=== PATIENT | male | born 1960 | race Caucasian/White ===

== ENCOUNTER 2022-09-01 16:28 | Outpatient (REF) | payer OTHER, SELFPAY ==
--- NOTE | ~2022-09-01 | XR_ITS ---
EXAMINATION: XR FOOT, RIGHT CLINICAL INFORMATION: Right-sided foot pain. COMPARISON: None TECHNIQUE: 3 views of the right foot. FINDINGS: No fracture. No dislocation. No focal bone lesion or abnormal periosteal reaction. Mild degenerative joint narrowing DIP joints of the toes. There is also joint narrowing of the first metatarsal phalangeal joint with small marginal bone spur. Joint narrowing between navicular and cuneiforms with joint narrowing and marginal bone spurs. Moderate-sized plantar calcaneal spur. No soft tissue abnormality. XR/XR foot RT min 3V IMPRESSION: 1. No acute abnormality. 2. Degenerative change of the foot. 3. Plantar calcaneal spur.
--- NOTE | ~2022-09-01 | XR_ITS ---
EXAMINATION: XR FOOT, LEFT CLINICAL INFORMATION: Left foot pain. COMPARISON: None TECHNIQUE: 3 views of the left foot. FINDINGS: No fracture. No dislocation. No focal bone lesion or abnormal periosteal reaction. Mild joint narrowing of the IP joint of the toes. There are no focal bone lesions or bone erosions. Small plantar calcaneal spur. No soft tissue abnormality. XR/XR foot LT min 3V IMPRESSION: 1. No acute abnormality. 2. Mild degenerative change of the IP joint of the toes. 3. Small plantar calcaneal spur
== END 2022-09-01 16:29 | disposition home or self-care (01) ==
LOC: HO.HMGCX 16:28
PROVIDERS: PCP Family Medicine; Visit Provider Physician Assistant Surgical
DX: M79.671 Pain in right foot (principal); M79.672 Pain in left foot
CPT/HCPCS: 73630

== ENCOUNTER 2022-10-28 14:42 | Outpatient (REF) | payer OTHER, SELFPAY ==
[2022-10-28 16:26] LABS: MANUAL DIFF FLAG NO
[2022-10-28 16:28] LABS: Basophils Absolute Auto 0.1 X10*3/uL (0.0-0.2); Basophils Percent Auto 0.9 % (0-2); Eosinophils Absolute Auto 0.2 X10*3/uL (0.0-0.4); Eosinophils Percent Auto 2.2 % (0-4); Hematocrit 40.7 % (42.0-52.0); Hemoglobin 13.4 g/dl (14.0-18.0); Imm Gran Abs Auto 0.03 X10*3/uL (0.00-0.03); Imm Gran Pct Auto 0.4 % (0.0-0.4); Lymphocytes Percent Auto 24.5 % (20-40); Mean Corpuscular HGB Conc 32.9 g/dl (31.0-36.0); Mean Corpuscular Hemoglobin 30.1 pg (27.0-33.0); Mean Corpuscular Volume 91.5 fL (80.0-98.0); Mean Platelet Volume 10.7 fL (9.4-12.4); Monocytes Absolute Auto 0.7 X10*3/uL (0.1-1.2); Monocytes Percent Auto 8.9 % (2-11); Neutrophils Absolute Auto 5.1 x10*3/uL (2.0-8.3); Neutrophils Percent Auto 63.1 % (45-73); Platelet Count 246 X10*3/uL (160-400); Red Blood Count 4.45 X10*6/uL (4.60-5.80); Red Cell Distribution Width 14.3 % (11.0-16.0); White Blood Count 8.1 X10*3/uL (4.8-10.8)
[2022-10-28 17:14] LABS: Alanine Aminotransferase 39 U/L (0-40); Albumin Level 4.1 g/dL (3.5-5.0); Alkaline Phosphatase 88 U/L (39-117); Anion Gap 12 (12-20); Aspartate Amino Transferase 32 U/L (5-37); Blood Urea Nitrogen 11 mg/dL (9-16); Calcium 8.9 mg/dL (8.4-10.2); Carbon Dioxide 27 mmol/L (22-29); Chloride 103 mmol/L (96-108); Cholesterol 209 mg/dL; Estimated Glomerular Filt Rate > 60; Glucose Random 90 mg/dL (60-115); HDL Cholesterol 62 mg/dL; LDL Cholesterol Calculated 139 mg/dl; Potassium 4.1 mmol/L (3.3-5.1); Sodium 138 mmol/L (135-145); Total Protein 6.6 g/dL (6.5-8.0); Triglycerides 42 mg/dL
[2022-10-28 17:28] LABS: Prostate Specific Antigen Scr 0.87 ng/mL (<0.05-4.0)
== END 2022-10-28 14:43 | disposition home or self-care (01) ==
LOC: HO.HMGCLDS 14:42
PROVIDERS: PCP Family Medicine; Visit Provider Family Medicine
DX: Z12.5 Encounter for screening for malignant neoplasm of prostate (principal); I26.99 Other pulmonary embolism without acute cor pulmonale; R35.0 Frequency of micturition; B35.1 Tinea unguium
CPT/HCPCS: 36415; 80053; 80061; 84153; 85025

== ENCOUNTER → 2022-12-22 13:47 | Outpatient (BNVA) | payer OTHER, SELFPAY | PROVIDERS: PCP Family Medicine; Visit Provider Urology | DX: R35.0 Frequency of micturition (principal); R35.1 Nocturia | CPT/HCPCS: 51798 ==

== ENCOUNTER 2023-01-31 13:53 | Outpatient (REF) | payer OTHER, SELFPAY ==
--- NOTE | ~2023-01-31 | US_ITS ---
EXAMINATION: US RETROPERITONEAL LIMITED (RENAL ONLY) CLINICAL INFORMATION: Frequency of micturition. COMPARISON: None available. TECHNIQUE: Routine grayscale imaging of kidneys performed. FINDINGS: RIGHT KIDNEY: 14.2 x 4.0 x 6.3 cm cm (SAG x AP x TRV). The kidney is normal in size, contour, and echogenicity. Renal cortical thickness is normal. No calculi or focal parenchymal lesions. No hydronephrosis. There is an extrarenal kidney pelvis. LEFT KIDNEY: 13.4 x 5.5 x 5.6 cm (SAG x AP x TRV). The kidney is normal in size, contour, and echogenicity. Renal cortical thickness is normal. There several echogenic stones seen. A lower pole echogenic stones measure 1.5 x 0.3 x 0.6 and 0.2 x 0.2 x 0.3 cm. Midpole stone measures 0.4 x 0.3 x 0.3). No caliectasis or hydronephrosis seen. US/US renal BI IMPRESSION: Multiple echogenic stones left kidney with mild hydronephrosis. Unremarkable right kidney except extrarenal pelvis. .
== END 2023-01-31 13:54 | disposition home or self-care (01) ==
LOC: HO.HMGCX 13:53
PROVIDERS: PCP Family Medicine; Visit Provider Urology
DX: R35.0 Frequency of micturition (principal)
CPT/HCPCS: 76775

== ENCOUNTER → 2023-02-01 14:24 | Outpatient (BNVA) | payer OTHER, SELFPAY | PROVIDERS: PCP Family Medicine; Visit Provider Urology | DX: N40.1 Benign prostatic hyperplasia with lower urinary tract symptoms (principal); R35.0 Frequency of micturition; R39.15 Urgency of urination; R35.1 Nocturia; N20.0 Calculus of kidney; N39.8 Other specified disorders of urinary system; Z79.899 Other long term (current) drug therapy | CPT/HCPCS: 51798; 52000 ==

== ENCOUNTER 2023-03-22 07:40 | Outpatient (REF) | payer OTHER, SELFPAY ==
--- NOTE | ~2023-03-22 | XR_ITS ---
EXAMINATION: XR KNEE, RIGHT CLINICAL INFORMATION: Pain in right knee COMPARISON: None available. TECHNIQUE: AP bilateral standing view of the knees was obtained. Lateral sunrise views of the right knee were also obtained. FINDINGS: No fracture or joint effusion. Alignment is anatomic. Mild narrowing of the right patellofemoral joint compartment. No abnormal soft tissue calcification. XR/XR knee RT 2V IMPRESSION: Mild narrowing of the right patellofemoral joint compartment.
--- NOTE | ~2023-03-22 | XR_ITS ---
EXAMINATION: XR KNEE AP STANDING CLINICAL INFORMATION: Pain in right knee COMPARISON: None available. TECHNIQUE: AP bilateral standing view of the knees was obtained. Lateral sunrise views of the right knee were also obtained. FINDINGS: No fracture or joint effusion. Alignment is anatomic. Mild narrowing of the right patellofemoral joint compartment. No abnormal soft tissue calcification. XR/XR knee standing BI IMPRESSION: Mild narrowing of the right patellofemoral joint compartment.
== END 2023-03-22 07:41 | disposition home or self-care (01) ==
LOC: HO.HOSX 07:40
PROVIDERS: Visit Provider Physician Assistant
DX: M17.11 Unilateral primary osteoarthritis, right knee (principal); M25.562 Pain in left knee; Z79.899 Other long term (current) drug therapy; Z91.81 History of falling
CPT/HCPCS: 20610; 73560; 73565; J1040

== ENCOUNTER 2023-03-22 12:27 | Outpatient (AMB) | payer OTHER, SELFPAY ==
--- NOTE | 2023-03-22 12:41 | MHC.OFFVIS ---
Intake Vital Signs 03/22/23 12:42 Height 6 ft Weight 245 lb BMI 33.2 Intake Visit Reasons: New Pt -Right Knee Pain Intake Note: Venancio a 62 year old male who presents today as a new patient with complaints of right knee pain. Patient reports pain presented he fell on his knees while going down his basement stairs, as well as 3 weeks ago he fell in his driveway landing on his knees and last week fell carrying a cooler. Currently walking he feels clicking/grinding. His pain is located at the lateral and anterior aspect of knee. He has pain with prolong sitting such as driving. Denies numbness or tingling. No previous tx. Finds some relief Iburpofen. He states 15 years ago he fell and cracked his kneecap. Allergies No Known Allergies Allergy (Verified 03/22/23 12:43) Medication List - Last Reconciled 03/22/23 by Reed Barnes PA-C brinzolamide-brimonidine 1-0.2 % (Simbrinza) drps ophthalmic (eye) celecoxib (Celebrex) 200 mg PO BID 30 days celecoxib (Celebrex) 200 mg PO BID 30 days latanoprostene bunod 0.024% (Vyzulta) 1 drp ophthalmic (eye) BEDTIME lisinopril 20 mg PO DAILY mirabegron ER (Myrbetriq) 25 mg PO BEDTIME multivitamin 1 tab PO DAILY omeprazole 40 mg PO DAILY pravastatin 40 mg PO DAILY tamsulosin 0.4 mg PO BID 90 days zolpidem 10 mg PO BEDTIME PRN HPI New Pt -Right Knee Pain HPI Details 62-year-old male who presents to the office today for evaluation of right knee pain s/p fall on his knee while going down the basement stairs, sustaining another fall in the driveway 3 weeks ago and another fall while carrying a cooler, about a week ago. He states he has pain in the lateral and anterior aspect of his knee which is aggravated with prolonged sitting such as driving. He also c/o clicking and grinding if his knee and experiences occasional knee giving out. He denies any numbness or tingling and has not had any treatment in the past. He finds mild relief with ibuprofen. He does not have a history of diabetes. [facility] Medical History Abnormal liver enzymes Alaniz esophagus Detached retina Eczema GERD (gastroesophageal reflux disease) Hematuria Hyperlipidemia Insomnia Mild intermittent asthma Numbness and tingling in both hands Surgical History History of detached retina repair History of wisdom tooth extraction Hx of tonsillectomy Review of Systems Const All systems reviewed & are unremarkable except as noted in HPI and below Physical Exam Vital Signs: BMI result Body Mass Index 33.2 Const General: cooperative, healthy appearing, comfortable, no acute distress, well developed and alert Orientation/consciousness: patient oriented x3 HEENT Head: Yes normal to inspection, Yes normocephalic and Yes atraumatic Eyes General: appearance normal, both eyes and all related structures Resp Effort & Inspection: normal respiratory effort and able to speak in complete sentences Cardio Rate: regular rate Peripheral pulses: Peripheral pulses 2+ throughout GI Palpation (GI): Soft to palpation Skin Lesions: no lesions Rashes: no rashes Neuro General: patient oriented x3 Extrem Other: Right knee: Skin intact, no erythema or joint effusion. Lateral retropatellar tenderness present. Full ROM with crepitus. Negative Chastity?s. No ligamentous laxity. NVI. Office Procedures Joint Injection/Drain Joint Injection/Drain Primary Site: right knee Prep: site was prepped using aseptic technique, ethochloride spray was applied and injection warnings given Injected: 80 mg of, DepoMedrol, with 8 mL of, 1% plain lidocaine and in the joint Approach Used: anterolateral Procedure: The patient tolerated the procedure well and there was some relief with the local anesthesia Coding 64144 - Glenohumeral/Tronchanteric Bursa/Intraarticular Procedure code (CPT) selection complete Results Reviewed Results Reviewed: 03/22/23 12:59 Lidocaine HCl 2 % MPF [Xylocaine 2 % MPF] 5 ml .ROUTE .STK-MED ONE methylPREDNISolone acetate [DEPO-MedroL] 80 mg .ROUTE .STK-MED ONE Xrays were obtained in the office today and personally reviewed by me show mild tricompartmental oa Assessment & Plan Assessment & Plan (1) Osteoarthritis of right knee: Code(s): M17.11 - Unilateral primary osteoarthritis, right knee Plan We discussed options today which include steroid injection. They did consent to move forward with the right knee injection, which was tolerated well. I recommended rest, ice and elevation and OTC anti-inflammatories PRN for discomfort. I also give him a prescription for Celebrex and a handout of home exercises was printed in the office today. If symptoms persist or worsens over the next 6-8 weeks, patient will contact the office, otherwise follow-up as needed. Orders: Orders XR knee RT 2V Today M25.569 - Pain in unspecified knee XR knee standing BI Today M25.561 - Pain in right knee, M25.562 - Pain in left knee Medications: New celecoxib (Celebrex) 200 mg PO BID 30 days 60 caps 3RF celecoxib (Celebrex) 200 mg PO BID 30 days 60 caps 3RF Patient Instructions: Scribed for Reed Barnes PA-C, by Jersey Jackman nuclear medicine medical director, on 03/22/2023 at 12:30 PM EST. IReed PA-C, have personally reviewed and agree with the information entered by the scribe. Coding Level of Care Code Est Pt Level 3 (46818) Diagnoses Osteoarthritis of right knee M17.11 CPT Codes Coding - Joint 7: 59885 - Glenohumeral/Tronchanteric Bursa/Intraarticular ([id number])
[2023-03-22 12:42] VITALS: BMI 33.2
== END 2023-03-22 13:23 | disposition home or self-care (01) ==
PROVIDERS: PCP Family Medicine; Visit Provider Physician Assistant
DX: M17.11 Unilateral primary osteoarthritis, right knee (principal)
CPT/HCPCS: 20610; 99204

== ENCOUNTER 2023-08-07 14:40 | Outpatient (AMB) | payer OTHER, SELFPAY ==
--- NOTE | 2023-08-07 14:47 | A.OFFVIS_ITS ---
Intake Vital Signs 08/07/23 14:50 Height 6 ft Weight 245 lb BMI 33.2 BP 123/67 Blood Pressure Location Lt brachial Position Sitting Pulse 82 Intake Visit Reasons: Colonoscopy Screening Intake Note: Patient 3rd pre colonoscopy screening. Patient cc: acid reflex on and off, denies any other GI issues. [employer] Professor Required: No Accompanied by: Self / Same As Patient Allergies No Known Allergies Allergy (Verified 08/07/23 14:46) Medication List - Last Reconciled 08/07/23 by Edwina Da Silva PA-C brinzolamide-brimonidine 1-0.2 % (Simbrinza) drps ophthalmic (eye) celecoxib (Celebrex) 200 mg PO BID 30 days celecoxib 200 mg PO BID 30 days latanoprostene bunod 0.024% (Vyzulta) 1 drp ophthalmic (eye) BEDTIME lisinopril 20 mg PO DAILY mirabegron ER (Myrbetriq) 25 mg PO BEDTIME multivitamin 1 tab PO DAILY omeprazole 40 mg PO DAILY pravastatin 40 mg PO DAILY tamsulosin 0.4 mg PO BID 90 days zolpidem 10 mg PO BEDTIME PRN HPI HPI Comments History of Present Illness Details A 63 y/o male with Alaniz's esophagus referred for screening colonoscopy- he has a history of colon polyps about 6 years ago adenoma facility. He has acid reflux fairly well controlled, he says that he has gained some weight however has been managing well He typically has a normal bowel pattern He has no respiratory or cardiac issues Had no nausea, vomiting, hematemesis, hematochezia fever or chills He works full-time [facility] Medical History Abnormal liver enzymes Alaniz esophagus Detached retina Eczema GERD (gastroesophageal reflux disease) Hematuria Hyperlipidemia Insomnia Mild intermittent asthma Numbness and tingling in both hands Surgical History History of wisdom tooth extraction Hx of tonsillectomy History of detached retina repair Social History (Updated 08/07/23 @ 15:05 by Edwina Da Silva PA-C) Household Members: Family Household Members Other:: Alcohol intake: former Patient Tobacco Use Status: Never used Tobacco Review of Systems Const All systems reviewed & are unremarkable except as noted in HPI and below Denies chills and Denies fever(s) Card Denies chest pain GI Denies abdominal pain, Denies hematochezia, Denies change in bowel habits, Denies heartburn, Denies nausea and Denies vomiting Physical Exam Vital Signs: Last Vital Signs Pulse 82 08/07/23 14:50 BP 123/67 08/07/23 14:50 BMI result Body Mass Index 33.2 Const General: cooperative, healthy appearing, comfortable, no acute distress and well developed Orientation/consciousness: patient oriented x3 Limitations: no limitations Resp Effort & Inspection: normal respiratory effort and able to speak in complete sentences Auscultation: clear to auscultation bilaterally, no rales and no rhonchi Cardio Rate: regular rate Rhythm: regular rhythm Heart sounds: S1 normal heart sound present and S2 normal heart sound present GI Palpation (GI): Soft to palpation and nontender Auscultation: normal bowel sounds Skin General skin exam: no rashes or lesions noted Neuro General: patient oriented x3 Extrem General: Yes full ROM Psych Appearance: grossly normal and well kempt Speech and movement: Normal speech and movement present Affect: normal affect Attitude: cooperative Thought process: Normal thought process present Thought content: Normal thought content present Insight: Good insight present (Psych) Judgement: Good judgement present (Psych) Results Reviewed Results Reviewed: Review labs from 10/2022 mild anemia Assessment & Plan Assessment & Plan (1) Colon polyps: Comment: Very pleasant Gent Previous colonoscopy another facility Discussed procedure, rare risk need for escorted due to anesthesia Code(s): K63.5 - Polyp of colon Plan: Due for polyp surveillance (2) History of Alaniz's esophagus: Comment: Last EGD 6 years ago-needs updated eval Well-controlled acid reflux PPI daily Code(s): Z87.19 - Personal history of other diseases of the digestive system Plan: EGD Alaniz's surveillance Plan EGD and colonoscopy MiraLax Gatorade prep Orders: Orders EGD/Chesaning Combo - GI Use Only Today K63.5 - Polyp of colon, Z87.19 - Personal history of other diseases of the digestive system Medications: New bisacodyl (Dulcolax (bisacodyl)) Day before procedure, prep day Take 4 tablets by mouth upon awakening followed by large glass of water 20 mg (4 x 5 mg) PO ONCE 1 day 4 tabs 0RF colonoscopy prep Z12.11 - Encounter for screening for malignant neoplasm of colon polyethylene glycol 3350 (Miralax) Take as directed by mouth the day before your procedure. 238 grams PO ONCE 1 day PRN 238 grams 0RF laxative effect Patient Instructions: EGD and colonoscopy MiraLax Gatorade prep, reviewed literature given Scheduled with Dr. Quinonez Encouraged to call with questions or concerns Appreciate the opportunity assist in the care pleasant Gent Coding Level of Care Code New Pt Level 3 (45907) Diagnoses Colon polyps K63.5 History of Alaniz's esophagus Z87.19 Time Spent (min) 25
[2023-08-07 14:50] VITALS: BP 123/67; PULSE 82; BMI 33.2
== END 2023-08-07 16:23 | disposition home or self-care (01) ==
PROVIDERS: PCP Family Medicine; Visit Provider Physician Assistant
DX: K63.5 Polyp of colon (principal); Z87.19 Personal history of other diseases of the digestive system
CPT/HCPCS: 99203

== ENCOUNTER → 2023-08-07 14:40 | Outpatient (BNVA) | payer OTHER, SELFPAY | PROVIDERS: PCP Family Medicine; Visit Provider Physician Assistant ==

== ENCOUNTER 2023-08-09 09:23 | Day surgery (SDC) | payer OTHER, SELFPAY ==
--- NOTE | 2023-08-08 12:24 | P.CONAN_ITS ---
Documented by User: Nuzhat Aldana NP 08/08/23 12:24 HPI - Anesthesia Eval Consult details Narrative: 63yo M for Upper Endoscopy and Colonoscopy [facility] Active Problems Active Problems: All Active Problems (Updated 08/07/23 @ 15:20 by Edwina Da Silva PA-C) Colon polyps (Acute) History of Alaniz's esophagus (Acute) Osteoarthritis of right knee (Acute) Kidney stones (Acute) Screening PSA (prostate specific antigen) (Acute) BPH (benign prostatic hyperplasia) (Acute) Nocturia (Acute) Urinary urgency (Acute) Urinary frequency (Acute) Past Medical History Medical History Numbness and tingling in both hands Detached retina Eczema GERD (gastroesophageal reflux disease) Hyperlipidemia Abnormal liver enzymes Hematuria Insomnia Mild intermittent asthma Alaniz esophagus Surgical History Surgical History Hx of bilateral cataract extraction History of esophagogastroduodenoscopy (EGD) H/O colonoscopy History of wisdom tooth extraction Hx of tonsillectomy History of detached retina repair Social History Social History Household Members: Family Household Members Other:: Alcohol intake: former Patient Tobacco Use Status: Never used Tobacco Advance Directives: No Advance Directives Information Provided: Yes Meds Allergies Allergy/AdvReac Type Severity Reaction Status Date / Time No Known Allergies Allergy Verified 08/09/23 09:40 Home Medications Medication Instructions Recorded Confirmed Last Taken Type lisinopril 20 mg tablet 20 mg PO DAILY 12/20/22 08/07/23 Unknown History multivitamin 1 tab PO DAILY 12/20/22 08/07/23 Unknown History omeprazole 40 mg capsule,delayed 40 mg PO DAILY 12/20/22 08/07/23 Unknown History release pravastatin 40 mg tablet 40 mg PO DAILY 12/20/22 08/07/23 Unknown History zolpidem 10 mg tablet 10 mg PO BEDTIME PRN 12/20/22 08/07/23 Unknown History brinzolamide 1 %-brimonidine 0.2 % drp ophthalmic (eye) 03/22/23 08/07/23 Unknown History eye drops,suspension (Simbrinza) latanoprostene bunod 0.024 % eye 1 drp ophthalmic (eye) BEDTIME 03/22/23 08/07/23 Unknown History drops (Vyzulta) Assessment and Plan Assessment Anesthesia Assessment: Chart Reviewed Documented by User: Melva Aranda MD 08/09/23 09:42 HPI - Anesthesia Eval Consult details Narrative: 63yo M for Upper Endoscopy and Colonoscopy , daily marihuama smoker . [facility] Past Medical History Medical History Numbness and tingling in both hands Detached retina Eczema GERD (gastroesophageal reflux disease) Hyperlipidemia Abnormal liver enzymes Hematuria Insomnia Mild intermittent asthma Alaniz esophagus Family History Family history of problems with anesthesia: No Surgical History Surgical History Hx of bilateral cataract extraction History of esophagogastroduodenoscopy (EGD) H/O colonoscopy History of wisdom tooth extraction Hx of tonsillectomy History of detached retina repair History of Problems with Anesthesia: No Social History Social History Household Members: Family Household Members Other:: Alcohol intake: former Patient Tobacco Use Status: Never used Tobacco Advance Directives: No Advance Directives Information Provided: Yes Meds Allergies Allergy/AdvReac Type Severity Reaction Status Date / Time No Known Allergies Allergy Verified 08/09/23 09:40 Home Medications Medication Instructions Recorded Confirmed Last Taken Type lisinopril 20 mg tablet 20 mg PO DAILY 12/20/22 08/07/23 Unknown History multivitamin 1 tab PO DAILY 12/20/22 08/07/23 Unknown History omeprazole 40 mg capsule,delayed 40 mg PO DAILY 12/20/22 08/07/23 Unknown History release pravastatin 40 mg tablet 40 mg PO DAILY 12/20/22 08/07/23 Unknown History zolpidem 10 mg tablet 10 mg PO BEDTIME PRN 12/20/22 08/07/23 Unknown History brinzolamide 1 %-brimonidine 0.2 % drp ophthalmic (eye) 03/22/23 08/07/23 Unknown History eye drops,suspension (Simbrinza) latanoprostene bunod 0.024 % eye 1 drp ophthalmic (eye) BEDTIME 03/22/23 08/07/23 Unknown History drops (Vyzulta) Exam Airway Mallampati Class: III TM Dist: <=3cm Neck ROM: Full Heart: rrr Lungs: cta Assessment and Plan Assessment Anesthesia Assessment: Anesthesia Plan Discussed and Smoking Cess. Discussed Final Anesthetic Review Family History of Problems with Anesthesia: No History of Problems with Anesthesia: No NPO: Yes ASA Class: III (morbid obesity ) Final Preanesthetic Review: No Changes in Pt Med Stat, Meds/Allgs Chart Reviewed, Consent Obtained/Reviewed and Anes Risks/Benef Reviewed Patient Risk: Intermediate Procedure Risk: Low Anesthetic Plan Anesthetic Plan: MAC: Disposition: Standard PACU
[2023-08-09 09:43] VITALS: BP 130/70; PULSE 86; RESP 15; TEMP 36.8; O2SAT 95; BMI 35.4
--- NOTE | 2023-08-09 10:01 | HO.ANESPROP2 ---
[facility] Active Problems Active Problems: All Active Problems (Updated 08/07/23 @ 15:20 by Edwina Da Silva PA-C) Colon polyps (Acute) History of Alaniz's esophagus (Acute) Osteoarthritis of right knee (Acute) Kidney stones (Acute) Screening PSA (prostate specific antigen) (Acute) BPH (benign prostatic hyperplasia) (Acute) Nocturia (Acute) Urinary urgency (Acute) Urinary frequency (Acute) Past Medical History Medical History Numbness and tingling in both hands Detached retina Eczema GERD (gastroesophageal reflux disease) Hyperlipidemia Abnormal liver enzymes Hematuria Insomnia Mild intermittent asthma Alaniz esophagus Family History Family history of problems with anesthesia: No Surgical History Surgical History Hx of bilateral cataract extraction History of esophagogastroduodenoscopy (EGD) H/O colonoscopy History of wisdom tooth extraction Hx of tonsillectomy History of detached retina repair History of Problems with Anesthesia: No Social History Social History Household Members: Family Household Members Other:: Alcohol intake: former Patient Tobacco Use Status: Never used Tobacco Use of substances other than those prescribed or required for medical reasons: No Are you DNR?: No Advance Directives: No Advance Directives Information Provided: Yes Meds Allergies Allergy/AdvReac Type Severity Reaction Status Date / Time No Known Allergies Allergy Verified 08/09/23 09:40 Active Medications: Current Medications Albuterol Sulfate (Albuterol Sulfate (0.083%) 2.5 Mg/3 Ml Vial.Neb) 2.5 mg INHALE ONCE PRN PRN Reason: Shortness of Breath/Wheezing Lactated Ringer's (Lr) 1,000 mls @ 100 mls/hr IVCONT .Q10H [facility] Home Medications Medication Instructions Recorded Confirmed Last Taken Type lisinopril 20 mg tablet (Zestril) 20 mg PO DAILY 12/20/22 08/09/23 Unknown History multivitamin (Multiple Vitamins 1 tab PO DAILY 12/20/22 08/09/23 Unknown History tablet) omeprazole 40 mg capsule,delayed 40 mg PO DAILY 12/20/22 08/09/23 08/09/23 05:00 History release pravastatin 40 mg tablet 40 mg PO DAILY 12/20/22 08/09/23 Unknown History zolpidem 10 mg tablet (Ambien) 10 mg PO BEDTIME PRN Insomnia 12/20/22 08/09/23 Unknown History brinzolamide 1 %-brimonidine 0.2 % 1 drp ophthalmic (eye) DAILY 03/22/23 08/09/23 Unknown History eye drops,suspension (Simbrinza) latanoprostene bunod 0.024 % eye 1 drp ophthalmic (eye) BEDTIME 03/22/23 08/09/23 Unknown History drops (Vyzulta) tamsulosin 0.4 mg capsule (Flomax) 0.4 mg PO BID 08/09/23 08/09/23 08/09/23 05:00 History Exam Height,Weight and Vital Signs: Height 6 ft Weight 118.388 kg Last Vital Signs Temp 98.2 F 08/09/23 09:43 Pulse 86 08/09/23 09:43 Resp 15 08/09/23 09:43 BP 130/70 08/09/23 09:43 Pulse Ox 95 08/09/23 09:43 O2 Del Method Room Air 08/09/23 09:43 Airway Mallampati Class: II TM Dist: >3cm Neck ROM: Full Heart: rrr Lungs: cta Assessment and Plan Assessment Anesthesia Assessment: Anesthesia Plan Discussed and Chart Reviewed Final Anesthetic Review Family History of Problems with Anesthesia: No History of Problems with Anesthesia: No NPO: Yes ASA Class: III Final Preanesthetic Review: No Changes in Pt Med Stat, Meds/Allgs Chart Reviewed and Consent Obtained/Reviewed Patient Risk: Intermediate Procedure Risk: Low Anesthetic Plan Anesthetic Plan: MAC: Disposition: Standard PACU
[2023-08-09] MEDS: Lactated Ringers 1,000 ML 100 ML IVCONT (10:05)
--- NOTE | 2023-08-09 10:29 | MHC.SHP ---
Pre-Procedural Eval Section A Date of Service: 08/09/23 Section B Chief Complaint: Personal history of other diseases of the digestiv Relevant Family History (Specify if Yes): No Relevant Social History: None Present Medications: see Short Stay Collaborative assessment Medical History: Significant History ( Abnormal liver enzymes Alaniz esophagus Detached retina Eczema GERD (gastroesophageal reflux disease) Hematuria Hyperlipidemia Insomnia Mild intermittent asthma Numbness and tingling in both hands) History of Previous Operations: Relevant previous surgery/procedure and date(s) (History of wisdom tooth extraction Hx of tonsillectomy History of detached retina repair) Allergies: Allergies Allergy/AdvReac Type Severity Reaction Status Date / Time No Known Allergies Allergy Verified 08/09/23 09:40 Review of Systems Sugical H&P ROS: Negative: Constitution, Cardiovascular, Respiratory, Neurological, Psychiatric, Hem-Onc, Allergic/Immunologic, Gastrointestinal, Genitourinary, Musculoskeletal, Integumentary, Endocrine and Eyes/Ears/Nose/Throat Exam Surgical H&P Exam: Normal: HEENT, Normal: Heart, Normal: Lungs, Normal: Extremities, Normal: Abdomen, Normal: Skin and Normal: Neurological Plan Diagnosis/Plan: Unchanged I have reviewed the history and physical and performed a pertinent physical examination on my patient. No changes have occurred unless specified. Time Spent With Patient Time: Total time managing care of this patient today ____ minutes.
--- NOTE | 2023-08-09 10:32 | W.PM.OPN ---
Operative Note Operative Note Date of Service: 08/09/23 Narrative: Operative Information Procedure Description: EGD, Colonoscopy Indication: barretts and screening, hx of colon polyps Anesthesia: MAC FLEXIBLE TRANSORAL UPPER GASTROINTESTINAL ENDOSCOPY AND COLONOSCOPY PROCEDURE NOTE UPPER ENDOSCOPY Consent: Indications for the procedure and potential complications of bleeding, perforation, reaction to medications and missed diagnosis were discussed with the patient and informed consent was obtained. Instrument: Olympus GIF H 190 J mid size upper endoscope Monitoring: Vital signs and clinical assessment, continuous EKG monitoring, Pulse oximetry, Carbon Dioxide monitoring and blood pressure monitoring were done throughout the procedure. Procedure: The patient was placed in the left lateral decubitis position and pre-procedure medications were administered and a bite block was placed. The endoscope was inserted into the mouth and advanced under direct vision to the third part of duodenum. A careful inspection was made as the upper endoscope was withdrawn including a retroflexed examination of the proximal stomach; Findings and interventions are described below. Findings: Larynx:normal Esophagus: GE junction at 36 cm, diaphragm hiatus at 40 cm, consistent with 4 cm fixed hiatal hernia, suspected short segment barretts mucosa tongues noted, brushings and bx taken Stomach: Normal mucosa. Grade 2 flap valve on retroflexed examination of the cardia. hiatal hernia noted Duodenum: Normal bulb and descending duodenum, Intervention: Biopsies as noted above, brushings COLONOSCOPY Instrument: Olympus variable stiffness pediatric scope 190L Colonoscopy Monitoring: Vital signs and clinical assessment, continuous EKG monitoring, Pulse oximetry, Carbon Dioxide monitoring and blood pressure monitoring were done throughout the procedure. Colon withdrawal time was 8 minutes. Procedure: The patient was placed in the left lateral decubitis position and pre-procedure medications were administered. After a digital rectal examination of the ano-rectum, the video colonoscope was inserted into the rectum and advanced through the colon to the cecum/TI. The colonoscope was slowly withdrawn in a retrograde panoramic fashion and the colon mucosa was carefully examined including a retroflexed view of the rectum. Findings and interventions are described below. Procedure Difficulty:moderate Findings: Terminal Ileum-normal Cecum:normal Ascending Colon: normal Transverse Colon -normal Descending Colon:normal Sigmoid Colon: moderate diverticulosis Rectum: Retroflexion with small internal hemorrhoids, grade I Anorectum - normal Colon preparation: Williamson Bowel Preparation Scale Right colon; 2 Transverse colon: 2 Left colon; 2 (0 = Unprepared colon segment with mucosa not seen due to solid stool that cannot be cleared. 1 = Portion of mucosa of the colon segment seen, but other areas of the colon segment not well seen due to staining, residual stool and/or opaque liquid. 2 = Minor amount of residual staining, small fragments of stool and/or opaque liquid, but mucosa of colon segment seen well. 3 = Entire mucosa of colon segment seen well with no residual staining, small fragments of stool or opaque liquid) Impression and Post Procedure Diagnosis: Endoscopy Findings: hiatal hernia barretts Colonoscopy Findings: internal hemorrhoids diverticular disease Plan: Await Pathology results Repeat Colonoscopy in 5-7 years due to prior hx of unknown polyps or earlier if clinically indicated High fiber diet leaflet avoid straining at stool, epsom salts and sitz bath, anusol supps or cream repeat EGD in 3-5 yrs, cont with PPI, if worsening reflux sx refer for surg eval of hiatal hernia Above findings were reviewed with the patient and relevant handouts were provided if indicated.
[2023-08-09 12:00] VITALS: BP 90/40; PULSE 89; RESP 18; TEMP 37.4; O2SAT 94
[2023-08-09 12:19] VITALS: BP 118/77; PULSE 72; RESP 72; TEMP 36.1; O2SAT 97
== END 2023-08-09 12:45 | disposition home or self-care (01) ==
PROVIDERS: PCP Family Medicine; Visit Provider Internal Medicine Gastroenterology
PROC: (CPT 45378; principal; 2023-08-09 11:50)
DX: Z12.11 Encounter for screening for malignant neoplasm of colon (principal); Z86.010 Personal history of colon polyps; K57.30 Diverticulosis of large intestine without perforation or abscess without bleeding; K64.0 First degree hemorrhoids; K22.70 Barrett's esophagus without dysplasia; K20.80 Other esophagitis without bleeding; K44.9 Diaphragmatic hernia without obstruction or gangrene; K21.9 Gastro-esophageal reflux disease without esophagitis; E78.5 Hyperlipidemia, unspecified; J45.20 Mild intermittent asthma, uncomplicated; R94.5 Abnormal results of liver function studies; R20.0 Anesthesia of skin; R20.2 Paresthesia of skin; Z79.899 Other long term (current) drug therapy
CPT/HCPCS: 45378; 43239; 88305; J2704

== ENCOUNTER → 2023-08-09 09:23 | Outpatient (BNV) | payer OTHER, SELFPAY | PROVIDERS: PCP Family Medicine; Visit Provider Internal Medicine Gastroenterology | DX: Z12.11 Encounter for screening for malignant neoplasm of colon (principal); Z86.010 Personal history of colon polyps; K64.0 First degree hemorrhoids; K57.30 Diverticulosis of large intestine without perforation or abscess without bleeding; K22.70 Barrett's esophagus without dysplasia | CPT/HCPCS: 43239; 45378 ==

== ENCOUNTER 2023-10-19 12:23 | Outpatient (REF) | payer OTHER, SELFPAY ==
[2023-10-19 16:59] LABS: PSA,Total (Free>4and<10) 0.94 ng/mL (0.00-4.00)
== END 2023-10-19 12:24 | disposition home or self-care (01) ==
LOC: HO.HMGCLDS 12:23
PROVIDERS: PCP Family Medicine; Visit Provider Urology
DX: Z12.5 Encounter for screening for malignant neoplasm of prostate (principal)
CPT/HCPCS: 36415; 84153

== ENCOUNTER 2023-10-30 14:04 | Outpatient (AMB) | payer OTHER, SELFPAY ==
--- NOTE | 2023-10-30 14:10 | A.OFFVIS_ITS ---
Intake Intake Visit Reasons: 9m/PSA Intake Note: Patient is present for a 9 months follow-up/PSA results: 0.94 ng/mL, 10/19/2023 Urology Med: Tamsulosin 0.4 mg Antibiotic Allergy: None Blood Thinner: None PVR: 18 ml Photolith Operator Required: No Accompanied by: Self / Same As Patient Allergies No Known Allergies Allergy (Verified 10/30/23 14:11) Medication List - Last Reconciled 10/30/23 by Saba Salgado MD brinzolamide-brimonidine 1-0.2 % (Simbrinza) 1 drp ophthalmic (eye) DAILY celecoxib (Celebrex) 200 mg PO BID 30 days latanoprostene bunod 0.024% (Vyzulta) 1 drp ophthalmic (eye) BEDTIME lisinopril (Zestril) 20 mg PO DAILY multivitamin (Multiple Vitamins tablet) 1 tab PO DAILY omeprazole 40 mg PO DAILY pravastatin 40 mg PO DAILY tamsulosin (Flomax) 0.4 mg PO BID zolpidem (Ambien) 10 mg PO BEDTIME PRN HPI HPI Comments History of Present Illness Details 10/30/2023--Johann is a 63 year old male w ho has complaints of urinary frequency and urgency during the day and night. He states that he is up 6-8 times at nighttime. He states he cut back on coffee intake from 24-16 oz. He does not feel that made a difference. He has a history of kidney stones. He was last seen 02/01/2023 I prescribed Myrbetriq 25 mg, he states he took the medication for about a week but did not feel it helped he felt it made him go more often at nighttime. He states that he has used Ambien to help him sleep and when he takes Ambien he gets up about 2 times at night however he does not want to have to take Ambien all the time. He states that he drinks a good amount of water during the day but does not think that he is drinking is excessively. Review of chart: 02/01/2023-- Venancio is a 62-year-old male w ho presents to the office for urinary symptoms of frequency and urgency follow-up. The patient is taking Flomax 0.4 mg BID with some benefits during the day but now states he is up some nights up to 10 times. and 4-5 episodes on other nights. The patient has cut back on coffee intake ---consumes 16 ounces of coffee in the morning and does not consume coffee after 6 PM. States consuming 64 ounces of water. Evaluation today-- Blood: negative, leukocytes: negative. Bladder scan PVR: 11 mL. US retroperitoneal results reviewed--01/31/23--Several echogenic stones seen in the left kidney. On exam-- prostate is smooth, no suspicious nodules palpated. Cystoscopy findings-- no suspicious bladder lesion visualized. Mild bladder wall thickening Plan: Will follow Kidney stones CAT scan in 9 months Discussed to cut down daily coffee consumption by 10 ounces. Nocturia. Urinary Frequency. Myrbetriq 25 mg QD was ordered. PSA screening. Follow-up after 9 months. 12/22/22--Venancio is a 62-year-old male pat ient who presents to the office as a new patient evaluation for urinary frequency. The patient states worsening of his urinary symptoms 6 weeks ago. He reports nocturia episodes 3-4 times at night and occasionally after half to one hour at night. Reports voiding 20 times in the day. The patient is taking tamsulosin 0.4 mg QD and lisinopril 20 mg. patient states consuming 24 ounces of caffiene in a day. It was discussed that with age the prostate gets larger, it can affect the flow of the urine and over time the bladder muscle may apply more pressure to start the urine stream and in doing so the bladder muscle can start to thicken and change which can cause bladder spasm with symptoms of urgency and frequency. Evaluation today: Blood: negative, leukocytes: negative. Bladder scan PVR: 17 mL. PSA results reviewed--10/28/22-- 0.87. AUA symptom score: 21. Plan:Renal/bladder US was ordered. Tamsulosin 0.4 mg BID was ordered. Discussed to limit down on water consumption after 6 pm. Discussed to cut down to 12 ounces of coffee in a day. Cystoscopy discussed to be scheduled pending US results. Follow-up after 6 weeks 10/30/2023--PLAN: 24 hour urine collection Telehealth follow-up to discuss [facility] Medical History HTN (hypertension) Numbness and tingling in both hands Detached retina Eczema GERD (gastroesophageal reflux disease) Hyperlipidemia Abnormal liver enzymes Hematuria Insomnia Mild intermittent asthma Alaniz esophagus Surgical History Hx of bilateral cataract extraction History of esophagogastroduodenoscopy (EGD) H/O colonoscopy History of wisdom tooth extraction Hx of tonsillectomy History of detached retina repair Social History Household Members: Family Household Members Other:: Alcohol intake: former Patient Tobacco Use Status: Never used Tobacco Review of Systems Const All systems reviewed & are unremarkable except as noted in HPI and below Reports no additional complaints Eyes Reports no additional complaints ENT Reports no additional complaints Card Denies dyspnea Resp Denies cough and Denies dyspnea GI Reports no additional complaints Musc Reports no additional complaints Skin/Breast Denies rash and Denies unusual bruising Neuro Reports no additional complaints Psych Reports no additional complaints Endo Reports no additional complaints Ivan/Lymph Reports no additional complaints Aller/Immun Reports no additional complaints Office Procedures Post Void Residual Post Residual Void Post Void Residual (PVR): 18 [id number] Void Residual by ultrasound Results AMB Urinalysis, Automated UA Leukoctes 0 Gabriela/uL Last Edit by DAVID Mattson on 10/30/23 14:55 UA Nitrite Negative Last Edit by DAVID Mattson on 10/30/23 14:55 UA Urobilinogen 0.2 mg/dL Last Edit by DAVID Mattson on 10/30/23 14:5 5 UA Protein 0 mg/dL Last Edit by DAVID Mattson on 10/30/23 14:55 UA pH 6.5 Last Edit by DAVID Mattson on 10/30/23 14:55 UA Blood 0 Taurus/uL Last Edit by DAVID Mattson on 10/30/23 14:55 UA Specific [place] 1.015 Last Edit by DAVID Mattson on 10/30/23 14: 55 UA Ketone Negative Last Edit by DAVID Mattson on 10/30/23 14:55 UA Bilirubin 0 mg/dL Last Edit by DAVID Mattson on 10/30/23 14:55 UA Glucose 0 mg/dL Last Edit by DAVID Mattson on 10/30/23 14:55 Results Reviewed Results Reviewed: Laboratory Last Values Urine pH (Auto) 6.5 10/30/23 14:52 Specific [place] (Auto) 1.015 10/30/23 14:52 Urine Protein (Auto) 0 mg/dL 10/30/23 14:52 Glucose (UA)(Auto) 0 mg/dL 10/30/23 14:52 Urine Ketones (Auto) Negative 10/30/23 14:52 Urine Blood (Auto) 0 Taurus/uL 10/30/23 14:52 Urine Nitrite (Auto) Negative 10/30/23 14:52 Urine Bilirubin (Auto) 0 mg/dL 10/30/23 14:52 Urine Urobilinogen (Auto) 0.2 mg/dL 10/30/23 14:52 Leukocyte Esterase (Auto) 0 Gabriela/uL 10/30/23 14:52 Assessment & Plan Assessment & Plan (1) Urinary frequency: Code(s): R35.0 - Frequency of micturition (2) Urinary urgency: Code(s): R39.15 - Urgency of urination (3) Nocturia: Code(s): R35.1 - Nocturia (4) BPH (benign prostatic hyperplasia): Code(s): N40.0 - Benign prostatic hyperplasia without lower urinary tract symptoms (5) Screening PSA (prostate specific antigen): Code(s): Z12.5 - Encounter for screening for malignant neoplasm of prostate (6) Kidney stones: Code(s): N20.0 - Calculus of kidney Plan 24 hour urine collection Continue tamsulosin 0.4 mg b.i.d. Orders: Orders AMB Urinalysis Automated Today Z13.9 - Encounter for screening, unspecified AMB Post Void Residual by ultrasound Today N39.8 - Other specified disorders of urinary system Medications: New tamsulosin (Flomax) 0.4 mg PO BID 60 caps 4RF Patient Instructions: The patient had an opportunity to ask questions regarding treatment plan. All questions were answered. Imaging, Laboratory studies and physical exam results were discussed and reviewed in detail. No major barriers to understanding were identified. The patient expressed understanding and agreement with the above treatment plan. The patient is aware they should contact our office by phone for worsening of their current condition or the appearance of new symptoms. Compliance is encouraged with any medications and followup testing that is ordered. It is a privilege to be allowed the opportunity to participate in the urologic care of your patient. If you have any questions or concerns regarding treatment for the above conditions please do not hesitate to contact me. The office telephone contact is [phone]. This note is constructed in part using voice recognition software. While every effort has been made to ensure accuracy banking paralegal errors may have been included. Yours sincerely, Saba Salgado MD Coding Level of Care Code Est Pt Level 4 (85476) Diagnoses Urinary frequency R35.0 Urinary urgency R39.15 Nocturia R35.1 BPH (benign prostatic hyperplasia) N40.0 Screening PSA (prostate specific antigen) Z12.5 Kidney stones N20.0 CPT Codes Post Residual Void - PVR CPT Code: 56072-[id number] Void Residual by ultrasound ([id number])
== END 2023-10-30 15:32 | disposition home or self-care (01) ==
PROVIDERS: PCP Family Medicine; Visit Provider Urology
DX: R35.0 Frequency of micturition (principal); R39.15 Urgency of urination; R35.1 Nocturia; N40.0 Benign prostatic hyperplasia without lower urinary tract symptoms; Z12.5 Encounter for screening for malignant neoplasm of prostate; N20.0 Calculus of kidney; Z13.9 Encounter for screening, unspecified
CPT/HCPCS: 99214

== ENCOUNTER → 2023-10-30 14:04 | Outpatient (BNVA) | payer OTHER, SELFPAY | PROVIDERS: PCP Family Medicine; Visit Provider Urology | DX: N40.1 Benign prostatic hyperplasia with lower urinary tract symptoms (principal); R35.0 Frequency of micturition; R39.15 Urgency of urination; R35.1 Nocturia; N20.0 Calculus of kidney; Z79.899 Other long term (current) drug therapy | CPT/HCPCS: 51798; 81003 ==

== ENCOUNTER 2023-12-01 06:37 | Outpatient (REF) | payer OTHER, SELFPAY ==
[2023-12-01 10:38] LABS: MANUAL DIFF FLAG NO
[2023-12-01 10:51] LABS: Basophils Absolute Auto 0.1 X10*3/uL (0.0-0.2); Basophils Percent Auto 0.8 % (0-2); Eosinophils Absolute Auto 0.2 X10*3/uL (0.0-0.4); Eosinophils Percent Auto 2.4 % (0-4); Hematocrit 41.3 % (42.0-52.0); Hemoglobin 13.7 g/dl (14.0-18.0); Imm Gran Abs Auto 0.01 X10*3/uL (0.00-0.03); Imm Gran Pct Auto 0.2 % (0.0-0.4); Lymphocytes Absolute Auto 1.7 X10*3/uL (1.2-4.9); Lymphocytes Percent Auto 26.3 % (20-40); Mean Corpuscular HGB Conc 33.2 g/dl (31.0-36.0); Mean Corpuscular Hemoglobin 30.6 pg (27.0-33.0); Mean Corpuscular Volume 92.2 fL (80.0-98.0); Mean Platelet Volume 10.8 fL (9.4-12.4); Monocytes Absolute Auto 0.6 X10*3/uL (0.1-1.2); Monocytes Percent Auto 9.9 % (2-11); Neutrophils Absolute Auto 3.9 x10*3/uL (2.0-8.3); Neutrophils Percent Auto 60.4 % (45-73); Platelet Count 249 X10*3/uL (160-400); Red Blood Count 4.48 X10*6/uL (4.60-5.80); Red Cell Distribution Width 13.5 % (11.0-16.0); White Blood Count 6.4 X10*3/uL (4.8-10.8)
[2023-12-01 11:15] LABS: Prostate Specific Antigen 0.83 ng/mL (<0.05-4.0)
[2023-12-01 11:40] LABS: Alanine Aminotransferase 17 U/L (0-40); Alkaline Phosphatase 66 U/L (39-117); Anion Gap 10 (12-20); Aspartate Amino Transferase 17 U/L (5-37); Bilirubin Total 0.5 mg/dL (0.0-1.0); Blood Urea Nitrogen 27 mg/dL (9-16); Calcium 9.4 mg/dL (8.4-10.2); Carbon Dioxide 25 mmol/L (22-29); Chloride 106 mmol/L (96-108); Cholesterol 203 mg/dL (<200); Estimated Glomerular Filt Rate > 60; Glucose Random 103 mg/dL (60-115); HDL Cholesterol 52 mg/dL (>40); LDL Cholesterol Calculated 143 mg/dL (<100); Potassium 4.7 mmol/L (3.3-5.1); Sodium 136 mmol/L (135-145); Thyroid Stimulating Hormone 0.98 uIU/mL (0.32-4.0); Total Protein 6.9 g/dL (6.5-8.0); Triglycerides 44 mg/dL (<150)
[2023-12-01 12:00] LABS: Alanine Aminotransferase 15 U/L (0-40); Alkaline Phosphatase 68 U/L (39-117); Aspartate Amino Transferase 19 U/L (5-37); Bilirubin Direct 0.2 mg/dL (0.0-0.5); Bilirubin Total 0.5 mg/dL (0.0-1.0); Total Protein 6.9 g/dL (6.5-8.0)
== END 2023-12-01 06:38 | disposition home or self-care (01) ==
LOC: HO.HMGCLDS 06:37
PROVIDERS: PCP Family Medicine; Referring Provider Podiatrist; Visit Provider Family Medicine
DX: Z00.00 Encounter for general adult medical examination without abnormal findings (principal); Z13.6 Encounter for screening for cardiovascular disorders; Z12.5 Encounter for screening for malignant neoplasm of prostate; B35.1 Tinea unguium
CPT/HCPCS: 36415; 80053; 80061; 80076; 82248; 84153; 84443; 85025

== ENCOUNTER 2024-02-15 10:18 | Outpatient (AMB) | payer OTHER, SELFPAY ==
--- NOTE | 2024-02-15 10:18 | A.OFFVIS_ITS ---
Intake Visit Reasons: Frequent urination Intake Note: Venancio is a 63 year old male who is a telehealth visit for frequent urination. Patient had a urine test done a few months and would like to know the results. Allergies No Known Allergies Allergy (Verified 02/15/24 10:21) Medication List - Last Reconciled 02/15/24 by Saba Salgado MD brinzolamide-brimonidine 1-0.2 % (Simbrinza) 1 drp ophthalmic (eye) DAILY celecoxib (Celebrex) 200 mg PO BID 30 days latanoprostene bunod 0.024% (Vyzulta) 1 drp ophthalmic (eye) BEDTIME lisinopril (Zestril) 20 mg PO DAILY multivitamin (Multiple Vitamins tablet) 1 tab PO DAILY omeprazole 40 mg PO DAILY pravastatin 40 mg PO DAILY tamsulosin (Flomax) 0.4 mg PO BID zolpidem (Ambien) 10 mg PO BEDTIME PRN HPI Comments Details: 02/15/24--telehealth follow-up. Lower urinary tract symptoms frequency, nocturia, left nephrolithiasis. Discussed 24 hour urine results: Total volume 2.99 L, Calcium 295 mg; Oxalate 27 mg, Sodium 208, Citrate 877 mg. Instructed on importance of fluid intake, Low oxalate diet, low sodium diet. The patient stated that he was taking Tums due to gastric reflux at the time of the urine collection. He has now stopped taking the Tums. He is still pitting up frequently at night we discussed cutting back on some fluids down to about 2.5 L and cutting back on coffee volume (currently 24 oz), will trial another anticholinergic oxybutynin 10 mg in the evening continue tamsulosin b.i.d. the patient is instructed to call the nurse line for any issues related to the new medication or other questions. Follow-up in 1 year renal ultrasound at that time. Review of chart: 10/30/2023--Johann is a 63 year old male who has complaints of urinary frequency and urgency during the day and night. He states that he is up 6-8 times at nighttime. He states he cut back on coffee intake from 24-16 oz. He does not feel that made a difference. He has a history of kidney stones. He was last seen 02/01/2023 I prescribed Myrbetriq 25 mg, he states he took the medication for about a week but did not feel it helped he felt it made him go more often at nighttime. He states that he has used Ambien to help him sleep and when he takes Ambien he gets up about 2 times at night however he does not want to have to take Ambien all the time. He states that he drinks a good amount of water during the day but does not think that he is drinking is excessively. 02/01/2023-- Venancio is a 62-year-old male who presents to the office for urinary symptoms of frequency and urgency follow-up. The patient is taking Flomax 0.4 mg BID with some benefits during the day but now states he is up some nights up to 10 times. and 4-5 episodes on other nights. The patient has cut back on coffee intake ---consumes 16 ounces of coffee in the morning and does not consume coffee after 6 PM. States consuming 64 ounces of water. UA-- Blood: negative, leukocytes: negative. Bladder scan PVR: 11 mL. US retroperitoneal results reviewed--01/31/23--Several echogenic stones seen in the left kidney. On exam-- prostate is smooth, no suspicious nodules palpated. Cystoscopy findings-- no suspicious bladder lesion visualized. Mild bladder wall thickening Plan: Will follow Kidney stones CAT scan in 9 months Discussed to cut down daily coffee consumption by 10 ounces. Nocturia. Urinary Frequency. Myrbetriq 25 mg QD was ordered. PSA screening. Follow-up after 9 months. 12/22/22--Venancio is a 62-year-old male patient who presents to the office as a new patient evaluation for urinary frequency. The patient states worsening of his urinary symptoms 6 weeks ago. He reports nocturia episodes 3-4 times at night and occasionally after half to one hour at night. Reports voiding 20 times in the day. The patient is taking tamsulosin 0.4 mg QD and lisinopril 20 mg. patient states consuming 24 ounces of caffiene in a day. It was discussed that with age the prostate gets larger, it can affect the flow of the urine and over time the bladder muscle may apply more pressure to start the urine stream and in doing so the bladder muscle can start to thicken and change which can cause bladder spasm with symptoms of urgency and frequency. Evaluation today: Blood: negative, leukocytes: negative. Bladder scan PVR: 17 mL. PSA results reviewed--10/28/22-- 0.87. AUA symptom score: 21. Plan:Renal/bladder US was ordered. Tamsulosin 0.4 mg BID was ordered. Discussed to limit down on water consumption after 6 pm. Discussed to cut down to 12 ounces of coffee in a day. Cystoscopy discussed to be scheduled pending US results. Follow-up after 6 weeks [facility] Medical History HTN (hypertension) Numbness and tingling in both hands Detached retina Eczema GERD (gastroesophageal reflux disease) Hyperlipidemia Abnormal liver enzymes Hematuria Insomnia Mild intermittent asthma Alaniz esophagus Surgical History Hx of bilateral cataract extraction History of esophagogastroduodenoscopy (EGD) H/O colonoscopy History of wisdom tooth extraction Hx of tonsillectomy History of detached retina repair Social History Household Members: Family Household Members Other:: Alcohol intake: former Patient Tobacco Use Status: Never used Tobacco Review of Systems Const All systems reviewed & are unremarkable except as noted in HPI and below Reports no additional complaints Eyes Reports no additional complaints ENT Reports no additional complaints Card Reports no additional complaints Resp Reports no additional complaints GI Reports no additional complaints Reports as per HPI Musc Reports no additional complaints Skin/Breast Reports system reviewed and no additional complaints, except as documented Neuro Reports no additional complaints Psych Reports no additional complaints Endo Reports no additional complaints Ivan/Lymph Reports no additional complaints Aller/Immun Reports no additional complaints Telehealth Telehealth Telehealth Platform: [facility] Location of provider rendering services: practice address Location of patient: address on file Patient Identification confirmed using: Name, : Yes Telehealth method: video Patient verbally consented to treatment: Yes Patient verbally consented to billing insurance company: Yes Results Reviewed Results Reviewed: Date of Service: 01/31/23 EXAMINATION: US RETROPERITONEAL LIMITED (RENAL ONLY) CLINICAL INFORMATION: Frequency of micturition. COMPARISON: None available. TECHNIQUE: Routine grayscale imaging of kidneys performed. FINDINGS: RIGHT KIDNEY: 14.2 x 4.0 x 6.3 cm cm (SAG x AP x TRV). The kidney is normal in size, contour, and echogenicity. Renal cortical thickness is normal. No calculi or focal parenchymal lesions. No hydronephrosis. There is an extrarenal kidney pelvis. LEFT KIDNEY: 13.4 x 5.5 x 5.6 cm (SAG x AP x TRV). The kidney is normal in size, contour, and echogenicity. Renal cortical thickness is normal. There several echogenic stones seen. A lower pole echogenic stones measure 1.5 x 0.3 x 0.6 and 0.2 x 0.2 x 0.3 cm. Midpole stone measures 0.4 x 0.3 x 0.3). No caliectasis or hydronephrosis seen. IMPRESSION: Multiple echogenic stones left kidney with mild hydronephrosis. Unremarkable right kidney except extrarenal pelvis. Assessment & Plan Assessment & Plan (1) Urinary frequency: Code(s): R35.0 - Frequency of micturition Category: Medical (2) Urinary urgency: Code(s): R39.15 - Urgency of urination Category: Medical (3) Nocturia: Code(s): R35.1 - Nocturia Category: Medical (4) BPH (benign prostatic hyperplasia): Code(s): N40.0 - Benign prostatic hyperplasia without lower urinary tract symptoms Category: Medical (5) Screening PSA (prostate specific antigen): Code(s): Z12.5 - Encounter for screening for malignant neoplasm of prostate Category: Medical (6) Kidney stones: Code(s): N20.0 - Calculus of kidney Category: Medical Plan Oxybutynin 10 mg in the evening. Continue tamsulosin b.i.d.. Per HPI Diet modification discussed. PSA screening. Renal ultrasound in 1 year follow-up post. Orders: Orders PSA,Total (Free>4and<10) 11 Months Z12.5 - Encounter for screening for malignant neoplasm of prostate US renal BI 10 Months N20.0 - Calculus of kidney Medications: New oxybutynin chloride ER take one tab daily in the evening close to bedtime 10 mg PO DAILY 30 tabs 5RF Patient Instructions: The patient had an opportunity to ask questions regarding treatment plan. The patient expressed understanding and agreement with the above treatment plan. The patient is aware they should contact our office by phone for worsening of their current condition or the appearance of new symptoms. Compliance is encouraged with any medications and followup testing that is ordered. It is a privilege to be allowed the opportunity to participate in the urologic care of your patient. If you have any questions or concerns regarding treatment for the above conditions please do not hesitate to contact me. The office telephone contact is [phone]. This note is constructed in part using voice recognition software. While every effort has been made to ensure accuracy occupational safety and health manager errors may have been included. Yours sincerely, Saba Salgado MD Coding Level of Care Code Tele Est Pt Level 4 (65050) Diagnoses Urinary frequency R35.0 Urinary urgency R39.15 Nocturia R35.1 BPH (benign prostatic hyperplasia) N40.0 Screening PSA (prostate specific antigen) Z12.5 Kidney stones N20.0
== END 2024-02-15 11:04 | disposition home or self-care (01) ==
LOC: HO.HUSH 10:18
PROVIDERS: PCP Family Medicine; Visit Provider Urology
DX: R35.0 Frequency of micturition (principal); R39.15 Urgency of urination; R35.1 Nocturia; N40.0 Benign prostatic hyperplasia without lower urinary tract symptoms; Z12.5 Encounter for screening for malignant neoplasm of prostate; N20.0 Calculus of kidney
CPT/HCPCS: 99214

== ENCOUNTER → 2024-02-15 10:18 | Outpatient (BNVA) | payer OTHER, SELFPAY | PROVIDERS: PCP Family Medicine; Visit Provider Urology ==

== ENCOUNTER 2024-06-12 13:53 | Outpatient (REF) | payer OTHER, SELFPAY ==
--- NOTE | ~2024-06-12 | XR_ITS ---
EXAMINATION: XR FINGER, LEFT CLINICAL INFORMATION: Fall. Jammed finger a few weeks ago. Pain. COMPARISON: None available. TECHNIQUE: Three views of the left small finger. FINDINGS: Question tiny avulsion fracture fragment at the lateral aspect of the proximal endplate of the left fifth middle phalanx versus dystrophic calcification. Mild soft tissue swelling in this region. Recommend clinical correlation. No other fracture is suspected. No dislocation is appreciated. Joint spaces appear maintained. No lytic or sclerotic bony lesion appreciated. XR/XR finger LT min 2V IMPRESSION: Findings as above. Electronically signed by: Francis Ken MD 06/12/2024 04:56 PM EDT
== END 2024-06-12 13:54 | disposition home or self-care (01) ==
LOC: HO.XRAY 13:53
PROVIDERS: Visit Provider Family Medicine
DX: M79.642 Pain in left hand (principal)
CPT/HCPCS: 73140

== ENCOUNTER 2024-07-05 09:01 | Outpatient (REF) | payer OTHER, SELFPAY | END 2024-07-05 09:02 | disposition home or self-care (01) | LOC: HO.HOSX 09:01 | DX: M79.642 Pain in left hand (principal) | CPT/HCPCS: 73130 ==

== ENCOUNTER 2024-07-05 14:45 | Outpatient (AMB) | payer OTHER, SELFPAY ==
--- NOTE | 2024-07-05 14:57 | MHC.OFFVIS ---
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 Patient reports he tripped outside and jammed the left small finger into the ground. He says since then he has banged it up a few times. He expresses intermittent pain in just the left small finger. He states his ROM has been limited since. He wears a splint some hours of the day which helps strengthen out the mary finger however when he removes the splint it stays in a downward bent position. Denies numbness and tingling. He tried ibuprofen but it gave him no relief. He has some swelling of the 5th digit on the left hand. 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 Patient states that he tripped and fell and jammed his finger on the ground at that time, and has banged the finger on hard objects of the time since. The patient states that since that time, he has noticed he was not able to fully extend at the PIP joint of the left small finger, and is slightly hyperextend it at the DIP joint of the left small finger. Patient states that he does wear a brace during the day, which he does feel helps him to get to a normal position, but as soon as he removes the brace for any extended period of time he notices his old positioning returning. Denies any numbness or tingling in the left upper extremity. No other acute complaints or concerns at this time. [facility] Medical History HTN (hypertension) Numbness and tingling in both hands Detached retina Eczema GERD (gastroesophageal reflux disease) Hyperlipidemia Abnormal liver enzymes Hematuria Insomnia Mild intermittent asthma Alaniz esophagus Surgical History Hx of bilateral cataract extraction History of esophagogastroduodenoscopy (EGD) H/O colonoscopy History of wisdom tooth extraction Hx of tonsillectomy History of detached retina repair Social History Household Members: Family Household Members Other:: Alcohol intake: former Patient Tobacco Use Status: Never used Tobacco Review of Systems Const All systems reviewed & are unremarkable except as noted in HPI and below Physical Exam Vital Signs: BMI result Body Mass Index 33.9 Extrem Other: Patient is alert, oriented, and in no acute distress. Neuro: Normal sensation of the tips of all digits of the left hand at this time Vascular: Cap refill brisk Pain: Patient reports no tenderness to palpation about the left small finger or elsewhere left hand or wrist ROM: Patient is able to make a closed fist with the left hand, but is unable to extend all digits of the left hand fully, namely the PIP joint of the small finger, with an approximately 20-25 degree extensor lag. There is also noted to be slight hyperextension of the DIP joint of the left small finger Skin: No lacerations or abrasions. General: No ecchymosis, erythema, or evidence of infection. Positioning of the left small finger consistent with potential boutonniere deformity Psych: Appears grossly normal Affect normal Attitude cooperative Results Reviewed Results Reviewed: X-rays obtained in the office today and independently reviewed by me, Juan Miguel Rojo PA-C, demonstrate no fracture or acute bony abnormality of the left small finger. Assessment & Plan Assessment & Plan (1) Boutonniere deformity of left finger(s): Code(s): M20.022 - Boutonniere deformity of left finger(s) Category: Medical Plan 1. Potential boutonniere deformity of left small finger Ongoing for 3 months Patient is educated about this condition Patient is educated about the typical recovery course At this time, patient was referred to Dr. Carcamo for surgical consult for chronic boutonniere deformity of approximately 3 months of age for discussion of further treatment options In the meantime, patient was advised that he should be wearing the splint at all times except for bathing Patient was amenable to this plan Patient will follow-up for next available appointment with Dr. Carcamo, sooner with any acute concerns Orders: Orders XR hand LT min 3V 07/05/24 M79.642 - Pain in left hand Coding Level of Care Code New Pt Level 3 (45240) Diagnoses 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
[2024-07-05 14:58] VITALS: BMI 33.9
== END 2024-07-05 15:16 | disposition home or self-care (01) ==
DX: M20.022 Boutonniere deformity of left finger(s) (principal)
CPT/HCPCS: 99203

== ENCOUNTER 2024-07-24 14:59 | Outpatient (AMB) | payer OTHER, SELFPAY ==
--- NOTE | 2024-07-24 16:04 | MHC.OFFVIS ---
Vital Signs 07/24/24 16:12 Height 6 ft Weight 250 lb BMI 33.9 Intake Visit Reasons: OV: left Small finger pain- w/o x-ray Intake Note: Venancio 64 year old male who presents today for a follow up of his left small finger pain s/p fall causing him to jam his finger about 3-4 months. He was last seen with Kendall Rojo and was placed in a finger splint. He continues to wear finger splint most of the time. States his pain has subsided a couple of weeks ago. Denies numbness or tingling. Allergies No Known Allergies Allergy (Verified 07/24/24 16:22) HPI HPI OV: left Small finger pain- w/o x-ray: Details: Venancio is a 64 year old right hand dominant man who presents to discuss his left small finger deformity, S/P fall ~4 months ago. He fell and jammed his small fingertip into the ground. He reports having pain & a visible deformity of his finger since his injury, which was not improving with occasional splinting. He says he is doing better and he denies any small finger pain. He says he still does have the deformity and would like to discuss treatment options. He was seen by SULY Bullard on 07/05/24 and given a new finger splint, he says he has been wearing this most of the time . He denies any numbness or tingling [facility] Medical History HTN (hypertension) Numbness and tingling in both hands Detached retina Eczema GERD (gastroesophageal reflux disease) Hyperlipidemia Abnormal liver enzymes Hematuria Insomnia Mild intermittent asthma Alaniz esophagus Surgical History Hx of bilateral cataract extraction History of esophagogastroduodenoscopy (EGD) H/O colonoscopy History of wisdom tooth extraction Hx of tonsillectomy History of detached retina repair Social History (Reviewed 07/05/24 @ 15:01 by Mila Carranza [facility]) Household Members: Family Household Members Other:: Alcohol intake: former Patient Tobacco Use Status: Never used Tobacco Review of Systems Const All systems reviewed & are unremarkable except as noted in HPI and below Physical Exam Vital Signs: BMI result Body Mass Index 33.9 Const General: cooperative, healthy appearing and no acute distress Orientation/consciousness: patient oriented x3 HEENT Head: Yes normocephalic and Yes atraumatic Eyes EOM: EOMs intact bilaterally Resp Effort & Inspection: normal respiratory effort and able to speak in complete sentences Cardio Jugular venous distension: no JVD Skin General skin exam: turgor normal Rashes: no rashes Neuro General: patient oriented x3 Extrem Other: Evaluation of Left Upper Extremity: The patient is alert, oriented, and in no acute distress Neuro: Median, Ulnar, Radial nerves motor and sensory intact and sensation is normal to the tips of all digits Vascular: Cap refill brisk ROM: He can bring his thumb, index, middle, and ring fingers closed to a fist and back into extension He has a small finger closed traumatic Boutonniere deformity, with ~20 degree extensor lag at the PIP joint. This is an improvement from 1 month ago. No hyperextension today of the DIP joint, which is an improvement from 1 month ago. Skin: No lacerations or abrasions seen today General: No Ecchymosis. No Erythema or evidence of infection. Radiographs: 3 views of the left hand from 07/05/24 were reviewed by me today in clinic. They show no fractures or dislocations. His small finger was held with his PIP joint in ~30 degrees flexion, and DIP joint ~20 degrees extension Psych Appearance: grossly normal Affect: normal affect Attitude: cooperative Assessment & Plan Assessment & Plan (1) Boutonniere deformity of left finger(s): Comment: Code(s): M20.022 - Boutonniere deformity of left finger(s) Category: Medical Plan Assessment & Plan: 1. Left small finger Boutonniere deformity With an ~20 degree PIP joint extensor lag, and no hyperextension at the DIP No laceration From a fall ~04/04/24 I educated him about this condition I discussed operative and non-operative treatment options I recommend we manage this non-operatively, and he is in agreement He has been wearing a splint intermittently since his injury, but has not done any 24 hour splinting since his injury He was fitted for a custom finger splint today, which will hold the PIP in extension but allows for MCP & DIP motion He will wear this 13/03 for the next 4 weeks, including in the shower. He was given a second splint to alternate when one is dirty or wet. I demonstarted active DIP joint exercises that he will perform at home, while in his splint He expressed understanding He will follow up in 4 weeks for a ROM check & to see how he is doing. if he has been successful in his 13/03 splinting then he may continue this for another 1-2 weeks before transitioning to 4-6 weeks of 8 hours of splinting overnight. Scribed for Mounika Carcamo MD by Ru Leal, anesthesiology medical doctor, on 07/24/24 at 4:25 PM, EST. Coding Level of Care Code Est Pt Level 4 (82785) Diagnoses 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
[2024-07-24 16:12] VITALS: BMI 33.9
--- OUTSIDE RECORDS SUMMARY | 2024-07-30 20:56 | XMS_ITS ---
Author Organization [facility] Address [address] [place] [address] Care Team Providers Care Interior Design Principal Name Role Phone Miguel DAVID, Cheng Primary Care Provider Unavailab Ritesh Farr Unavailable [phone] Encounters Encounter Location Date Provider Diagnosis [facility] [address] [place] [address] 04/30/2024 Ritesh Fang Plan Of Treatment No Information Progress Notes * Venancio GONSALES NDOB:1960 (64 yo M)Acc No.[id number]:04/30/2024 Progress Note Patient:Venancio SALCEDO Provider:?Ritesh Fang DPM :1960???Age:64 Y???Sex:Male Gulshan e:04/30/2024 Address:[address] [place], [place] [id number] Pcp:Cheng Rivera MD Subjective: * Chief Complaints: * ??? * Medical History:? Objective: * Vitals:? Assessment: Plan: * Treatment: * Images: * The named appointment provid er may or may not be the originator of this progress note, and it is not deemed complete until electronically signed by the appointment provider. Sign off status: Pending * Provider:?Ritesh Fang DPM Date:?2023 Generated for Ne garnett/Christine/eTransmitting on:?07/30/2024 08:56 PM EST
--- OUTSIDE RECORDS SUMMARY | 2024-07-30 20:56 | XMS_ITS ---
Author Organization [facility] Address [address] [place] [address] Care Team Providers Care Diffuser Operator Name Role Phone Cheng Rivera MD Primary Care Provider Unavailab Ritesh Farr Unavailable [phone] REASON FOR VISIT Cancel Encounters Encounter Location Date Provider Diagnosis [facility] [address] [place] [address] 04/26/2024 Ritesh Fang Plan Of Treatment No Information Progress Notes * Venancio GONSALES NDOB:1960 (64 yo M)Acc No.[id number]:04/26/2024 Patient:?Natali Gonsalesnivia Castillo :1960???Age:64 Y???Sex:Male Address:[address] [facility] [place] [address] * true * Date:? Generated for Printi ng/Fadahliag/eTransmitting on:?07/30/2024 08:56 PM EST
--- OUTSIDE RECORDS SUMMARY | 2024-07-30 20:57 | XMS_ITS | Patient Health Record ---
Author Organization [facility] Address [address] [place] [address] Care Team Providers Care Helmet Hat Brim Cutter Name Role Phone Cheng Rivera MD Primary Care Provider Unavailab Ritesh Farr Unavailable [phone] Black, Shelli Unavailable [phone] PericaLeena Unavailable [phone] Allergies No Known Allergies Reason For Referral No Information Medications Medication SIG (Take, Route, Fr equency, Duration) Notes Start Date End Date Status Lisinopril 20 MG 1 tablet Orally Once a day Active Omeprazole 40 MG 1 capsule 30 minutes before morning meal Orally Once a day A ctive Flomax Active Pravastatin Sodium A ctive Terbinafine Active Ciclopirox 0.77 % 1 application Fourth Hand ally Twice a day for 365 days Active Social History Tobacco Use: Social History Observation Description Date Details (start date - stop date) Never Smoker NA - NA Tobacco Use/Smoking Question Answer Notes Are you a: nonsmoker Additional Findings: Tobacco Non-User Current no n-smoker Alcohol Screen Question Answer Notes Did you have a drink containing alcohol in the p ast year? No Points 0 Interpretation Negative Tobacco use other than smoking: Question Answer Notes Are you an other tobacco user? No Problems Problem Type SNOMED Code ICD Code Onset Dates Problem Status W/U Status Risk Notes Problem [id number] 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 confirmed Rx management (4) Vital Signs Blood pressure diastolic 80 mm Hg 02/06/2024 Height 6 ft 0 in in 02/06/2024 Blood pressure systolic 120 mm Hg 02/06/2024 Weight 250 lbs 02/06/2024 BMI 33.90 kg/m2 02/06/2024 Procedures Procedure Date Ordered Date Performed Result Body Sit e 50378-[id number] Plate 10/30/2023 N/A Encounters Encounter Location Date Provider Diagnosis [address] [address] 10/30/2023 Shelli Black Ingrown nail L60.[address] [address] 11/14/2023 Ritesh Fang Fungal infection of nail B35.1 ; Pain in right toe(s) M79.674 ; Pain in left toe(s) M79.675 ; Pain in right foot M79.671 ; Pain in right ankle and joints of right foot M25.571 ; Bursitis of intermetatarsal bursa of right foot M77.51 and Metatarsalgia, right foot M77.[address] [address] 02/06/2024 Ritesh Fang Fungal infection of nail B35.1 ; Pain in right toe(s) M79.674 ; Pain in left toe(s) M79.675 ; Pain in right foot M79.671 ; Pain in right ankle and joints of right foot M25.571 ; Bursitis of intermetatarsal bursa of right foot M77.51 and Metatarsalgia, right foot M77.[address] [address] 10/30/2023 Leena Romeo [address] [address] 11/14/2023 Ritesh Fang [address] [address] 04/26/2024 Ritesh Fang Assessments Encounter Date Diagnosis (ICD Code) Assessment Notes Treatment Notes Treatment Clinical Notes Section Notes 10/30/2023 Ingrown nail (ICD-10 - L60.0) 11/14/2023 Fungal infection of nail (ICD-10 - B35.1) Rx management (4) 02/06/2024 Fungal infection of nail (ICD-10 - B35.1) Rx management (4) 02/06/2024 Pain in right toe(s) (ICD-10 - M79.674) 11/14/2023 Pain in right toe(s) (ICD-10 - M79.674) 11/14/2023 Pain in left toe(s) (ICD-10 - M79.675) 02/06/2024 Pain in left toe(s) (ICD-10 - M79.675) 02/06/2024 Pain in right ankle and joints of right foot (ICD-10 - M25.571) 02/06/2024 Pain in right foot (ICD-10 - M79.671) 11/14/2023 Pain in right ankle and joints of right foot (ICD-10 - M25.571) 11/14/2023 Pain in right foot (ICD-10 - M79.671) 11/14/2023 Bursitis of intermetatarsal bursa of right foot (ICD-10 - M77.51) 02/06/2024 Bursitis of intermetatarsal bursa of right foot (ICD-10 - M77.51) 02/06/2024 Metatarsalgia, right foot (ICD-10 - M77.41) 11/14/2023 Metatarsalgia, right foot (ICD-10 - M77.41) Plan Of Treatment Pending Test Test Name Order Date *Liver Function Test (LFT) 11/14/2023 [id number] Plate 10/30/2023 Insurance Providers Payer Name Payer Address Payer Phone Subscriber Number Group Number Insured Name Patient Relationship to Insured Coverage Start Date Coverage End Date Blue Benefits [address] [address] [place] [address] [id number] Patricia Gonsales Spouse - patient is the spouse of the insured Medical (General) History Medical History History ICD Code Cataracts Glaucoma HTN CAD Surgical History Surgery Date(Month/Year) eye surgery colonoscopy 08/12 endoscopy 08/12
--- OUTSIDE RECORDS SUMMARY | 2024-07-30 20:57 | XMS_ITS ---
Author Organization [facility] Address [address] [place] [address] Care Team Providers Care Senior Software Systems Engineer Name Role Phone Cheng Rivera MD Primary Care Provider Unavailab Ritesh Farr Unavailable [phone] Allergies No Known Allergies REASON FOR VISIT Fungal Nails, Foot pain Medications Medication SIG (Take, Route, Fr equency, Duration) Notes Start Date End Date Status Lisinopril 20 MG 1 tablet Orally Once a day Active Omeprazole 40 MG 1 capsule 30 minutes before morning meal Orally Once a day A ctive Flomax Active Pravastatin Sodium A ctive Ciclopirox 0.77 % 1 application Manager Multicultural ally Twice a day for 365 days Active Terbinafine Active Social History Tobacco Use: Social History [...] Are you an other tobacco user? No Vital Signs Height 6 ft 0 in in 02/06/2024 Weight 250 lbs 02/06/2024 BMI 33.90 kg/m2 02/06/2024 Blood pressure systolic 120 mm Hg 02/06/20 24 Blood pressure diastolic 80 mm Hg 024 Encounters Encounter Location Date Provider Diagnosis [facility] [address] [place] [address] 02/06/2024 Ritesh Fang Fungal infection of nail B35.1 ; Pain in right toe(s) M79.674 ; Pain in left toe(s) M79.675 ; Pain in right foot M79.671 ; Pain in right ankle and joints of right foot M25.571 ; Bursitis of intermetatarsal bursa of right foot M77.51 and Metatarsalgia, right foot M77.41 Assessments Encounter Date Diagnosis (ICD Code) Assessment Notes Treatment Notes Treatment Clinical Notes Section Notes 02/06/2024 Fungal infection of nail (ICD-10 - B35.1) Rx management (4) 02/06/2024 Pain in right toe(s) (ICD-10 - M79.674) 02/06/2024 Pain in left toe(s) (ICD-10 - M79.675) 02/06/2024 Pain in right foot (ICD-10 - M79.671) 02/06/2024 Pain in right ankle and joints of right foot (ICD-10 - M25.571) 02/06/2024 Bursitis of intermetatarsal bursa of right foot (ICD-10 - M77.51) 02/06/2024 Metatarsalgia, right foot (ICD-10 - M77.41) Plan Of Treatment Medication Medication Name Sig Start Date Stop Date Notes Ciclopirox 0.77 % 1 application Manager Multicultural ally Twice a day for 365 days Next Appt Details Follow Up: 2-3 Months, Reaso n: Progress Notes * Venancio GONSALES NDOB:1960 (63 yo M)Acc No.[id number]:02/06/2024 Progress Note Patient:?Venancio Gonsales Anna Provider:?Ritesh Fang DPM :1960???Age:63 Y???Sex:Male Gulshan e:02/06/2024 Address:[address] [place], [place] [address] Pcp:Cheng Rivera MD Subjective: * Chief Complaints: * ???Fungal NailsFoot pain * HPI: ???Painful Nails:?Nature:?aching, tender, discolored, thick.?Location:?2nd toe , Both feet , Great toe , Right foot.?Duration:?1 year or more.?Course:?worse.?Aggrevated by:?shoegear causing difficulty standing/walking.?Treatments:?Surgical removal Right 2nd toenail , Topical Antifungal yrs ago , Most recently,?Ciclopirox topical gel , since , ,?relates adherence to recom tx , denies any adverse side effects to medication , (i.e. adjacent periungual skin irritation, inflammation, erosion), Pt states had baseline LFT for PO Lamisil, but we do not have the results. Pt is now reconsidering the oral treatment all together.?Foot Pain:?Location:?Bottom, Forefoot, RIGHT.?Duration:?several months.?Onset:?activity , standing , walking , at new?work/job.?Course:?worse.?Aggrevated:?any pressure , standing , walking , job/occupation.?Treatments:?rest/alter normal daily activity , change in shoes , innersoles , medication ( Tylenol) , innersoles.? * ROS:?General/Constitutional:?Nausea?denies.?Vomiting?denies.?Hunger Thirst?denies.?Loss appetite?denies.?Chills?denies.?Fatigue?denies.?Fever?denies.?Night Sweats?denies.?Unexplained weight loss?denies.?Unexplained weight gain?denies.?HEENTM:?Dentures?denies.?Dizziness?denies.?Glasses/contacts?admits.?Retinopathy?de nies.?Blurred/double vision?denies.?TMJ?denies.?Discharge/drainage?denies.?Implants?denies.?Sore throat?denies.?Dental implants?denies.?Hard of hearing ?denies.?Difficulty chewing/swallowing/speaking?denies.?Nose bleeds?denies.?Sore mouth?denies.?Respiratory:?On Oxygen?denies.?Pneumonia/pleurisy?denies.?Bronchitis?denies.?Emphysema?denies.?C oughing?denies.?Cough blood?denies.?Shortness of breath?denies.?Wheezing?denies.?Cardiovascular:?Pacemaker?denies.?MVP?denies.?WPW?denies.?CHF?denies.?Heart attack?denies.?Septal defect?denies.?Rapid beat?denies.?Chest pain ?denies.?Atrial Fib.?denies.?Murmur/Palpitations?denies.?Gastrointestinal:?Hemorrhoids?denies.?Stomach/Abdominal pain?denies.?Dark blood stool?denies.?Irritable bowel ?denies.?Constipation?denies.?Diarrhea?denies.?Hematology:?Swelling?denies.?Clots?denies.?Varicose Veins?denies.?Bruising?denies.?Bleeding problem?denies.?Genitourinary:?Blood urine?denies.?Frequent/Painfu/urination/bladder control?denies.?Kidney stones?denies.?Infection (UTI)?denies.?Nephropathy?denies.?sex trans dis (STD)?denies.?Prostate?denies.?Musculoskeletal:?Hammertoes?denies.?Bunions?denies.?Back Pain?denies.?Muscle Cramps/ Resting?denies.?Muscle cramps / walking?denies.?Generalized aches and pains?denies.?Weakness?denies.?Integ.:?Robert?denies.?Scars?denies.?Corns/calluses?denies.?Ingrown nails?denies.?Painful nails?admits.?Open Sores?denies.?Rashes?denies.?Neurologic:?Difficulty sleeping?denies.?Brain disorder?denies.?Numbness?denies.?Balance trouble?denies.?Confusion?denies.?Fainting/blackouts?denies.?Tingling?denies.?Tr emors?denies.? * Medical History:? * Surgical History:?eye surger y colonoscopy 08/12endoscopy 08/12 * Hospitalization/Major Diagno stic Procedure:?Denies Past Hospitalization * Family History:?Mother: unkn own.?Father: unknown.? Patient states family history is unknown. * Social History:?Tobacco Use:?Tobacco Use/Smoking?Are you a:?nonsmoker ?Additional Findings: Tobacco Non-User?Current non-smoker ?Tobacco use other than smoking?Are you an other tobacco user??No ???Drugs/Alcohol:?Drugs?Have you used drugs other than those for medical reasons in the past 12 months??No ?Alcohol Screen?Did you have a drink containing alcohol in the past year??No ?Points?0 ?Interpretation?Negative ???Miscellaneous:?Caffeine: yes, frequency: , 2-3 cups per day. ?Children: yes. ?no Exercise. ?Marital status: . 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 * Medications:?TakingTerbinafi ne Pravastatin Sodium Flomax Omeprazole 40 MG Capsule Delayed Release 1 capsule 30 minutes before morning meal Orally Once a dayLisinopril 20 MG Tablet 1 tablet Orally Once a dayCiclopirox 0.77 % Gel 1 application Externally Twice a dayTaking Terbinafine Taking Pravastatin Sodium Taking Flomax Taking Omeprazole 40 MG Capsule Delayed Release 1 capsule 30 minutes before morning meal Orally Once a dayTaking Lisinopril 20 MG Tablet 1 tablet Orally Once a dayTaking Ciclopirox 0.77 % Gel 1 application Externally Twice a day * Allergies:?N.K.D.A.yes[Esvin cedeno Verified] Objective: * Vitals:?Ht: 6 ft 0 in, Wt:25 0, BMI:33.90, Shoe size:12-13, BP:120/80 mm Hg. * Examination: ???Nails: ?NAILS are:?STILL, Elongated, overgrown, dystrophic, lytic, greater than 3mm thick, discolored and friable with crumbly malodorous subungual debris, with pain on palpation , T1 , T5, T6.?Orthopedic: ?MUSCLE STRENGTH:?5/5 all groups in a symmetrical fashion , B/L.?MPJ PATHOLOGY:?Approximately 80-90 percent LESS, Pain, swelling, and inflammation to plantar MPJ(s), 3rd, 4th, RIGHT.? 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 Plan: * Treatment: * Procedure Codes:? * Preventive Medicine:? ??Counseling:?Discussion:?-13: Office or other outpatient visit for the evaluation and management of an established patient, which required a medically appropriate history and/or examination and LOW level of DECISION MAKING for: 1 STABLE ACUTE UNCOMPLICATED PROBLEM, 2 OR MORE MINOR PROBLEMS, OR 1 STABLE CHRONIC PROBLEM, THAT POSE(S) A LOW RISK FOR MORBIDITY/MORTALITY. The visit on the day of the encounter encompassed interpreting the data and educating the patient as to the nature of their condition, treatment options available according to their individual PMH, meds, allergies, and overall health/living conditions, as well as any potential risks or complications that may occur from a failure to adhere to, and participate in, the recommended course of therapy. The discussion included a complete verbal, and/or written explanation of the examination results, any x-rays taken, the proposed diagnosis, and outline of the treatment plan. A schedule for future care needs was also explained. The patient verbalized an understanding of the instructions at this time and agreed to be an active participant in their treatment. If the patient should think of any questions or concerns after the visit, I have encouraged the patient to call the office.?Fungal Nail Counseling:?The Pt prefers to cont topical treatment, Ciclopirox 0.77 gel as Rxed. Apply as directed to nails twice daily, The Pt now defers PO treatment, Nail debridement performed extensively to reduce/remove overall nail length, girth, thickness, subungual debris, and necrotic tissue, by manual and electrical means through the use of a nail nipper and/or dremel, to more viable healthy nail plate or bed tissue. Silver nitrate used for any petechial bleeding as necessary.?Metatarsalgea:?Discussed other tx options for the patients condition, given recent successful results to treatment, the patient wishes to continue with the present plan for their condition.?Orthotics:?Pt is to cont Prefabricated orthothes ( Comfort Plus F ), that were dispensed.? * Follow Up:?2-3 Months * Images: * Sign off status: Completed true * Provider:?Ritesh Fang DPM Date:?2023 Generated for Ne garnett/Christine/Alen on:?07/30/2024 08:56 PM EST History and Physical Notes * HPI (History of Present Illness) Category Sub-Category Detail Notes Category Not es Painful Nails Aggravated by: shoegear causing difficulty standing/walking Course: worse Duration: 1 year or more Location: 2nd toe , Both feet , Great toe , Right foot Nature: aching, tender, disc olored, thick Treatments: Surgical removal Rig ht 2nd toenail , Topical Antifungal yrs ago , Most recently, Ciclopirox topical gel , since , , relates adherence to recom tx , denies any adverse side effects to medication , (i.e. adjacent periungual skin irritation, inflammation, erosion), Pt states had baseline LFT for PO Lamisil, but we do not have the results. Pt is now reconsidering the oral treatment all together Foot Pain Location: Bottom, Forefoot, RIGHT Duration: several months Onset: activity , standing , walking , at new work/job Course: worse Aggravated: any pressure , stand ing , walking , job/occupation Treatments: rest/alter normal da servando activity , change in shoes , innersoles , medication ( Tylenol) , innersoles Examination Category Sub-Category Detail Notes Category Not es Orthopedic MPJ PATHOLOGY: Approximately 80 -90 percent LESS, Pain, swelling, and inflammation to plantar MPJ(s), 3rd, 4th, RIGHT MUSCLE STRENGTH: 5/5 all groups in a symmetrical fashion , B/L Nails NAILS are: STILL, Elongated , overgrown, dystrophic, lytic, greater than 3mm thick, discolored and friable with crumbly malodorous subungual debris, with pain on palpation , T1 , T5, T6
== END 2024-07-24 16:46 | disposition home or self-care (01) ==
PROVIDERS: Visit Provider Orthopaedic Surgery
DX: M20.022 Boutonniere deformity of left finger(s) (principal)
CPT/HCPCS: 99214

== ENCOUNTER 2024-12-12 08:07 | Outpatient (REF) | payer OTHER, SELFPAY ==
[2024-12-12 09:51] LABS: MANUAL DIFF FLAG NO
[2024-12-12 10:42] LABS: Basophils Absolute Auto 0.1 X10*3/uL (0.0-0.2); Basophils Percent Auto 0.8 % (0-2); Eosinophils Absolute Auto 0.2 X10*3/uL (0.0-0.4); Hematocrit 41.2 % (42.0-52.0); Hemoglobin 13.6 g/dl (14.0-18.0); Imm Gran Abs Auto 0.02 X10*3/uL (0.00-0.03); Imm Gran Pct Auto 0.3 % (0.0-0.4); Lymphocytes Absolute Auto 1.8 X10*3/uL (1.2-4.9); Lymphocytes Percent Auto 25.6 % (20-40); Mean Corpuscular Hemoglobin 30.7 pg (27.0-33.0); Mean Platelet Volume 10.9 fL (9.4-12.4); Monocytes Absolute Auto 0.6 X10*3/uL (0.1-1.2); Monocytes Percent Auto 8.2 % (2-11); Neutrophils Absolute Auto 4.4 x10*3/uL (2.0-8.3); Neutrophils Percent Auto 62.1 % (45-73); Platelet Count 221 X10*3/uL (160-400); Red Blood Count 4.43 X10*6/uL (4.60-5.80); Red Cell Distribution Width 13.8 % (11.0-16.0); White Blood Count 7.1 X10*3/uL (4.8-10.8)
[2024-12-12 11:22] LABS: Iron 81 mcg/dL (45-160); Percent Iron Saturation 32 % (15-50); Total Iron Binding Capacity 254 mcg/dL (228-428); Unsaturated Iron Binding 173 ug/dL
[2024-12-12 11:46] LABS: Folate 8.6 ng/mL (> or = 4.0); Vitamin B12 463 pg/mL (200-900)
[2024-12-18 15:58] LABS: VITAMIN D (1,25 OH) D3 68 pg/mL; Vit D (1,25-Dihydroxy) Total 68 pg/mL (18-72); Vitamin D (1,25 OH) D2 <8 pg/mL
== END 2024-12-12 08:08 | disposition home or self-care (01) ==
LOC: HO.LAB 08:07
PROVIDERS: PCP Family Medicine; Visit Provider Nurse Practitioner Family
DX: K21.9 Gastro-esophageal reflux disease without esophagitis (principal)
CPT/HCPCS: 36415; 82607; 82652; 82746; 83540; 84443; 85025

== ENCOUNTER 2024-12-12 08:07 | Outpatient (AMB) | payer OTHER, SELFPAY ==
--- OUTSIDE RECORDS SUMMARY | 2024-12-12 08:18 | XMS_ITS ---
Author Organization [facility] Address [address] [place] [address] Care Team Providers Care Supervisor Electronics Testing Name Role Phone Miguel DAVID, Cheng Primary Care Provider Unavailab Ritesh Farr Unavailable [phone] Encounters Encounter Location Date Provider Diagnosis [facility] [address] [place] [address] 04/30/2024 Ritesh Fang Plan Of Treatment No Information Progress Notes * Venancio GONSALES NDOB:1960 (64 yo M)Acc No.[id number]:04/30/2024 Progress Note Patient:Venancio SALCEDO Provider:?Ritesh Fang DPM :1960???Age:64 Y???Sex:Male Gulshan e:04/30/2024 Address:[address] [place], [place] [id number] Pcp:Cheng Rivera MD Subjective: * Chief Complaints: [...] Fang DPM Date:?2023 Generated for Ne garnett/Christine/eTransmitting on:?12/12/2024 08:18 AM EDT
--- OUTSIDE RECORDS SUMMARY | 2024-12-12 08:19 | XMS_ITS | Clinical Summary ---
Author Organization [facility] Address [address] [place] [address] Care Team Providers Care Wharf Builder Name Role Phone Cheng Rivera III Primary Care Provider [phone] Allergies No known active allergies Medications * This document contains information received from the source organization and may not represent a complete record from that organization. No known medications Active Problems Problem Noted Date Diagnosed Date Finger numbness 06/12/2015 Asymmetrical sensorineural hearing loss 05/29/20 13 Earache In The Right Ear 04/15/2013 Tinnitus 04/15/2013 Family History Medical History Relation Name Comments Other Father Family history of No pertinent family history Other Mother Family history of Relation Name Status Comments Father Mother Social History Tobacco Use Types Packs/Day Years Used Date Smoking Tobacco: Never Comments:: Sex and Gender Information Value Date Recorded Sex Assigned at Male 08/12/2024 11:55 AM EST Legal Sex Male 12:10 AM EDT Gender Identity Male 08/31/2024 9:46 AM EST Sexual Orientation Straight 08/31/2024 9: 46 AM EST Last Filed Vital Signs Vital Sign Reading Time Taken Comments Blood Pressure 130/81 05/29/2015 11:30 AM EDT Pulse 71 05/29/2015 11:30 AM EDT Temperature - - Respiratory Rate - - Oxygen Saturation - - Inhaled Oxygen Concentration - - Weight 108.9 kg (240 lb) 05/29/2015 11:30 AM EDT Height 182.9 cm (6') 05/29/2015 11:30 AM EDT Body Mass Index 32.55 05/29/2015 11:30 AM EDT Plan of Treatment Health Maintenance Due Date Last Done Comments Phlilip 1960 Colon Cancer Screening 1960 Colonoscopy 1960 FOBT / Fit Test 1960 HIV Screening 1960 Hepatitis C Screening 1960 Sigmoidoscopy 1960 Alcohol/Substance Use Screening 08/21/2024 Depression Screening and Follow-Up 08/21/2024 Social Drivers of Health Annual Screening 08/21/2024 DTaP,Tdap,and Td Vaccines (4 - Td or Tdap) 08/22/2033 08/22/2023, 05/21/2013, 08/30/2008 RSV Vaccine (60+ years old and patients) (1 - 1-dose 75+ series) 2035 Zoster Vaccines Completed 06/22/2021, 04/14/2021 Pneumococcal Vaccine: 50+ Years Completed 07/19/2022 COVID-19 Vaccine Completed 06/10/2024, 09/2023, 07/19/2022, Additional history exists Influenza Vaccine Completed 06/10/2024, , 07/19/2022, Additional history exists Hepatitis B Vaccines Aged Out No long er eligible based on patient's age to complete this topic Insurance [employer] BCBS OUT OF STATE PPO Care Teams Wharf Builder Relationship Specialty Start Date End Date Cheng Rivera III [address] [facility] [address] [place] [address] PCP - General Family Medicine 08/12/24
--- OUTSIDE RECORDS SUMMARY | 2024-12-12 08:19 | XMS_ITS ---
Author Organization [facility] Address [address] [place] [address] Care Team Providers Care Medical Geneticist Name Role Phone Cheng Rivera MD Primary Care Provider Unavailab Ritesh Farr Unavailable [phone] REASON FOR VISIT Cancel Encounters Encounter Location Date Provider Diagnosis [facility] [address] [place] [address] 04/26/2024 Ritesh Fang Plan Of Treatment No Information Progress Notes * Venancio GONSALES NDOB:1960 (64 yo M)Acc No.[id number]:04/26/2024 Patient:?Natali Gonsalesnivia Castillo :1960???Age:64 Y???Sex:Male [address] [place] [address] * true * Date:? Generated for Printi ng/Fadahliag/eTransmitting on:?12/12/2024 08:19 AM EDT
--- OUTSIDE RECORDS SUMMARY | 2024-12-12 08:19 | XMS_ITS | Referral Summary ---
Author Organization [facility] Address [address] [place] [address] Care Team Providers Care Collator Operator Name Role Phone Cheng Rivera III Primary Care Provider [phone] Allergies No known active allergies Medications * This document contains information received from the source organization and may not represent a complete record from that organization. No known medications Active Problems Problem Noted Date Diagnosed Date Finger numbness 06/12/2015 Asymmetrical sensorineural hearing loss 05/29/20 13 Earache In The Right Ear 04/15/2013 Tinnitus 04/15/2013 Social History Tobacco Use Types Packs/Day Years [...] 05/29/2015 11:30 AM EDT Plan of Treatment Not on file Insurance [employer] BCBS OUT OF STATE PPO Care Teams Collator Operator Relationship Specialty Start Date End Date Cheng Rivera III [address] [place] [address] [address] [place], [place] [id number] PCP - General Family Medicine 08/12/24
--- OUTSIDE RECORDS SUMMARY | 2024-12-12 08:19 | XMS_ITS | Patient Health Record ---
[facility] Address [address] [place] [address] Care Team Providers Care Toter Name Role Phone Cheng Rivera MD Primary Care Provider Unavailab Ritesh Farr Unavailable [phone] Allergies No Known Allergies Reason For Referral No Information Medications Medication SIG (Take, Route, Fr equency, Duration) Notes Start Date End Date Status Omeprazole 40 MG 1 capsule 30 minutes before morning meal Orally Once a day A ctive Lisinopril 20 MG 1 tablet Orally Once a day Active Pravastatin Sodium A ctive Flomax Active Terbinafine Active Ciclopirox 0.77 % 1 application Cloth Bleaching Range Back Tender ally Twice a day for 365 days [...] Problem Status W/U Status Risk Notes Problem [id number] 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 confirmed Rx management (4) Vital Signs Blood pressure diastolic 80 mm Hg 02/06/2024 Height 6 ft 0 in in 02/06/2024 Blood pressure systolic 120 mm Hg 02/06/2024 Weight 250 lbs 02/06/2024 BMI 33.90 kg/m2 02/06/2024 Encounters Encounter [facility] Date [facility] [address] 02/06/2024 Ritesh Fang Fungal infection of nail B35.1 ; Pain in right toe(s) M79.674 ; Pain in left toe(s) M79.675 ; Pain in right foot M79.671 ; Pain in right ankle and joints of right foot M25.571 ; Bursitis of intermetatarsal bursa of right foot M77.51 and Metatarsalgia, right foot M77.[address] [facility] [address] 04/26/2024 Ritesh Fang Assessments Encounter Date Diagnosis [...] in right foot (ICD-10 - M79.671) 02/06/2024 Bursitis of intermetatarsal bursa of right foot (ICD-10 - M77.51) 02/06/2024 Metatarsalgia, right foot (ICD-10 - M77.41) Plan Of Treatment Pending Test Test Name Order Date *Liver Function Test (LFT) 11/14/2023 [id number] Plate 10/30/2023 Insurance Providers Payer Name Payer Address Payer Phone Subscriber Number Group Number Insured Name Patient Relationship to Insured Coverage Start Date Coverage End Date Blue Benefits [address] [address] [place] [address] [id number] Patricia Gonsales Spouse - patient is the spouse of the insured Medical (General) History Medical History History ICD Code Cataracts Glaucoma HTN CAD Surgical History Surgery Date(Month/Year) eye surgery colonoscopy 08/12 endoscopy 08/12
--- OUTSIDE RECORDS SUMMARY | 2024-12-12 08:19 | XMS_ITS | Data Portability ---
Author Organization [facility] Address [address] [place] [address] Care Team Providers Care Cost Reduction Engineer Name Role Phone MARKY JARQUIN Referring Provider Unavailable Assessment Encounter Date Assessment Date Assessment LastModified by Organization Details LastModified Time 02/15/2017 02/15/2017 He has had recen t symptoms of dyspnea on exertion and mild orthostasis. He has been trying to stay well-hydrated and he thinks he may be slightly better after hydration. He is concerned about some dyspnea on exertion and decreased exercise tolerance. He has continued to maintain a good weight after a tremendous weight loss. His examination shows no cardiac findings. His EKG shows a mild sinus bradycardia. I suspect that his orthostasis may be related to volume contraction and his efforts at dieting and salt restriction. He is slightly better lately. I did not demonstrate any orthostatic change in his exam today. I suggest to do a stress test to screen for early CAD in view of his dyspnea on exertion. A rheumatologic opinion might be helpful in regards to sorting out causes of Raynaud's syndrome. Recommendations Exercise tolerance test Work to maintain good hydration and exercise habits Okay to start light exercise Return as needed david Not available 02/15/2017 15:17:37 11/12/2018 11/12/2018 He had a recent cluster palpitations that may be associated with high caffeine intake. Since cutting back on his caffeine intake, he has done much better and has had rare palpitations. Generally feels well. He has had no other cardiac complaints. His exam today shows good blood pressure and no abnormalities on his heart exam. His EKG is normal and similar to the one from your office. I reviewed labs that were done for his screening analysis at his employment. His cholesterol LDL mildly elevated but his HDL is good. His calculated cardiovascular risk for 10 years is low at 6.2% therefore he can continue with nonpharmacologic means of minimizing his cardiac risk. I agree with how he is cutting back on his caffeine intake as this may be the cause was palpitations. I do not think there will be a significant yield by going further with monitoring such as a Holter monitor at this time. Recommendations Continue plans to stay minimally caffeinated Okay to exercise May work on lipid management nonpharmacologically with lifestyle adjustments. Return as needed david Not available 11/12/2018 17:12:16 Plan of Treatment Reminders Order Date Submit Date Provider Last Modified By Organization Details Last Modified Time Details Appointments None recorded. Lab None recorded. Referral None recorded. Procedures None recorded. Surgeries None recorded. Imaging electrocard iogram 2018 019 [email or web address] Kristopher Luciano MD, [address], [address], [address], 9 16:17:59 electrocard iogram 2016 017 [email or web address] Luciano MD, [address], [address], [address], 7 15:18:40 exercise stress test 2016 017 [facility] (Radiology), [address] [place], [address], 7 13:40:45 Medication Orders None recorded. Patient TargetsNo targets recorded. Patient Instructions Encounter Date Encounter Id Patient Instructions Last Modified By Organization Details Last Modified Time 02/15/2017 [id number] orthostatic hypotension: care instructions lakia Not available 02/15/2017 15:13:31 11/12/2018 [id number] palpitations: care instructions david Not available 11/12/2018 16:13:17 Reason for Referral None Reported. Results Created Date Observation Date Name Description Value Unit Range Abnormal Flag Note LastModifiedBy Organization Detail LastModifiedTime 02/29/20 17 02/27/2017 exerc ise stres s test No observ ation record ed. [facility] [address], [place], [address], 02/28/2017 18:48:23 10/31/19 19 10/05/2018 elect adithya servin am No observ ation record ed. kash Not Available 2018 14:13:42 Result Notes None recorded. Problems Name Problem SNOMED Code Status Onset Date Resolution Date Notes Provider Name and Address Organization Details Recorded Time Orthostatic hypotension 36662421 Active 2016 YENY Donald MD 7 14:26:40 Dyspnea 393431212 Active 2016 YENY Donald MD 7 14:27:14 Hyperlipidemia 36948186 Active 2016 YENY Donald MD 7 14:27:21 Gastroesophage al reflux disease 958837103 Active 2016 YENY Donald MD 7 14:27:31 Raynaud's disease 911400522 Active 2016 YENY Donald MD 7 14:29:09 Palpitations 44596234 Active 2018 YENY Donald MD 9 08:19:01 Alaniz's esophagus 860377019 Active 2018 YENY Donald MD 9 08:19:36 Problem Notes None recorded. Procedures Surgical History Date Name Laterality Status Provider Name and Address Organization Details Recorded Time 06/21/20 16 Ophthalmologic Surgery completed Symone Luciano MD 11/12/2018 15:36:04 08/21/19 15 Gastrointestinal Surgery completed Symone Luciano MD 11/07/2018 08:20:30 02/26/20 14 Ophthalmologic Surgery completed Symone Luciano MD 01/12/2017 14:48:53 Ophthalmologic Surgery completed Symone Luciano MD 01/12/2017 14:49:24 HEENT Surgery completed Symone Luciano MD 01/12/2017 14:49:44 Removal of tonsils completed Symone Luciano MD 01/12/2017 15:06:00 Imaging Results Imaging Date Name Status LastModified by Organization Details LastModified Time 02/27/2017 exercise stress test completed [facility] [address], [place], [address], 02/28/2017 18:48:23 10/05/2018 electrocardiogram completed alanaxander Informa tion not available 10/30/2018 14:13:42 Procedure Notes None recorded. Medical Equipment None Reported. Allergies No known drug allergies Medications Name Sig Start Date Stop Date Status Note LastModified by Organization Details LastModified Time ofloxacin 0.3 % eye drops INSTILL 1 DROP TO THE RIGHT EYE QID FOR 3 DAYS PRIOR TO SURGERY - TO BE CONTINUED AFTER SURGERY 02/15 completed Not Available Not Available Not Available omeprazole 40 mg capsule,del ayed release Take 1 capsule every day by oral route. active Not Available Not Available No t Available triamcinolo ne acetonide 0.1 % topical cream APPLY A THIN LAYER EXTERNALL Y TO FACE TWICE DAILY FOR 14 DAYS NEEDED active Not Available Not Available No t Available prednisolon e acetate 1 % eye drops,suspe nsion INSTILL 1 DROP QID IN THE OD AFTER SURGERY 02/15 completed Not Available Not Available Not Available DOK 100 mg capsule TK ONE C PO BID 11/12 completed Not Available Not Available Not Available zaleplon 10 mg capsule TK 1 C PO HS PRN 11/12 completed Not Available Not Available Not Available zolpidem 10 mg tablet TK 1 T PO QHS PRN 11/12 completed Not Available Not Available Not Available atropine 1 % eye drops INSTILL 1 DROP BID IN THE OD AFTER SURGERY 02/15 completed Not Available Not Available Not Available Daily Multi-Vitam in tablet Take 1 capsule every day by oral route. active Not Available Not Available No t Available dutasteride 0.5 mg capsule TK 1 C PO QD MUST FOLLOW UP WITH OUR OFFICE BEFORE ANY OTHER REFILLS active Not Available Not Available No t Available Vitamin D3 25 mcg (1,000 unit) capsule Take 1 capsule every day by oral route. 02/15 completed Not Available Not Available Not Available chlorhexidi ne gluconate 0.12 % mouthwash SWISH AND SPIT 15 ML PO BID FOR 14 DAYS 11/12 completed Not Available Not Available Not Available Fish Oil 1 CAP EVERY DAY active Not Available Not Available No t Available Vitals Date Recorded Body height Body mass index (BMI) Body weight Oxygen saturation Oxygen saturation in Arterial blood by Pulse oximetry Heart rate Provider Name and Address Organization Details Last Updated DateTime 7 182.88 cm 25.9 kg/m2 89477.1 4 g 99 % 99 % 63 /min Symone Luciano MD 7 14:28:49 Date Recorded Respiratory rate Systolic blood pressure Diastolic blood pressure Systolic blood pressure Diastolic blood pressure Systolic blood pressure Diastolic blood pressure Provider Name and Address Organization Details Last Updated DateTime 7 12 /min 120 mm[Hg] 70 mm[Hg] 120 mm[Hg] 70 mm[Hg] 115 mm[Hg] 70 mm[Hg] Kristopher Luciano MD [address] [place] [address] [address], [place], [address], [facility]EN[facility] Luciano MD 7 15:00:40 Date Recorded Body height Body mass index (BMI) Body weight Oxygen saturation Oxygen saturation in Arterial blood by Pulse oximetry Heart rate Provider Name and Address Organization Details Last Updated DateTime 9 182.88 cm 28.8 kg/m2 66465.5 8 g 98 % 98 % 65 /min Symone Luciano MD 9 15:33:40 Social History Question Answer Notes LastModified by Organizat ion Details LastModified Time Tobacco Smoking Status Never Smoker Symone contreras, [facility] Luciano MD 02/15/2017 14:33:17 Do You Have An Advance Directive? Yes Information not available 11/12/2018 What Is Your Level Of Alcohol Consumption? None Information not available 02/15/2017 What Is Your Level Of Caffeine Consumption? Moderate 3 CUPS OF COFFEE PER DAY Information not available 01/12/2017 What Type Of Diet Are You Following? REGULAR VERY HEALTHY DIET Information not available 02/15/2017 Which Illicit Or Recreational Drugs Have You Used? None Information not available 02/15/2017 What Is Your Occupation? [employer] [place] [employer] Information not available 02/15/2017 Family History Of Heart Disease? No Information not available 02/15/2017 How Many Days In The Past Year Have You Had A Heavy Drinking Consumption (4+ Female, 5+ Male)? 0 Information not available 11/12/2018 Marital Status Informatio n not available 01/12/2017 What Was The Date Of Your Most Recent Tobacco Screening? 11/12/2018 Information not available 03/14/2019 How Much Tobacco Do You Smoke? No Information not available 02/15/2017 General Stress Level Low Information not available 02/15/2017 Sex: Unknown Functional Status Question Answer Note LastModified by Organizat ion Details LastModified Time What is your exercise level? Moderate YARDWORK, VERY ACTIVE Information not available 02/15/2017 Mental Status None recorded. Family History Relationship Description Onset Age of this Age Resolved Age Notes LastModified by Organization Details LastModified Time Maternal Grandfather Cerebrovascu lar accident [email or web address] Not available 14:31:11 Mother Car crash 32 [email or web address] Not availabl e 02/15/2017 14:31:56 Notes:FAMILY HISTORY UNKNOWN Medical History Condition Response Gastrointestinal Disease Y Eye Problems Y Neurologic Disorder Y Hyperlipidemia Y Asthma Y Sleep Disorder Y Past Encounters Encounter ID Performer Location Encounter Start Date Encounter Closed Date Diagnosis/Indication Diagnosis SNOMED-CT Code Diagnosis ICD10 Code Diagnosis Note [id number] Kristopher Luciano MD - [address] [place] [address] [address] [place] [id number] 02/15/2017 14:04:48 02/15/2017 15:18:40 Dyspnea 752996149 R06.09 Orthostati c hypotension 45017413 I95.1 [id number] Kristopher Luciano MD - [address] [place] [address] [employer], [place] [address] [place] [id number] 11/12/2018 15:26:57 11/12/2018 16:17:59 Palpitations 60219873 R00.2 Alaniz's esophagus 3029 18709 K22.70 Gastroesop hageal reflux disease 514093580 K21.9 Health Concerns Section Related Observation LastModified by Organization Detai ls LastModified Time None Recorded Concern Status LastModified by Organization Details LastModified Time None Recorded Advance Directives Directive Y: Payers Encounter Date Sequence Insurance Name Policy Number Policy Camara Covered Member ID Camara Member ID Guarantor Name 02/15/2017 1 [facility] [id number] Venancio N Martensdale [id number] Venancio N [place] 11/12/2018 1 [facility] [id number] Venancio Anna [place] [id number] [place] Anna [place] Notes Date Note Type Note Provider Name and Address Organization Details Recorded Time 02/15/2017 text/html He has a history of recent dyspnea on exertion and comes in for evaluation. He is gone through. Time where he has lost considerable weight from a high of about 300 down to 180 pounds. He lost weight over about 6 months to one year time frame. He was doing very well with his fitness up until June of last year when he had retinal detachments. He had to stop exercising and has not been back to a fitness plan since. Lately he has noticed some dizzy spells when standing he had one bad spell while standing at a meeting at work he felt like he might pass out tunnel vision. This resolved upon resting he felt well. He hasbeen out of breath walking up stairs and walking up his driveway. Denies any chest pain or pressure. There is been no prior history of coronary vascular disease. He has had recent Raynaud's type symptoms affecting his hands has been bothering him at work in the air-conditioned environment. He has no new medications. He has been a lifelong nonsmoker. Laboratory tests were recently doneIn May 2016 and this showed a BUN of 28 and creatinine 0.9. His CBC was normal. Lipids were in good range. Kristopher Luciano MD [address],[employer] [address], [place], [address], [facility] - Kristopher Luciano MD 02/15/2017 15:18:43 11/12/2018 text/html He returns for follow-up in regards to palpitations that he has noticed. He had brought this to your attention and he had some concerns. He has since decaffeinated nearly completely cutting back from 5 cups of coffee a day to one that is diluted. He has been feeling much better and will really feel a palpitation. He has had no chest pain or syncope. He has continued be careful with his diet and is now signed exercising feeling well. He was interested in following up for further discussion. He has lost considerable weight in the past from 300 pounds down to his current weight. He has not lost weight over the past 2 years. He has no prior coronary history. A stress test was done in 2017 and was normal. He has no history of hypertension. He has Raynaud's disease that is perplexing. He thinks he may have received a consultation for this problem in the past but does not think there is any associated abnormality or disease. He has minimally elevated cholesterol and LDL cholesterol but has a low potential risks for CAD. He is a lifelong nonsmoker. Kristopher Luciano MD [address] [place], [place] [address] [address], [place], [address], [facility] - Kristopher Luciano MD 11/12/2018 19:16:33
--- OUTSIDE RECORDS SUMMARY | 2024-12-12 08:19 | XMS_ITS | Encounter Summary ---
Author Organization [facility] Address [address] [place] [address] Care Team Providers Care Governor Assembler Name Role Phone Cheng Rivera III Primary Care Provider [phone] Encounter Details Date Type Department Care Team (Late st Contact Info) Description 05/16/2016 Ophthalmology Data Conversion [facility] Historical Conversion Department [address] [place], [place] [id number] [place] [address] Social History Tobacco Use Types Packs/Day Years Used Date Smoking Tobacco: Never Assessed Sex and Gender Information Value Date Recorded Sex Assigned at Male 08/12/2024 11:55 AM EST Legal Sex Male 12:10 AM EDT Gender Identity Male 08/31/2024 9:46 AM EST Sexual Orientation Straight 08/31/2024 9: 46 AM EST documented as of this encounter Plan of Treatment Not on file documented as of this encounter Visit Diagnoses Not on filedocumented in this encounter Care Teams Governor Assembler Relationship Specialty Start Date End Date Cheng Rivera III [address] [facility] [address] [place] [address] PCP - General Family Medicine 08/12/24 documented as of this encounter
--- OUTSIDE RECORDS SUMMARY | 2024-12-12 08:19 | XMS_ITS ---
Author Organization [facility] Address [address] [place] [address] Care Team Providers Care Multimedia Instructional Designer Name Role Phone Cheng Rivera MD Primary Care Provider Unavailab Ritesh Farr Unavailable [phone] Allergies No Known Allergies REASON FOR VISIT Fungal Nails, Foot pain Medications Medication SIG (Take, Route, Fr equency, Duration) Notes Start Date End Date Status Omeprazole 40 MG 1 capsule 30 minutes before morning meal Orally Once a day A ctive Lisinopril 20 MG 1 tablet Orally Once a day Active Pravastatin Sodium A ctive Flomax Active Ciclopirox 0.77 % 1 application Gender Studies Professor ally Twice a day for 365 days [...] 024 Encounters Encounter Location Date Provider Diagnosis [facility] [address] [place] [address] 02/06/2024 Ritesh Fang Fungal infection of nail [...] Date Notes Ciclopirox 0.77 % 1 application Gender Studies Professor ally Twice a day for 365 days Next Appt Details Follow Up: 2-3 Months, Reaso n: Progress Notes * Venancio GONSALES NDOB:1960 (64 yo M)Acc No.[id number]:02/06/2024 Progress Note Patient:?Venancio GONSALES Anna Provider:?Ritesh Fang DPM :1960???Age:63 Y???Sex:Male Gulshan e:02/06/2024 Address:[address] [place], [place] [id number] Pcp:Cheng Rivera MD Subjective: * Chief Complaints: * ???Fungal NailsFoot pain * HPI: ???Painful Nails:?Nature:?aching, tender, discolored, thick.?Location:?2nd toe , Both feet , Great toe , Right foot.?Duration:?1 year or more.?Course:?worse.?Aggravated by:?shoegear causing difficulty standing/walking.?Treatments:?Surgical removal Right 2nd [...] months.?Onset:?activity , standing , walking , at new?work/job.?Course:?worse.?Aggravated:?any pressure , standing , walking , job/occupation.?Treatments:?rest/alter [...] , 2-3 cups per day. ?Children: yes. ?Exercise: no. ?Marital status: . 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 * Medications:?TakingTerbinafi ne Pravastatin Sodium Flomax Omeprazole 40 MG Capsule Delayed Release 1 capsule 30 minutes before morning meal Orally Once a day Lisinopril 20 MG Tablet 1 tablet Orally Once a day Ciclopirox 0.77 % Gel 1 application Externally Twice a day Medication List reviewed and reconciled with the patientTaking Terbinafine Taking Pravastatin Sodium Taking Flomax Taking Omeprazole 40 MG Capsule Delayed Release 1 capsule 30 minutes before morning meal Orally Once a day Taking Lisinopril 20 MG Tablet 1 tablet Orally Once a day Taking Ciclopirox 0.77 % Gel 1 application Externally Twice a day Medication List reviewed and reconciled with the patient * Allergies:?N.K.D.A.yes[Aller gies Verified] Objective: * Vitals:?Ht: 6 ft 0 in, Wt:25 0, BMI:33.90, Shoe size:12-13, BP:120/80mm Hg. * Examination: ???Nails: ?NAILS are:?STILL, Elongated, overgrown, dystrophic, lytic, greater than 3mm thick, discolored and friable with crumbly malodorous subungual debris, with pain on palpation , T1 , T5, T6.?Orthopedic: ?MUSCLE STRENGTH:?5/5 all groups in a symmetrical fashion , B/L.?MPJ PATHOLOGY:?Approximately 80-90 percent LESS, Pain, swelling, and inflammation to plantar MPJ(s), 3rd, 4th, RIGHT.? Assessment: * Assessment: 1.?Fungal infection of nail - B35.1???Specify :Chronic problem, Stable (1=3,2=4),Response to treatment - Unresolved???Notes :Rx management (4)???2.?Pain in right toe(s) - M79.674???3.?Pain in left toe(s) - M79.675???4.?Pain in right foot - M79.671 (Primary)???5.?Pain in right ankle and joints of right foot - M25.571???6.?Bursitis of intermetatarsal bursa of right foot - M77.51???7.?Metatarsalgia, right foot - M77.41???Specify :Acute problem, Stable (1=3),Response to treatment - Improvement??? Plan: * Treatment: * Procedure Codes:? * [...] Fang DPM Date:?2023 Generated for Ne garnett/Christine/Alen on:?12/12/2024 08:19 AM EDT History and Physical Notes * HPI (History [...]
--- NOTE | 2024-12-12 08:24 | A.OFFVIS_ITS ---
Vital Signs 12/12/24 08:27 Height 6 ft Weight 251 lb BMI 34.0 BP 133/70 Blood Pressure Location Lt brachial Position Sitting Pulse 59 Pulse Oximetry (%) 97 Oxygen Delivery Method Room Air Intake Visit Reasons: GERD/Edwina piyush 2022 Intake Note: Patient complex follow up for GERD/Edwina pickett 08/07/2023 and 08/09/2023 EGD with 3 to 5 yrs recall and Colonoscopy 5 to 7 yrs recall. Patient cc: acid reflux with mild burning sensation. Denies any other GI issues for today visit. 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 Accompanied by: Self / Same As Patient Allergies No Known Allergies Allergy (Verified 12/12/24 08:20) Medication List - Last Reconciled 12/12/24 by Hanny Marquez CNP brimonidine-timolol 0.2-0.5 % drps ophthalmic (eye) celecoxib (Celebrex) 200 mg PO BID 30 days latanoprostene bunod 0.024% (Vyzulta) 1 drp ophthalmic (eye) BEDTIME lisinopril (Zestril) 20 mg PO DAILY oxybutynin chloride ER 10 mg PO DAILY rosuvastatin 20 mg PO BEDTIME tamsulosin (Flomax) 0.4 mg PO BID greqx-cwjugf-brnsho-bimato(PF) 0.5 %-0.15 %- 2 %-0.01 % drps ophthalmic (eye) zolpidem (Ambien) 10 mg PO BEDTIME PRN HPI HPI GERD/Edwina piyush 2022: Details: Patient is a 64-year-old male with PMH of hypertension, hyperlipidemia, eczema, mild intermittent asthma, insomnia and Barretts esophagus. Last visit with SULY Mcclain 08/07/2023 for colonoscopy pre screening. Pt is here today for follow on GERD. He reports taking omeprazole 20 mg in the morning before eating and the second dose either right before or after dinner. States he has been on this dose for approximately 20 years. Shares he has experienced pyrosis daily the last 4-6 weeks. He endores 50lb weight gain over the past five years. He report daily BMs, soft formed without the need to strain. Associated symptoms: rare intermittent regurgitation Aggravating factors:unable to identify Alleviating attempts: eating in the morning, Patient denies: fever/chills, n/v, appetite changes, unintentional wt loss, ab pain, dysphasia, or melena/hematochezia. common foods consume: 24 oz of coffee upon waking bake/grilled chicken, seafood minimal fruits, vegetables or legumes He expresses concerns for vitamin B12 deficiency. Reports he has been feeling tired and with lower extremity weakness. [facility] Medical History HTN (hypertension) Numbness and tingling in both hands Detached retina Eczema GERD (gastroesophageal reflux disease) Hyperlipidemia Abnormal liver enzymes Hematuria Insomnia Mild intermittent asthma Alaniz esophagus Surgical History Hx of bilateral cataract extraction History of esophagogastroduodenoscopy (EGD) H/O colonoscopy History of wisdom tooth extraction Hx of tonsillectomy History of detached retina repair Social History Household Members: Family Household Members Other:: Alcohol intake: former Patient Tobacco Use Status: Never used Tobacco Review of Systems Const Reports as per HPI ENT Reports as per HPI Card Reports as per HPI Resp Reports as per HPI GI Reports as per HPI Reports as per HPI Physical Exam Vital Signs: Last Vital Signs Pulse 59 12/12/24 08:27 BP 133/70 12/12/24 08:27 Pulse Ox 97 12/12/24 08:27 Oxygen Delivery Method Room Air 12/12/24 08:27 BMI result Body Mass Index 34.0 Const General: healthy appearing, no acute distress and well developed Nutritional Appearance: obese Orientation/consciousness: patient oriented x3 HEENT Head: Yes normal to inspection, Yes normocephalic and Yes atraumatic Face and sinus: Yes normal facial exam Eyes General: appearance normal, both eyes and all related structures Neck Neck: Yes normal visual inspection Resp Effort & Inspection: normal respiratory effort, able to speak in complete sentences, no tracheal deviation and symmetric chest movement Auscultation: clear to auscultation bilaterally Cardio Jugular venous distension: no JVD Rate: regular rate Rhythm: regular rhythm Heart sounds: S1 normal heart sound present, S2 normal heart sound present, no gallops and no murmurs GI Inspection: Yes normal to inspection, No distended and Yes obesity Palpation (GI): Soft to palpation, not firm, nontender and No hepatosplenomegaly present Auscultation: normal bowel sounds Neuro General: patient oriented x3 Gait exam (Neuro): Normal gait present Psych Appearance: grossly normal Mental Status: mental status grossly normal Speech and movement: Normal speech and movement present Affect: normal affect Attitude: cooperative Thought process: Normal thought process present Thought content: Normal thought content present Insight: Good insight present (Psych) Judgement: Good judgement present (Psych) Results Reviewed Results Reviewed: Operative Note Date of Service: 08/09/23 Procedure Description: EGD, Colonoscopy Indication: barretts and screening, hx of colon polyps FLEXIBLE TRANSORAL UPPER GASTROINTESTINAL ENDOSCOPY AND COLONOSCOPY PROCEDURE NOTE UPPER ENDOSCOPY Procedure: The patient was placed in the left lateral decubitis position and pre-procedure medications were administered and a bite block was placed. The endoscope was inserted into the mouth and advanced under direct vision to the third part of duodenum. A careful inspection was made as the upper endoscope was withdrawn including a retroflexed examination of the proximal stomach; Findings and interventions are described below. Findings: Larynx:normal Esophagus: GE junction at 36 cm, diaphragm hiatus at 40 cm, consistent with 4 cm fixed hiatal hernia, suspected short segment barretts mucosa tongues noted, brushings and bx taken Stomach: Normal mucosa. Grade 2 flap valve on retroflexed examination of the cardia. hiatal hernia noted Duodenum: Normal bulb and descending duodenum, Intervention: Biopsies as noted above, brushings COLONOSCOPY Procedure: The patient was placed in the left lateral decubitis position and pre-procedure medications were administered. After a digital rectal examination of the ano-rectum, the video colonoscope was inserted into the rectum and advanced through the colon to the cecum/TI. The colonoscope was slowly withdrawn in a retrograde panoramic fashion and the colon mucosa was carefully examined including a retroflexed view of the rectum. Findings and interventions are described below. Procedure Difficulty:moderate Findings: Terminal Ileum-normal Cecum:normal Ascending Colon: normal Transverse Colon -normal Descending Colon:normal Sigmoid Colon: moderate diverticulosis Rectum: Retroflexion with small internal hemorrhoids, grade I Anorectum - normal Colon preparation: Correll Bowel Preparation Scale Right colon; 2 Transverse colon: 2 Left colon; 2 Impression and Post Procedure Diagnosis: Endoscopy Findings: hiatal hernia barretts Colonoscopy Findings: internal hemorrhoids diverticular disease Plan: Await Pathology results Repeat Colonoscopy in 5-7 years due to prior hx of unknown polyps or earlier if clinically indicated High fiber diet leaflet avoid straining at stool, epsom salts and sitz bath, anusol supps or cream repeat EGD in 3-5 yrs, cont with PPI, if worsening reflux sx refer for surg eval of hiatal hernia Pathology Received: 08/09/23 Diagnosis GE junction, biopsy: - Alaniz esophagus with background moderate chronic, focally active, in flammation. - No dysplasia seen. - Squamous mucosa within normal limits. Clinical History Pre-Op Dx: Hx Alaniz's, colon cancer screening Post-Op Dx: Esophagitis, hiatal hernia, Alaniz's esophagus, diverticulosis, internal hemorrhoids Assessment & Plan Assessment & Plan (1) GERD (gastroesophageal reflux disease): Code(s): K21.9 - Gastro-esophageal reflux disease without esophagitis Category: Medical Qualifiers: Esophagitis presence: with esophagitis Esophagitis bleeding: without hemorrhage Qualified Code(s): K21.00 - Gastro-esophageal reflux disease with esophagitis, without bleeding Plan: He has been taking omeprazole for several years now. Shared decision-making to switch PPI from omeprazole to pantoprazole. Instructed to take pantoprazole 40 mg daily approximately 30-60 minutes before first meal of the day. We will add famotidine to take at bedtime. Barium swallow ordered to further evaluate extent of reflux. Encouraged lifestyle modifications to promote weight loss, examples provided. Education on GERD prevention-Advised against heavy meals. Encouraged small frequent meals VS large meals, remaining upright after meals x 2-3 hours, avoid late night eating/spicy foods/caffeine/alcohol/known triggers and tight fitting clothes (2) History of Alaniz's esophagus: Code(s): Z87.19 - Personal history of other diseases of the digestive system Category: Medical Plan: Last EGD 2022 with recommendations to repeat in 3-5 years. We will monitor closely for need for earlier repeat. Plan as above. Plan Agreeable to ordering vitamin B12 level. Also will obtain thyroid and basic labs given weight gain and long-term use of PPI. Encouraged to discuss generalized weakness symptoms during PCP visit this afternoon. Follow-up in 8 weeks or sooner as needed Time: I spent a total of 60 minutes on the date of encounter which includes: Preparing to see the patient (reviewed previous documentation, test results and medical history) Performing a medically appropriate exam and/or evaluation Ordering medications, tests, and procedures Documenting clinical information in the health record Orders: Orders TSH reflex Free T4 Today K21.9 - Gastro-esophageal reflux disease without esophagitis Vitamin B12 and Folate Today K21.9 - Gastro-esophageal reflux disease without esophagitis Complete Blood Count Auto Diff Today K21.9 - Gastro-esophageal reflux disease without esophagitis IRON PROFILE Today K21.9 - Gastro-esophageal reflux disease without esophagitis Vitamin D 1,25 dihydroxy Today K21.9 - Gastro-esophageal reflux disease without esophagitis Medications: New pantoprazole 40 mg PO DAILY 90 tabs 1RF famotidine Take one tablet at bedtime for acid reflux 20 mg PO DAILY 90 tabs 1RF GERD Coding Level of Care Code Established Pt Est Pt Level 4 (81584) Patient Type Established Diagnoses Gastroesophageal reflux disease with esophagitis without hemorrhage K21.00 Esophagitis presence: with esophagitis Esophagitis bleeding: without hemorrhage History of Alaniz's esophagus Z87.19
[2024-12-12 08:27] VITALS: BP 133/70; PULSE 59; O2SAT 97; BMI 34.0
== END 2024-12-12 09:19 | disposition home or self-care (01) ==
PROVIDERS: Visit Provider Nurse Practitioner Family
DX: K21.00 Gastro-esophageal reflux disease with esophagitis, without bleeding (principal); Z87.19 Personal history of other diseases of the digestive system
CPT/HCPCS: 99214

== ENCOUNTER 2025-01-27 09:06 | Outpatient (AMB) | payer OTHER, SELFPAY ==
--- NOTE | 2025-01-27 09:16 | MHC.OFFVIS ---
Vital Signs 01/27/25 09:18 Height 6 ft Weight 260 lb BMI 35.3 BP 122/74 Blood Pressure Location Rt brachial Position Sitting Intake Visit Reasons: ENP - Unstable Gait Intake Note: Patient [id number] for unsteady gait tripping falling and loosing balance. issues with stairs up and down. legs getting tired unable to lift leg at times. Allergies No Known Allergies Allergy (Verified 12/12/24 08:20) Medication List - Last Reconciled 01/27/25 by Luly Cook MD brimonidine-timolol 0.2-0.5 % drps ophthalmic (eye) celecoxib (Celebrex) 200 mg PO BID 30 days famotidine 20 mg PO DAILY latanoprostene bunod 0.024% (Vyzulta) 1 drp ophthalmic (eye) BEDTIME lisinopril (Zestril) 20 mg PO DAILY oxybutynin chloride ER 10 mg PO DAILY pantoprazole 40 mg PO DAILY rosuvastatin 20 mg PO BEDTIME tamsulosin (Flomax) 0.4 mg PO BID srcqz-qutvov-gdmerb-bimato(PF) 0.5 %-0.15 %- 2 %-0.01 % drps ophthalmic (eye) zolpidem (Ambien) 10 mg PO BEDTIME PRN HPI Comments Details: 64y/o Right handed male comes for evaluation of cognitive difficulties and leg weakness, gait issues. He noticed that while working in the yard his legs are weaker and fatigues easily . He feels his walking was slower and was not confident that he would be walking far. He also feels like his balance is off, he had near falls in his yard.He has had a few falls in the past year - 10. His last fall was last week when he got up to use the bathroom. He felt like his right knee gave out. He reports concussion 4 years ago when he fell off a ladder.He has trouble walking up and down the stairs. He has nocturia, urgency and he sees a urologist He has had some accidents. he takes zolpidem 5 mg qhs for sleep, has frequent arousals . He has daytime fatigue.He alos has leg twitches especially in his right leg with numbness , tingling at rest and night. No recent weight gain , No depression or anxiety. He denies nay neck pain or back pain. 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 He has trouble at home -with fixing things. [facility] Medical History HTN (hypertension) Numbness and tingling in both hands Detached retina Eczema GERD (gastroesophageal reflux disease) Hyperlipidemia Abnormal liver enzymes Hematuria Insomnia Mild intermittent asthma Alaniz esophagus Surgical History Hx of bilateral cataract extraction History of esophagogastroduodenoscopy (EGD) H/O colonoscopy History of wisdom tooth extraction Hx of tonsillectomy History of detached retina repair Social History Household Members: Family Household Members Other:: Alcohol intake: former Patient Tobacco Use Status: Never used Tobacco Physical Exam Vital Signs: Last Vital Signs BP 122/74 01/27/25 09:18 BMI result Body Mass Index 35.3 Const General: cooperative, comfortable and no acute distress Nutritional Appearance: obese Orientation/consciousness: patient oriented x3 Eyes Pupils: Equal, round and reactive pupils present Neuro Other: mild decreased facial expression and blink gait- slow, narrow based, normal stride and arm swings, difficulty with arm swings Mallampatti grade 4 General: patient oriented x3, tone normal, moves all extremities and no focal motor deficits Cranial nerves: Yes Equal, round and reactive pupils present, Yes Bilaterally intact EOM present, Yes Nystagmus not present, Yes Normal facial strength present, Yes Midline tongue present and Yes Ability to bilaterally elevate shoulders present Cognition (Neuro): normal cognition Gait exam (Neuro): Normal gait present Motor exam (neuro): 5/5 motor strength present throughout and Normal motor muscle tone present throughout Deep tendon reflexes (DTR's): Right triceps reflex intensity grade: 2+, Left triceps reflex intensity grade: 2+, Rt Biceps (C5, C6): 2+, Left biceps reflex intensity grade: 2+, Right brachioradialis reflex intensity grade: 2+, Left brachioradialis reflex intensity grade: 2+, Right patellar reflex intensity grade: 3+ and Left patellar reflex intensity grade: 3+ Coordination: dppusv-he-ptiv test normal Orientation What is the (year) (season) (date) (day) (month)?: year, season, date, day and month Where are we (state) (county) (town or city) (hospital) (floor)?: state, county, town or city, hospital/clinic and floor Registration Name of 3 unrelated objects clearly and slowly, then ask patient to repeat all 3 of them. (1st repeat determines score. Make sure they can repeat all three): object 1, object 2 and object 3 Attention & Calculation (CHOOSE ONE) Ask pt to begin with 100 & count backward by 7. Stop after 5 repeats. If pt cannot ask them to spell the word WORLD backward.: 93, 86, 79, 72 and 65 Recall Ask patient to repeat the 3 items from question #3.: object 1 and object 2 Language Show patient a wristwatch & ask what it is. Repeat for pencil.: watch and pencil Ask the patient to repeat the phrase 'No ifs, ands, or buts' after you.: correct Ask the patient to 'take a piece of paper with their right hand' 'fold paper in half' 'place paper on floor': take paper in right hand, fold paper in half and place paper on floor Print the sentence 'CLOSE YOUR EYES' on a piece. If patient actually closes eyes then score.: followed written direction Give patient a blank piece of paper & ask to write a sentence. Score if it contains a noun & verb.: sentence contains subject and verb Ask patient to copy figure of intersecting pentagons exactly. Score if all 10 angles & 2 intersects are included.: all 10 angles present & 2 are intersected Score Score: 29 Assessment & Plan Assessment & Plan (1) Cognitive impairment: Code(s): R41.89 - Other symptoms and signs involving cognitive functions and awareness Category: Medical (2) Gait disorder: Code(s): R26.9 - Unspecified abnormalities of gait and mobility Category: Medical (3) Falls frequently: Code(s): R29.6 - Repeated falls Category: Medical (4) Urinary incontinence: Code(s): R32 - Unspecified urinary incontinence Category: Medical Qualifiers: Urinary Incontinence type: other incontinence Qualified Code(s): N39.498 - Other specified urinary incontinence (5) Snoring: Code(s): R06.83 - Snoring Category: Medical (6) Hypersomnia: Code(s): G47.10 - Hypersomnia, unspecified Category: Medical Plan I will evaluate him with MRI brain - r/o NPH MRI C spine- for possible myelopathy cord compression check CBC cMP B12 TSH ESR Vit D levels Cognitive testing Home sleep test to ro/o sleep apnea. PT for gait and balance training. Orders: Orders RT home sleep study Today G47.10 - Hypersomnia, unspecified, R06.83 - Snoring Comprehensive Met. Panel Today R26.9 - Unspecified abnormalities of gait and mobility, R41.89 - Other symptoms and signs involving cognitive functions and awareness Complete Blood Count Auto Diff Today R26.9 - Unspecified abnormalities of gait and mobility, R41.89 - Other symptoms and signs involving cognitive functions and awareness MR head/brain wo con Today G91.2 - (Idiopathic) normal pressure hydrocephalus, G95.20 - Unspecified cord compression, R26.9 - Unspecified abnormalities of gait and mobility, R29.6 - Repeated falls, R32 - Unspecified urinary incontinence, R41.89 - Other symptoms and signs involving cognitive functions and awareness MR cervical spine wo con Today R26.9 - Unspecified abnormalities of gait and mobility, R29.6 - Repeated falls, R32 - Unspecified urinary incontinence, R41.89 - Other symptoms and signs involving cognitive functions and awareness TSH reflex Free T4 Today R26.9 - Unspecified abnormalities of gait and mobility, R41.89 - Other symptoms and signs involving cognitive functions and awareness Vitamin B12 and Folate Today R26.9 - Unspecified abnormalities of gait and mobility, R41.89 - Other symptoms and signs involving cognitive functions and awareness Erythrocyte Sedimentation Rate Today R26.9 - Unspecified abnormalities of gait and mobility, R41.89 - Other symptoms and signs involving cognitive functions and awareness Vitamin D 25-OH (D2 and D3) Today R26.9 - Unspecified abnormalities of gait and mobility, R41.89 - Other symptoms and signs involving cognitive functions and awareness PT Evaluation and Treatment Today R26.9 - Unspecified abnormalities of gait and mobility, R29.6 - Repeated falls Referrals Speech and Hearing Referral R41.89 - Other symptoms and signs involving cognitive functions and awareness Coding Level of Care Code New Pt Level 4 (77869) Complex EM visit Add On G2211 Diagnoses Cognitive impairment R41.89 Gait disorder R26.9 Falls frequently R29.6 Other urinary incontinence N39.498 Urinary Incontinence type: other incontinence Snoring R06.83 Hypersomnia G47.10
[2025-01-27 09:18] VITALS: BP 122/74; BMI 35.3
--- OUTSIDE RECORDS SUMMARY | 2025-01-27 09:30 | XMS_ITS ---
Author Organization [facility] Address [address] [place] [address] Care Team Providers Care Elevator Inspector Name Role Phone Miguel DAVID, Cheng Primary Care Provider Unavailab Ritesh Farr Unavailable [phone] Encounters Encounter Location Date Provider Diagnosis [facility] [address] [place] [address] 04/30/2024 Ritesh Fang Plan Of Treatment No Information Progress Notes * Venancio GONSALES NDOB:1960 (64 yo M)Acc No.[id number]:04/30/2024 Progress Note Patient:Venancio SALCEDO Provider:?Ritesh Fang DPM :1960???Age:64 Y???Sex:Male Gulshan e:04/30/2024 Address:[address] [place], [place] [id number] Pcp:Cheng Rivera MD Subjective: * Chief Complaints: [...] Fang DPM Date:?2023 Generated for Ne garnett/Christine/eTransmitting on:?01/27/2025 09:29 AM EDT
== END 2025-01-27 10:03 | disposition home or self-care (01) ==
LOC: HO.HSMS 09:07
PROVIDERS: PCP Family Medicine; Visit Provider Psychiatry & Neurology Neurology
DX: R41.89 Other symptoms and signs involving cognitive functions and awareness (principal); R26.9 Unspecified abnormalities of gait and mobility; R29.6 Repeated falls; N39.498 Other specified urinary incontinence; R06.83 Snoring; G47.10 Hypersomnia, unspecified
CPT/HCPCS: 99204

== ENCOUNTER 2025-01-27 10:09 | Outpatient (REF) | payer OTHER, SELFPAY ==
[2025-01-27 17:41] LABS: MANUAL DIFF FLAG NO
[2025-01-27 17:48] LABS: Basophils Absolute Auto 0.1 X10*3/uL (0.0-0.2); Basophils Percent Auto 0.6 % (0-2); Eosinophils Absolute Auto 0.3 X10*3/uL (0.0-0.4); Hematocrit 41.1 % (42.0-52.0); Hemoglobin 13.3 g/dl (14.0-18.0); Imm Gran Abs Auto 0.06 X10*3/uL (0.00-0.03); Imm Gran Pct Auto 0.7 % (0.0-0.4); Lymphocytes Absolute Auto 1.9 X10*3/uL (1.2-4.9); Lymphocytes Percent Auto 22.7 % (20-40); Mean Corpuscular HGB Conc 32.4 g/dl (31.0-36.0); Mean Corpuscular Hemoglobin 30.6 pg (27.0-33.0); Mean Corpuscular Volume 94.5 fL (80.0-98.0); Mean Platelet Volume 11.1 fL (9.4-12.4); Monocytes Absolute Auto 0.6 X10*3/uL (0.1-1.2); Monocytes Percent Auto 7.6 % (2-11); Neutrophils Absolute Auto 5.3 x10*3/uL (2.0-8.3); Neutrophils Percent Auto 64.4 % (45-73); Platelet Count 244 X10*3/uL (160-400); Red Blood Count 4.35 X10*6/uL (4.60-5.80); Red Cell Distribution Width 14.4 % (11.0-16.0); White Blood Count 8.2 X10*3/uL (4.8-10.8)
[2025-01-27 18:04] LABS: Alanine Aminotransferase 25 U/L (0-40); Albumin Level 4.2 g/dL (3.5-5.0); Alkaline Phosphatase 66 U/L (39-117); Anion Gap 14 (12-20); Aspartate Amino Transferase 32 U/L (5-37); Bilirubin Total 0.6 mg/dL (0.0-1.0); Blood Urea Nitrogen 25 mg/dL (9-16); Calcium 9.4 mg/dL (8.4-10.2); Carbon Dioxide 24 mmol/L (22-29); Chloride 106 mmol/L (96-108); Estimated Glomerular Filt Rate > 60; Glucose Random 93 mg/dL (60-115); Potassium 4.9 mmol/L (3.3-5.1); Sodium 139 mmol/L (135-145); Total Protein 6.9 g/dL (6.5-8.0)
[2025-01-27 18:17] LABS: PSA,Total (Free>4and<10) 0.97 ng/mL (0.00-4.00)
[2025-01-27 18:22] LABS: TSH reflex Free T4 0.81 uIU/mL (0.32-4.0)
[2025-01-27 18:32] LABS: Folate 5.9 ng/mL (> or = 4.0); Vitamin B12 598 pg/mL (200-900)
[2025-01-27 18:35] LABS: Erythrocyte Sedimentation Rate 8 MM/HR (0-15)
[2025-01-31 17:18] LABS: Vitamin D 25-OH, D2 <4 ng/mL; Vitamin D 25-OH, D3 30 ng/mL; Vitamin D 25-OH, Total 30 ng/mL (30-100)
== END 2025-01-27 10:10 | disposition home or self-care (01) ==
LOC: HO.HKASLDS 10:09
PROVIDERS: Urology; Visit Provider Psychiatry & Neurology Neurology
DX: Z12.5 Encounter for screening for malignant neoplasm of prostate (principal); R41.89 Other symptoms and signs involving cognitive functions and awareness; R26.9 Unspecified abnormalities of gait and mobility
CPT/HCPCS: 36415; 80053; 82306; 82607; 82746; 84153; 84443; 85025; 85652

== ENCOUNTER 2025-02-04 14:28 | Outpatient (AMB) | payer OTHER, SELFPAY ==
[2025-02-04 14:40] VITALS: BMI 33.9
--- NOTE | 2025-02-04 14:40 | MHC.OFFVIS ---
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 Pt states he was wearing light compression pants but did not seem to help. 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 He has noticed a decline in leg strength and endurance, exacerbated by walking on uneven surfaces and ascending inclines, particularly since spring. The symptoms include tiredness, heaviness, and occasional numbness while reclining, with potential concurrent balance issues assessed by neurology. He described a history of using compression leggings but found symptom relief only when discontinuing their use. Additionally, the patient noted bilateral leg swelling, possibly varicose veins, with symptoms more pronounced on flat ground but worsened on inclines. He highlighted significant changes in his activity levels from the previous fall, with symptomatic onset coinciding with weight gain. Despite attempts to manage these symptoms with compression leggings, the effectiveness was negligible, and noted improvement upon removal. A previous diagnosis of knee osteoarthritis also contributes to his symptomatology. No smoking or diabetes history was reported. Patient denies any history of DVT/ PE. Patient denies any history of phlebitis. Trial of compression includes - [id number] They now present for vascular evaluation regarding their varicose veins. [facility] Medical History Hypersomnia Snoring Falls frequently Urinary incontinence Cognitive impairment Gait disorder HTN (hypertension) Numbness and tingling in both hands Detached retina Eczema GERD (gastroesophageal reflux disease) Hyperlipidemia Abnormal liver enzymes Hematuria Insomnia Mild intermittent asthma Alaniz esophagus Surgical History Hx of bilateral cataract extraction History of esophagogastroduodenoscopy (EGD) H/O colonoscopy History of wisdom tooth extraction Hx of tonsillectomy History of detached retina repair Social History Household Members: Family Household Members Other:: Alcohol intake: former Patient Tobacco Use Status: Never used Tobacco Review of Systems Const Reports as per HPI ENT Reports no additional complaints Card Denies chest pain, Denies chest pain at rest and Denies chest pain with activity Resp Denies chest congestion and Denies cough GI Reports no additional complaints Musc Details: pain over varicosities, aching of lower extremities, swelling, cramping, heaviness and tiredness, itching Denies abnormal gait Skin/Breast Reports pruritus and Denies wounds Neuro Reports no additional complaints and Denies abnormal gait Psych Denies no additional complaints Physical Exam Vital Signs: BMI result Body Mass Index 33.9 Const General: cooperative, healthy appearing and comfortable Orientation/consciousness: oriented to person, oriented to place and oriented to time Neck Carotids: no bruits Chest Chest palpation & inspection: normal inspection of the chest and normal palpation of entire chest wall Resp Effort & Inspection: normal respiratory effort and able to speak in complete sentences Cardio Rate: regular rate Heart sounds: S1 normal heart sound present and S2 normal heart sound present Peripheral pulses: Peripheral pulses 2+ throughout GI Inspection: Yes normal to inspection Skin Other: +2 edema, left greater than right CEAP Classification C4 - skin color changes Ep - Etiology Primary As - superficial veins P - reflux General skin exam: dry skin Neuro General: oriented to person, oriented to place and oriented to time Extrem Right lower extremity: full ROM, normal capillary refill and edema Left lower extremity: full ROM, normal capillary refill and edema Psych Mental Status: mental status grossly normal Assessment & Plan Assessment & Plan (1) Varicose veins of left lower extremity with inflammation: Code(s): I83.12 - Varicose veins of left lower extremity with inflammation Category: Medical Plan: In short, the patient has evidence of venous insufficiency. He does not have evidence of arterial disease as he has palpable arterial pulses I have discussed the pathophysiology with the patient. In addition I have provided informational material regarding venous disease to the patient. We have discussed conservative measures including compression, elevation, and exercise. I have also provided a handout regarding appropriate use of compression stockings and where to purchase good compression stockings as well. I have taken the liberty of ordering venous insufficiency testing with the patient. They will follow up with me after testing. The patient had an opportunity to ask questions regarding the treatment plan. All questions were answered. Imaging studies, laboratory studies and physical exam results were discussed and reviewed in detail. No major barriers to understanding were identified. The patient expressed understanding and agreement with the above treatment plan. The patient is aware they should contact our office by phone for worsening of the current condition or the appearance of new symptoms. Thank you for allowing me to participate in the vascular care of this patient. If you have any questions or concerns regarding the treatment for the above condition please do not hesitate to contact me. The office telephone contact is [phone]. This note is constructed using voice recognition software. While every effort has been made to ensure accuracy, gas system operator errors may have been included. Thank you for allowing me to participate in the care of your patient. Yours sincerely, Tramaine Quiñonez MD, FACS, R.P.V.I. Orders: Orders US venous duplex LE LT 1 Week I83.12 - Varicose veins of left lower extremity with inflammation Coding Level of Care Code New Pt Level 4 (51098) Complex EM visit Add On G2211 Diagnoses Varicose veins of left lower extremity with inflammation I83.12
--- OUTSIDE RECORDS SUMMARY | 2025-02-04 16:47 | XMS_ITS ---
Author Organization [facility] Address [address] [place] [address] Care Team Providers Care Automatic Folder Seamer Name Role Phone Miguel DAVID, Cheng Primary Care Provider Unavailab Ritesh Farr Unavailable [phone] Encounters Encounter Location Date Provider Diagnosis [facility] [address] [place] [address] 04/30/2024 Ritesh Fang Plan Of Treatment No Information Progress Notes * Venancio GONSALES NDOB:1960 (64 yo M)Acc No.[id number]:04/30/2024 Progress Note Patient:Venancio SALCEDO Provider:?Ritesh Fang DPM :1960???Age:64 Y???Sex:Male Gulshan e:04/30/2024 Address:[address] [place], [place] [id number] Pcp:Cheng Rivera MD Subjective: * Chief Complaints: [...] Fang DPM Date:?2023 Generated for Ne garnett/Christine/eTransmitting on:?02/04/2025 04:47 PM EDT
== END 2025-02-04 15:19 | disposition home or self-care (01) ==
LOC: HO.HVS 14:29
PROVIDERS: PCP Family Medicine; Visit Provider Surgery Vascular Surgery
DX: I83.12 Varicose veins of left lower extremity with inflammation (principal)
CPT/HCPCS: 99204

== ENCOUNTER → 2025-02-04 18:08 | Outpatient (BNV) | payer OTHER, SELFPAY | PROVIDERS: PCP Family Medicine; Visit Provider Radiology Vascular & Interventional Radiology | DX: M50.30 Other cervical disc degeneration, unspecified cervical region (principal); R26.9 Unspecified abnormalities of gait and mobility | CPT/HCPCS: 70551; 72141 ==

== ENCOUNTER 2025-02-04 18:11 | Outpatient (REF) | payer OTHER, SELFPAY ==
--- NOTE | ~2025-02-04 | MR_ITS ---
CLINICAL HISTORY: R26.9 - Unspecified abnormalities of gait and mobility MR cervical spine without gadolinium Comparison: None provided Findings: There is straightening of the normal cervical lordosis. There is multilevel disc space narrowing and disc desiccation most pronounced at C5-C6. The spinal cord is normal in signal without evidence of atrophy. Visualized portion of the posterior fossa demonstrate mild volume loss. No fracture or suspicious marrow lesion. Paravertebral soft tissues are unremarkable. No prevertebral soft tissue edema. Individual levels: C2-C3: No central canal stenosis or neural foraminal narrowing. C3-C4: Small posterior disc protrusion with moderate left neural foraminal narrowing. No central canal stenosis. C4-C5: Mild left uncovertebral spurring. Gyzz-zu-ngrwmxek left neural foraminal narrowing. No central canal stenosis. C5-C6: Moderate left eccentric disc protrusion with mild central canal stenosis and moderate left neural foraminal narrowing. C6-C7: No central canal stenosis or neural foraminal narrowing. C7-T1: Small posterior disc protrusion. Mild left neural foraminal narrowing. Impression: Mild and moderate multilevel degenerative changes as detailed. This document has been electronically signed by: Juan José Ortiz MD on 02/06/2025 08:49:21
--- NOTE | ~2025-02-04 | MR_ITS ---
CLINICAL HISTORY: R26.9 - Unspecified abnormalities of gait and mobility MR Brain without gadolinium Comparison: None provided Findings: No restricted diffusion. No intra-axial mass or hemorrhage. No midline shift. No hydrocephalus. Vascular flow voids are intact. Scattered foci of T2 signal noted within the periventricular and juxtacortical white matter. Prominent perivascular/Virchow Vidal space on the left, axial T2 image 14. Orbital contents are unremarkable. The sinuses and mastoid air cells are clear. No focal bone lesion. IMPRESSION: No acute findings. Mild chronic nonspecific white matter disease. This document has been electronically signed by: Juan José Ortiz MD on 02/06/2025 08:55:30
== END 2025-02-04 18:12 | disposition home or self-care (01) ==
LOC: HO.MRI 18:11
PROVIDERS: PCP Family Medicine; Visit Provider Psychiatry & Neurology Neurology
DX: R26.9 Unspecified abnormalities of gait and mobility (principal); R41.89 Other symptoms and signs involving cognitive functions and awareness; R32 Unspecified urinary incontinence; R29.6 Repeated falls; G91.2 (Idiopathic) normal pressure hydrocephalus; G95.20 Unspecified cord compression
CPT/HCPCS: 70551; 72141

== ENCOUNTER 2025-02-06 07:54 | Outpatient (AMB) | payer OTHER, SELFPAY ==
--- OUTSIDE RECORDS SUMMARY | 2024-04-30 12:00 | XMS_ITS ---
Author Organization [facility] Address [address] [place] [address] Care Team Providers Care Thread Spooler Name Role Phone Miguel DAVID, Cheng Primary Care Provider Unavailab Ritesh Farr Unavailable [phone] Encounters Encounter Location Date Provider Diagnosis [facility] [address] [place] [address] 04/30/2024 Ritesh Fang Plan Of Treatment No Information Progress Notes * Venancio GONSALES NDOB:1960 (64 yo M)Acc No.[id number]:04/30/2024 Progress Note Patient: Venancio RALPH Provider: Evie Fang DPM :1960 A ge:64 Y S ex:Male Date:04/30/2024 Address:[address] [place] [address] [facility] Pcp:Cheng Rivera MD Subjective: * Chief Complaints: [...] 0 04/30/2024 Generated for Printi ng/Faxing/eTransmitting on: 02/06/2025 07:56 AM EDT
--- NOTE | 2025-02-06 07:58 | MHC.OFFVIS ---
Vital Signs 02/06/25 07:59 Height 6 ft Weight 250 lb BMI 33.9 BP 123/60 Blood Pressure Location Lt brachial Position Sitting Pulse 63 Pulse Oximetry (%) 96 Oxygen Delivery Method Room Air Intake Visit Reasons: 8 week GERD Intake Note: Patient 8 week follow up for GERD and lab results. Patient cc: GERD is better and denies any other GI issues for today visit. Estimator Printing Required: No Accompanied by: Self / Same As Patient Allergies No Known Allergies Allergy (Verified 02/06/25 07:59) Medication List - Last Reconciled 02/06/25 by Hanny Marquez CNP brimonidine-timolol 0.2-0.5 % drps ophthalmic (eye) celecoxib (Celebrex) 200 mg PO BID 30 days famotidine 20 mg PO DAILY latanoprostene bunod 0.024% (Vyzulta) 1 drp ophthalmic (eye) BEDTIME lisinopril (Zestril) 20 mg PO DAILY oxybutynin chloride ER 10 mg PO DAILY pantoprazole 40 mg PO DAILY rosuvastatin 20 mg PO BEDTIME tamsulosin (Flomax) 0.4 mg PO BID jiyzp-ovspzv-hhtuby-bimato(PF) 0.5 %-0.15 %- 2 %-0.01 % drps ophthalmic (eye) zolpidem (Ambien) 10 mg PO BEDTIME PRN HPI HPI 8 week GERD: Details: Patient is a 64-year-old male with PMH of hypertension, hyperlipidemia, eczema, mild intermittent asthma, insomnia and Barretts esophagus. Venancio presents for follow-up on his acid reflux. Previous treatment with omeprazole was changed to pantoprazole, which Venancio has been taking as directed. He reports improvement but still experiences mild heartburn, particularly at certain times of the day. Symptoms are aggravated by larger amounts of coffee consumption and alleviated by reducing coffee intake and taking medications. Venancio reports occasional regurgitation and no trouble swallowing. Previous endoscopy in July 2023 showed evidence of Alaniz's esophagus. Bowel habits are generally consistent, but he reports occasional large, hard stools with associated strong pain and transient breathlessness, occurring ~1-2x/month. He uses docusate sodium 100mg daily. He notes decreased fiber intake recently but maintains good hydration. Discussed mild anemia on recent labs, present since at least 10/2022. Remaining labs indicate normal vitamin levels and thyroid, but persistent mild anemia not related to iron deficiency. He reports ongoing weakness and fatigue, currently being evaluated by neurology and cardiovascular surgeon. Recent MRI of brain and spine performed; venous US pending. Weakness is localized to legs, not generalized. Patient denies: n/v, dysphasia, appetite changes, ab pain or melena/hematochezia. [facility] Medical History (Updated 02/06/25 @ 12:31 by Hanny Marquez CNP) Constipation Anemia Hypersomnia Snoring Falls frequently Urinary incontinence Cognitive impairment Gait disorder HTN (hypertension) Numbness and tingling in both hands Detached retina Eczema GERD (gastroesophageal reflux disease) Hyperlipidemia Abnormal liver enzymes Hematuria Insomnia Mild intermittent asthma Alaniz esophagus Surgical History Hx of bilateral cataract extraction History of esophagogastroduodenoscopy (EGD) H/O colonoscopy History of wisdom tooth extraction Hx of tonsillectomy History of detached retina repair Social History Household Members: Family Household Members Other:: Alcohol intake: former Patient Tobacco Use Status: Never used Tobacco Review of Systems Const Reports as per HPI ENT Reports as per HPI Card Reports as per HPI Resp Reports as per HPI GI Reports as per HPI Reports as per HPI Physical Exam Vital Signs: Last Vital Signs Pulse 63 02/06/25 07:59 BP 123/60 02/06/25 07:59 Pulse Ox 96 02/06/25 07:59 Oxygen Delivery Method Room Air 02/06/25 07:59 BMI result Body Mass Index 33.9 Const General: healthy appearing and no acute distress Nutritional Appearance: obese Orientation/consciousness: patient oriented x3 HEENT Head: Yes normal to inspection, Yes normocephalic and Yes atraumatic Face and sinus: Yes normal facial exam Eyes General: appearance normal, both eyes and all related structures Neck Neck: Yes normal visual inspection Resp Effort & Inspection: normal respiratory effort, able to speak in complete sentences, no tracheal deviation and symmetric chest movement Auscultation: clear to auscultation bilaterally Cardio Jugular venous distension: no JVD Rate: regular rate Rhythm: regular rhythm Heart sounds: S1 normal heart sound present, S2 normal heart sound present, no gallops and no murmurs GI Inspection: Yes normal to inspection, No distended and Yes obesity Palpation (GI): Soft to palpation, not firm, nontender and No hepatosplenomegaly present Auscultation: normal bowel sounds Neuro General: patient oriented x3 Gait exam (Neuro): Normal gait present Psych Appearance: grossly normal Mental Status: mental status grossly normal Speech and movement: Normal speech and movement present Affect: normal affect Attitude: cooperative Thought process: Normal thought process present Thought content: Normal thought content present Insight: Good insight present (Psych) Judgement: Good judgement present (Psych) Assessment & Plan Assessment & Plan (1) GERD (gastroesophageal reflux disease): Comment: 08/09/2023 EGD - Esophagitis, hiatal hernia, Alaniz's esophagus Code(s): K21.9 - Gastro-esophageal reflux disease without esophagitis Category: Medical Qualifiers: Esophagitis bleeding: without hemorrhage Esophagitis presence: with esophagitis Qualified Code(s): K21.00 - Gastro-esophageal reflux disease with esophagitis, without bleeding Plan: Persistent reflux symptoms despite PPI therapy and history of Alaniz?s esophagus warrant early repeat EGD to assess for progression, structural changes, or complications. Alaniz?s increases risk for dysplasia/adenocarcinoma, and ongoing symptoms may indicate inadequate acid suppression or evolving pathology. Additional Tests: Schedule EGD to assess for structural changes and progression of Alaniz?s. Medications: - Continue pantoprazole 40mg PO QAM. - Increase famotidine to 40mg PO QHS for additional acid suppression. Encouraged to take pantoprazole as prescribed, taken at least 30-60 minutes before a meal. Education on GERD prevention : -Advised against heavy meals; encouraged small, frequent meals instead of large ones. - Instructed to remain upright for 2?3 hours after eating. - Advised to avoid late-night meals, spicy foods, caffeine, alcohol, known dietary triggers, and tight-fitting clothing. -encouraged diet and lifestyle to promote weight loss - Emphasis placed on gradual implementation of lifestyle changes to improve adherence and symptom control. Spoke with the Venancio via phone following the visit to discuss proceeding with a barium swallow in addition to the upper endoscopy, to further evaluate for hiatal hernia or other structural abnormalities. The patient is agreeable to the plan and understands he will receive a call from radiology to schedule the study. (2) Anemia: Comment: colonoscopy, complete with adequate prep-diverticulosis, internal hemorrhoids. recommendations for repeat in 5-7 years (2027) due to prior hx of unknown polyps Code(s): D64.9 - Anemia, unspecified Category: Medical Qualifiers: Anemia type: unspecified type Qualified Code(s): D64.9 - Anemia, unspecified Plan: Anemia is non-FELICIANO, chronic, and not explained by GI blood loss (normal colonoscopy, no evidence of GI bleeding, normal vitamin/thyroid labs), also without symptoms suggestive of IBD. Weakness/fatigue and leg symptoms are being evaluated by neurology/vascular. Further GI workup not indicated at this time; recommend continued evaluation by PCP and specialists to rule out non-GI causes. Additional Tests: Continue workup with PCP, neurology, and vascular as planned. MRI of brain/spine completed; venous US pending. Follow-Up: Encourage ongoing evaluation with PCP/hematology as indicated. (3) Constipation: Code(s): K59.00 - Constipation, unspecified Category: Medical Qualifiers: Constipation type: unspecified constipation type Qualified Code(s): K59.00 - Constipation, unspecified Plan: Reports of large, hard stools with pain and transient breathlessness suggest functional constipation, likely related to decreased fiber intake. No red flag symptoms. Increasing stool softener and dietary fiber is appropriate; no further GI workup indicated unless symptoms worsen. Medications: Increase docusate sodium to 200-240mg PO nightly; script sent. Reinforced lifestyle modifications to promote regularity: -higher fiber diet, examples provided -adequate hydration with water -150 minutes of moderate intensity exercise per week Plan Follow up after endoscopy or sooner as needed Time: I spent a total of 30 minutes on the date of encounter which includes: Preparing to see the patient (reviewed previous documentation, test results and medical history) Performing a medically appropriate exam and/or evaluation Ordering medications, tests, and procedures Documenting clinical information in the health record Orders: Orders FL barium swallow Today K21.00 - Gastro-esophageal reflux disease with esophagitis, without bleeding, Z87.19 - Personal history of other diseases of the digestive system Medications: New docusate calcium Take one tablet at bedtime 240 mg PO BEDTIME 90 caps 3RF famotidine Take one tablet at bedtime 40 mg PO BEDTIME 90 tabs 0RF Discontinued famotidine Take one tablet at bedtime for acid reflux Discontinued Reason: No Longer Medically Relevant 20 mg PO DAILY 90 tabs 1RF GERD Coding Level of Care Code Established Pt Est Pt Level 4 (37624) Patient Type Established Diagnoses Gastroesophageal reflux disease with esophagitis without hemorrhage K21.00 Esophagitis bleeding: without hemorrhage Esophagitis presence: with esophagitis Anemia, unspecified type D64.9 Anemia type: unspecified type Constipation, unspecified constipation type K59.00 Constipation type: unspecified constipation type
[2025-02-06 07:59] VITALS: BP 123/60; PULSE 63; O2SAT 96; BMI 33.9
== END 2025-02-06 08:27 | disposition home or self-care (01) ==
LOC: HO.HGI 07:54
PROVIDERS: PCP Family Medicine; Visit Provider Nurse Practitioner Family
DX: K21.00 Gastro-esophageal reflux disease with esophagitis, without bleeding (principal); D64.9 Anemia, unspecified; K59.00 Constipation, unspecified
CPT/HCPCS: 99214

== ENCOUNTER → 2025-02-06 07:54 | Outpatient (BNVA) | payer OTHER, SELFPAY | PROVIDERS: PCP Family Medicine; Visit Provider Nurse Practitioner Family ==

== ENCOUNTER 2025-02-28 12:56 | Outpatient (REF) | payer OTHER, SELFPAY ==
--- OUTSIDE RECORDS SUMMARY | 2024-04-30 12:00 | XMS_ITS ---
Author Organization [facility] Address [address] [place] [address] Care Team Providers Care Fleecer Name Role Phone Miguel DAVID, Cheng Primary Care Provider Unavailab Ritesh Farr Unavailable [phone] Encounters Encounter Location Date Provider Diagnosis [facility] [address] [place] [address] 04/30/2024 Ritesh Fang Plan Of Treatment No Information Progress Notes * Venancio GONSALES NDOB:1960 (64 yo M)Acc No.[id number]:04/30/2024 Progress Note Patient: Venancio RALPH Provider: Evie Fang DPM :1960 A ge:64 Y S ex:Male Date:04/30/2024 Address:[address] [place] [address] [facility] Pcp:Cheng Rivera MD Subjective: * Chief Complaints: [...] 0 04/30/2024 Generated for Printi ng/Faxing/eTransmitting on: 0 02/28/2025 12:59 PM EDT
--- NOTE | ~2025-02-28 | US_ITS ---
EXAMINATION: US LOWER EXTREMITY VENOUS (REFLUX EXAM), BILATERAL CLINICAL INFORMATION: Varices. COMPARISON: None. TECHNIQUE: Color flow triplex imaging and compression Doppler was performed to evaluate both the deep and the superficial systems bilaterally. To evaluate the superficial system, the examination was performed in the upright position. Color-flow Doppler ultrasound and compression ultrasound were utilized. In addition, maneuvers were utilized to demonstrate reflux. FINDINGS: 1. DEEP VENOUS ULTRASOUND OF THE RIGHT LOWER EXTREMITY: Common Femoral Vein: Compressible, normal respiratory variation and augmented flow. Femoral Vein: Compressible, normal color flow and augmentation. Popliteal Vein: Compressible, normal augmentation. Deep Reflux: There is no evidence of reflux in the deep system in either the common femoral vein, superficial femoral or the popliteal vein. There is no evidence of a López's cyst. 2. SUPERFICIAL ULTRASOUND WITH DOPPLER OF RIGHT LOWER EXTREMITY: GREAT SAPHENOUS VEIN: Saphenofemoral Junction: 0.8 cm; Reflux: 0 ms Proximal Thigh: 0.6 cm; Reflux: 0 ms Mid Thigh: 0.6 cm; Reflux: 0 ms Distal Thigh: 0.5 cm; Reflux: 0 ms At Knee: 0.4 cm; Reflux: 0 ms Proximal Calf: 0.4 cm; Reflux: 0 ms Mid Calf: 0.4 cm; Reflux: 0 ms Distal Calf: 0.3 cm; Reflux: 0 ms DUPLICATED MEDIAL GREAT SAPHENOUS VEIN: Diameter: 0.5-0.6 cm. Reflux: NA DUPLICATED LATERAL GREAT SAPHENOUS VEIN: Diameter: None imaged Reflux: NA SMALL SAPHENOUS VEIN: Saphenopopliteal Junction: 0.3 cm; Reflux: 0 ms Proximal: 0.4 cm; Reflux: 0 ms Distal: 0.2 cm; Reflux: 0 ms VEIN OF GIACOMINI: Size: NA Reflux: NA PERFORATORS: Location: Small saphenous vein, proximal to mid segment. Size: 0.1-0.3 cm. Reflux: NA VARICOSITIES: Location: Small saphenous vein mid to distal segment and great saphenous vein proximal thigh and proximal calf. Size: 0.3-0.4 cm. Reflux: 2928 ms in the proximal calf. 3. DEEP VENOUS ULTRASOUND OF THE LEFT LOWER EXTREMITY: Common Femoral Vein: Compressible, normal respiratory variation and augmented flow. Femoral Vein: Compressible, normal color flow and augmentation. Popliteal Vein: Compressible, normal augmentation. Deep Reflux: There is no evidence of reflux in the deep system in either the common femoral vein, superficial femoral or the popliteal vein. There is no evidence of a López's cyst. 4. SUPERFICIAL ULTRASOUND WITH DOPPLER OF LEFT LOWER EXTREMITY: GREAT SAPHENOUS VEIN: Saphenofemoral Junction: 0.8 cm; Reflux: 0 ms Proximal Thigh: 0.7 cm; Reflux: 0 ms Mid Thigh: 0.3 cm; Reflux: 0 ms Distal Thigh: 0.2 cm; Reflux: 0 ms At Knee: 0.3 cm; Reflux: 0 ms Proximal Calf: 0.4 cm; Reflux: 0 ms Mid Calf: 0.2 cm; Reflux: 0 ms Distal Calf: 0.5 cm; Reflux: 0 ms DUPLICATED MEDIAL GREAT SAPHENOUS VEIN: Diameter: None imaged Reflux: NA DUPLICATED LATERAL GREAT SAPHENOUS VEIN: Diameter: 0.4-0.5 cm. Reflux: NA SMALL SAPHENOUS VEIN: Saphenopopliteal Junction: 0.7 cm; Reflux: 0 ms Proximal: 0.3 cm; Reflux: 0 ms Distal: 0.6 cm; Reflux: 0 ms VEIN OF GIACOMINI: Size: NA Reflux: NA PERFORATORS: Location: Mid and distal calf. Size: 0.3 cm. Reflux: NA VARICOSITIES: Location: Proximal to distal calf. Proximal thigh. Size: 0.3-0.4 cm. Reflux: NA US/US venous insuf bilat IMPRESSION: Right: [Varices with reflux in the proximal calf. Perforators without reflux. No venous insufficiency... Left: No venous insufficiency. Varices and perforators without reflux. Electronically signed by: Efren Salter MD 02/28/2025 02:14 PM EDT
--- OUTSIDE RECORDS SUMMARY | 2025-02-28 12:59 | XMS_ITS | Referral Summary ---
Author Organization [facility] Address [address] [place] [address] Care Team Providers Care Audio/Visual Manager Name Role Phone Waqar Carlos Primary Care Provider Encounters Date Type Department Care Team Description 12/23/2024 Transcribe Orders [facility] Physician Referral Services [address] [place] [address] Waqar Carlos Unstable gait (Primary Dx) from Last 3 Months Allergies No known active allergies Medications * [...] Not on file Insurance [employer] Care Teams Audio/Visual Manager Relationship Specialty Start Date End Date Waqar Carlos [address] [place] [id number] PCP - General Family Medicine 12/23/24
--- OUTSIDE RECORDS SUMMARY | 2025-02-28 12:59 | XMS_ITS | Data Portability ---
Author Organization [facility], [facility] Address [address] [place] [address] Care Team Providers Care Gripper Attacher Name Role Phone MARKY JARQUIN Referring Provider [...] [email or web address] Kristopher Luciano MD, [address], [address], [address], 9 16:17:59 electrocard iogram 2016 017 [email or web address] Luciano MD, [address], [address], [address], 7 15:18:40 exercise stress test 2016 017 [facility] (Radiology), [address] [place], [address], 7 13:40:45 Medication Orders None recorded. Patient TargetsNo targets recorded. Patient Instructions Encounter Date Encounter Id Patient Instructions Last Modified By Organization Details Last Modified Time 02/15/2017 [id number] orthostatic hypotension: care instructions lakia Not available 02/15/2017 15:13:31 11/12/2018 [id number] palpitations: care instructions david Not available 11/12/2018 16:13:17 Reason for Referral None Reported. Results Created Date Observation Date Name Description Value Unit Range Abnormal Flag Note LastModifiedBy Organization Detail LastModifiedTime 02/29/20 17 02/27/2017 exerc ise stres s test No observ ation record ed. burkejose [facility] [address], [place], [address], 02/28/2017 18:48:23 10/31/19 19 10/05/2018 elect adithya servin am No observ ation record ed. [email or web address] Not Available 2018 14:13:42 Result Notes None recorded. Problems Name Problem SNOMED Code Status Onset Date Resolution Date Notes Provider Name and Address Organization Details Recorded Time Orthostatic hypotension 46886849 Active 2016 YENY Donald MD 7 14:26:40 Dyspnea 025821211 Active 2016 YENY Donald MD 7 14:27:14 Hyperlipidemia 30036189 Active 2016 YENY Donald MD 7 14:27:21 Gastroesophage al reflux disease 373006486 Active 2016 YENY Donald MD 7 14:27:31 Raynaud's disease 157905181 Active 2016 YENY Donald MD 7 14:29:09 Palpitations 25326345 Active 2018 YENY Donald MD 9 08:19:01 Alaniz's esophagus 034231518 Active 2018 YENY Donald MD 9 08:19:36 Problem Notes None recorded. Procedures Surgical History Date Name Laterality Status Provider Name and Address Organization Details Recorded Time 06/21/20 16 Ophthalmologic Surgery completed Symone Luciano MD 11/12/2018 15:36:04 08/21/19 15 Gastrointestinal Surgery completed Symone Luciano MD 11/07/2018 08:20:30 02/26/20 14 Ophthalmologic Surgery completed Symone Luciano MD 01/12/2017 14:48:53 Ophthalmologic Surgery completed Symone uLciano MD 01/12/2017 14:49:24 HEENT Surgery completed Symone Luciano MD 01/12/2017 14:49:44 Removal of tonsils completed Symone Luciano MD 01/12/2017 15:06:00 Imaging Results None recorded. Procedure Notes None recorded. Medical Equipment None [...] Updated DateTime 9 182.88 cm 28.8 kg/m2 21950.5 8 g 98 % 98 % 65 /min Symone Luciano MD 9 15:33:40 Date Recorded Respiratory rate Systolic And Diastolic Systolic And Diastolic Systolic And Diastolic Provider Name and Address Organization Details Last Updated DateTime 02/15/2017 12 /min 120/70 mm[Hg] 120/70 mm[Hg] 115/70 mm[Hg] Kristopher Luciano MD [address] [place] [address] [employer] [address] [address], [place], [address], YENY Luciano MD 7 15:00:40 Date Recorded Body height Body mass index (BMI) Body weight Oxygen saturation Oxygen saturation in Arterial blood by Pulse oximetry Heart rate Provider Name and Address Organization Details Last Updated DateTime 7 182.88 cm 25.9 kg/m2 77307.1 4 g 99 % 99 % 63 /min Symone Luciano MD 7 14:28:49 Social History Question Answer Notes LastModified by Organizat ion Details LastModified Time Tobacco Smoking Status Never Smoker Symone Santiago nullYENY MD 02/15/2017 14:33:17 Do You Have An Advance Directive? Yes Information not available 11/12/2018 What Is Your Level Of Caffeine Consumption? Moderate 3 CUPS OF COFFEE PER DAY Information not available 01/12/2017 What Type Of Diet Are You Following? REGULAR VERY HEALTHY DIET Information not available 02/15/2017 Which Illicit Or Recreational Drugs Have You Used? None Information not available 02/15/2017 Family History Of [...] ion Details LastModified Time What is your level of alcohol consumption? None Information not available 02/15/2017 What is your occupation? [employer] Information not available 02/15/2017 What is your exercise level? Moderate YARDWORK, VERY ACTIVE Information not available 02/15/2017 Mental Status None recorded. Family History Relationship Description Onset Age of this Age Resolved Age Notes LastModified by Organization Details LastModified Time Maternal Grandfather Cerebrovascu lar accident [email or web address] Not available 14:31:11 Mother Car crash 32 [email or web address] Not availabl e 02/15/2017 14:31:56 Notes:FAMILY HISTORY UNKNOWN Medical History Condition Response Neurologic Disorder Y Gastrointestinal Disease Y Hyperlipidemia Y Eye Problems Y Asthma Y Sleep Disorder Y Past Encounters Encounter ID Performer Location Encounter Start Date Encounter Closed Date Diagnosis/Indication Diagnosis SNOMED-CT Code Diagnosis ICD10 Code Diagnosis Note [id number] Kristopher Luciano MD - [address] [place] [address] [facility] [address] [employer] [id number] 02/15/2017 14:04:48 02/15/2017 15:18:40 Dyspnea 135591471 R06.09 Orthostati c hypotension 28648236 I95.1 [id number] Kristopher Luciano MD - [address] [place] [address] [facility] [address] [employer] [id number] 11/12/2018 15:26:57 11/12/2018 16:17:59 Palpitations 60235255 R00.2 Alaniz's esophagus 3029 02936 K22.70 Gastroesop hageal reflux disease 221189939 K21.9 Health Concerns Section Related Observation LastModified by Organization Detai ls LastModified Time None Recorded Concern Status LastModified by Organization Details LastModified Time None Recorded Advance Directives Directive Y: Payers Insurance Date Sequence Insurance Name Policy Number Policy Camara Covered Member ID Camara Member ID Guarantor Name 11/12/2018 1 LAURA-YENY (PPO) [id number] Venancio Gonsales [id number] Venancio Gonsales Notes Date Note Type Note Provider Name [...] were in good range. Kristopher Luciano MD [address] [place] [address],[facility] [address], [place], [address], [facility] - Kristopher Luciano MD 02/15/2017 15:18:43 11/12/2018 [...] history. A stress test was done in 2016 and was normal. He has no history [...] is a lifelong nonsmoker. Kristopher Luciano MD [address] [place] [address],[facility] [address], [place], [address], [facility] - Kristopher Luciano MD 11/12/2018 19:16:33
== END 2025-02-28 12:57 | disposition home or self-care (01) ==
LOC: HO.US 12:56
PROVIDERS: PCP Family Medicine; Visit Provider Surgery Vascular Surgery
DX: I83.12 Varicose veins of left lower extremity with inflammation (principal)
CPT/HCPCS: 93970

== ENCOUNTER → 2025-02-28 12:58 | Outpatient (BNV) | payer OTHER, SELFPAY | PROVIDERS: PCP Family Medicine; Visit Provider Radiology Diagnostic Radiology | DX: I83.93 Asymptomatic varicose veins of bilateral lower extremities (principal) | CPT/HCPCS: 93970 ==

== ENCOUNTER 2025-03-20 14:53 | Outpatient (AMB) | payer OTHER, SELFPAY ==
--- NOTE | 2025-03-20 14:55 | MHC.OFFVIS ---
Intake Visit Reasons: follow up s/p US 02/28/25 Intake Note: Patient presents for follow up US performed on 02/28/25. Patient has noticed he has swollen toes on his right foot. Accompanied by: Self / Same As Patient Allergies No Known Allergies Allergy (Verified 03/20/25 14:57) HPI HPI follow up s/p US 02/28/25: Details: Very pleasant 64-year-old gentleman presents for follow-up regarding venous insufficiency. At the time of discussion with him he actually was concerned a little bit about the discoloration of his toes and fingers. It change with in addition he reports drinking only 1 cup of coffee 16 oz and then drinks water for the rest of the day. In general doing fairly well otherwise. He does report some improvement with compression stockings and in general doing fairly well. He now presents to us for routine follow-up with venous insufficiency testing. [facility] Medical History Constipation Anemia Hypersomnia Snoring Falls frequently Urinary incontinence Cognitive impairment Gait disorder HTN (hypertension) Numbness and tingling in both hands Detached retina Eczema GERD (gastroesophageal reflux disease) Hyperlipidemia Abnormal liver enzymes Hematuria Insomnia Mild intermittent asthma Alaniz esophagus Surgical History Hx of bilateral cataract extraction History of esophagogastroduodenoscopy (EGD) H/O colonoscopy History of wisdom tooth extraction Hx of tonsillectomy History of detached retina repair Social History Household Members: Family Household Members Other:: Alcohol intake: former Patient Tobacco Use Status: Never used Tobacco Review of Systems Const All systems reviewed & are unremarkable except as noted in HPI and below Reports no additional complaints ENT Reports Normal hearing present Card Denies chest pain, Denies chest pain at rest, Denies chest pain with activity and Denies pedal edema Resp Denies cough GI Denies abdominal pain Musc Denies abnormal gait, Denies muscle cramps and Denies radiating pain into limb Skin/Breast Denies skin ulcer and Denies wounds Neuro Reports Normal hearing present and Denies abnormal gait Psych Reports no additional complaints Physical Exam Const General: cooperative, healthy appearing and comfortable Orientation/consciousness: oriented to person, oriented to place and oriented to time HEENT Head: Yes normal to inspection Neck Neck: Yes normal visual inspection Carotids: no bruits Chest Chest palpation & inspection: normal inspection of the chest Resp Effort & Inspection: normal respiratory effort and able to speak in complete sentences Auscultation: clear to auscultation bilaterally, no crackles, no rales, no rhonchi and no wheezes Cardio Rate: regular rate Rhythm: regular rhythm Heart sounds: S1 normal heart sound present and S2 normal heart sound present Bruits: no carotid bruits Peripheral pulses: Peripheral pulses 2+ throughout GI Inspection: Yes normal to inspection Skin Wounds: no wounds Hair: normal Neuro General: oriented to person, oriented to place and oriented to time Cranial nerves: Yes CN's II-XII intact bilaterally and Yes Normal hearing present Cognition (Neuro): normal cognition Motor exam (neuro): 5/5 motor strength present throughout Extrem Other: venous exam: No significant superficial varicosities or spider telangiectasias, minimal edema General: No clubbing, No cyanosis and No edema Psych Appearance: grossly normal Mental Status: mental status grossly normal Speech and movement: Normal speech and movement present Results Reviewed Results Reviewed: Brief summary of venous insufficiency testing is as follows: right great saphenous vein: negative right small saphenous vein: negative right accessory vein: none present left great saphenous vein: negative left small saphenous vein: negative left accessory vein: none present Please note there is no evidence of any venous aneurysms or significant tortuosity Assessment & Plan Assessment & Plan (1) Varicose veins of right lower extremity with inflammation: Code(s): I83.11 - Varicose veins of right lower extremity with inflammation Category: Medical Plan: In short patient is negative for any significant venous insufficiency. At the current time would recommend only conservative measures including compression, elevation, exercise. Patient will follow up with us on an as-needed basis. (2) Raynauds disease: Code(s): I73.00 - Raynaud's syndrome without gangrene Category: Medical Qualifiers: Raynaud?s-associated gangrene presence: without gangrene Qualified Code(s): I73.00 - Raynaud's syndrome without gangrene Plan: In short the patient may have an element of Raynaud's syndrome. I have discussed the pathophysiology with the patient, inclusive of spasming of the vessels and change in color of digits from white, red, and blue. We have discussed prevention inclusive of protection hand and feet at all times, reduction of caffeine intake, and reduction of stressors. Also smoking cessation may help improve issues. At the current time the patient appears to be stable. Should this persist may need follow-up with Rheumatology and use a calcium channel ted. The patient will follow up with us on an as-needed basis. Coding Level of Care Code Est Pt Level 4 (77721) Diagnoses Varicose veins of right lower extremity with inflammation I83.11 Raynaud's disease without gangrene I73.00 Raynaud?s-associated gangrene presence: without gangrene
--- OUTSIDE RECORDS SUMMARY | 2025-03-20 14:57 | XMS_ITS | Referral Summary ---
Author Organization [facility] Address [address] [place] [address] Care Team Providers Care Audiovisual Librarian Name Role Phone Waqar Carlos Primary Care Provider [phone] Encounters Date Type Department Care Team Description 12/23/2024 Transcribe Orders [facility] Physician Referral Services [address] [place] [address] Waqar Carlos Unstable gait (Primary Dx) from [...] file Insurance [employer] Care Teams Audiovisual Librarian Relationship Specialty Start Date End Date Waqar Carlos [address] [place] [address] PCP - General Family Medicine 12/23/24
== END 2025-03-20 15:36 | disposition home or self-care (01) ==
LOC: HO.HVS 14:54
PROVIDERS: PCP Family Medicine; Visit Provider Surgery Vascular Surgery
DX: I83.11 Varicose veins of right lower extremity with inflammation (principal); I73.00 Raynaud's syndrome without gangrene
CPT/HCPCS: 99214

== ENCOUNTER 2025-04-01 13:51 | Outpatient (AMB) | payer OTHER, SELFPAY ==
--- OUTSIDE RECORDS SUMMARY | 2024-04-30 12:00 | XMS_ITS ---
Author Organization [facility] Address [address] [place] [address] Care Team Providers Care Coroner'S Juror Name Role Phone Miguel DAVID, Cheng Primary Care Provider Unavailab Ritesh Farr Unavailable [phone] Encounters Encounter Location Date Provider Diagnosis [facility] [address] [place] [address] 04/30/2024 Ritesh Fang Plan Of Treatment No Information Progress Notes * Venancio GONSALES NDOB:1960 (65 yo M)Acc No.[id number]:04/30/2024 Progress Note Patient: Venancio RALPH Provider: Evie Fang DPM :1960 A ge:64 Y S ex:Male Date:04/30/2024 Address:[address] [place] [address] [facility] Pcp:Cheng Rivera MD Subjective: * Chief Complaints: [...] 0 04/30/2024 Generated for Printi ng/Faxing/eTransmitting on: 04/01/2025 02:53 PM EDT
--- NOTE | 2025-04-01 13:52 | MHC.OFFVIS ---
Vital Signs 04/01/25 13:53 Height 6 ft Weight 259 lb BMI 35.1 BP 124/76 Blood Pressure Location Rt brachial Position Sitting Pulse 63 Pulse Source Pulse Oximeter Pulse Oximetry (%) 97 Oxygen Delivery Method Room Air Intake Visit Reasons: Follow up Intake Note: Follow up care Practice Director Required: No Accompanied by: Self / Same As Patient Allergies No Known Allergies Allergy (Verified 04/01/25 13:55) Medication List - Last Reconciled 04/01/25 by Luly Cook MD celecoxib (Celebrex) 200 mg PO BID 30 days docusate calcium 240 mg PO BEDTIME famotidine 40 mg PO BEDTIME lisinopril (Zestril) 20 mg PO DAILY oxybutynin chloride ER 10 mg PO DAILY pantoprazole 40 mg PO DAILY rosuvastatin 20 mg PO BEDTIME tamsulosin (Flomax) 0.4 mg PO BID tkbnl-jywhrc-llklay-bimato(PF) 0.5 %-0.15 %- 2 %-0.01 % drps ophthalmic (eye) zolpidem (Ambien) 10 mg PO BEDTIME PRN HPI Comments Details: 65y/o Right handed male comes for follow up. He still feels his balance is not right . he reports vertigo in the past that improved with vetsibular rehab . he denies vertigo now. MRI brain and c spine - mild spinal canal stenosis no cord compression, mild white matter changes,He had [address] [facility] elast visit He feels better since he increased his activity level. He did not start PT yet. he is waiting for Sleep test He was seen by vascular for leg swelling . he started wearing compression socks - he is not sure if it is helping.His memory is OK History form initial visit-evaluation of cognitive difficulties and leg weakness, gait issues. He noticed that while working in the yard his legs are weaker and fatigues easily . He feels his walking was slower and was not confident that he would be walking far. He also feels like his balance is off, he had near falls in his yard.He has had a few falls in the past year - 10. His last fall was last week when he got up to use the bathroom. He felt like his right knee gave out. He reports concussion 4 years ago when he fell off a ladder.He has trouble walking up and down the stairs. He has nocturia, urgency and he sees a urologist He has had some accidents. he takes zolpidem 5 mg qhs for sleep, has frequent arousals . He has daytime fatigue.He alos has leg twitches especially in his right leg with numbness , tingling at rest and night. No recent weight gain , No depression or anxiety. He denies nay neck pain or back pain. 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 He has trouble at home -with fixing things. [facility] Medical History Constipation Anemia Hypersomnia Snoring Falls frequently Urinary incontinence Cognitive impairment Gait disorder HTN (hypertension) Numbness and tingling in both hands Detached retina Eczema GERD (gastroesophageal reflux disease) Hyperlipidemia Abnormal liver enzymes Hematuria Insomnia Mild intermittent asthma Alaniz esophagus Surgical History Hx of bilateral cataract extraction History of esophagogastroduodenoscopy (EGD) H/O colonoscopy History of wisdom tooth extraction Hx of tonsillectomy History of detached retina repair Social History Household Members: Family Household Members Other:: Alcohol intake: former Patient Tobacco Use Status: Never used Tobacco Physical Exam Vital Signs: Last Vital Signs Pulse 63 04/01/25 13:53 BP 124/76 04/01/25 13:53 Pulse Ox 97 04/01/25 13:53 Oxygen Delivery Method Room Air 04/01/25 13:53 BMI result Body Mass Index 35.1 Const General: cooperative, comfortable and no acute distress Nutritional Appearance: obese Orientation/consciousness: patient oriented x3 Eyes Pupils: Equal, round and reactive pupils present Neuro Other: mild decreased facial expression and blink gait- slow, narrow based, normal stride and arm swings, difficulty with arm swings Mallampatti grade 4 General: patient oriented x3, tone normal, moves all extremities and no focal motor deficits Cranial nerves: Yes Equal, round and reactive pupils present, Yes Bilaterally intact EOM present, Yes Nystagmus not present, Yes Normal facial strength present, Yes Midline tongue present and Yes Ability to bilaterally elevate shoulders present Cognition (Neuro): normal cognition Motor exam (neuro): 5/5 motor strength present throughout and Normal motor muscle tone present throughout Coordination: ifkihf-gq-htrq test normal Results Reviewed Results Reviewed: January 2025 MRI C spine- C2-C3: No central canal stenosis or neural foraminal narrowing. C3-C4: Small posterior disc protrusion with moderate left neural foraminal narrowing. No central canal stenosis. C4-C5: Mild left uncovertebral spurring. Ahio-yc-nfaorcsc left neural foraminal narrowing. No central canal stenosis. C5-C6: Moderate left eccentric disc protrusion with mild central canal stenosis and moderate left neural foraminal narrowing. C6-C7: No central canal stenosis or neural foraminal narrowing. C7-T1: Small posterior disc protrusion. Mild left neural foraminal narrowing. Impression: Mild and moderate multilevel degenerative changes as detailed. MRI Brain - mild white matter changes ? Assessment & Plan Assessment & Plan (1) Cognitive impairment: Code(s): R41.89 - Other symptoms and signs involving cognitive functions and awareness Category: Medical (2) Gait disorder: Code(s): R26.9 - Unspecified abnormalities of gait and mobility Category: Medical (3) Falls frequently: Code(s): R29.6 - Repeated falls Category: Medical (4) Snoring: Code(s): R06.83 - Snoring Category: Medical (5) Hypersomnia: Code(s): G47.10 - Hypersomnia, unspecified Category: Medical Plan MRI brain - normal MRI C spine- reviewed Cognitive testing Home sleep test to ro/o sleep apnea. PT for gait and balance training- he did not start yet. suggested to increase activity Coding Level of Care Code Est Pt Level 4 (23450) Complex EM visit Add On G2211 Diagnoses Cognitive impairment R41.89 Gait disorder R26.9 Falls frequently R29.6 Snoring R06.83 Hypersomnia G47.10
[2025-04-01 13:53] VITALS: BP 124/76; PULSE 63; O2SAT 97; BMI 35.1
--- OUTSIDE RECORDS SUMMARY | 2025-04-01 14:54 | XMS_ITS | Referral Summary ---
Author Organization [facility] Address [address] [place] [address] Care Team Providers Care Plant Associate Name Role Phone Waqar Carlos Primary Care Provider [phone] Allergies No known active allergies Medications * [...] file Insurance [employer] Care Teams Plant Associate Relationship Specialty Start Date End Date Waqar Carlos [address] [place] [id number] PCP - General Family Medicine 12/23/24
== END 2025-04-01 14:26 | disposition home or self-care (01) ==
LOC: HO.HSMS 13:51
PROVIDERS: PCP Family Medicine; Visit Provider Psychiatry & Neurology Neurology
DX: R41.89 Other symptoms and signs involving cognitive functions and awareness (principal); R26.9 Unspecified abnormalities of gait and mobility; R29.6 Repeated falls; R06.83 Snoring; G47.10 Hypersomnia, unspecified
CPT/HCPCS: 99214

== ENCOUNTER 2025-05-06 07:10 | Day surgery (SDC) | payer OTHER, SELFPAY ==
--- OUTSIDE RECORDS SUMMARY | 2024-04-30 12:00 | XMS_ITS ---
Author Organization [facility] Address [address] [place] [address] Care Team Providers Care Grain And Yeast Plants Supervisor Name Role Phone Miguel DAVID, Cheng Primary Care Provider Unavailab Ritesh Farr Unavailable [phone] Encounters Encounter Location Date Provider Diagnosis [facility] [address] [place] [address] 04/30/2024 Rietsh Fang Plan Of Treatment No Information Progress Notes * Venancio GONSALES NDOB:1960 (65 yo M)Acc No.[id number]:04/30/2024 Progress Note Patient: Venancio RALPH Provider: Evie Fang DPM :1960 A ge:64 Y S ex:Male Date:04/30/2024 Address:[address] [place] [address] [facility] Pcp:Cheng Rivera MD Subjective: * Chief Complaints: [...] Date: 04/30/2024 Generated for Printi ng/Faxing/eTransmitting on: 04/30/2025 05:10 PM EDT
--- OUTSIDE RECORDS SUMMARY | 2025-04-30 17:10 | XMS_ITS | Encounter Summary ---
Author Organization [facility] Address [address] [place] [address] Care Team Providers Care Manager Route Name Role Phone Waqar Carlos Primary Care Provider Encounter Details Date Type Department Care Team (Late st Contact Info) Description 05/16/2016 Ophthalmology Data Conversion [facility] Historical Conversion Department [address] [address] Social History Tobacco Use Types Packs/Day Years [...] on filedocumented in this encounter Care Teams Manager Route Relationship Specialty Start Date End Date Waqar Carlos [address] [place] [address] PCP - General Family Medicine 12/23/24 documented as of this encounter
--- OUTSIDE RECORDS SUMMARY | 2025-04-30 17:10 | XMS_ITS | Clinical Summary ---
Author Organization [facility] Address [address] [place] [address] Care Team Providers Care Drapery Installer Name Role Phone Waqar Carlos Primary Care Provider [phone] Allergies No known active allergies Medications * [...] Health Maintenance Due Date Last Done Comments Phillip 1960 Colon Cancer Screening 1960 Colonoscopy 1960 FOBT / Fit Test 1960 HIV Screening 1960 Hepatitis C Screening 1960 Sigmoidoscopy 1960 Alcohol/Substance Use Screening 08/21/2024 Depression Screening and Follow-Up 08/21/2024 Health Care Proxy Review 08/21/2024 Social Drivers of Health Annual Screening 08/21/2024 COVID-19 Vaccine ( season) 2025 06/10/2024, 08/22/2023, 07/19/2022, Additional history exists Influenza Vaccine (#1) 2025 , 08/22/2023, 07/19/2022, Additional history exists DTaP,Tdap,and Td Vaccines (4 - Td or Tdap) 08/22/2033 08/22/2023, 05/21/2013, 08/30/2008 RSV Vaccine (60+ years old and patients) (1 - 1-dose 75+ series) 2035 Zoster Vaccines Completed 06/22/2021, 04/14/2021 Pneumococcal Vaccine: 50+ Years Completed 07/19/2022 Hepatitis B Vaccines Aged Out No long er eligible based on patient's age to complete this topic Insurance [employer] Care Teams Drapery Installer Relationship Specialty Start Date End Date Waqar Carlos [address] [place] [id number] PCP - General Family Medicine 12/23/24
--- OUTSIDE RECORDS SUMMARY | 2025-04-30 17:10 | XMS_ITS | Patient Health Record ---
Author Organization [facility] Address [address] [place] [address] Care Team Providers Care Traffic Coordinator Name Role Phone Cheng Rivera MD Primary Care Provider Unavailab Ritesh Farr Unavailable [phone] Allergies No Known Allergies Reason For Referral No Information Medications Medication SIG (Take, Route, Fr equency, Duration) Notes Start Date End Date Status Omeprazole 40 MG 1 capsule 30 minutes before morning meal Orally Once a day A ctive Lisinopril 20 MG 1 tablet Orally Once a day Active Pravastatin Sodium A ctive Flomax Active Terbinafine Active Ciclopirox 0.77 % 1 application Meat Blender ally Twice a day; Duration: 365 days Active Social History Tobacco Use: [...] Problem Status W/U Status Risk Notes Problem Fungal infection of nail (880376587) 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 confirmed Rx management (4) Plan Of Treatment Pending Test Test Name Order Date *Liver Function Test (LFT) 11/14/2023 [id number] Plate 10/30/2023 Insurance Providers Payer Name Payer Address Payer Phone Subscriber Number Group Number Insured Name Patient Relationship to Insured Coverage Start Date Coverage End Date Blue Benefits [address] [address] [place] [address] [id number] Patricia Gonsales Spouse - patient is the spouse of the insured Medical (General) History Medical History History ICD Code Cataracts Glaucoma HTN CAD Surgical History Surgery Date(Month/Year) eye surgery colonoscopy 08/12 endoscopy 08/12
--- NOTE | 2025-05-05 10:26 | HO.ANESPROP2 ---
Documented by User: Susi Worrell NP 05/05/25 10:27 HPI - Anesthesia Eval Consult details Narrative: 65 yr old male for upper endoscopy Pending home sleep test to ro/o sleep apnea. Difficulty with balance/gait: on 03/2025 neuro recommended PT for gait and balance training, increase activity PMF Active Problems Active Problems: All Active Problems (Updated 04/01/25 @ 14:14 by Luly Cook MD) Obesity (BMI 30-39.9) (Acute) Raynauds disease (Acute) Constipation (Acute) Anemia (Acute) Varicose veins of left lower extremity with inflammation (Acute) Varicose veins of right lower extremity with inflammation (Acute) Hypersomnia (Acute) Snoring (Acute) Falls frequently (Acute) Urinary incontinence (Acute) Cognitive impairment (Acute) Gait disorder (Acute) GERD (gastroesophageal reflux disease) (Acute) Boutonniere deformity of left finger(s) (Acute) Colon polyps (Acute) History of Alaniz's esophagus (Acute) Osteoarthritis of right knee (Acute) Kidney stones (Acute) Screening PSA (prostate specific antigen) (Acute) BPH (benign prostatic hyperplasia) (Acute) Nocturia (Acute) Urinary urgency (Acute) Urinary frequency (Acute) Past Medical History Medical History Obesity (BMI 30-39.9) Constipation Anemia Hypersomnia Snoring Falls frequently Urinary incontinence Cognitive impairment Gait disorder HTN (hypertension) Numbness and tingling in both hands Detached retina Eczema GERD (gastroesophageal reflux disease) Hyperlipidemia Abnormal liver enzymes Hematuria Insomnia Mild intermittent asthma Alaniz esophagus Family History Family history of problems with anesthesia: No Surgical History Surgical History History of surgery Hx of bilateral cataract extraction History of esophagogastroduodenoscopy (EGD) H/O colonoscopy History of wisdom tooth extraction Hx of tonsillectomy History of detached retina repair History of Problems with Anesthesia: No Social History Social History Household Members: Family Household Members Other:: Alcohol intake: former Patient Tobacco Use Status: Never used Tobacco Use of substances other than those prescribed or required for medical reasons: No Are you DNR?: No Advance Directives: No Advance Directives Information Provided: Yes Poor oral hygiene: No Meds Allergies Allergy/AdvReac Type Severity Reaction Status Date / Time No Known Allergies Allergy Verified 04/01/25 13:55 Home Medications ?Medication ?Instructions ?Recorded ?Confirmed ?Last Taken ?Type lisinopril 20 mg tablet (Zestril) 20 mg PO DAILY 12/20/22 04/01/25 Unknown History zolpidem 10 mg tablet (Ambien) 10 mg PO BEDTIME PRN Insomnia 12/20/22 04/01/25 Unknown History rosuvastatin 20 mg tablet 20 mg PO BEDTIME 07/05/24 04/01/25 Unknown History timolol 0.5 %-brimon 0.15 %-dorzol drp ophthalmic (eye) 12/12/24 04/01/25 05/06/25 History 2 %-bimatoprost 0.01%(PF) eye drops Assessment and Plan Final Anesthetic Review Family History of Problems with Anesthesia: No History of Problems with Anesthesia: No Documented by User: Calvin Denise MD 05/06/25 10:19 [facility] Past Medical History Medical History Obesity (BMI 30-39.9) Constipation Anemia Hypersomnia Snoring Falls frequently Urinary incontinence Cognitive impairment Gait disorder HTN (hypertension) Numbness and tingling in both hands Detached retina Eczema GERD (gastroesophageal reflux disease) Hyperlipidemia Abnormal liver enzymes Hematuria Insomnia Mild intermittent asthma Alaniz esophagus Functional capacity: independent ambulation Surgical History Surgical History History of surgery Hx of bilateral cataract extraction History of esophagogastroduodenoscopy (EGD) H/O colonoscopy History of wisdom tooth extraction Hx of tonsillectomy History of detached retina repair Social History Social History Household Members: Family Household Members Other:: Alcohol intake: former Patient Tobacco Use Status: Never used Tobacco Use of substances other than those prescribed or required for medical reasons: No Are you DNR?: No Advance Directives: No Advance Directives Information Provided: Yes Poor oral hygiene: No Meds Allergies Allergy/AdvReac Type Severity Reaction Status Date / Time No Known Allergies Allergy Verified 04/01/25 13:55 Home Medications ?Medication ?Instructions ?Recorded ?Confirmed ?Last Taken ?Type lisinopril 20 mg tablet (Zestril) 20 mg PO DAILY 12/20/22 04/01/25 Unknown History zolpidem 10 mg tablet (Ambien) 10 mg PO BEDTIME PRN Insomnia 12/20/22 04/01/25 Unknown History rosuvastatin 20 mg tablet 20 mg PO BEDTIME 07/05/24 04/01/25 Unknown History timolol 0.5 %-brimon 0.15 %-dorzol drp ophthalmic (eye) 12/12/24 04/01/25 05/06/25 History 2 %-bimatoprost 0.01%(PF) eye drops Exam Exam Date and Time: 05/06/25 Airway TM Dist: >3cm Loose/Missing/Broken Teeth: No Heart: normal Lungs: normal Other: normal Assessment and Plan Final Anesthetic Review NPO: Yes ASA Class: II Final Preanesthetic Review: No Changes in Pt Med Stat, Meds/Allgs Chart Reviewed, Consent Obtained/Reviewed and Anes Risks/Benef Reviewed Patient Risk: Low Procedure Risk: Low Anesthetic Plan Anesthetic Plan: MAC: Disposition: Standard PACU
[2025-05-06 08:58] VITALS: BMI 34.4
[2025-05-06 09:02] VITALS: BP 123/67; PULSE 72; RESP 16; TEMP 36.4; O2SAT 99
--- NOTE | 2025-05-06 09:08 | MHC.SHP ---
Pre-Procedural Eval Section A - 24 Hr Update-Section A only Date of Service: 05/06/25 Section B - Complete if H&P > 30 days Chief Complaint: gerd, BE Details of Present Illness: Constipation Anemia Hypersomnia Snoring Falls frequently Urinary incontinence Cognitive impairment Gait disorder HTN (hypertension) Numbness and tingling in both hands Detached retina Eczema GERD (gastroesophageal reflux disease) Hyperlipidemia Abnormal liver enzymes Hematuria Insomnia Mild intermittent asthma Alaniz esophagus Surgical History Hx of bilateral cataract extraction History of esophagogastroduodenoscopy (EGD) H/O colonoscopy History of wisdom tooth extraction Hx of tonsillectomy History of detached retina repair Present Medications: see Short Stay Collaborative assessment Allergies: Allergies Allergy/AdvReac Type Severity Reaction Status Date / Time No Known Allergies Allergy Verified 04/01/25 13:55 Review of Systems Review of Systems Comment: Ten point ROS negative Exam Exam Comment: Gen appear: No acute distress HEENT: no icterus Chest: No overt resp distress Abd: soft, nontender, nondistended Psych: Stable affect, answering questions appropriately Neuro: A/Ox3 noted to move all extremities spontaneously Ext: no peripheral edema Plan Diagnosis/Plan: Unchanged I have reviewed the history and physical and performed a pertinent physical examination on my patient. No changes have occurred unless specified. Time Spent With Patient Time: Total time managing care of this patient today ____ minutes.
[2025-05-06] MEDS: Lactated Ringers 1,000 ML 100 ML IVCONT (09:15)
[2025-05-06 10:43] VITALS: BP 76/43; PULSE 75; RESP 16; TEMP 36.6; O2SAT 95
[2025-05-06 10:45] VITALS: BP 83/47; PULSE 60; RESP 16; O2SAT 96
--- NOTE | 2025-05-06 10:45 | P.OP_ITS ---
Operative Note Operative Note Date of Service: 05/06/25 Narrative: Procedure: Esophagogastroduodenoscopy Endoscopist: Shefali Ronquillo MD Indication: Alaniz's esophagus Anesthesia Provider: Dr Denise Anesthesia Type: MAC ?? EGD Procedure:?? The procedure, indications, preparation and potential complications were reviewed with the patient, who indicated understanding and gave written informed consent to proceed. A physical exam was performed. The endoscope was introduced through the mouth, and advanced to the second part of duodenum. The mucosa was carefully examined on slow withdrawal of the endoscope. The patient tolerated the procedure well. There were no immediate complications.? ? EGD Findings:? * Esophagus:? Normal mucosa noted in the entire esophagus. The GE junction was at 37 cm with the SCM junction extending up to 35 cm and a tongue extending to 33 cm. [place] C2M4. Previously biopsy proven BE. Cold forceps biopsies were taken Q 1cm for histology and dysplasia assessment. A tissue cypher will also be sent. There was a hiatal hernia with the diaphragmatic pinch at 40 cm. * Stomach:? Normal mucosa was noted in the stomach. 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 * Duodenum:? Normal mucosa was noted in the whole of the examined duodenum. ? EGD Impressions:? * R/O Alaniz's esophagus (biopsy, tissue cypher) * Hiatal hernia * Normal stomach * Normal duodenum ?? Recommendations:?? * Follow biopsy results. Our office will call or send a letter with results within 7-10 days. * Continue PPI therapy. * Avoid NSAIDs. * Repeat EGD contingent on results of the histology and tissue cypher. Above has been reviewed with the patient.
[2025-05-06 11:00] VITALS: BP 98/72; PULSE 60; RESP 16; O2SAT 96
[2025-05-06 11:15] VITALS: BP 119/67; PULSE 59; RESP 18; TEMP 36.8; O2SAT 97
== END 2025-05-06 12:31 | disposition home or self-care (01) ==
PROVIDERS: PCP Family Medicine; Visit Provider Internal Medicine
PROC: 0DJ08ZZ Inspection of Upper Intestinal Tract, Via Natural or Artificial Opening Endoscopic (ICD-10-PCS; CPT 43235; principal; 2025-05-06 10:10)
DX: K21.9 Gastro-esophageal reflux disease without esophagitis (principal); K44.9 Diaphragmatic hernia without obstruction or gangrene; Z87.19 Personal history of other diseases of the digestive system; I10 Essential (primary) hypertension; E78.5 Hyperlipidemia, unspecified; J45.20 Mild intermittent asthma, uncomplicated; D64.9 Anemia, unspecified; Z79.899 Other long term (current) drug therapy
CPT/HCPCS: 43239; 88305; J2003; J2704; J3010

== ENCOUNTER → 2025-05-06 07:10 | Outpatient (BNV) | payer OTHER, SELFPAY | PROVIDERS: PCP Family Medicine; Visit Provider Internal Medicine | DX: K22.70 Barrett's esophagus without dysplasia (principal) | CPT/HCPCS: 43239 ==

== ENCOUNTER 2025-05-13 15:00 | Outpatient (AMB) | payer OTHER, SELFPAY ==
--- OUTSIDE RECORDS SUMMARY | 2024-04-30 12:00 | XMS_ITS ---
Author Organization [facility] Address [address] [place] [address] Care Team Providers Care Power House Control Room Operator Name Role Phone Miguel DAVID, Cheng Primary Care Provider Unavailab Ritesh Farr Unavailable [phone] Encounters Encounter Location Date Provider Diagnosis [facility] [address] [place] [address] 04/30/2024 Ritesh Fang Plan Of Treatment No Information Progress Notes * Venancio GONSALES NDOB:1960 (65 yo M)Acc No.[id number]:04/30/2024 Progress Note Patient: Venancio RALPH Provider: Evie Fang DPM :1960 A ge:64 Y S ex:Male Date:04/30/2024 Address:[address] [place] [address] [facility] Pcp:Cheng Rivera MD Subjective: * Chief Complaints: * * Medical History: Objective: * Vitals: Assessment: Plan: * Treatment: * Images: * The named appointment provid er may or may not be the originator of this progress note, and it is not deemed complete until electronically signed by the appointment provider. Sign off status: Pending * Provider: Evie Fang DPM Date: 04/30/2024 Generated for Printi ng/Faxing/eTransmitting on: 05/13/2025 06:03 PM EDT
[2025-05-13 15:12] VITALS: BMI 33.9
--- NOTE | 2025-05-13 15:12 | A.OFFVIS_ITS ---
Vital Signs 05/13/25 15:12 Height 6 ft Weight 250 lb BMI 33.9 Intake Visit Reasons: toe nail fungus Intake Note: Venancio is a 65 year old male who presents today as a new patient for an evaluation of his bilateral toe nail fungus. Pt mentions this has been going on for about 4 year. Patient reports he has tried topical treatment from previous pricing specialist and found no improvement in the past. Toenail fungus is located bilaterally on his 1st and 2nd toe and his right foot seems to be worse then the left. Patient states he has been attending physical therapy due to gait. Allergies No Known Allergies Allergy (Verified 05/13/25 15:12) Medication List - Last Reconciled 05/13/25 by Bhavik Garcia DPM acoltremon 0.003% (Tryptyr) 1 drp ophthalmic (eye) BID celecoxib (Celebrex) 200 mg PO BID 30 days docusate calcium 240 mg PO BEDTIME famotidine 80 mg (2 x 40 mg) PO BEDTIME 90 days lisinopril (Zestril) 20 mg PO DAILY pantoprazole 40 mg PO DAILY rosuvastatin 20 mg PO BEDTIME tamsulosin (Flomax) 0.4 mg PO BID qjipa-snwrjj-nmfyry-bimato(PF) 0.5 %-0.15 %- 2 %-0.01 % drps ophthalmic (eye) urea 20% 1 appl topical BID zolpidem (Ambien) 10 mg PO BEDTIME PRN HPI HPI toe nail fungus: Details: Venancio is a 65 year old male with past medical history of GERD, Right TKA, and gait disorder who presents today as a new patient for an evaluation of his bilateral toe nail fungus and unsteady gait. The nail issues have been ongoing for approximately five years, with the nails having a history of falling off and regrowing abnormally. Topical treatments were used for about three to six months without improvement, and oral terbinafine was prescribed but discontinued due to concerns about potential liver damage. The patient also reports balance issues that have worsened over the past year or two. He notes he has had several tests,including 'brain and spine evaluations' and vein ultrasounds, which he states have all returned normal. He was recommended to wear compression stockings for his lower extremities which he uses daily. He does not use a cane/aid for support. He has been attending physical therapy for gait training, notably working on strengthening his hip muscles. [facility] Medical History Obesity (BMI 30-39.9) Constipation Anemia Hypersomnia Snoring Falls frequently Urinary incontinence Cognitive impairment Gait disorder HTN (hypertension) Numbness and tingling in both hands Detached retina Eczema GERD (gastroesophageal reflux disease) Hyperlipidemia Abnormal liver enzymes Hematuria Insomnia Mild intermittent asthma Alaniz esophagus Surgical History History of surgery Hx of bilateral cataract extraction History of esophagogastroduodenoscopy (EGD) H/O colonoscopy History of wisdom tooth extraction Hx of tonsillectomy History of detached retina repair Social History Household Members: Family Household Members Other:: Alcohol intake: former Patient Tobacco Use Status: Never used Tobacco Review of Systems Const All systems reviewed & are unremarkable except as noted in HPI and below Physical Exam Vital Signs: BMI result Body Mass Index 33.9 Extrem Other: *Bilateral Lower Extremity Focused Foot Exam Vascular: DP/PT 2/4, CFT<3s to digits, TG warm to cool, no pedal edema, pedal hair present Derm: Skin: Hyperkeratotic lesions to the medial aspect of the hallux and distal aspect of the 2nd toe bilaterally. No underlying wounds or clinical signs of infection. Interdigital spaces: Clear, no maceration or fungal infection. Nails: Thickened elongated dystrophic toenails times 10 with warm formation to the 2nd toenail. Neuro: Protective sensation grossly intact to bilateral lower extremities. Msk: Deformities: Flexible hammertoe deformities 2 digits 2 through 5 bilaterally. Muscle strength: 5/5 in all muscle groups. Gait: Right shoulder drop, Trendelenburg gait. Bilateral ankle dorsiflexion appears limited during swing phase of gait. Footwear Assessment: Shoes inspected; appropriate fit, no excessive wear, or foreign objects noted. Office Procedures AMB Debridement/Avulsion Podia Details: Procedure: Nail debridement Location: Bilateral feet (10 toes) Anesthesia: N/A Description: The affected toenails were cleansed with an antiseptic solution. Using sterile nail nippers and a rotary romaine, dystrophic and mycotic nail material was carefully debrided and reduced in thickness. Care was taken to avoid trauma to the surrounding skin and nail bed. All debris was removed as tolerated. The area was inspected for signs of infection or ulceration. Patient tolerated the procedure well without complications. Tolerance: Patient tolerated procedure well, no immediate complications. Class A findings as per physical exam findings above. The patient has a diagnosis of unsteady gait. He presents with elongated, thickened toenails. The patient is at increased risk for complications such as ulceration, infection, and difficulty with self-care. Debridement of elongated toenails is medically necessary to prevent development of pressure-related lesions, reduce risk of secondary infection, and maintain foot health in his high-risk comorbidities. Procedure: Callus debridement Location: 2 Right foot + 2 left foot (4) Anesthesia: N/A Description: The affected area was cleansed with an antiseptic solution. Using a sterile #15 blade, the hyperkeratotic tissue was radially debrided from the foot. All callused tissue was removed down to normal skin without causing bleeding or discomfort. The area was inspected for underlying ulceration or infection. Patient tolerated the procedure well. No complications noted. Tolerance: Patient tolerated procedure well, no immediate complications. 57385-Ajbocdxcnqt of Nail 6+ 73753-Hnastmpayob of Callus (2-4) Procedure code (CPT) selection complete Assessment & Plan Assessment & Plan (1) Gait disorder: Code(s): R26.9 - Unspecified abnormalities of gait and mobility Category: Medical Plan: * Discussed possible etiology of his gait issues. The patient notes a history of a right shoulder injury in the past. However, other gait findings may be consistent with compensation versus functional limb length discrepancy, as he does not appear to have a structural limb length deformity observed at this visit.. * Rx bone length x-rays * Patient may be a candidate for AFO braces to aid in ankle dorsiflexion when ambulating. We will await for results of his bone length study. * Referred to physical therapy for lower extremity ankle dorsiflexion/strengthening. (2) Varicose veins of right lower extremity with inflammation: Code(s): I83.11 - Varicose veins of right lower extremity with inflammation Category: Medical Plan: * The patient is wearing compression stockings from his ankle to below the knee. Explained that this will worsened swelling to his feet. The patient states he will follow up with his PCP to discuss possibly discontinuing compression stockings as he does not find them beneficial. (3) Hammertoe, bilateral: Code(s): M20.41 - Other hammer toe(s) (acquired), right foot; M20.42 - Other hammer toe(s) (acquired), left foot Category: Medical Plan: * Discussed possible surgical correction of his toes if the deformities worsen over time and if he develops either wound/infection or has chronic pain. * Recommended hammertoe crest pad. (4) Callus: Code(s): L84 - Corns and callosities Category: Medical Plan: * Debrided calluses x4 using a # 15 Blade. * Rx urea cream 20% (5) Onychogryphosis: Code(s): L60.2 - Onychogryphosis Category: Medical Plan: * Debrided elongated nails times 10 using a sterile nail Nipper. * A nail clipping was sent for evaluation of fungal elements. A culture was sent to assess for fungal species. * Discussed treatment options including topical treatment versus oral antifungal medications. * Explained that oral antifungals may cause gastrointestinal upset, headache, rash, taste disturbances, and hepatotoxicity. Baseline and monthly liver fun ction monitoring is recommended during therapy. Patients should be advised to report symptoms such as jaundice, dark urine, or persistent nausea. * Patient was counseled on the importance of anti-fungal foot hygiene, including daily washing and thorough drying of feet, regular changing of socks, and use of breathable footwear. Recommended antifungal sprays shoes. Education provided on keeping toenails trimmed and clean to reduce risk of fungal infections. Preventive strategies discussed to minimize recurrence of fungal infections. * We will base recommendations for antifungal treatment based on culture results. * Follow up in 3 weeks. Orders: Orders Fungus Cult Hair/Skin/Nail Today B35.1 - Tinea unguium PT Evaluation and Treatment Today R26.9 - Unspecified abnormalities of gait and mobility XR bone length study Today M21.70 - Unequal limb length (acquired), unspecified site AMB Debridement/Avulsion Podiatry Today B35.1 - Tinea unguium Surgical Today B35.1 - Tinea unguium Medications: New urea 20% Apply to calluses twice a day. 1 appl topical BID 85 grams 3RF callus L84 - Corns and callosities Coding Level of Care Code New Pt Level 4 (36828) Diagnoses Gait disorder R26.9 Varicose veins of right lower extremity with inflammation I83.11 Hammertoe, bilateral M20.41; M20.42 Callus L84 Onychogryphosis L60.2 CPT Codes Skin Debridement - CPT: 24181-Utvqxgqjoix of Nail 6+ ([id number]) Skin Debridement - CPT: 09135-Lifjfrrummu of Callus (2-4) ([id number]) Time Spent (min) 60
--- OUTSIDE RECORDS SUMMARY | 2025-05-13 18:03 | XMS_ITS | Encounter Summary ---
Author Organization [facility] Address [address] [place] [address] Care Team Providers Care Element Winding Machine Tender Name Role Phone Waqar Carlos Primary Care Provider [phone] Encounter Details Date Type Department Care Team (Late st Contact Info) Description 05/16/2016 Ophthalmology Data Conversion [facility] Historical Conversion Department [address] [address] Social History Tobacco Use Types Packs/Day Years [...] on filedocumented in this encounter Care Teams Element Winding Machine Tender Relationship Specialty Start Date End Date Waqar Carlos [address] [place] [address] PCP - General Family Medicine 12/23/24 documented as of this encounter
--- OUTSIDE RECORDS SUMMARY | 2025-05-13 18:03 | XMS_ITS | Clinical Summary ---
Author Organization [facility] Address [address] [place] [address] Care Team Providers Care Substation Technician Name Role Phone Waqar Carlos Primary Care Provider [phone] Allergies No known active allergies Medications * [...] topic Insurance [employer] Care Teams Substation Technician Relationship Specialty Start Date End Date Waqar Carlos [address] [place] [id number] PCP - General Family Medicine 12/23/24
--- OUTSIDE RECORDS SUMMARY | 2025-05-13 18:03 | XMS_ITS | Patient Health Record ---
Author Organization [facility] Address [address] [place] [address] Care Team Providers Care Supervisor In Charge Name Role Phone Cheng Rivera MD Primary Care Provider Unavailab Ritesh Farr Unavailable [phone] Allergies No Known Allergies Reason For Referral No Information Medications Medication SIG (Take, Route, Fr equency, Duration) Notes Start Date End Date Status Omeprazole 40 MG 1 capsule 30 minutes before morning meal Orally Once a day A ctive Lisinopril 20 MG 1 tablet Orally Once a day Active Pravastatin Sodium A ctive Flomax Active Terbinafine Active Ciclopirox 0.77 % 1 application Public Relations Manager ally Twice a day; Duration: 365 days [...] Risk Notes Problem Fungal infection of nail ([id number]) 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 confirmed Rx management (4) Plan Of Treatment Pending Test Test Name Order Date *Liver Function Test (LFT) 11/14/2023 55018-Rxpafbcs Plate 10/30/2023 Insurance Providers Payer Name Payer Address Payer Phone Subscriber Number Group Number Insured Name Patient Relationship to Insured Coverage Start Date Coverage End Date [employer] Benefits [address] [address] [place] [address] [id number] Patricia Gonsales Spouse - patient is the spouse of the insured Medical (General) History Medical History History ICD Code Cataracts Glaucoma HTN CAD Surgical History Surgery Date(Month/Year) eye surgery colonoscopy 08/12 endoscopy 08/12
== END 2025-05-13 15:50 | disposition home or self-care (01) ==
LOC: HO.HPODS 15:01
PROVIDERS: PCP Family Medicine; Visit Provider Student in an Organized Health Care Education/Training Program
DX: R26.9 Unspecified abnormalities of gait and mobility (principal); I83.11 Varicose veins of right lower extremity with inflammation; M20.41 Other hammer toe(s) (acquired), right foot; M20.42 Other hammer toe(s) (acquired), left foot; L84 Corns and callosities; L60.2 Onychogryphosis
CPT/HCPCS: 11056; 11721; 99203

== ENCOUNTER 2025-05-13 15:09 | Outpatient (REF) | payer OTHER, SELFPAY | END 2025-05-13 15:10 | disposition home or self-care (01) | LOC: HO.LNP 15:09 | PROVIDERS: Visit Provider Student in an Organized Health Care Education/Training Program | DX: B35.1 Tinea unguium (principal); L84 Corns and callosities; I83.11 Varicose veins of right lower extremity with inflammation; R26.9 Unspecified abnormalities of gait and mobility; M20.41 Other hammer toe(s) (acquired), right foot; M20.42 Other hammer toe(s) (acquired), left foot | CPT/HCPCS: 11056; 88304 ==

== ENCOUNTER 2025-05-13 15:09 | Outpatient (REF) | payer OTHER, SELFPAY | END 2025-05-13 15:10 | disposition home or self-care (01) | LOC: HO.LAB 15:09 | PROVIDERS: Visit Provider Student in an Organized Health Care Education/Training Program | DX: B35.1 Tinea unguium (principal); R26.81 Unsteadiness on feet; L84 Corns and callosities; I83.11 Varicose veins of right lower extremity with inflammation; M20.41 Other hammer toe(s) (acquired), right foot; M20.42 Other hammer toe(s) (acquired), left foot; L60.2 Onychogryphosis; M21.70 Unequal limb length (acquired), unspecified site; Z96.651 Presence of right artificial knee joint | CPT/HCPCS: 11056; 11721; 87101; 87220 ==

== ENCOUNTER 2025-05-26 08:04 | Outpatient (REF) | payer OTHER, SELFPAY ==
--- NOTE | ~2025-05-26 | FL_ITS ---
EXAMINATION: XR FLUOROSCOPY BARIUM SWALLOW CLINICAL INFORMATION: GERD type symptoms, reflux. History of Alaniz's esophagus. Patient states symptoms getting better with treatment. Recent EGD. COMPARISON: None TECHNIQUE: Fluoroscopic air contrast barium swallow examination was performed utilizing standard techniques with thin and thick barium and effervescent granules. Numerous spot images were obtained. Several fluoroscopic image hold cine sequences were also obtained. FINDINGS: BARIUM SWALLOW: Lateral cine images of the oropharynx and hypopharynx demonstrate normal swallow mechanism with normal epiglottic inversion and soft palate elevation. No laryngeal penetration, glottic or subglottic aspiration identified. No nasopharyngeal reflux present. Hypopharyngeal structures appear normal without evidence of mass or diverticulum. There was no significant cricopharyngeal achalasia. Dual and single contrast images of the esophagus demonstrate normal caliber and contour. No evidence of stricture, mass, or gross ulcerations identified. Granular appearance of the esophageal mucosa suggesting esophagitis. Esophageal peristalsis was moderately disordered. Small to moderate-sized type I hiatus hernia present. Mild gastroesophageal reflux noted during the examination to the level of the aortic arch. Dual contrast and single contrast images of the stomach demonstrated normal contour and mucosal pattern without evidence of mass or gross ulceration. A few scattered small filling defects were present in the fundus suggestive of small hyperplastic polyps. Normal rugal fold pattern. Contrast freely passed into the gastric antrum and duodenal bulb without delay. Single and air-contrast images of the duodenal bulb demonstrate no abnormality. The duodenal sweep has a normal appearance, course, and mucosal fold appearance. FLUOROSCOPY TIME: 2 minutes, 17 seconds Number of Spot Images:9 Number of cines obtained: 7 DOSE AREA PRODUCT: 3219 uGy-m2 (microgray-meter squared) FL/FL barium swallow with air IMPRESSION: 1. Moderately disordered esophageal peristalsis. 2. Granular appearance of the esophageal mucosa suggesting esophagitis. 3. Small to moderate-sized type I hiatus hernia. 4. Mild gastroesophageal reflux identified to the level of the aortic arch. 5. A few scattered small filling defects in the fundus of the stomach are suggestive of hyperplastic polyps. Stomach otherwise normal. Electronically signed by: Brock Washington MD 05/26/2025 09:24 AM EDT
--- NOTE | ~2025-05-26 | XR_ITS ---
EXAMINATION: XR BONE LENGTH CLINICAL INFORMATION: M21.70 - Unequal limb length (acquired), unspecified site COMPARISON: None TECHNIQUE: AP standing leg length views of the lower extremities were obtained with a superimposed metric ruler. FINDINGS: As measured from the acetabular roofs to the tibial plafond articular surfaces, the leg lengths measure 95 cm on the right and 95 cm on the left. As measured from the acetabular roofs to the medial femoral condyle weightbearing surfaces, the femoral lengths measure 55.5 cm on the right and 55.5 cm on the left. As measured from the medial femoral condyle weightbearing surfaces to the tibial plafond articular surfaces, the tibial leg lengths measure 44.5 cm on the right and 44.8 cm on the left. At the right knee, there are 172.3 degrees of valgus angulation. At the left knee, there are 173.9 degrees of valgus angulation. XR/XR bone length study IMPRESSION: Leg length measurements as above. Fairly symmetrical measurements, as described above. Electronically signed by: Ze Saxena MD 05/26/2025 08:59 AM EDT
--- OUTSIDE RECORDS SUMMARY | 2025-05-26 08:09 | XMS_ITS | Clinical Summary ---
Author Organization [facility] Address [address] [place] [address] Care Team Providers Care Technology Coach Name Role Phone Waqar Carlos Primary Care Provider Allergies No known active allergies Medications * [...] topic Insurance [employer] Care Teams Technology Coach Relationship Specialty Start Date End Date Waqar Carlos [address] [place] [id number] PCP - General Family Medicine 12/23/24
--- OUTSIDE RECORDS SUMMARY | 2025-05-26 08:09 | XMS_ITS | Encounter Summary ---
Author Organization [facility] Address [address] [place] [address] Care Team Providers Care Flow Machine Operator Name Role Phone Waqar Cralos Primary Care Provider [phone] Encounter Details Date Type Department Care Team (Late st Contact Info) Description 05/16/2016 Ophthalmology Data Conversion [facility] Historical Conversion Department [address] [address] Social History Tobacco Use Types Packs/Day Years [...] on filedocumented in this encounter Care Teams Flow Machine Operator Relationship Specialty Start Date End Date Waqar Carlos [address] [place] [address] PCP - General Family Medicine 12/23/24 documented as of this encounter
== END 2025-05-26 08:05 | disposition home or self-care (01) ==
LOC: HO.XRAY 08:04
PROVIDERS: PCP Family Medicine; Visit Provider Nurse Practitioner Family
DX: M21.70 Unequal limb length (acquired), unspecified site (principal); K21.00 Gastro-esophageal reflux disease with esophagitis, without bleeding; Z87.19 Personal history of other diseases of the digestive system
CPT/HCPCS: 74221; 77073

== ENCOUNTER → 2025-05-26 08:06 | Outpatient (BNV) | payer OTHER, SELFPAY | PROVIDERS: PCP Family Medicine; Visit Provider Radiology Diagnostic Ultrasound | DX: K22.4 Dyskinesia of esophagus (principal); K22.89 Other specified disease of esophagus; K44.9 Diaphragmatic hernia without obstruction or gangrene; M21.761 Unequal limb length (acquired), right tibia | CPT/HCPCS: 74221; 77073 ==

== ENCOUNTER 2025-05-30 13:03 | Outpatient (AMB) | payer OTHER, SELFPAY ==
[2025-05-30 13:09] VITALS: BP 110/63; PULSE 73; BMI 34.0
--- NOTE | 2025-05-30 13:09 | A.OFFVIS_ITS ---
Vital Signs 05/30/25 13:09 Height 6 ft Weight 250 lb 14.177 oz BMI 34.0 BP 110/63 Blood Pressure Location Lt brachial Position Sitting Pulse 73 Intake Visit Reasons: s/p egd w Yg Intake Note: Venancio presents to in office follow up s/p EGD and barium swallow. CC: Patient reports that he coughs a lot and he doesn't know if this could acid reflux related. 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 Accompanied by: Self / Same As Patient Allergies No Known Allergies Allergy (Verified 05/30/25 13:15) Medication List - Last Reconciled 05/30/25 by Hanny Marquez CNP acoltremon 0.003% (Tryptyr) 1 drp ophthalmic (eye) BID celecoxib (Celebrex) 200 mg PO BID 30 days docusate calcium 240 mg PO BEDTIME famotidine 40 mg PO BEDTIME lisinopril (Zestril) 20 mg PO DAILY loratadine 10 mg PO DAILY pantoprazole 40 mg PO DAILY rosuvastatin 20 mg PO BEDTIME tamsulosin (Flomax) 0.4 mg PO BID abkhx-yrirlz-usigsd-bimato(PF) 0.5 %-0.15 %- 2 %-0.01 % drps ophthalmic (eye) urea 20% 1 appl topical BID zolpidem (Ambien) 10 mg PO BEDTIME PRN HPI HPI s/p egd w Yg: Details: Patient is a 64-year-old male with PMH of hypertension, hyperlipidemia, eczema, mild intermittent asthma, insomnia and Barretts esophagus. 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 Pt returns for f/u of esophageal symptoms. Reports improved reflux and heartburn since switch to pantoprazole (day) and famotidine (night) ~2-3 months ago. Rare breakthrough sx; even with missed doses, minimal rebound noted. No dysphagia, odynophagia, or SOB. New persistent, intermittent dry cough present for several months; not clearly triggered by environment, activities, or meals. No hx recent illness. Denies tobacco, minimal coffee intake. Bowel habits WNL, no new GI or constitutional complaints. Weight remains above prior goal but stable; actively working on diet and fiber intake. No interval hospitalizations or urgent care visits reported. [facility] Medical History (Updated 05/30/25 @ 13:44 by Hanny Marquez CNP) Cough Obesity (BMI 30-39.9) Constipation Anemia Hypersomnia Snoring Falls frequently Urinary incontinence Cognitive impairment Gait disorder HTN (hypertension) Numbness and tingling in both hands Detached retina Eczema GERD (gastroesophageal reflux disease) Hyperlipidemia Abnormal liver enzymes Hematuria Insomnia Mild intermittent asthma Alaniz esophagus Surgical History (Updated 05/29/25 @ 15:52 by Pattie Gomez) History of surgery Hx of bilateral cataract extraction History of esophagogastroduodenoscopy (EGD) H/O colonoscopy History of wisdom tooth extraction Hx of tonsillectomy History of detached retina repair Social History Household Members: Family Household Members Other:: Alcohol intake: former Patient Tobacco Use Status: Never used Tobacco Review of Systems Const Reports as per HPI ENT Reports as per HPI Card Reports as per HPI Resp Reports as per HPI GI Reports as per HPI Reports as per HPI Physical Exam Vital Signs: BMI result Body Mass Index 34.0 Const General: healthy appearing, no acute distress and well developed Nutritional Appearance: average body habitus Orientation/consciousness: patient oriented x3 HEENT Head: Yes normal to inspection, Yes normocephalic and Yes atraumatic Face and sinus: Yes normal facial exam Eyes General: appearance normal, both eyes and all related structures Neck Neck: Yes normal visual inspection Resp Effort & Inspection: normal respiratory effort, able to speak in complete sentences, no tracheal deviation and symmetric chest movement Auscultation: clear to auscultation bilaterally Cardio Jugular venous distension: no JVD Rate: regular rate Rhythm: regular rhythm Heart sounds: S1 normal heart sound present, S2 normal heart sound present, no gallops and no murmurs GI Inspection: Yes normal to inspection and No distended Palpation (GI): Soft to palpation, not firm, nontender and No hepatosplenomegaly present Auscultation: normal bowel sounds Neuro General: patient oriented x3 Gait exam (Neuro): Normal gait present Psych Appearance: grossly normal Mental Status: mental status grossly normal Speech and movement: Normal speech and movement present Affect: normal affect Attitude: cooperative Thought process: Normal thought process present Thought content: Normal thought content present Insight: Good insight present (Psych) Judgement: Good judgement present (Psych) Results Reviewed Results Reviewed: Date of Service: 05/26/25 Procedure(s): FL barium swallow with air Accession Number(s): [id number] cc: Hanny Marquez CNP; Cheng Rivera MD~ Reason for Exam: K21.00 - Gastro-esophageal reflux disease with esophagitis, without blee... EXAMINATION: XR FLUOROSCOPY BARIUM SWALLOW CLINICAL INFORMATION: GERD type symptoms, reflux. History of Alaniz's esophagus. Patient states symptoms getting better with treatment. Recent EGD. COMPARISON: None TECHNIQUE: Fluoroscopic air contrast barium swallow examination was performed utilizing standard techniques with thin and thick barium and effervescent granules. Numerous spot images were obtained. Several fluoroscopic image hold cine sequences were also obtained. FINDINGS: BARIUM SWALLOW: Lateral cine images of the oropharynx and hypopharynx demonstrate normal swallow mechanism with normal epiglottic inversion and soft palate elevation. No laryngeal penetration, glottic or subglottic aspiration identified. No nasopharyngeal reflux present. Hypopharyngeal structures appear normal without evidence of mass or diverticulum. There was no significant cricopharyngeal achalasia. Dual and single contrast images of the esophagus demonstrate normal caliber and contour. No evidence of stricture, mass, or gross ulcerations identified. Granular appearance of the esophageal mucosa suggesting esophagitis. Esophageal peristalsis was moderately disordered. Small to moderate-sized type I hiatus hernia present. Mild gastroesophageal reflux noted during the examination to the level of the aortic arch. Dual contrast and single contrast images of the stomach demonstrated normal contour and mucosal pattern without evidence of mass or gross ulceration. A few scattered small filling defects were present in the fundus suggestive of small hyperplastic polyps. Normal rugal fold pattern. Contrast freely passed into the gastric antrum and duodenal bulb without delay. Single and air-contrast images of the duodenal bulb demonstrate no abnormality. The duodenal sweep has a normal appearance, course, and mucosal fold appearance. FLUOROSCOPY TIME: 2 minutes, 17 seconds Number of Spot Images:9 Number of cines obtained: 7 DOSE AREA PRODUCT: 3219 uGy-m2 (microgray-meter squared) FL/FL barium swallow with air IMPRESSION: 1. Moderately disordered esophageal peristalsis. 2. Granular appearance of the esophageal mucosa suggesting esophagitis. 3. Small to moderate-sized type I hiatus hernia. 4. Mild gastroesophageal reflux identified to the level of the aortic arch. 5. A few scattered small filling defects in the fundus of the stomach are suggestive of hyperplastic polyps. Stomach otherwise normal. Operative Note Date of Service: 05/06/25 Narrative: Procedure: Esophagogastroduodenoscopy Endoscopist: Shefali Ronquillo MD Indication: Alaniz's esophagus Anesthesia Provider: Dr Denise Anesthesia Type: MAC EGD Procedure: The procedure, indications, preparation and potential complications were reviewed with the patient, who indicated understanding and gave written informed consent to proceed. A physical exam was performed. The endoscope was introduced through the mouth, and advanced to the second part of duodenum. The mucosa was carefully examined on slow withdrawal of the endoscope. The patient tolerated the procedure well. There were no immediate complications. EGD Findings: Esophagus: Normal mucosa noted in the entire esophagus. The GE junction was at 37 cm with the SCM junction extending up to 35 cm and a tongue extending to 33 cm. Hartman C2M4. Previously biopsy proven BE. Cold forceps biopsies were taken Q 1cm for histology and dysplasia assessment. A tissue cypher will also be sent. There was a hiatal hernia with the diaphragmatic pinch at 40 cm. Stomach: Normal mucosa was noted in the stomach. 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 Duodenum: Normal mucosa was noted in the whole of the examined duodenum. EGD Impressions: R/O Alaniz's esophagus (biopsy, tissue cypher) Hiatal hernia Normal stomach Normal duodenum Recommendations: Follow biopsy results. Our office will call or send a letter with results within 7-10 days. Continue PPI therapy. Avoid NSAIDs. Repeat EGD contingent on results of the histology and tissue cypher. Above has been reviewed with the patient. PATHOLOGY: ollected: 05/06/25 Location: [facility] Received: 05/06/25 Diagnosis A. Esophagus, at 37 cm, biopsy: Columnar mucosa with minimal chronic inflammation; negative for intestinal metaplasia and dysplasia; no squamous mucosa present. B. Esophagus, at 36 cm, biopsy: Columnar mucosa with minimal inflammation and intestinal metaplasia consistent with Alaniz's mucosa; negative for dysplasia; no squamous mucosa present. C. Esophagus, at 35 cm, biopsy: Columnar mucosa with minimal inflammation and focal intestinal metaplasia consistent with Alaniz's mucosa; negative for dysplasia; no squamous mucosa present. D. Esophagus, at 34 cm, biopsy: Squamocolumnar mucosa with minimal inflammation and intestinal metaplasia consistent with Alaniz's mucosa; negative for dysplasia. E. Esophagus, at 33 cm, biopsy: Squamocolumnar mucosa with minimal inflammation and focal intestinal metaplasia consistent with Alaniz's mucosa; negative for dysplasia. Comment: TissueCypher testing pending; addendum to follow. Clinical History Pre-Op Dx: GERD, BE Post-Op Dx: Hiatal hernia, Barretts Assessment & Plan Assessment & Plan (1) GERD (gastroesophageal reflux disease): Comment: 05/06/25 EGD -Hiatal hernia , Normal stomach and duodenum, esophagitis, Alnaiz's without dysphasia. AWAITING TISSUE CYHER 08/09/2023 EGD - Esophagitis, hiatal hernia, Alaniz's esophagus Code(s): K21.9 - Gastro-esophageal reflux disease without esophagitis Category: Medical Qualifiers: Esophagitis bleeding: without hemorrhage Esophagitis presence: with esophagitis Qualified Code(s): K21.00 - Gastro-esophageal reflux disease with esophagitis, without bleeding Plan: Sx improved. Sx control improved with pantoprazole and famotidine. Continue current suppressive regimen; avoid prolonged high-dose famotidine. No dysphagia/odynophagia. Barium swallow confirmed small-mod type 1 hiatal hernia, esophagitis, and decreased esophageal motility, supporting ongoing need for acid suppression and lifestyle mgmt. No evidence of significant anatomic obstruction or concerning gastric pathology (possible benign polyp on barium swallow not seen on EGD). Additional Testing: Await TissueCypher results?risk stratification for Alaniz's progression. Medications: Continue pantoprazole (day). Reduce famotidine to 40mg daily; avoid long-term high dose. Lifestyle: Reinforce ongoing high fiber, weight mgmt. Encouraged intermittent fasting and healthy eating strategies. Minimize caffeine, maintain adequate hydration. Referrals/Coordination: None required at this time. Follow-up: F/u in 6 mo (Nov), or sooner if sx worsen or new red flag sx. Review TissueCypher results when available. (2) Obesity (BMI 30-39.9): Code(s): E66.9 - Obesity, unspecified Category: Medical Plan: Weight above prior goal, stable; pt motivated for further reduction. Risk factor for GERD, Alaniz?s, and overall GI health. Additional Testing: None at this time. Medications: None specific for weight loss at present. Lifestyle Recommendations: Reinforce dietary modification, high fiber intake, and intermittent fasting (references provided). Encourage regular physical activity as tolerated. Discussed health benefits of weight reduction for GI and metabolic health. Referrals / Coordination of Care: None at this time. Follow-Up Plan: Monitor weight and progress at next f/u; reassess need for further intervention if weight remains above goal. (3) Constipation: Code(s): K59.00 - Constipation, unspecified Category: Medical Qualifiers: Constipation type: unspecified constipation type Qualified Code(s): K59.00 - Constipation, unspecified Plan: resolved. Continue increased fiber intake Additional Testing: Repeat colonoscopy in ~3 yrs (2027), per protocol. Medications: None specific, maintain stool regulation (fiber supplement or diet). Lifestyle Recommendations: Continue diet rich in fiber, maintain hydration, reinforce weight management for overall GI health. Referrals / Coordination of Care: None needed. Follow-Up Plan: Routine GI care and screening intervals. (4) Cough: Code(s): R05.9 - Cough, unspecified Category: Medical Qualifiers: Cough type: subacute Qualified Code(s): R05.2 - Subacute cough Plan: New issue; persists x several months; not clearly associated with environmental/seasonal or activity triggers. Probable GERD/Alaniz?s contribution; minimal postnasal drip on exam; no clinical allergy or infection. Additional Testing: None at this time. Medications: Trial loratadine 10mg qd x 2 wks (otc or rx)?monitor for cough improvement. If no benefit, discontinue. Lifestyle: Emphasize hydration (already good). Consider lozenges as needed for sx mgmt. Referrals/Coordination: None at present; re-evaluate if persists/fails to improve. Follow-up: Reassess at next scheduled f/u or prn if sx worsen. Plan Follow-up in 6 months or sooner as needed Time: I spent a total of 30 minutes on the date of encounter which includes: Preparing to see the patient (reviewed previous documentation, test results and medical history) Performing a medically appropriate exam and/or evaluation Ordering medications, tests, and procedures Documenting clinical information in the health record Medications: New loratadine Take one tablet daily 10 mg PO DAILY 30 tabs 0RF Changed From famotidine Take one tablet at bedtime 80 mg (2 x 40 mg) PO BEDTIME 90 days 180 tabs 2RF To famotidine Take one tablet at bedtime 40 mg PO BEDTIME Refilled pantoprazole 40 mg PO DAILY 90 tabs 1RF Coding Level of Care Code Established Pt Est Pt Level 4 (33512) Patient Type Established Diagnoses Gastroesophageal reflux disease with esophagitis without hemorrhage K21.00 Esophagitis bleeding: without hemorrhage Esophagitis presence: with esophagitis Obesity (BMI 30-39.9) E66.9 Constipation, unspecified constipation type K59.00 Constipation type: unspecified constipation type Subacute cough R05.2 Cough type: subacute
== END 2025-05-30 13:38 | disposition home or self-care (01) ==
LOC: HO.HGI 13:04
PROVIDERS: PCP Family Medicine; Visit Provider Nurse Practitioner Family
DX: K21.00 Gastro-esophageal reflux disease with esophagitis, without bleeding (principal); E66.9 Obesity, unspecified; K59.00 Constipation, unspecified; R05.2 Subacute cough
CPT/HCPCS: 99214

== ENCOUNTER 2025-06-03 12:58 | Outpatient (AMB) | payer OTHER, SELFPAY ==
--- OUTSIDE RECORDS SUMMARY | 2024-04-30 12:00 | XMS_ITS ---
Author Organization [facility] Address [address] [place] [address] Care Team Providers Care Supervisor Calibration Name Role Phone Miguel DAVID, Cheng Primary Care Provider Unavailab Ritesh Farr Unavailable [phone] Encounters Encounter Location Date Provider Diagnosis [facility] [address] [place] [address] 04/30/2024 Ritesh Fang Plan Of Treatment No Information Progress Notes * Venancio GONSALES NDOB:1960 (65 yo M)Acc No.[id number]:04/30/2024 Progress Note Patient: Venancio RALPH Provider: Evie Fang DPM :1960 A ge:64 Y S ex:Male Date:04/30/2024 Address:[address] [place] [address] [facility] Pcp:Cheng Rivera MD Subjective: * Chief Complaints: [...] 04/30/2024 Generated for Printi ng/Faxing/eTransmitting on: 1 03:38 PM EDT
--- NOTE | 2025-06-03 14:18 | A.OFFVIS_ITS ---
Intake Visit Reasons: OV - Bilateral Calluses, Nail Fungus & Hammer Toes Intake Note: Venancio is a 65 year old male who presents today for a follow up of his Bilateral Foot Calluses, Hammer Toes and Gait Abnormality. An XR order was placed to determine if there is a Leg Length discrepancy (done 05/26/25) - if there is then we will consider AFO Brace. A order for Physical therapy was placed. Bilateral Calluses were debrided and nails were clipped on both feet with a nail sample sent for testing. Pt reports his callous has improved since the last visit however he notes pain and soreness located on the 2nd-3rd toes on the right foot and now his 2nd toe of his left foot is starting to hurt. FINDINGS: As measured from the acetabular roofs to the tibial plafond articular surfaces, the leg lengths measure 95 cm on the right and 95 cm on the left. As measured from the acetabular roofs to the medial femoral condyle weightbearing surfaces, the femoral lengths measure 55.5 cm on the right and 55.5 cm on the left. As measured from the medial femoral condyle weightbearing surfaces to the tibial plafond articular surfaces, the tibial leg lengths measure 44.5 cm on the right and 44.8 cm on the left. At the right knee, there are 172.3 degrees of valgus angulation. At the left knee, there are 173.9 degrees of valgus angulation. XR/XR bone length study IMPRESSION: Leg length measurements as above. Fairly symmetrical measurements, as described above. Allergies No Known Allergies Allergy (Verified 05/30/25 13:15) HPI HPI OV - Bilateral Calluses, Nail Fungus & Hammer Toes: Details: Venancio is a 65 year old male with past medical history of GERD, Right TKA, and gait disorder who returns for painful toe deformities and unsteady gait. He is still working physical therapy for his unsteady gait. States that his toenails have remained sore since his last visit after debridement. History: * The nail issues have been ongoing for approximately five years, with the nails having a history of falling off and regrowing abnormally. Topical treatments were used for about three to six months without improvement, and oral terbinafine was prescribed but discontinued due to concerns about potential liver damage. * The patient also reports balance issues that have worsened over the past year or two. He notes he has had several tests,including 'brain and spine evaluations' and vein ultrasounds, which he states have all returned normal. He was recommended to wear compression stockings for his lower extremities which he uses daily. He does not use a cane/aid for support. He has been attending physical therapy for gait training, notably working on strengthening his hip muscles. [facility] Medical History (Updated 05/30/25 @ 13:44 by Hanny Marquez CNP) Cough Obesity (BMI 30-39.9) Constipation Anemia Hypersomnia Snoring Falls frequently Urinary incontinence Cognitive impairment Gait disorder HTN (hypertension) Numbness and tingling in both hands Detached retina Eczema GERD (gastroesophageal reflux disease) Hyperlipidemia Abnormal liver enzymes Hematuria Insomnia Mild intermittent asthma Alaniz esophagus Surgical History (Updated 05/29/25 @ 15:52 by Pattie Gomez) History of surgery Hx of bilateral cataract extraction History of esophagogastroduodenoscopy (EGD) H/O colonoscopy History of wisdom tooth extraction Hx of tonsillectomy History of detached retina repair Social History Household Members: Family Household Members Other:: Alcohol intake: former Patient Tobacco Use Status: Never used Tobacco Physical Exam Extrem Other: *Bilateral Lower Extremity Focused Foot Exam Vascular: DP/PT 2/4, CFT<3s to digits, TG warm to cool, no pedal edema, pedal hair present Derm: Skin: Hyperkeratotic lesions to the medial aspect of the hallux and distal aspect of the 2nd toe bilaterally. No underlying wounds or clinical signs of infection. Interdigital spaces: Clear, no maceration or fungal infection. Nails: Thickened elongated dystrophic toenails times 10 with warm formation to the 2nd toenail. Neuro: Protective sensation grossly intact to bilateral lower extremities. Msk: Deformities: Flexible hammertoe deformities 2 digits 2 through 5 bilaterally. Muscle strength: 5/5 in all muscle groups. Gait: Right shoulder drop, Trendelenburg gait. Bilateral ankle dorsiflexion appears limited during swing phase of gait. Footwear Assessment: Shoes inspected; appropriate fit, no excessive wear, or foreign objects noted. Office Procedures AMB Debridement/Avulsion Podia Details: Procedure: Callus debridement Location: Right hallux, right 2nd digit, left 2nd digit. Total of 3 Anesthesia: N/A Description: The affected area was cleansed with an antiseptic solution. Using a sterile #15 blade, the hyperkeratotic tissue was radially debrided from the foot. All callused tissue was removed down to normal skin without causing bleeding or discomfort. The area was inspected for underlying ulceration or infection. Patient tolerated the procedure well. No complications noted. Tolerance: Patient tolerated procedure well, no immediate complications. 19222-Oitpibkeypa of Callus (2-4) Procedure code (CPT) selection complete Results Reviewed Results Reviewed: Date of Service: 05/26/25 Procedure(s): XR bone length study IMPRESSION: Fairly symmetrical measurements. At the right knee, there are 172.3 degrees of valgus angulation. At the left knee, there are 173.9 degrees of valgus angulation. Assessment & Plan Assessment & Plan (1) Callus: Code(s): L84 - Corns and callosities Category: Medical Plan: * Debrided calluses x3 using a # 15 Blade. * Continue urea cream 20% twice a day (2) Onychogryphosis: Code(s): L60.2 - Onychogryphosis Category: Medical Plan: * Patient was counseled on the importance of anti-fungal foot hygiene, including daily washing and thorough drying of feet, regular changing of socks, and use of breathable footwear. Recommended antifungal sprays shoes. Education provided on keeping toenails trimmed and clean to reduce risk of fungal infections. Preventive strategies discussed to minimize recurrence of fungal infections. * We will base recommendations for antifungal treatment based on culture results. * We will call patient in 1 week to discuss results. (3) Gait disorder: Code(s): R26.9 - Unspecified abnormalities of gait and mobility Category: Medical Plan: * No structural limb length discrepancy noted on bone length x-rays. * Patient may be a candidate for AFO braces to aid in ankle dorsiflexion however we will continue physical therapy treatment first as patient states he is seeing some improvement. * Referred to orthopedic surgery for evaluation of right knee deformity. (4) Hammertoe, bilateral: Code(s): M20.41 - Other hammer toe(s) (acquired), right foot; M20.42 - Other hammer toe(s) (acquired), left foot Category: Medical Plan: * Discussed possible surgical correction of his toes if the deformities worsen over time and if he develops either wound/infection or has chronic pain. * Recommended hammertoe crest pad. * May opt for an in-office flexor tenotomy Orders: Orders AMB Debridement/Avulsion Podiatry Today B35.1 - Tinea unguium, L60.2 - Onychogryphosis, L84 - Corns and callosities Coding Level of Care Code Est Pt Level 3 (39907) Diagnoses Callus L84 Onychogryphosis L60.2 Gait disorder R26.9 Hammertoe, bilateral M20.41; M20.42 CPT Codes Skin Debridement - CPT: 16713-Bild[place]ubluu of Callus (2-4) ([id number]) Time Spent (min) 35
--- OUTSIDE RECORDS SUMMARY | 2025-06-03 15:38 | XMS_ITS | Clinical Summary ---
Author Organization [facility] Address [address] [place] [address] Care Team Providers Care Route Sales Manager Name Role Phone Waqar Carlos Primary Care Provider [phone] Allergies No known active allergies Medications * [...] topic Insurance [employer] Care Teams Route Sales Manager Relationship Specialty Start Date End Date Waqar Carlos [address] [place] [id number] PCP - General Family Medicine 12/23/24
--- OUTSIDE RECORDS SUMMARY | 2025-06-03 15:39 | XMS_ITS | Data Portability ---
Author Organization [facility] Address [address] [place] [address] Care Team Providers Care Tractor Operator Name Role Phone MARKY JARQUIN Referring Provider [...] [email or web address] Kristopher Luciano MD, [address], [address], [address], 9 16:17:59 electrocard iogram 2016 017 ntumandrew Luciano MD, [address], [address], [address], 7 15:18:40 exercise stress test 2016 017 [facility] (Radiology), [address] [place], [address], 7 13:40:45 Medication Orders None recorded. Patient TargetsNo targets recorded. Patient Instructions Encounter Date Encounter Id Patient Instructions Last Modified By Organization Details Last Modified Time 02/15/2017 [id number] orthostatic hypotension: care instructions lakia Not available 02/15/2017 15:13:31 11/12/2018 [id number] palpitations: care instructions david Not available 11/12/2018 16:13:17 Reason for Referral None Reported. Results Created Date Observation Date Name Description Value Unit Range Abnormal Flag Note LastModifiedBy Organization Detail LastModifiedTime 02/29/20 17 02/27/2017 exerc ise stres s test No observ ation record ed. [facility]ke[facility]ose [facility] [address], [place], [address], 02/28/2017 18:48:23 10/31/19 19 10/05/2018 elect adithya servin am No observ ation record ed. [email or web address] Not Available 2018 14:13:42 Result Notes None recorded. Problems Name Problem SNOMED Code Status Onset Date Resolution Date Notes Provider Name and Address Organization Details Recorded Time Orthostatic hypotension 75362499 Active 2016 YENY Donald MD 7 14:26:40 Dyspnea 865919755 Active 2016 YENY Donald MD 7 14:27:14 Hyperlipidemia 92284706 Active 2016 YENY Donald MD 7 14:27:21 Gastroesophage al reflux disease 207173591 Active 2016 YENY Donald MD 7 14:27:31 Raynaud's disease 908377989 Active 2016 YENY Donald MD 7 14:29:09 Palpitations 55003528 Active 2018 YENY Donald MD 9 08:19:01 Alaniz's esophagus 122420867 Active 2018 YENY Donald MD 9 08:19:36 [...] Updated DateTime 9 182.88 cm 28.8 kg/m2 53705.5 8 g 98 % 98 % 65 /min Symone Luciano MD 9 15:33:40 Date Recorded Respiratory rate Systolic And Diastolic Systolic And Diastolic Systolic And Diastolic Provider Name and Address Organization Details Last Updated DateTime 02/15/2017 12 /min 120/70 mm[Hg] 120/70 mm[Hg] 115/70 mm[Hg] Kristopher Luciano MD [address] [place] [address] [employer] [address], [place], [address], YENY Luciano MD 7 15:00:40 Date Recorded Body height Body mass index (BMI) Body weight Oxygen saturation Oxygen saturation in Arterial blood by Pulse oximetry Heart rate Provider Name and Address Organization Details Last Updated DateTime 7 182.88 cm 25.9 kg/m2 98100.1 4 g 99 % 99 % 63 [...] available 02/15/2017 What is your occupation? [employer] Information not available 02/15/2017 What is your [...] Diagnosis SNOMED-CT Code Diagnosis ICD10 Code Diagnosis IMO Codes Diagnosis Note [id number] Kristopher Luciano MD - [address] [place] [address] [address] [employer] [address] 02/15/2017 14:04:48 02/15/2017 15:18:40 Dyspnea 443600911 R06.09 Orthostati c hypotension 25683039 I95.1 [id number] Kristopher Luciano MD - [address] [place] [address] [employer] [address] [employer] [address] 11/12/2018 15:26:57 11/12/2018 16:17:59 Palpitations 19081986 R00.2 Alaniz's esophagus 3029 70610 K22.70 Gastroesop hageal reflux disease 547891669 K21.9 Health Concerns Section Related Observation LastModified by Organization Detai ls LastModified Time None Recorded Concern Status LastModified by Organization Details LastModified Time None Recorded Advance Directives Directive Y: Payers Insurance Date Sequence Insurance Name Policy Number Policy Camara Covered Member ID Camara Member ID Guarantor Name 11/12/2018 1 [place] [id number] Venancio Gonsales [id number] Venancio Gonsales Notes Date Note Type Note [...] were in good range. Kristopher Luciano MD [address] [place] [address],[employer] [address], [place], [address], [facility] - Kristopher Luciano MD 02/15/2017 15:18:43 11/12/2018 [...] is a lifelong nonsmoker. Kristopher Luciano MD [address] [place] [address],[employer] [address], [place], [address], [facility] - Kristopher Luciano MD 11/12/2018 19:16:33
--- OUTSIDE RECORDS SUMMARY | 2025-06-03 15:39 | XMS_ITS | Encounter Summary ---
Author Organization [facility] Address [address] [place] [address] Care Team Providers Care Ibm Websphere Portal Developer Name Role Phone Waqar Carlos Primary Care Provider [phone] Encounter Details Date Type Department Care Team (Late st Contact Info) Description 05/16/2016 Ophthalmology Data Conversion [facility] Historical Conversion Department [address] [address] Social History Tobacco Use Types Packs/Day Years [...] on filedocumented in this encounter Care Teams Ibm Websphere Portal Developer Relationship Specialty Start Date End Date Waqar Carlos [address] [place] [address] PCP - General Family Medicine 12/23/24 documented as of this encounter
--- OUTSIDE RECORDS SUMMARY | 2025-06-03 15:39 | XMS_ITS | Patient Health Record ---
Author Organization [facility] Address [address] [place] [address] Care Team Providers Care Nanofabrication Specialist Name Role Phone Cheng Rivera MD Primary Care Provider Unavailab Ritesh Farr Unavailable [phone] Allergies No Known Allergies Reason For Referral No Information Medications Medication SIG (Take, Route, Fr equency, Duration) Notes Start Date End Date Status Omeprazole 40 MG 1 capsule 30 minutes before morning meal Orally Once a day A ctive Lisinopril 20 MG 1 tablet Orally Once a day Active Pravastatin Sodium A ctive Flomax Active Terbinafine Active Ciclopirox 0.77 % 1 application Prism Measurer ally Twice a day; Duration: 365 days [...] Risk Notes Problem Fungal infection of nail (603824326) 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 confirmed Rx management (4) Plan Of Treatment Pending Test Test Name Order Date *Liver Function Test (LFT) 11/14/2023 59796-Ppllywyb Plate 10/30/2023 Insurance Providers Payer Name Payer Address Payer Phone Subscriber Number Group Number Insured Name Patient Relationship to Insured Coverage Start Date Coverage End Date Blue Benefits [address] [address] [place] [address] [id number] Patricia Gonsales Spouse - patient is the spouse of the insured Medical (General) History Medical History History ICD Code Cataracts Glaucoma HTN CAD Surgical History Surgery Date(Month/Year) eye surgery colonoscopy 08/12 endoscopy 08/12
== END 2025-06-03 15:03 | disposition home or self-care (01) ==
LOC: HO.HPODS 12:58
PROVIDERS: PCP Family Medicine; Visit Provider Student in an Organized Health Care Education/Training Program
DX: L60.2 Onychogryphosis (principal); L84 Corns and callosities; R26.9 Unspecified abnormalities of gait and mobility; M20.41 Other hammer toe(s) (acquired), right foot; M20.42 Other hammer toe(s) (acquired), left foot
CPT/HCPCS: 11056; 99213

== ENCOUNTER → 2025-06-03 12:58 | Outpatient (BNVA) | payer OTHER, SELFPAY | PROVIDERS: PCP Family Medicine; Visit Provider Student in an Organized Health Care Education/Training Program | DX: B35.1 Tinea unguium (principal); L60.2 Onychogryphosis; L84 Corns and callosities | CPT/HCPCS: 11056 ==

== ENCOUNTER → 2025-06-18 15:12 | Outpatient (REF) | payer OTHER, SELFPAY ==
--- OUTSIDE RECORDS SUMMARY | 2024-04-30 12:00 | XMS_ITS ---
Author Organization [facility] Address [address] [place] [address] Care Team Providers Care Packaging Clerk Name Role Phone Miguel DAVID, Cheng Primary Care Provider Unavailab Ritesh Farr Unavailable [phone] Encounters Encounter Location Date Provider Diagnosis [facility] [address] [place] [address] 04/30/2024 Ritesh Fang Plan Of Treatment No Information Progress Notes * Venancio GONSALES NDOB:1960 (65 yo M)Acc No.[id number]:04/30/2024 Progress Note Patient: Venancio RALPH Provider: Evie Fang DPM :1960 A ge:64 Y S ex:Male Date:04/30/2024 Address:[address] [place] [address] [facility] Pcp:Cheng Rivera MD Subjective: * Chief Complaints: [...] 04/30/2024 Generated for Printi ng/Faxing/eTransmitting on: 1 07:37 PM EDT
--- OUTSIDE RECORDS SUMMARY | 2025-06-18 19:37 | XMS_ITS | Patient Health Record ---
Author Organization [facility] Address [address] [place] [address] Care Team Providers Care Women'S Apparel Salesperson Name Role Phone Cheng Rivera MD Primary Care Provider Unavailab Ritesh Farr Unavailable [phone] Allergies No Known Allergies Reason For Referral No Information Medications Medication SIG (Take, Route, Fr equency, Duration) Notes Start Date End Date Status Omeprazole 40 MG 1 capsule 30 minutes before morning meal Orally Once a day A ctive Lisinopril 20 MG 1 tablet Orally Once a day Active Pravastatin Sodium A ctive Flomax Active Terbinafine Active Ciclopirox 0.77 % 1 application Liquor Clerk ally Twice a day; Duration: 365 days [...] Risk Notes Problem Fungal infection of nail (504888643) 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 confirmed Rx management (4) Plan Of Treatment Pending Test Test Name Order Date *Liver Function Test (LFT) 11/14/2023 65693-Wmbsjeel Plate 10/30/2023 Insurance Providers Payer Name Payer Address Payer Phone Subscriber Number Group Number Insured Name Patient Relationship to Insured Coverage Start Date Coverage End Date Blue Benefits [address] [address] [place] [address] [id number] Patricia Gonsales Spouse - patient is the spouse of the insured Medical (General) History Medical History History ICD Code Cataracts Glaucoma HTN CAD Surgical History Surgery Date(Month/Year) eye surgery colonoscopy 08/12 endoscopy 08/12
--- OUTSIDE RECORDS SUMMARY | 2025-06-18 19:37 | XMS_ITS | Data Portability ---
Author Organization [facility] Address [address] [place] [address] Care Team Providers Care Desk Clerk Name Role Phone MARKY JARQUIN Referring Provider [...] [email or web address] Kristopher Luciano MD, [address], [address], [address], 9 16:17:59 electrocard iogram 2016 017 ntumandrew Luciano MD, [address], [address], [address], 7 15:18:40 exercise stress test 2016 017 [facility] (Radiology), [address] [place], [address], 7 13:40:45 Medication Orders None recorded. Patient TargetsNo targets recorded. Patient Instructions Encounter Date Encounter Id Patient Instructions Last Modified By Organization Details Last Modified Time 02/15/2017 [id number] orthostatic hypotension: care instructions lakia Not available 02/15/2017 15:13:31 11/12/2018 [id number] palpitations: care instructions david Not available 11/12/2018 16:13:17 Reason for Referral None Reported. Results Created Date Observation Date Name Description Value Unit Range Abnormal Flag Note LastModifiedBy Organization Detail LastModifiedTime 02/29/20 17 02/27/2017 exerc ise stres s test No observ ation record ed. [facility] [address], [place], [address], 02/28/2017 18:48:23 10/31/19 19 10/05/2018 elect adithya servin am No observ ation record ed. [email or web address] Not Available 2018 14:13:42 Result Notes None recorded. Problems Name Problem SNOMED Code Status Onset Date Resolution Date Notes Provider Name and Address Organization Details Recorded Time Orthostatic hypotension 96126442 Active 2016 YENY Donald MD 7 14:26:40 Dyspnea 031913047 Active 2016 YENY Donald MD 7 14:27:14 Hyperlipidemia 54216861 Active 2016 YENY Donald MD 7 14:27:21 Gastroesophage al reflux disease 093695957 Active 2016 YENY Donald MD 7 14:27:31 Raynaud's disease 824720293 Active 2016 YENY Donald MD 7 14:29:09 Palpitations 51512955 Active 2018 YENY Donald MD 9 08:19:01 Alaniz's esophagus 354038431 Active 2018 YENY Doanld MD 9 08:19:36 Problem Notes None recorded. [...] Updated DateTime 9 182.88 cm 28.8 kg/m2 42983.5 8 g 98 % 98 % 65 /min Symone Luciano MD 9 15:33:40 Date Recorded Respiratory rate Systolic And Diastolic Systolic And Diastolic Systolic And Diastolic Provider Name and Address Organization Details Last Updated DateTime 02/15/2017 12 /min 120/70 mm[Hg] 120/70 mm[Hg] 115/70 mm[Hg] Kristopher Luciano MD [address] [place] [address] [employer] [address], [place], [address], YENY Luciano MD 7 15:00:40 Date Recorded Body height Body mass index (BMI) Body weight Oxygen saturation Oxygen saturation in Arterial blood by Pulse oximetry Heart rate Provider Name and Address Organization Details Last Updated DateTime 7 182.88 cm 25.9 kg/m2 20123.1 4 g 99 % 99 % 63 [...] available 02/15/2017 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[employer] Information not available 02/15/2017 What is your [...] ICD10 Code Diagnosis IMO Codes Diagnosis Note [id number] Kristopher Luciano MD - [address] [place] [address] [address] [address] [employer] [address] 02/15/2017 14:04:48 02/15/2017 15:18:40 Dyspnea 747386254 R06.09 Orthostati c hypotension 39702004 I95.1 [id number] Kristopher Luciano MD - [address] [place] [address] [address] [employer] [address] 11/12/2018 15:26:57 11/12/2018 16:17:59 Palpitations 37870309 R00.2 Alaniz's esophagus 3029 28544 K22.70 Gastroesop hageal reflux disease 963648183 K21.9 Health Concerns Section Related Observation LastModified by Organization Detai ls LastModified Time None Recorded Concern Status LastModified by Organization Details LastModified Time None Recorded Advance Directives Directive Y: Payers Insurance Date Sequence Insurance Name Policy Number Policy Camara Covered Member ID Camara Member ID Guarantor Name 11/12/2018 1 [place] [id number] Venancio Gonsales [id number] Venancio Gonsales Notes Date Note Type [...] were in good range. Kristopher Luciano MD [address] [place] [address],[employer] [address], [place], [address], [facility] - Kristopher Luciano MD 02/15/2017 [...] is a lifelong nonsmoker. Kristopher Luciano MD [address] [place] [address],[employer] [address], [place], [address], [facility] - Kristopher Luciano MD 11/12/2018 19:16:33
--- OUTSIDE RECORDS SUMMARY | 2025-06-18 19:37 | XMS_ITS | Encounter Summary ---
Author Organization [facility] Address [address] [place] [address] Care Team Providers Care Park Attendant Name Role Phone Waqar Carlos Primary Care Provider [phone] Encounter Details Date Type Department Care Team (Late st Contact Info) Description 05/16/2016 Ophthalmology Data Conversion [facility] Historical Conversion Department [address] [address] Social History Tobacco Use Types Packs/Day Years [...] on filedocumented in this encounter Care Teams Park Attendant Relationship Specialty Start Date End Date Waqar Carlos [address] [place] [address] PCP - General Family Medicine 12/23/24 documented as of this encounter
--- OUTSIDE RECORDS SUMMARY | 2025-06-18 19:37 | XMS_ITS | Clinical Summary ---
Author Organization [facility] Address [address] [place] [address] Care Team Providers Care Medical Sales Name Role Phone Waqar Carlos Primary Care Provider [phone] Allergies No known active allergies Medications * [...] topic Insurance [employer] Care Teams Medical Sales Relationship Specialty Start Date End Date Waqar Carlos [address] [place] [address] PCP - General Family Medicine 12/23/24
== END ==
LOC: HO.SL 15:12
PROVIDERS: PCP Family Medicine; Visit Provider Psychiatry & Neurology Neurology
DX: G47.33 Obstructive sleep apnea (adult) (pediatric) (principal); R06.83 Snoring; G47.10 Hypersomnia, unspecified; R40.0 Somnolence
CPT/HCPCS: 95806

== ENCOUNTER → 2025-06-18 15:20 | Outpatient (BNV) | payer OTHER, SELFPAY | PROVIDERS: PCP Family Medicine; Visit Provider Psychiatry & Neurology Neurology | DX: G47.33 Obstructive sleep apnea (adult) (pediatric) (principal) | CPT/HCPCS: 95806 ==

== ENCOUNTER 2025-06-27 11:13 | Outpatient (RCR) | payer OTHER, SELFPAY ==
--- NOTE | 2025-05-05 15:01 | MHC.PT.EP ---
[facility] [place] Office [place] Office [place] Office [address] Dagoberto Pinon [address] [phone] F: [phone] F: [phone] F: [phone] F: [phone] Physical Therapy Plan of Care Date of Evaluation: 05/05/25 Date of Surgery: Diagnosis: PT eval and treat: R29.6 Repeated falls E66.9 Obesity, unspecified Repeated falls, signed by Luly Cook MD 04/11/25 Assessment & Plan (1) Cognitive impairment: Code(s): R41.89 - Other symptoms and signs involving cognitive functions and awareness Category: Medical (2) Gait disorder: Code(s): R26.9 - Unspecified abnormalities of gait and mobility Category: Medical (3) Falls frequently: Code(s): R29.6 - Repeated falls Category: Medical (4) Snoring: Code(s): R06.83 - Snoring Category: Medical (5) Hypersomnia: Code(s): G47.10 - Hypersomnia, unspecified Category: Medical Plan MRI brain - normal MRI C spine- reviewed Cognitive testing Home sleep test to ro/o sleep apnea. PT for gait and balance training- he did not start yet. suggested to increase activity Coding Level of Care Code Est Pt Level 4 (46589) Complex EM visit Add On G2211 Diagnoses Cognitive impairment R41.89 Gait disorder R26.9 Falls frequently R29.6 Snoring R06.83 Hypersomnia G47.10 Documented By:Luly Cook MD04/01/25 1352 Assessment: Pt is a pleasant, RHD 65 y/o male, referred to PT from Dr. Cook date of referral 04/01/25 for history of: gait and balance, PMH significant for Constipation Anemia Hypersomnia Snoring Falls frequently Urinary incontinence Cognitive impairment Gait disorder HTN (hypertension) Numbness and tingling in both hands Detached retina Eczema GERD (gastroesophageal reflux disease) Hyperlipidemia Abnormal liver enzymes Hematuria Insomnia Mild intermittent asthma Alaniz esophagus Hx of bilateral cataract extraction History of esophagogastroduodenoscopy (EGD) H/O colonoscopy History of wisdom tooth extraction Hx of tonsillectomy History of detached retina repairx 2 Pt notes history of frequent falls >10 on the past year or so, often when outside in the yard or when on uneven terrain. He notes he feels his legs are shaky and wobbly when he first stands up and relies on his UE to do stairs. Feels unsteady walking down curbs or when not holding onto things. History of past vestibular therapy after history of falling off a ladder ~4-5 years ago resulting in concussion/ hx bicep and R RTC repair from this). Pt had MRI of brain in 02/12; MRI of C/S (see reports). Hx bilateral retina repair and hx glaucoma. He recently started on new drops this past week for his glaucoma with positive gains. Pt expressing some R knee instability, inactivity, weakness/tingling in R LE at times (middle three toes). Pt does not sleep well at night, currently awaiting sleep study to rue out apnea. Pt is expressing some discomfort with this footwear choices and is eager to consult with a new podiatry about his nailcare. He was seeing podiatry some time ago but has not been recently. He had vascular workup (-) and has started wearing compression stockings. He exhibits overall deconditioning and has impaired sensation on his R foot with screening. He has diminished muscular strength throughout R L5 dermatome compared to his left. He expresses decreased hip abd and hip ext strength; He notes increasing challenged of performing yard/lawn work. Due to his unexplained sensory/weakness of his LE he may benefit from a work-up screening for tick borne illnesses as he lives in the [place] and in his leisure is active working out in the yard. He describes sx consistent with neuropathy and severe sensitivity with wearing socks/shoes on his R foot. He may benefit from a nerve conduction/MRI screening of his lumbar to assess weakness/strength should sx of PT not resolve his sx. He is unable to perform a single leg heel raise or perform SLS due to his unsteadiness. He is weak in his proximal hip ext/abd and in his ankles. Frequency and Duration: The patient will be seen 2x/week x 4-6 weeks Short Term Goals: 1. Initiate self care management and HEP program. 2. Improve awareness for safety during transfers to reduce fall risk. 3. Improve dynamic balance as evidenced by Tinnetti score improvement. 4. Sit<>stand on first attempt. 5. Good eccentric control for functional transfers. English And Reading Instructor Goals: 1. I HEP for self care management program. 2. Demonstrate symmetrical bridge with good core recruitment/balance. 3. Demonstrate SLR with good eccentric control. 4. Demonstrate hip abduction strength to 5/5 B/L. 5. Demonstrate hip ext strength to 5/5 B/L. 6. ABC confidence score improvements compared to initial assessment. Treatment Plan: Modalities to reduce pain, spasms and effusion. Manual therapy to restore motion and function. Therapeutic exercise to improve strength and flexibility. Neuromuscular re-education for posture and balance. Therapeutic activities to return to functional activities of daily living. Electronically signed by: Roro Cardoso PT, DPT Please sign and return to therapist. Thank you for your referral.
--- NOTE | 2025-05-07 13:17 | MHC.PT.EP ---
[facility] [place] Office [place] Office [place] Office [address] Dagoberto Pinon [address] [phone] F: [phone] F: [phone] F: [phone] F: [phone] Physical Therapy Plan of Care Date of Evaluation: 05/05/25 Date of Surgery: Diagnosis: PT eval and treat: R29.6 Repeated falls E66.9 Obesity, unspecified Repeated falls, signed by Luly Cook MD 04/11/25 Assessment & Plan (1) Cognitive impairment: Code(s): R41.89 - Other symptoms and signs involving cognitive functions and awareness Category: Medical (2) Gait disorder: Code(s): R26.9 - Unspecified abnormalities of gait and mobility Category: Medical (3) Falls frequently: Code(s): R29.6 - Repeated falls Category: Medical (4) Snoring: Code(s): R06.83 - Snoring Category: Medical (5) Hypersomnia: Code(s): G47.10 - Hypersomnia, unspecified Category: Medical Plan MRI brain - normal MRI C spine- reviewed Cognitive testing Home sleep test to ro/o sleep apnea. PT for gait and balance training- he did not start yet. suggested to increase activity Coding Level of Care Code Est Pt Level 4 (87719) Complex EM visit Add On G2211 Diagnoses Cognitive impairment R41.89 Gait disorder R26.9 Falls frequently R29.6 Snoring R06.83 Hypersomnia G47.10 Documented By:Luly Cook MD04/01/25 1352 Assessment: Pt is a pleasant, RHD 65 y/o male, referred to PT from Dr. Cook date of referral 04/01/25 for history of: gait and balance, PMH significant for Constipation Anemia Hypersomnia Snoring Falls frequently Urinary incontinence Cognitive impairment Gait disorder HTN (hypertension) Numbness and tingling in both hands Detached retina Eczema GERD (gastroesophageal reflux disease) Hyperlipidemia Abnormal liver enzymes Hematuria Insomnia Mild intermittent asthma Alaniz esophagus Hx of bilateral cataract extraction History of esophagogastroduodenoscopy (EGD) H/O colonoscopy History of wisdom tooth extraction Hx of tonsillectomy History of detached retina repairx 2 Pt notes history of frequent falls >10 on the past year or so, often when outside in the yard or when on uneven terrain. He notes he feels his legs are shaky and wobbly when he first stands up and relies on his UE to do stairs. Feels unsteady walking down curbs or when not holding onto things. History of past vestibular therapy after history of falling off a ladder ~4-5 years ago resulting in concussion/ hx bicep and R RTC repair from this). Pt had MRI of brain in 02/12; MRI of C/S (see reports). Hx bilateral retina repair and hx glaucoma. He recently started on new drops this past week for his glaucoma with positive gains. Pt expressing some R knee instability, inactivity, weakness/tingling in R LE at times (middle three toes). Pt does not sleep well at night, currently awaiting sleep study to rue out apnea. Pt is expressing some discomfort with this footwear choices and is eager to consult with a new podiatry about his nailcare. He was seeing podiatry some time ago but has not been recently. He had vascular workup (-) and has started wearing compression stockings. He exhibits overall deconditioning and has impaired sensation on his R foot with screening. He has diminished muscular strength throughout R L5 dermatome compared to his left. He expresses decreased hip abd and hip ext strength; He notes increasing challenged of performing yard/lawn work. Due to his unexplained sensory/weakness of his LE he may benefit from a work-up screening for tick borne illnesses as he lives in the [place] and in his leisure is active working out in the yard. He describes sx consistent with neuropathy and severe sensitivity with wearing socks/shoes on his R foot. Question of possible underlying tick borne illness/ notes is often in the [place] and has son with hx Lyme. He may benefit from a nerve conduction/MRI screening of his lumbar to assess weakness/strength should sx of PT not resolve his sx or R ankle weakness. He is unable to perform a full ROM single leg heel raise or perform SLS due to his unsteadiness. He is weak in his proximal hip ext/abd and in his ankles. 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 Frequency and Duration: The patient will be seen 2x/week x 4-6 weeks Short Term Goals: 1. Initiate self care management and HEP program. 2. Improve awareness for safety during transfers to reduce fall risk. 3. Improve dynamic balance as evidenced by Tinnetti score improvement. 4. Sit<>stand on first attempt. 5. Good eccentric control for functional transfers. Orthotic/Prosthetic Practitioner Goals: 1. I HEP for self care management program. 2. Demonstrate symmetrical bridge with good core recruitment/balance. 3. Demonstrate SLR with good eccentric control. 4. Demonstrate hip abduction strength to 5/5 B/L. 5. Demonstrate hip ext strength to 5/5 B/L. 6. ABC confidence score improvements compared to initial assessment. Treatment Plan: Modalities to reduce pain, spasms and effusion. Manual therapy to restore motion and function. Therapeutic exercise to improve strength and flexibility. Neuromuscular re-education for posture and balance. Therapeutic activities to return to functional activities of daily living. Electronically signed by: Roro Cardoso PT, DPT Please sign and return to therapist. Thank you for your referral.
--- NOTE | 2025-06-20 13:59 | MHC.PT.EP ---
[facility] [place] [facility] [place] [facility] Office [address] Dagoberto Pinon [address] [phone] F: [phone] F: [phone] F: [phone] F: [phone] Physical Therapy Plan of Care Date of Evaluation: 05/05/25 Date of Surgery: Diagnosis: PT eval and treat: R29.6 Repeated falls E66.9 Obesity, unspecified Repeated falls, signed by Luly Cook MD 04/11/25 Assessment & Plan (1) Cognitive impairment: Code(s): R41.89 - Other symptoms and signs involving cognitive functions and awareness Category: Medical (2) Gait disorder: Code(s): R26.9 - Unspecified abnormalities of gait and mobility Category: Medical (3) Falls frequently: Code(s): R29.6 - Repeated falls Category: Medical (4) Snoring: Code(s): R06.83 - Snoring Category: Medical (5) Hypersomnia: Code(s): G47.10 - Hypersomnia, unspecified Category: Medical Plan MRI brain - normal MRI C spine- reviewed Cognitive testing Home sleep test to ro/o sleep apnea. PT for gait and balance training- he did not start yet. suggested to increase activity Coding Level of Care Code Est Pt Level 4 ([id number]) Complex EM visit Add On G2211 Diagnoses Cognitive impairment R41.89 Gait disorder R26.9 Falls frequently R29.6 Snoring R06.83 Hypersomnia G47.10 Documented By:Luly Cook MD04/01/25 1352 Assessment: Pt is a pleasant, RHD 65 y/o male, referred to PT from Dr. Cook date of referral 04/01/25 for history of: gait and balance, PMH significant for Constipation Anemia Hypersomnia Snoring Falls frequently Urinary incontinence Cognitive impairment Gait disorder HTN (hypertension) Numbness and tingling in both hands Detached retina Eczema GERD (gastroesophageal reflux disease) Hyperlipidemia Abnormal liver enzymes Hematuria Insomnia Mild intermittent asthma Alaniz esophagus Hx of bilateral cataract extraction History of esophagogastroduodenoscopy (EGD) H/O colonoscopy History of wisdom tooth extraction Hx of tonsillectomy History of detached retina repairx 2 Pt notes history of frequent falls >10 on the past year or so, often when outside in the yard or when on uneven terrain. He notes he feels his legs are shaky and wobbly when he first stands up and relies on his UE to do stairs. Feels unsteady walking down curbs or when not holding onto things. History of past vestibular therapy after history of falling off a ladder ~4-5 years ago resulting in concussion/ hx bicep and R RTC repair from this). Pt had MRI of brain in 02/12; MRI of C/S (see reports). Hx bilateral retina repair and hx glaucoma. He recently started on new drops this past week for his glaucoma with positive gains. Pt expressing some R knee instability, inactivity, weakness/tingling in R LE at times (middle three toes). Pt does not sleep well at night, currently awaiting sleep study to rue out apnea. Pt is expressing some discomfort with this footwear choices and is eager to consult with a new podiatry about his nailcare. He was seeing podiatry some time ago but has not been recently. He had vascular workup (-) and has started wearing compression stockings. He exhibits overall deconditioning and has impaired sensation on his R foot with screening. He has diminished muscular strength throughout R L5 dermatome compared to his left. He expresses decreased hip abd and hip ext strength; He notes increasing challenged of performing yard/lawn work. Due to his unexplained sensory/weakness of his LE he may benefit from a work-up screening for tick borne illnesses as he lives in the [place] and in his leisure is active working out in the yard. He describes sx consistent with neuropathy and severe sensitivity with wearing socks/shoes on his R foot. Question of possible underlying tick borne illness/ notes is often in the [place] and has son with hx Lyme. He may benefit from a nerve conduction/MRI screening of his lumbar to assess weakness/strength should sx of PT not resolve his sx or R ankle weakness. He is unable to perform a full ROM single leg heel raise or perform SLS due to his unsteadiness. He is weak in his proximal hip ext/abd and in his ankles. 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 Frequency and Duration: The patient will be seen 2x/week x 4-6 weeks Short Term Goals: 1. Initiate self care management and HEP program. 2. Improve awareness for safety during transfers to reduce fall risk. 3. Improve dynamic balance as evidenced by Tinnetti score improvement. 4. Sit<>stand on first attempt. 5. Good eccentric control for functional transfers. Senior Accounting Associate Goals: 1. I HEP for self care management program. 2. Demonstrate symmetrical bridge with good core recruitment/balance. 3. Demonstrate SLR with good eccentric control. 4. Demonstrate hip abduction strength to 5/5 B/L. 5. Demonstrate hip ext strength to 5/5 B/L. 6. ABC confidence score improvements compared to initial assessment. Treatment Plan: Modalities to reduce pain, spasms and effusion. Manual therapy to restore motion and function. Therapeutic exercise to improve strength and flexibility. Neuromuscular re-education for posture and balance. Therapeutic activities to return to functional activities of daily living. Electronically signed by: Roro Cardoso PT, DPT Please sign and return to therapist. Thank you for your referral.
--- NOTE | 2025-06-20 14:33 | MHC.PT.EP ---
[facility] [place] Office [place] [facility] [place] Office [address] Dagoberto Pinon [address] [phone] F: [phone] F: [phone] F: [phone] F: [phone] Physical Therapy Plan of Care Date of Evaluation: 05/05/25 Date of Surgery: Diagnosis: PT eval and treat: R29.6 Repeated falls E66.9 Obesity, unspecified Repeated falls, signed by Luly Cook MD 04/11/25 Assessment & Plan (1) Cognitive impairment: Code(s): R41.89 - Other symptoms and signs involving cognitive functions and awareness Category: Medical (2) Gait disorder: Code(s): R26.9 - Unspecified abnormalities of gait and mobility Category: Medical (3) Falls frequently: Code(s): R29.6 - Repeated falls Category: Medical (4) Snoring: Code(s): R06.83 - Snoring Category: Medical (5) Hypersomnia: Code(s): G47.10 - Hypersomnia, unspecified Category: Medical Plan MRI brain - normal MRI C spine- reviewed Cognitive testing Home sleep test to ro/o sleep apnea. PT for gait and balance training- he did not start yet. suggested to increase activity Coding Level of Care Code Est Pt Level 4 (33654) Complex EM visit Add On G2211 Diagnoses Cognitive impairment R41.89 Gait disorder R26.9 Falls frequently R29.6 Snoring R06.83 Hypersomnia G47.10 Documented By:Luly Cook MD04/01/25 1352 Assessment: Pt is a pleasant, RHD 65 y/o male, referred to PT from Dr. Cook date of referral 04/01/25 for history of: gait and balance, PMH significant for Constipation Anemia Hypersomnia Snoring Falls frequently Urinary incontinence Cognitive impairment Gait disorder HTN (hypertension) Numbness and tingling in both hands Detached retina Eczema GERD (gastroesophageal reflux disease) Hyperlipidemia Abnormal liver enzymes Hematuria Insomnia Mild intermittent asthma Alaniz esophagus Hx of bilateral cataract extraction History of esophagogastroduodenoscopy (EGD) H/O colonoscopy History of wisdom tooth extraction Hx of tonsillectomy History of detached retina repairx 2 Pt notes history of frequent falls >10 on the past year or so, often when outside in the yard or when on uneven terrain. He notes he feels his legs are shaky and wobbly when he first stands up and relies on his UE to do stairs. Feels unsteady walking down curbs or when not holding onto things. History of past vestibular therapy after history of falling off a ladder ~4-5 years ago resulting in concussion/ hx bicep and R RTC repair from this). Pt had MRI of brain in 02/12; MRI of C/S (see reports). Hx bilateral retina repair and hx glaucoma. He recently started on new drops this past week for his glaucoma with positive gains. Pt expressing some R knee instability, inactivity, weakness/tingling in R LE at times (middle three toes). Pt does not sleep well at night, currently awaiting sleep study to rue out apnea. Pt is expressing some discomfort with this footwear choices and is eager to consult with a new podiatry about his nailcare. He was seeing podiatry some time ago but has not been recently. He had vascular workup (-) and has started wearing compression stockings. He exhibits overall deconditioning and has impaired sensation on his R foot with screening. He has diminished muscular strength throughout R L5 dermatome compared to his left. He expresses decreased hip abd and hip ext strength; He notes increasing challenged of performing yard/lawn work. Due to his unexplained sensory/weakness of his LE he may benefit from a work-up screening for tick borne illnesses as he lives in the [place] and in his leisure is active working out in the yard. He describes sx consistent with neuropathy and severe sensitivity with wearing socks/shoes on his R foot. Question of possible underlying tick borne illness/ notes is often in the [place] and has son with hx Lyme. He may benefit from a nerve conduction/MRI screening of his lumbar to assess weakness/strength should sx of PT not resolve his sx or R ankle weakness. He is unable to perform a full ROM single leg heel raise or perform SLS due to his unsteadiness. He is weak in his proximal hip ext/abd and in his ankles. 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 Frequency and Duration: The patient will be seen 2x/week x 4-6 weeks Short Term Goals: 1. Initiate self care management and HEP program. met 2. Improve awareness for safety during transfers to reduce fall risk. met 3. Improve dynamic balance as evidenced by Tinnetti score improvement. 4. Sit<>stand on first attempt. met 5. Good eccentric control for functional transfers. sometimes met Intermediate Goals: 1. I HEP for self care management program. met 2. Demonstrate symmetrical bridge with good core recruitment/balance. sometimes met 3. Demonstrate SLR with good eccentric control. improved 4. Demonstrate hip abduction strength to 5/5 B/L. improving 5. Demonstrate hip ext strength to 5/5 B/L. improving 6. ABC confidence score improvements compared to initial assessment. Treatment Plan: Modalities to reduce pain, spasms and effusion. Manual therapy to restore motion and function. Therapeutic exercise to improve strength and flexibility. Neuromuscular re-education for posture and balance. Therapeutic activities to return to functional activities of daily living. Electronically signed by: Roro Cardoso PT, DPT Please sign and return to therapist. Thank you for your referral.
--- NOTE | 2025-06-20 14:33 | MHC.PT.OD ---
[facility] [place] Office [place] Office [address] [place] [address] [address] [facility] [phone] F: [phone] F: [phone] F: [phone] Physical Therapy Daily Note Diagnosis: PT eval and treat: R29.6 Repeated falls E66.9 Obesity, unspecified Repeated falls, signed by Luly Cook MD 04/11/25 Assessment & Plan (1) Cognitive impairment: Code(s): R41.89 - Other symptoms and signs involving cognitive functions and awareness Category: Medical (2) Gait disorder: Code(s): R26.9 - Unspecified abnormalities of gait and mobility Category: Medical (3) Falls frequently: Code(s): R29.6 - Repeated falls Category: Medical (4) Snoring: Code(s): R06.83 - Snoring Category: Medical (5) Hypersomnia: Code(s): G47.10 - Hypersomnia, unspecified Category: Medical Plan MRI brain - normal MRI C spine- reviewed Cognitive testing Home sleep test to ro/o sleep apnea. PT for gait and balance training- he did not start yet. suggested to increase activity Coding Level of Care Code Est Pt Level 4 (84392) Complex EM visit Add On G2211 Diagnoses Cognitive impairment R41.89 Gait disorder R26.9 Falls frequently R29.6 Snoring R06.83 Hypersomnia G47.10 Documented By:Luly Cook MD04/01/25 1352 Date of Surgery: Date of Evaluation: 05/05/25 Date of Treatment: 06/20/25 Treatments to Date: Cancellations to Date: No Shows to Date: Authorized Visits: 10 Insurance End Date: Precautions/ Contraindications:HTN, fall risk, gait instability Subjective: Pt arrives after return from vacation, notes fell up the stairs tripping on a larger uneven rock step while away. Has been trying different socks Pain Score and Location: Objective Flowsheet: Tests & Measures [facility] Podiatry-Spf [address] [place] [id number] Office Visit Report Signed Patient: Madelaine Gonsales#: [id number] : 1960Acct:[id number] Age/Sex: 65 / MADM/SER Date: 05/13/25 Loc: HO.HPODSADM/SER Time:1500 Attending Provider: Bhavik Garcia DPM cc: Cheng Rivera MD~ Vital Signs 05/13/25 15:12 Height 6 ft Weight 250 lb BMI 33.9 Intake Visit Reasons: toe nail fungus Intake Note: Venancio is a 65 year old male who presents today as a new patient for an evaluation of his bilateral toe nail fungus. Pt mentions this has been going on for about 4 year. 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 Toenail fungus is located bilaterally on his 1st and 2nd toe and his right foot seems to be worse then the left. Patient states he has been attending physical therapy due to gait. Allergies No Known Allergies Allergy (Verified 05/13/25 15:12) Medication List - Last Reconciled 05/13/25 by Bhavik Garcia DPM acoltremon 0.003% (Tryptyr) 1 drp ophthalmic (eye) BID celecoxib (Celebrex) 200 mg PO BID 30 days docusate calcium 240 mg PO BEDTIME famotidine 80 mg (2 x 40 mg) PO BEDTIME 90 days lisinopril (Zestril) 20 mg PO DAILY pantoprazole 40 mg PO DAILY rosuvastatin 20 mg PO BEDTIME tamsulosin (Flomax) 0.4 mg PO BID zszlg-qrjndh-frxtsq-bimato(PF) 0.5 %-0.15 %- 2 %-0.01 % drps ophthalmic (eye) urea 20% 1 appl topical BID zolpidem (Ambien) 10 mg PO BEDTIME PRN HPI HPI toe nail fungus: Details: Venancio is a 65 year old male with past medical history of GERD, Right TKA, and gait disorder who presents today as a new patient for an evaluation of his bilateral toe nail fungus and unsteady gait. The nail issues have been ongoing for approximately five years, with the nails having a history of falling off and regrowing abnormally. Topical treatments were used for about three to six months without improvement, and oral terbinafine was prescribed but discontinued due to concerns about potential liver damage. The patient also reports balance issues that have worsened over the past year or two. He notes he has had several tests,including 'brain and spine evaluations' and vein ultrasounds, which he states have all returned normal. He was recommended to wear compression stockings for his lower extremities which he uses daily. He does not use a cane/aid for support. He has been attending physical therapy for gait training, notably working on strengthening his hip muscles. [facility] Medical History Obesity (BMI 30-39.9) Constipation Anemia Hypersomnia Snoring Falls frequently Urinary incontinence Cognitive impairment Gait disorder HTN (hypertension) Numbness and tingling in both hands Detached retina Eczema GERD (gastroesophageal reflux disease) Hyperlipidemia Abnormal liver enzymes Hematuria Insomnia Mild intermittent asthma Alaniz esophagus Surgical History History of surgery Hx of bilateral cataract extraction History of esophagogastroduodenoscopy (EGD) H/O colonoscopy History of wisdom tooth extraction Hx of tonsillectomy History of detached retina repair Social History Household Members: Family Household Members Other:: Alcohol intake: former Patient Tobacco Use Status: Never used Tobacco Review of Systems Const All systems reviewed & are unremarkable except as noted in HPI and below Physical Exam Vital Signs: BMI result Body Mass Index 33.9 Extrem Other: *Bilateral Lower Extremity Focused Foot Exam Vascular: DP/PT 2/4, CFT<3s to digits, TG warm to cool, no pedal edema, pedal hair present Derm: Skin: Hyperkeratotic lesions to the medial aspect of the hallux and distal aspect of the 2nd toe bilaterally. No underlying wounds or clinical signs of infection. Interdigital spaces: Clear, no maceration or fungal infection. Nails: Thickened elongated dystrophic toenails times 10 with warm formation to the 2nd toenail. Neuro: Protective sensation grossly intact to bilateral lower extremities. Msk: Deformities: Flexible hammertoe deformities 2 digits 2 through 5 bilaterally. Muscle strength: 5/5 in all muscle groups. Gait: Right shoulder drop, Trendelenburg gait. Bilateral ankle dorsiflexion appears limited during swing phase of gait. Footwear Assessment: Shoes inspected; appropriate fit, no excessive wear, or foreign objects noted. Office Procedures AMB Debridement/Avulsion Podia Details: Procedure: Nail debridement Location: Bilateral feet (10 toes) Anesthesia: N/A Description: The affected toenails were cleansed with an antiseptic solution. Using sterile nail nippers and a rotary romaine, dystrophic and mycotic nail material was carefully debrided and reduced in thickness. Care was taken to avoid trauma to the surrounding skin and nail bed. All debris was removed as tolerated. The area was inspected for signs of infection or ulceration. Patient tolerated the procedure well without complications. Tolerance: Patient tolerated procedure well, no immediate complications. Class A findings as per physical exam findings above. The patient has a diagnosis of unsteady gait. He presents with elongated, thickened toenails. The patient is at increased risk for complications such as ulceration, infection, and difficulty with self-care. Debridement of elongated toenails is medically necessary to prevent development of pressure-related lesions, reduce risk of secondary infection, and maintain foot health in his high-risk comorbidities. Procedure: Callus debridement Location: 2 Right foot + 2 left foot (4) Anesthesia: N/A Description: The affected area was cleansed with an antiseptic solution. Using a sterile #15 blade, the hyperkeratotic tissue was radially debrided from the foot. All callused tissue was removed down to normal skin without causing bleeding or discomfort. The area was inspected for underlying ulceration or infection. Patient tolerated the procedure well. No complications noted. Tolerance: Patient tolerated procedure well, no immediate complications. 66595-Pmiqrbmgkzz of Nail 6+ 53142-Yhrzqakadep of Callus (2-4) Procedure code (CPT) selection complete Assessment & Plan Assessment & Plan (1) Gait disorder: Code(s): R26.9 - Unspecified abnormalities of gait and mobility Category: Medical Plan: ? Discussed possible etiology of his gait issues. The patient notes a history of a right shoulder injury in the past. However, other gait findings may be consistent with compensation versus functional limb length discrepancy, as he does not appear to have a structural limb length deformity observed at this visit.. ? Rx bone length x-rays ? Patient may be a candidate for AFO braces to aid in ankle dorsiflexion when ambulating. We will await for results of his bone length study. ? Referred to physical therapy for lower extremity ankle dorsiflexion/strengthening. (2) Varicose veins of right lower extremity with inflammation: Code(s): I83.11 - Varicose veins of right lower extremity with inflammation Category: Medical Plan: ? The patient is wearing compression stockings from his ankle to below the knee. Explained that this will worsened swelling to his feet. The patient states he will follow up with his PCP to discuss possibly discontinuing compression stockings as he does not find them beneficial. (3) Hammertoe, bilateral: Code(s): M20.41 - Other hammer toe(s) (acquired), right foot; M20.42 - Other hammer toe(s) (acquired), left foot Category: Medical Plan: ? Discussed possible surgical correction of his toes if the deformities worsen over time and if he develops either wound/infection or has chronic pain. ? Recommended hammertoe crest pad. (4) Callus: Code(s): L84 - Corns and callosities Category: Medical Plan: ? Debrided calluses x4 using a # 15 Blade. ? Rx urea cream 20% (5) Onychogryphosis: Code(s): L60.2 - Onychogryphosis Category: Medical Plan: ? Debrided elongated nails times 10 using a sterile nail Nipper. ? A nail clipping was sent for evaluation of fungal elements. A culture was sent to assess for fungal species. ? Discussed treatment options including topical treatment versus oral antifungal medications. ? Explained that oral antifungals may cause gastrointestinal upset, headache, rash, taste disturbances, and hepatotoxicity. Baseline and monthly liver function monitoring is recommended during therapy. Patients should be advised to report symptoms such as jaundice, dark urine, or persistent nausea. ? Patient was counseled on the importance of anti-fungal foot hygiene, including daily washing and thorough drying of feet, regular changing of socks, and use of breathable footwear. Recommended antifungal sprays shoes. Education provided on keeping toenails trimmed and clean to reduce risk of fungal infections. Preventive strategies discussed to minimize recurrence of fungal infections. ? We will base recommendations for antifungal treatment based on culture results. ? Follow up in 3 weeks. Orders: Orders Fungus Cult Hair/Skin/Nail Today B35.1 - Tinea unguium PT Evaluation and Treatment Today R26.9 - Unspecified abnormalities of gait and mobility XR bone length study Today M21.70 - Unequal limb length (acquired), unspecified site AMB Debridement/Avulsion Podiatry Today B35.1 - Tinea unguium Surgical Today B35.1 - Tinea unguium Medications: New urea 20% Apply to calluses twice a day. 1 appl topical BID 85 grams 3RF callus L84 - Corns and callosities Coding Level of Care Code New Pt Level 4 (23426) Diagnoses Gait disorder R26.9 Varicose veins of right lower extremity with inflammation I83.11 Hammertoe, bilateral M20.41; M20.42 Callus L84 Onychogryphosis L60.2 CPT Codes Skin Debridement - CPT: 22852-Xwmdbwvinmy of Nail 6+ ([id number]) Skin Debridement - CPT: 47204-Cxjtjqvbsku of Callus (2-4) ([id number]) Time Spent (min) 60 Documented By:Bhavik Garcia DPM05/13/25 1512 Signed By:<Electronically signed by Bhavik Garcia>05/13/252038 Exercises TM 1.4-1.5 MPH x five minutes Decreased heel strike noted bilaterally, pt unsteady without use of UE support. Cues for improved heel strike<>increased step length. Pt verbalizes fatigue. Pt states he feels fatigue following this task, notes legs feel fatigued. Combo or fwd and lateral step up onto BOSU (blue side up) x 2 set 10R with UE support prn, standing PWR rock and PWR step x 2 sets 10R on each side, standing tandem stance with 10# weight for controlled lowering modified lunge position x 5R each side, SL clamshell x 2 set 10R, reassessment: Ankle DF L 4/5, R 4/5, R PF unable to perform heel raise full ROM compared to L requires UE support unable to perform SLS on either 4/5, L ankle EV 4-/5, IV 5/5, L great toe ext 5/5, R great toe ext 5/5, L EV 4-/5, Iv 4/5. During ambulation decreased ankle DF is noted. In sitting pt is able to perform near symmetrical ROM today. He notes episode of parathesia and nerve like sensation pains in his legs while away on vacation. Gastroc and soleus stretching with cues to modify ROM for R knee x 4R x 20 sec hold. Step-up and over airex pad laterally and from front back with min UE support in effort to improve dynamic stepping balance reactions. Step-up and overBOSU blue side up pad laterally and from front back with min UE support in effort to improve dynamic stepping balance reactions x 10R each laterally L>R and R>L, FWD/bkwd L>R and R>L. FWD stepping staggered stance with blue band on hips x 2 sets 10R L>R and R>L with single UE support. Flexbar roller/STM via tennis ball to plantar fascia in effort to increase tissue extensibility. [facility] Podiatry-[address] [address] Office Visit Report Signed Patient: Madelaine Gonsales#: [id number] : 1960Acct:[id number] Age/Sex: 65 / MADM/SER Date: 06/03/25 Loc: TC.HPODSADM/SER Time:1258 Attending Provider: Bhavik Garcia DPM cc: Cheng Rivera MD~ Intake Visit Reasons: OV - Bilateral Calluses, Nail Fungus & Hammer Toes Intake Note: Venancio is a 65 year old male who presents today for a follow up of his Bilateral Foot Calluses, Hammer Toes and Gait Abnormality. An XR order was placed to determine if there is a Leg Length discrepancy (done 05/26/25) - if there is then we will consider AFO Brace. A order for Physical therapy was placed. Bilateral Calluses were debrided and nails were clipped on both feet with a nail sample sent for testing. Pt reports his callous has improved since the last visit however he notes pain and soreness located on the 2nd-3rd toes on the right foot and now his 2nd toe of his left foot is starting to hurt. FINDINGS: As measured from the acetabular roofs to the tibial plafond articular surfaces, the leg lengths measure 95 cm on the right and 95 cm on the left. As measured from the acetabular roofs to the medial femoral condyle weightbearing surfaces, the femoral lengths measure 55.5 cm on the right and 55.5 cm on the left. As measured from the medial femoral condyle weightbearing surfaces to the tibial plafond articular surfaces, the tibial leg lengths measure 44.5 cm on the right and 44.8 cm on the left. At the right knee, there are 172.3 degrees of valgus angulation. At the left knee, there are 173.9 degrees of valgus angulation. XR/XR bone length study IMPRESSION: Leg length measurements as above. Fairly symmetrical measurements, as described above. Allergies No Known Allergies Allergy (Verified 05/30/25 13:15) HPI HPI OV - Bilateral Calluses, Nail Fungus & Hammer Toes: Details: Venancio is a 65 year old male with past medical history of GERD, Right TKA, and gait disorder who returns for painful toe deformities and unsteady gait. He is still working physical therapy for his unsteady gait. States that his toenails have remained sore since his last visit after debridement. History: ? The nail issues have been ongoing for approximately five years, with the nails having a history of falling off and regrowing abnormally. Topical treatments were used for about three to six months without improvement, and oral terbinafine was prescribed but discontinued due to concerns about potential liver damage. ? The patient also reports balance issues that have worsened over the past year or two. He notes he has had several tests,including 'brain and spine evaluations' and vein ultrasounds, which he states have all returned normal. He was recommended to wear compression stockings for his lower extremities which he uses daily. He does not use a cane/aid for support. He has been attending physical therapy for gait training, notably working on strengthening his hip muscles. [facility] Medical History (Updated 05/30/25 @ 13:44 by Hanny Marquez CNP) Cough Obesity (BMI 30-39.9) Constipation Anemia Hypersomnia Snoring Falls frequently Urinary incontinence Cognitive impairment Gait disorder HTN (hypertension) Numbness and tingling in both hands Detached retina Eczema GERD (gastroesophageal reflux disease) Hyperlipidemia Abnormal liver enzymes Hematuria Insomnia Mild intermittent asthma Alaniz esophagus Surgical History (Updated 05/29/25 @ 15:52 by Pattie Gomez) History of surgery Hx of bilateral cataract extraction History of esophagogastroduodenoscopy (EGD) H/O colonoscopy History of wisdom tooth extraction Hx of tonsillectomy History of detached retina repair Social History Household Members: Family Household Members Other:: Alcohol intake: former Patient Tobacco Use Status: Never used Tobacco Physical Exam Extrem Other: *Bilateral Lower Extremity Focused Foot Exam Vascular: DP/PT 2/4, CFT<3s to digits, TG warm to cool, no pedal edema, pedal hair present Derm: Skin: Hyperkeratotic lesions to the medial aspect of the hallux and distal aspect of the 2nd toe bilaterally. No underlying wounds or clinical signs of infection. Interdigital spaces: Clear, no maceration or fungal infection. Nails: Thickened elongated dystrophic toenails times 10 with warm formation to the 2nd toenail. Neuro: Protective sensation grossly intact to bilateral lower extremities. Msk: Deformities: Flexible hammertoe deformities 2 digits 2 through 5 bilaterally. Muscle strength: 5/5 in all muscle groups. Gait: Right shoulder drop, Trendelenburg gait. Bilateral ankle dorsiflexion appears limited during swing phase of gait. Footwear Assessment: Shoes inspected; appropriate fit, no excessive wear, or foreign objects noted. Office Procedures AMB Debridement/Avulsion Podia Details: Procedure: Callus debridement Location: Right hallux, right 2nd digit, left 2nd digit. Total of 3 Anesthesia: N/A Description: The affected area was cleansed with an antiseptic solution. Using a sterile #15 blade, the hyperkeratotic tissue was radially debrided from the foot. All callused tissue was removed down to normal skin without causing bleeding or discomfort. The area was inspected for underlying ulceration or infection. Patient tolerated the procedure well. No complications noted. Tolerance: Patient tolerated procedure well, no immediate complications. 40920-Wnlycijvyvx of Callus (2-4) Procedure code (CPT) selection complete Results Reviewed Results Reviewed: Date of Service: 05/26/25 Procedure(s): XR bone length study IMPRESSION: Fairly symmetrical measurements. At the right knee, there are 172.3 degrees of valgus angulation. At the left knee, there are 173.9 degrees of valgus angulation. Assessment & Plan Assessment & Plan (1) Callus: Code(s): L84 - Corns and callosities Category: Medical Plan: ? Debrided calluses x3 using a # 15 Blade. ? Continue urea cream 20% twice a day (2) Onychogryphosis: Code(s): L60.2 - Onychogryphosis Category: Medical Plan: ? Patient was counseled on the importance of anti-fungal foot hygiene, including daily washing and thorough drying of feet, regular changing of socks, and use of breathable footwear. Recommended antifungal sprays shoes. Education provided on keeping toenails trimmed and clean to reduce risk of fungal infections. Preventive strategies discussed to minimize recurrence of fungal infections. ? We will base recommendations for antifungal treatment based on culture results. ? We will call patient in 1 week to discuss results. (3) Gait disorder: Code(s): R26.9 - Unspecified abnormalities of gait and mobility Category: Medical Plan: ? No structural limb length discrepancy noted on bone length x-rays. ? Patient may be a candidate for AFO braces to aid in ankle dorsiflexion however we will continue physical therapy treatment first as patient states he is seeing some improvement. ? Referred to orthopedic surgery for evaluation of right knee deformity. (4) Hammertoe, bilateral: Code(s): M20.41 - Other hammer toe(s) (acquired), right foot; M20.42 - Other hammer toe(s) (acquired), left foot Category: Medical Plan: ? Discussed possible surgical correction of his toes if the deformities worsen over time and if he develops either wound/infection or has chronic pain. ? Recommended hammertoe crest pad. ? May opt for an in-office flexor tenotomy Orders: Orders AMB Debridement/Avulsion Podiatry Today B35.1 - Tinea unguium, L60.2 - Onychogryphosis, L84 - Corns and callosities Coding Level of Care Code Est Pt Level 3 (01195) Diagnoses Callus L84 Onychogryphosis L60.2 Gait disorder R26.9 Hammertoe, bilateral M20.41; M20.42 CPT Codes Skin Debridement - CPT: 17976-Mrqdnnfwitd of Callus (2-4) ([id number]) Time Spent (min) 35 Documented By:Bhavik Garcia 1418 Signed By:<Electronically signed by Bhavik Garcia>06/03/25 1541 FL/FL barium swallow with air IMPRESSION: 1. Moderately disordered esophageal peristalsis. 2. Granular appearance of the esophageal mucosa suggesting esophagitis. 3. Small to moderate-sized type I hiatus hernia. 4. Mild gastroesophageal reflux identified to the level of the aortic arch. 5. A few scattered small filling defects in the fundus of the stomach are suggestive of hyperplastic polyps. Stomach otherwise normal. Electronically signed by: Brock Washington MD 05/26/2025 09:24 AM EDT RP Dictated By:Brock Washington MD Signed By:<Electronically signed by Brock Washington MD in OV>05/26/25 0924 Modalities Assessment: 06/20/25: Venancio has attended 10 session of PT since start of care on 05/05/25. He continues to express several instances of losing his balance and reports two additional episodes of falling up the stairs since start of care. Both times he notes he tripped when walking up uneven rock/stone stairs in areas (once at home and once while on vacation in a new environment). He has been given a written exercise for hip/core/knee strengthening with some gains reported. He reports ongoing sensitivity and pain in his toes, repeatedly trialing various types of socks/footwear to ease his toe pains. Today he presents with toe sock and different shoes. He has consulted with podiatry and has been given some treatments to address (awaiting nail fungus culture). Podiatry ordered xrays to assess leg length and questioned benefit of AFOS to aide in his ankle DF during ambulation. Due to ongoing sx and unexplained weakness/falls/sensory reports in his legs/ feet he may benefit from a follow up with referring provider as well as nerve conduction test/EMG and or MRI screening of his lumbar spine to assess for potential of peripheral neuropathy. He has had C/S MRI and brin MRI. He has consulted with vascular. He notes waking at night more recently (upwards of 8-10 episodes per evening to urinate). He recently had a sleep study completed. Pt has been educated re: signs and sx consistent with potential concerns for peripheral neuropathy. He is encouraged to follow up with podiatry and neurology in the near future. Anticipate transition to I HEP in a few visits due to plateaued status with PT and I with core/hip/knee/balance HEP. 06/12/25: Pt admits to incident of losing his balance in his house earlier this morning, unsure as to why but was able to catch himself. Fatigue expressed in proximal hips with clamshell and SLR. Weaker in L SLR than R. (+) L knee OA. 06/03/25: Venancio presents wearing wool socks and flat style minmialist shoes. He notes he has been having more pain in both his left and R foot, 2-3 toes, swelling in them on/off. He notes varying his socks and on/off use of compression socks/footwear. He was encouraged to follow the recommendation from podiatry re: footwear/socks. He notes varying degrees of gait instability at times. He is unable to discern specific cause. He notes compliance with trying to be more active with exercise/activity at home. He states he is not open to use of AFOS should they be proposed. 05/29/25: NO LOB noted today during dynamic stepping activities. Improving core/balance control is observed. He was progressed to trial of bridge and HS curl with use of physioball to increase proximal hip strength challenge. He expresses feeling less steady on stairs yesterday compared to after Monday's session and he is unsure as to why. L>R ankle DF >3/5 today with near symmetry. He continues to exhibit reduction in heel strike, ankle DF bilaterally. 05/27/25: Notes trialing different footwear with ongoing use of his compression socks. Reports history of falling up the stairs when carrying two boxes of cardboard on outside granite steps with change of landing/position. He had several small losses of balance laterally and inconsistently with stepping activity in the office. He was encouraged to use min UE support for this task. 05/20/25: Venancio has greater challenge in dynamic balance when in stance/stepping when on L LE. Decreased eccentric control with functional transfers noted. Cues for use of hands to lower self slowly. He was encouraged to perform stand<>sit at home for part of home program. 05/16/25: Venancio was very challenged with standing baps board and wobble board. Today he was able to exhibit great toe ext 5/5 with good abilty vs time of initial evaluation. He continues to wear flat slip on style shoes but expresses feeling more confident in his feet/less pain. He did report an episode of instability when turning around nearly losing his footing. He exhibits high level of motivation for recovery to improve hip/knee/core balance. He may benefit from a nerve conduction test/and or MRI to rule out cause of weakness in his ankle DF. He exhibits decreased heel strike bilaterally. He notes history of parathesias in R knee/hackett in the past. 05/13/25: Greater challenge with hip abductor on L than R. Presents with flat minimalist style shoes. Reviewed floor recovery with good carryover. Issued seated trunk flexion and mobility PWR up from chair for home. 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 05/07/25: Venancio is challenged with L>R SL hip abduction. Assessment of his DTRs today: patellar 2+ L>R and achilles absent on the R when tested. We discussed his footwear choices, the benefit of wearing a supportive arch and a shoe that has good mobility but one that does not fold in half. Pt is a pleasant, RHD 65 y/o male, referred to PT from Dr. Cook date of referral 04/01/25 for history of: gait and balance, PMH significant for Constipation Anemia Hypersomnia Snoring Falls frequently Urinary incontinence Cognitive impairment Gait disorder HTN (hypertension) Numbness and tingling in both hands Detached retina Eczema GERD (gastroesophageal reflux disease) Hyperlipidemia Abnormal liver enzymes Hematuria Insomnia Mild intermittent asthma Alaniz esophagus Hx of bilateral cataract extraction History of esophagogastroduodenoscopy (EGD) H/O colonoscopy History of wisdom tooth extraction Hx of tonsillectomy History of detached retina repairx 2 Pt notes history of frequent falls >10 on the past year or so, often when outside in the yard or when on uneven terrain. He notes he feels his legs are shaky and wobbly when he first stands up and relies on his UE to do stairs. Feels unsteady walking down curbs or when not holding onto things. History of past vestibular therapy after history of falling off a ladder ~4-5 years ago resulting in concussion/ hx bicep and R RTC repair from this). Pt had MRI of brain in 02/12; MRI of C/S (see reports). Hx bilateral retina repair and hx glaucoma. He recently started on new drops this past week for his glaucoma with positive gains. Pt expressing some R knee instability, inactivity, weakness/tingling in R LE at times (middle three toes). Pt does not sleep well at night, currently awaiting sleep study to rue out apnea. Pt is expressing some discomfort with this footwear choices and is eager to consult with a new podiatry about his nailcare. He was seeing podiatry some time ago but has not been recently. He had vascular workup (-) and has started wearing compression stockings. He exhibits overall deconditioning and has impaired sensation on his R foot with screening. He has diminished muscular strength throughout R L5 dermatome compared to his left. He expresses decreased hip abd and hip ext strength; He notes increasing challenged of performing yard/lawn work. Due to his unexplained sensory/weakness of his LE he may benefit from a work-up screening for tick borne illnesses as he lives in the [place] and in his leisure is active working out in the yard. He describes sx consistent with neuropathy and severe sensitivity with wearing socks/shoes on his R foot. He may benefit from a nerve conduction/MRI screening of his lumbar to assess weakness/strength should sx of PT not resolve his sx. He is unable to perform a single leg heel raise or perform SLS due to his unsteadiness. He is weak in his proximal hip ext/abd and in his ankles. He continues to exhibit decreased heel strike and ankle DF with ambulation bilaterally. At time of initial evaluation he was noted to have decreased sensation in his R LE screening and absent achilles reflex on R compared to L. He may benefit from ? nerve conduction test to assess integrity of nerve function. PT Plan: 2x/week generalized conditioning and balance program Short Term Goals: 1. Initiate self care management and HEP program. met 2. Improve awareness for safety during transfers to reduce fall risk. met 3. Improve dynamic balance as evidenced by Tinnetti score improvement. 4. Sit<>stand on first attempt. met 5. Good eccentric control for functional transfers. sometimes met Detention Goals: 1. I HEP for self care management program. met 2. Demonstrate symmetrical bridge with good core recruitment/balance. sometimes met 3. Demonstrate SLR with good eccentric control. improved 4. Demonstrate hip abduction strength to 5/5 B/L. improving 5. Demonstrate hip ext strength to 5/5 B/L. improving 6. ABC confidence score improvements compared to initial assessment. Electronically signed by: Roro Cardoso, PT, DPT
--- NOTE | 2025-07-02 13:34 | MHC.PT.OD ---
[facility] [place] [facility] [place] [facility] [address] [place] [address] [address] [facility] [phone] F: [phone] F: [phone] F: [phone] Physical Therapy Daily Note Diagnosis: PT eval and treat: R29.6 Repeated falls E66.9 Obesity, unspecified Repeated falls, signed by Luly Cook MD 04/11/25 Assessment & Plan (1) Cognitive impairment: Code(s): R41.89 - Other symptoms and signs involving cognitive functions and awareness Category: Medical (2) Gait disorder: Code(s): R26.9 - Unspecified abnormalities of gait and mobility Category: Medical (3) Falls frequently: Code(s): R29.6 - Repeated falls Category: Medical (4) Snoring: Code(s): R06.83 - Snoring Category: Medical (5) Hypersomnia: Code(s): G47.10 - Hypersomnia, unspecified Category: Medical Plan MRI brain - normal MRI C spine- reviewed Cognitive testing Home sleep test to ro/o sleep apnea. PT for gait and balance training- he did not start yet. suggested to increase activity Coding Level of Care Code Est Pt Level 4 (27908) Complex EM visit Add On G2211 Diagnoses Cognitive impairment R41.89 Gait disorder R26.9 Falls frequently R29.6 Snoring R06.83 Hypersomnia G47.10 Documented By:Luly Cook MD04/01/25 1352 Date of Surgery: Date of Evaluation: 05/05/25 Date of Treatment: 06/27/25 Treatments to Date: Cancellations to Date: No Shows to Date: Authorized Visits: 12 Insurance End Date: Precautions/ Contraindications:HTN, fall risk, gait instability Subjective: I found some new socks that I like and they felt better and were comfortable. Pain Score and Location: Objective Flowsheet: Tests & Measures [facility] Podiatry-Spf [address] [place] [address] Office Visit Report Signed Patient: Madelaine Gonsales#: [id number] : 1960Acct:[id number] Age/Sex: 65 / MADM/SER Date: 05/13/25 Loc: HO.HPODSADM/SER Time:1500 Attending Provider: Bhavik Garcia DPM cc: Cheng Rivera MD~ Vital Signs 05/13/25 15:12 Height 6 ft Weight 250 lb BMI 33.9 Intake Visit Reasons: toe nail fungus Intake Note: Venancio is a 65 year old male who presents today as a new patient for an evaluation of his bilateral toe nail fungus. Pt mentions this has been going on for about 4 year. 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 Toenail fungus is located bilaterally on his 1st and 2nd toe and his right foot seems to be worse then the left. Patient states he has been attending physical therapy due to gait. Allergies No Known Allergies Allergy (Verified 05/13/25 15:12) Medication List - Last Reconciled 05/13/25 by Bhavik Garcia DPM acoltremon 0.003% (Tryptyr) 1 drp ophthalmic (eye) BID celecoxib (Celebrex) 200 mg PO BID 30 days docusate calcium 240 mg PO BEDTIME famotidine 80 mg (2 x 40 mg) PO BEDTIME 90 days lisinopril (Zestril) 20 mg PO DAILY pantoprazole 40 mg PO DAILY rosuvastatin 20 mg PO BEDTIME tamsulosin (Flomax) 0.4 mg PO BID gjqhy-mcjtvr-xxwjmm-bimato(PF) 0.5 %-0.15 %- 2 %-0.01 % drps ophthalmic (eye) urea 20% 1 appl topical BID zolpidem (Ambien) 10 mg PO BEDTIME PRN HPI HPI toe nail fungus: Details: Venancio is a 65 year old male with past medical history of GERD, Right TKA, and gait disorder who presents today as a new patient for an evaluation of his bilateral toe nail fungus and unsteady gait. The nail issues have been ongoing for approximately five years, with the nails having a history of falling off and regrowing abnormally. Topical treatments were used for about three to six months without improvement, and oral terbinafine was prescribed but discontinued due to concerns about potential liver damage. The patient also reports balance issues that have worsened over the past year or two. He notes he has had several tests,including 'brain and spine evaluations' and vein ultrasounds, which he states have all returned normal. He was recommended to wear compression stockings for his lower extremities which he uses daily. He does not use a cane/aid for support. He has been attending physical therapy for gait training, notably working on strengthening his hip muscles. [facility] Medical History Obesity (BMI 30-39.9) Constipation Anemia Hypersomnia Snoring Falls frequently Urinary incontinence Cognitive impairment Gait disorder HTN (hypertension) Numbness and tingling in both hands Detached retina Eczema GERD (gastroesophageal reflux disease) Hyperlipidemia Abnormal liver enzymes Hematuria Insomnia Mild intermittent asthma Alaniz esophagus Surgical History History of surgery Hx of bilateral cataract extraction History of esophagogastroduodenoscopy (EGD) H/O colonoscopy History of wisdom tooth extraction Hx of tonsillectomy History of detached retina repair Social History Household Members: Family Household Members Other:: Alcohol intake: former Patient Tobacco Use Status: Never used Tobacco Review of Systems Const All systems reviewed & are unremarkable except as noted in HPI and below Physical Exam Vital Signs: BMI result Body Mass Index 33.9 Extrem Other: *Bilateral Lower Extremity Focused Foot Exam Vascular: DP/PT 2/4, CFT<3s to digits, TG warm to cool, no pedal edema, pedal hair present Derm: Skin: Hyperkeratotic lesions to the medial aspect of the hallux and distal aspect of the 2nd toe bilaterally. No underlying wounds or clinical signs of infection. Interdigital spaces: Clear, no maceration or fungal infection. Nails: Thickened elongated dystrophic toenails times 10 with warm formation to the 2nd toenail. Neuro: Protective sensation grossly intact to bilateral lower extremities. Msk: Deformities: Flexible hammertoe deformities 2 digits 2 through 5 bilaterally. Muscle strength: 5/5 in all muscle groups. Gait: Right shoulder drop, Trendelenburg gait. Bilateral ankle dorsiflexion appears limited during swing phase of gait. Footwear Assessment: Shoes inspected; appropriate fit, no excessive wear, or foreign objects noted. Office Procedures AMB Debridement/Avulsion Podia Details: Procedure: Nail debridement Location: Bilateral feet (10 toes) Anesthesia: N/A Description: The affected toenails were cleansed with an antiseptic solution. Using sterile nail nippers and a rotary romaine, dystrophic and mycotic nail material was carefully debrided and reduced in thickness. Care was taken to avoid trauma to the surrounding skin and nail bed. All debris was removed as tolerated. The area was inspected for signs of infection or ulceration. Patient tolerated the procedure well without complications. Tolerance: Patient tolerated procedure well, no immediate complications. Class A findings as per physical exam findings above. The patient has a diagnosis of unsteady gait. He presents with elongated, thickened toenails. The patient is at increased risk for complications such as ulceration, infection, and difficulty with self-care. Debridement of elongated toenails is medically necessary to prevent development of pressure-related lesions, reduce risk of secondary infection, and maintain foot health in his high-risk comorbidities. Procedure: Callus debridement Location: 2 Right foot + 2 left foot (4) Anesthesia: N/A Description: The affected area was cleansed with an antiseptic solution. Using a sterile #15 blade, the hyperkeratotic tissue was radially debrided from the foot. All callused tissue was removed down to normal skin without causing bleeding or discomfort. The area was inspected for underlying ulceration or infection. Patient tolerated the procedure well. No complications noted. Tolerance: Patient tolerated procedure well, no immediate complications. 62472-Zunebzbmffo of Nail 6+ 77042-Najgjjaszjv of Callus (2-4) Procedure code (CPT) selection complete Assessment & Plan Assessment & Plan (1) Gait disorder: Code(s): R26.9 - Unspecified abnormalities of gait and mobility Category: Medical Plan: ? Discussed possible etiology of his gait issues. The patient notes a history of a right shoulder injury in the past. However, other gait findings may be consistent with compensation versus functional limb length discrepancy, as he does not appear to have a structural limb length deformity observed at this visit.. ? Rx bone length x-rays ? Patient may be a candidate for AFO braces to aid in ankle dorsiflexion when ambulating. We will await for results of his bone length study. ? Referred to physical therapy for lower extremity ankle dorsiflexion/strengthening. (2) Varicose veins of right lower extremity with inflammation: Code(s): I83.11 - Varicose veins of right lower extremity with inflammation Category: Medical Plan: ? The patient is wearing compression stockings from his ankle to below the knee. Explained that this will worsened swelling to his feet. The patient states he will follow up with his PCP to discuss possibly discontinuing compression stockings as he does not find them beneficial. (3) Hammertoe, bilateral: Code(s): M20.41 - Other hammer toe(s) (acquired), right foot; M20.42 - Other hammer toe(s) (acquired), left foot Category: Medical Plan: ? Discussed possible surgical correction of his toes if the deformities worsen over time and if he develops either wound/infection or has chronic pain. ? Recommended hammertoe crest pad. (4) Callus: Code(s): L84 - Corns and callosities Category: Medical Plan: ? Debrided calluses x4 using a # 15 Blade. ? Rx urea cream 20% (5) Onychogryphosis: Code(s): L60.2 - Onychogryphosis Category: Medical Plan: ? Debrided elongated nails times 10 using a sterile nail Nipper. ? A nail clipping was sent for evaluation of fungal elements. A culture was sent to assess for fungal species. ? Discussed treatment options including topical treatment versus oral antifungal medications. ? Explained that oral antifungals may cause gastrointestinal upset, headache, rash, taste disturbances, and hepatotoxicity. Baseline and monthly liver function monitoring is recommended during therapy. Patients should be advised to report symptoms such as jaundice, dark urine, or persistent nausea. ? Patient was counseled on the importance of anti-fungal foot hygiene, including daily washing and thorough drying of feet, regular changing of socks, and use of breathable footwear. Recommended antifungal sprays shoes. Education provided on keeping toenails trimmed and clean to reduce risk of fungal infections. Preventive strategies discussed to minimize recurrence of fungal infections. ? We will base recommendations for antifungal treatment based on culture results. ? Follow up in 3 weeks. Orders: Orders Fungus Cult Hair/Skin/Nail Today B35.1 - Tinea unguium PT Evaluation and Treatment Today R26.9 - Unspecified abnormalities of gait and mobility XR bone length study Today M21.70 - Unequal limb length (acquired), unspecified site AMB Debridement/Avulsion Podiatry Today B35.1 - Tinea unguium Surgical Today B35.1 - Tinea unguium Medications: New urea 20% Apply to calluses twice a day. 1 appl topical BID 85 grams 3RF callus L84 - Corns and callosities Coding Level of Care Code New Pt Level 4 (97718) Diagnoses Gait disorder R26.9 Varicose veins of right lower extremity with inflammation I83.11 Hammertoe, bilateral M20.41; M20.42 Callus L84 Onychogryphosis L60.2 CPT Codes Skin Debridement - CPT: 85118-Bmxwbqnfkld of Nail 6+ ([id number]) Skin Debridement - CPT: 36129-Rpgldmdgaef of Callus (2-4) ([id number]) Time Spent (min) 60 Documented By:Bhavik Garcia DPM05/13/25 1512 Signed By:<Electronically signed by Bhavik Garcia>05/13/252038 Exercises NUSTEP seat #22 UE, #6 x 15 minutes stepper setting. Standing BAPS board level 3 DF/PF/IV/EV/CCW/CW x 2 sets 10R, Pt states he went online to purchase a baps board on his own - he was educated to ensure safety and hand placement at all time with use; postural review of activities for home. Step-up and overBOSU blue side up pad laterally and from front back with min UE support in effort to improve dynamic stepping balance reactions x 10R each laterally L>R and R>L, FWD/bkwd L>R and R>L. FWD stepping staggered stance with blue band on hips x 2 sets 10R L>R and R>L with single UE support. Flexbar roller/STM via tennis ball to plantar fascia in effort to increase tissue extensibility. [facility] Podiatry-[address] [address] Office Visit Report Signed Patient: Madelaine Gonsales#: [id number] : 1960Acct:[id number] Age/Sex: 65 / MADM/SER Date: 06/03/25 Loc: HO.HPODSADM/SER Time:1258 Attending Provider: Bhavik Garcia DPM cc: Cheng Rivera MD~ Intake Visit Reasons: OV - Bilateral Calluses, Nail Fungus & Hammer Toes Intake Note: Venancio is a 65 year old male who presents today for a follow up of his Bilateral Foot Calluses, Hammer Toes and Gait Abnormality. An XR order was placed to determine if there is a Leg Length discrepancy (done 05/26/25) - if there is then we will consider AFO Brace. A order for Physical therapy was placed. Bilateral Calluses were debrided and nails were clipped on both feet with a nail sample sent for testing. Pt reports his callous has improved since the last visit however he notes pain and soreness located on the 2nd-3rd toes on the right foot and now his 2nd toe of his left foot is starting to hurt. FINDINGS: As measured from the acetabular roofs to the tibial plafond articular surfaces, the leg lengths measure 95 cm on the right and 95 cm on the left. As measured from the acetabular roofs to the medial femoral condyle weightbearing surfaces, the femoral lengths measure 55.5 cm on the right and 55.5 cm on the left. As measured from the medial femoral condyle weightbearing surfaces to the tibial plafond articular surfaces, the tibial leg lengths measure 44.5 cm on the right and 44.8 cm on the left. At the right knee, there are 172.3 degrees of valgus angulation. At the left knee, there are 173.9 degrees of valgus angulation. XR/XR bone length study IMPRESSION: Leg length measurements as above. Fairly symmetrical measurements, as described above. Allergies No Known Allergies Allergy (Verified 05/30/25 13:15) HPI HPI OV - Bilateral Calluses, Nail Fungus & Hammer Toes: Details: Venancio is a 65 year old male with past medical history of GERD, Right TKA, and gait disorder who returns for painful toe deformities and unsteady gait. He is still working physical therapy for his unsteady gait. States that his toenails have remained sore since his last visit after debridement. History: ? The nail issues have been ongoing for approximately five years, with the nails having a history of falling off and regrowing abnormally. Topical treatments were used for about three to six months without improvement, and oral terbinafine was prescribed but discontinued due to concerns about potential liver damage. ? The patient also reports balance issues that have worsened over the past year or two. He notes he has had several tests,including 'brain and spine evaluations' and vein ultrasounds, which he states have all returned normal. He was recommended to wear compression stockings for his lower extremities which he uses daily. He does not use a cane/aid for support. He has been attending physical therapy for gait training, notably working on strengthening his hip muscles. [facility] Medical History (Updated 05/30/25 @ 13:44 by Hanny Marquez CNP) Cough Obesity (BMI 30-39.9) Constipation Anemia Hypersomnia Snoring Falls frequently Urinary incontinence Cognitive impairment Gait disorder HTN (hypertension) Numbness and tingling in both hands Detached retina Eczema GERD (gastroesophageal reflux disease) Hyperlipidemia Abnormal liver enzymes Hematuria Insomnia Mild intermittent asthma Alaniz esophagus Surgical History (Updated 05/29/25 @ 15:52 by Pattie Gomez) History of surgery Hx of bilateral cataract extraction History of esophagogastroduodenoscopy (EGD) H/O colonoscopy History of wisdom tooth extraction Hx of tonsillectomy History of detached retina repair Social History Household Members: Family Household Members Other:: Alcohol intake: former Patient Tobacco Use Status: Never used Tobacco Physical Exam Extrem Other: *Bilateral Lower Extremity Focused Foot Exam Vascular: DP/PT 2/4, CFT<3s to digits, TG warm to cool, no pedal edema, pedal hair present Derm: Skin: Hyperkeratotic lesions to the medial aspect of the hallux and distal aspect of the 2nd toe bilaterally. No underlying wounds or clinical signs of infection. Interdigital spaces: Clear, no maceration or fungal infection. Nails: Thickened elongated dystrophic toenails times 10 with warm formation to the 2nd toenail. Neuro: Protective sensation grossly intact to bilateral lower extremities. Msk: Deformities: Flexible hammertoe deformities 2 digits 2 through 5 bilaterally. Muscle strength: 5/5 in all muscle groups. Gait: Right shoulder drop, Trendelenburg gait. Bilateral ankle dorsiflexion appears limited during swing phase of gait. Footwear Assessment: Shoes inspected; appropriate fit, no excessive wear, or foreign objects noted. Office Procedures AMB Debridement/Avulsion Podia Details: Procedure: Callus debridement Location: Right hallux, right 2nd digit, left 2nd digit. Total of 3 Anesthesia: N/A Description: The affected area was cleansed with an antiseptic solution. Using a sterile #15 blade, the hyperkeratotic tissue was radially debrided from the foot. All callused tissue was removed down to normal skin without causing bleeding or discomfort. The area was inspected for underlying ulceration or infection. Patient tolerated the procedure well. No complications noted. Tolerance: Patient tolerated procedure well, no immediate complications. 67395-Tixolqxqina of Callus (2-4) Procedure code (CPT) selection complete Results Reviewed Results Reviewed: Date of Service: 05/26/25 Procedure(s): XR bone length study IMPRESSION: Fairly symmetrical measurements. At the right knee, there are 172.3 degrees of valgus angulation. At the left knee, there are 173.9 degrees of valgus angulation. Assessment & Plan Assessment & Plan (1) Callus: Code(s): L84 - Corns and callosities Category: Medical Plan: ? Debrided calluses x3 using a # 15 Blade. ? Continue urea cream 20% twice a day (2) Onychogryphosis: Code(s): L60.2 - Onychogryphosis Category: Medical Plan: ? Patient was counseled on the importance of anti-fungal foot hygiene, including daily washing and thorough drying of feet, regular changing of socks, and use of breathable footwear. Recommended antifungal sprays shoes. Education provided on keeping toenails trimmed and clean to reduce risk of fungal infections. Preventive strategies discussed to minimize recurrence of fungal infections. ? We will base recommendations for antifungal treatment based on culture results. ? We will call patient in 1 week to discuss results. (3) Gait disorder: Code(s): R26.9 - Unspecified abnormalities of gait and mobility Category: Medical Plan: ? No structural limb length discrepancy noted on bone length x-rays. ? Patient may be a candidate for AFO braces to aid in ankle dorsiflexion however we will continue physical therapy treatment first as patient states he is seeing some improvement. ? Referred to orthopedic surgery for evaluation of right knee deformity. (4) Hammertoe, bilateral: Code(s): M20.41 - Other hammer toe(s) (acquired), right foot; M20.42 - Other hammer toe(s) (acquired), left foot Category: Medical Plan: ? Discussed possible surgical correction of his toes if the deformities worsen over time and if he develops either wound/infection or has chronic pain. ? Recommended hammertoe crest pad. ? May opt for an in-office flexor tenotomy Orders: Orders AMB Debridement/Avulsion Podiatry Today B35.1 - Tinea unguium, L60.2 - Onychogryphosis, L84 - Corns and callosities Coding Level of Care Code Est Pt Level 3 (97440) Diagnoses Callus L84 Onychogryphosis L60.2 Gait disorder R26.9 Hammertoe, bilateral M20.41; M20.42 CPT Codes Skin Debridement - CPT: 46434-Claggthkazg of Callus (2-4) ([id number]) Time Spent (min) 35 Documented By:Bhavik Garcia 1418 Signed By:<Electronically signed by Bhavik Garcia>06/03/25 1541 FL/FL barium swallow with air IMPRESSION: 1. Moderately disordered esophageal peristalsis. 2. Granular appearance of the esophageal mucosa suggesting esophagitis. 3. Small to moderate-sized type I hiatus hernia. 4. Mild gastroesophageal reflux identified to the level of the aortic arch. 5. A few scattered small filling defects in the fundus of the stomach are suggestive of hyperplastic polyps. Stomach otherwise normal. Electronically signed by: Brock Washington MD 05/26/2025 09:24 AM EDT RP Dictated By:Brock Washington MD Signed By:<Electronically signed by Brock Washington MD in OV>05/26/25 0924 Modalities Assessment: 06/27/25: Pt to see neuro for appt follow-up on 07/24/25 at 9:30am. He reports fatigue and positive leg workout following session today. He notes he has ordered a BAPS board for home. We discussed benefit in exercise program gym/senior center options. Pt to look into using his ellipitical at home for self-care. 06/25/25: He is challenged and fatigued with BAPS ankle activity. 06/20/25: Venancio has attended 10 session of PT since start of care on 05/05/25. He continues to express several instances of losing his balance and reports two additional episodes of falling up the stairs since start of care. Both times he notes he tripped when walking up uneven rock/stone stairs in areas (once at home and once while on vacation in a new environment). He has been given a written exercise for hip/core/knee strengthening with some gains reported. He reports ongoing sensitivity and pain in his toes, repeatedly trialing various types of socks/footwear to ease his toe pains. Today he presents with toe sock and different shoes. He has consulted with podiatry and has been given some treatments to address (awaiting nail fungus culture). Podiatry ordered xrays to assess leg length and questioned benefit of AFOS to aide in his ankle DF during ambulation. Due to ongoing sx and unexplained weakness/falls/sensory reports in his legs/ feet he may benefit from a follow up with referring provider as well as nerve conduction test/EMG and or MRI screening of his lumbar spine to assess for potential of peripheral neuropathy. He has had C/S MRI and brin MRI. He has consulted with vascular. He notes waking at night more recently (upwards of 8-10 episodes per evening to urinate). He recently had a sleep study completed. Pt has been educated re: signs and sx consistent with potential concerns for peripheral neuropathy. He is encouraged to follow up with podiatry and neurology in the near future. Anticipate transition to I HEP in a few visits due to plateaued status with PT and I with core/hip/knee/balance HEP. 06/12/25: Pt admits to incident of losing his balance in his house earlier this morning, unsure as to why but was able to catch himself. Fatigue expressed in proximal hips with clamshell and SLR. Weaker in L SLR than R. (+) L knee OA. 06/03/25: Venancio presents wearing wool socks and flat style minmialist shoes. He notes he has been having more pain in both his left and R foot, 2-3 toes, swelling in them on/off. He notes varying his socks and on/off use of compression socks/footwear. He was encouraged to follow the recommendation from podiatry re: footwear/socks. He notes varying degrees of gait instability at times. He is unable to discern specific cause. He notes compliance with trying to be more active with exercise/activity at home. He states he is not open to use of AFOS should they be proposed. 05/29/25: NO LOB noted today during dynamic stepping activities. Improving core/balance control is observed. He was progressed to trial of bridge and HS curl with use of physioball to increase proximal hip strength challenge. He expresses feeling less steady on stairs yesterday compared to after Monday's session and he is unsure as to why. L>R ankle DF >3/5 today with near symmetry. He continues to exhibit reduction in heel strike, ankle DF bilaterally. 05/27/25: Notes trialing different footwear with ongoing use of his compression socks. Reports history of falling up the stairs when carrying two boxes of cardboard on outside granite steps with change of landing/position. He had several small losses of balance laterally and inconsistently with stepping activity in the office. He was encouraged to use min UE support for this task. 05/20/25: Venancio has greater challenge in dynamic balance when in stance/stepping when on L LE. Decreased eccentric control with functional transfers noted. Cues for use of hands to lower self slowly. He was encouraged to perform stand<>sit at home for part of home program. 05/16/25: Venancio was very challenged with standing baps board and wobble board. Today he was able to exhibit great toe ext 5/5 with good abilty vs time of initial evaluation. He continues to wear flat slip on style shoes but expresses feeling more confident in his feet/less pain. He did report an episode of instability when turning around nearly losing his footing. He exhibits high level of motivation for recovery to improve hip/knee/core balance. He may benefit from a nerve conduction test/and or MRI to rule out cause of weakness in his ankle DF. He exhibits decreased heel strike bilaterally. He notes history of parathesias in R knee/hackett in the past. 05/13/25: Greater challenge with hip abductor on L than R. Presents with flat minimalist style shoes. Reviewed floor recovery with good carryover. Issued seated trunk flexion and mobility PWR up from chair for home. Pt to see [employer] piping designer following appt today. 05/07/25: Venancio is challenged with L>R SL hip abduction. Assessment of his DTRs today: patellar 2+ L>R and achilles absent on the R when tested. We discussed his footwear choices, the benefit of wearing a supportive arch and a shoe that has good mobility but one that does not fold in half. Pt is a pleasant, RHD 65 y/o male, referred to PT from Dr. Cook date of referral 04/01/25 for history of: gait and balance, PMH significant for Constipation Anemia Hypersomnia Snoring Falls frequently Urinary incontinence Cognitive impairment Gait disorder HTN (hypertension) Numbness and tingling in both hands Detached retina Eczema GERD (gastroesophageal reflux disease) Hyperlipidemia Abnormal liver enzymes Hematuria Insomnia Mild intermittent asthma Alaniz esophagus Hx of bilateral cataract extraction History of esophagogastroduodenoscopy (EGD) H/O colonoscopy History of wisdom tooth extraction Hx of tonsillectomy History of detached retina repairx 2 Pt notes history of frequent falls >10 on the past year or so, often when outside in the yard or when on uneven terrain. He notes he feels his legs are shaky and wobbly when he first stands up and relies on his UE to do stairs. Feels unsteady walking down curbs or when not holding onto things. History of past vestibular therapy after history of falling off a ladder ~4-5 years ago resulting in concussion/ hx bicep and R RTC repair from this). Pt had MRI of brain in 02/12; MRI of C/S (see reports). Hx bilateral retina repair and hx glaucoma. He recently started on new drops this past week for his glaucoma with positive gains. Pt expressing some R knee instability, inactivity, weakness/tingling in R LE at times (middle three toes). Pt does not sleep well at night, currently awaiting sleep study to rue out apnea. Pt is expressing some discomfort with this footwear choices and is eager to consult with a new podiatry about his nailcare. He was seeing podiatry some time ago but has not been recently. He had vascular workup (-) and has started wearing compression stockings. He exhibits overall deconditioning and has impaired sensation on his R foot with screening. He has diminished muscular strength throughout R L5 dermatome compared to his left. He expresses decreased hip abd and hip ext strength; He notes increasing challenged of performing yard/lawn work. Due to his unexplained sensory/weakness of his LE he may benefit from a work-up screening for tick borne illnesses as he lives in the [place] and in his leisure is active working out in the yard. He describes sx consistent with neuropathy and severe sensitivity with wearing socks/shoes on his R foot. He may benefit from a nerve conduction/MRI screening of his lumbar to assess weakness/strength should sx of PT not resolve his sx. He is unable to perform a single leg heel raise or perform SLS due to his unsteadiness. He is weak in his proximal hip ext/abd and in his ankles. He continues to exhibit decreased heel strike and ankle DF with ambulation bilaterally. At time of initial evaluation he was noted to have decreased sensation in his R LE screening and absent achilles reflex on R compared to L. He may benefit from ? nerve conduction test to assess integrity of nerve function. PT Plan: 2x/week generalized conditioning and balance program Short Term Goals: 1. Initiate self care management and HEP program. met 2. Improve awareness for safety during transfers to reduce fall risk. met 3. Improve dynamic balance as evidenced by Tinnetti score improvement. 4. Sit<>stand on first attempt. met 5. Good eccentric control for functional transfers. sometimes met Gaming Host Goals: 1. I HEP for self care management program. met 2. Demonstrate symmetrical bridge with good core recruitment/balance. sometimes met 3. Demonstrate SLR with good eccentric control. improved 4. Demonstrate hip abduction strength to 5/5 B/L. improving 5. Demonstrate hip ext strength to 5/5 B/L. improving 6. ABC confidence score improvements compared to initial assessment. Electronically signed by: Roro Cardoso, PT, DPT
== END 2025-08-12 09:56 | disposition home or self-care (01) ==
LOC: HO.PTS 11:13
PROVIDERS: Visit Provider Psychiatry & Neurology Neurology
DX: R29.6 Repeated falls (principal); E66.9 Obesity, unspecified
CPT/HCPCS: 97110; 97112; 97140; 97162; 97164; 97530

== ENCOUNTER 2025-07-02 12:23 | Outpatient (AMB) | payer OTHER, SELFPAY ==
--- OUTSIDE RECORDS SUMMARY | 2024-04-30 11:00 | XMS_ITS ---
Author Organization [facility] Address [address] [place] [address] Care Team Providers Care Laundry Operator Name Role Phone Miguel DAVID, Cheng Primary Care Provider Unavailab Ritesh Farr Unavailable [phone] Encounters Encounter Location Date Provider Diagnosis [facility] [address] [place] [address] 04/30/2024 Ritesh Fang Plan Of Treatment No Information Progress Notes * Venancio GONSALES NDOB:1960 (65 yo M)Acc No.[id number]:04/30/2024 Progress Note Patient: Venancio RALPH Provider: Evie Fang DPM :1960 A ge:64 Y S ex:Male Date:04/30/2024 Address:[address] [place] [address] [facility] Pcp:Cheng Rivera MD Subjective: * Chief Complaints: [...] 0 04/30/2024 Generated for Printi ng/Faxing/eTransmitting on: 09/01/2024 03:03 PM EST
--- NOTE | 2025-07-02 12:38 | A.OFFVIS_ITS ---
Vital Signs 07/02/25 12:42 Height 6 ft Weight 250 lb BMI 33.9 Intake Visit Reasons: OV - Bilateral Calluses, Nail Fungus & Hammer Toes Intake Note: Venancio is a 65 year old male who presents today as a follow up for Bilateral Calluses, Nail Fungus & Hammer Toes. At his last visit he was advised to minimize spread of fungus. Today patient reports he is doing well, however he feel a sensitive sensation when socks are on, no other concerns at this time. Allergies No Known Allergies Allergy (Verified 05/30/25 13:15) HPI HPI OV - Bilateral Calluses, Nail Fungus & Hammer Toes: Details: Venancio is a 65 year old male with past medical history of GERD, knee arthritis, and gait disorder who returns for painful toe deformities and unsteady gait. He is working physical therapy for his unsteady gait. He is scheduled to see Neurology and has an EMG/NCV pending. He is also planning to purchase wide shoe wear to accommodate his foot type. History: * The nail issues have been ongoing for approximately five years, with the nails having a history of falling off and regrowing abnormally. Topical treatments were used for about three to six months without improvement, and oral terbinafine was prescribed but discontinued due to concerns about potential liver damage. * The patient also reports balance issues that have worsened over the past year or two. He notes he has had several tests,including 'brain and spine evaluations' and vein ultrasounds, which he states have all returned normal. He was recommended to wear compression stockings for his lower extremities which he uses daily. He does not use a cane/aid for support. He has been attending physical therapy for gait training, notably working on strengthening his hip muscles. [facility] Medical History (Updated 06/30/25 @ 21:33 by Nerissa Bobby PA-C) Cough Obesity (BMI 30-39.9) Constipation Anemia Hypersomnia Snoring Falls frequently Urinary incontinence Cognitive impairment Gait disorder HTN (hypertension) Numbness and tingling in both hands Detached retina Eczema GERD (gastroesophageal reflux disease) Hyperlipidemia Abnormal liver enzymes Hematuria Insomnia Mild intermittent asthma Alaniz esophagus Surgical History (Updated 05/29/25 @ 15:52 by Pattie Gomez) History of surgery Hx of bilateral cataract extraction History of esophagogastroduodenoscopy (EGD) H/O colonoscopy History of wisdom tooth extraction Hx of tonsillectomy History of detached retina repair Social History Household Members: Family Household Members Other:: Alcohol intake: former Patient Tobacco Use Status: Never used Tobacco Review of Systems Const All systems reviewed & are unremarkable except as noted in HPI and below Physical Exam Vital Signs: BMI result Body Mass Index 33.9 Extrem Other: *Bilateral Lower Extremity Focused Foot Exam Vascular: DP/PT 2/4, CFT<3s to digits, TG warm to cool, no pedal edema, pedal hair present Derm: Skin: Hyperkeratotic lesions to the medial aspect of the hallux and distal aspect of the 2nd toe bilaterally. No underlying wounds or clinical signs of infection. Interdigital spaces: Clear, no maceration or fungal infection. Nails: Thickened elongated dystrophic toenails times 10 with warm formation to the 2nd toenail. Neuro: Protective sensation grossly intact to bilateral lower extremities. Msk: Deformities: Flexible hammertoe deformities 2 digits 2 through 5 bilaterally. Muscle strength: 5/5 in all muscle groups. Gait: Right shoulder drop, Trendelenburg gait. Bilateral ankle dorsiflexion appears limited during swing phase of gait. Footwear Assessment: Shoes inspected; appropriate fit, no excessive wear, or foreign objects noted. Office Procedures AMB Debridement /Avulsion Details: AMB Debridement/Avulsion Podia Details: Procedure: Callus debridement Location: Right hallux, right 2nd digit, left 2nd digit. Total of 3 Anesthesia: N/A Description: The affected area was cleansed with an antiseptic solution. Using a sterile #15 blade, the hyperkeratotic tissue was radially debrided from the f oot. All callused tissue was removed down to normal skin without causing bleeding or discomfort. The area was inspected for underlying ulceration or infection. Patient tolerated the procedure well. No complications noted. Tolerance: Patient tolerated procedure well, no immediate complications. [id number] of Callus (2-4) Procedure code (CPT) selection complete Results Reviewed Results Reviewed: Date of Service: 05/26/25 Procedure(s): XR bone length study IMPRESSION: Fairly symmetrical measurements. At the right knee, there are 172.3 degrees of valgus angulation. At the left knee, there are 173.9 degrees of valgus angulation. Assessment & Plan Assessment & Plan (1) Callus: Code(s): L84 - Corns and callosities Category: Medical Plan: * Debrided calluses x3 using a # 15 Blade. * Continue urea cream 20% twice a day (2) Onychogryphosis: Code(s): L60.2 - Onychogryphosis Category: Medical Plan: * Patient was counseled on the importance of anti-fungal foot hygiene, including daily washing and thorough drying of feet, regular changing of socks, and use of breathable footwear. Recommended antifungal sprays shoes. Education pr ovided on keeping toenails trimmed and clean to reduce risk of fungal infections. Preventive strategies discussed to minimize recurrence of fungal infections. * Reviewed nail culture results. * Rx ciclopirox * Follow up 3 months (3) Gait disorder: Code(s): R26.9 - Unspecified abnormalities of gait and mobility Category: Medical Plan: * No structural limb length discrepancy noted on bone length x-rays. * Patient may be a candidate for AFO braces to aid in ankle dorsiflexion however we will continue physical therapy treatment first as patient states he is seeing some improvement. * Referred to orthopedic surgery for evaluation of right knee deformity. * Pending neurology evaluation and EMG/NCV (4) Hammertoe, bilateral: Code(s): M20.41 - Other hammer toe(s) (acquired), right foot; M20.42 - Other hammer toe(s) (acquired), left foot Category: Medical Plan: * Discussed possible surgical correction of his toes if the deformities worsen over time and if he develops either wound/infection or has chronic pain. * Recommended hammertoe crest pad. * May opt for an in-office flexor tenotomy Medications: New ciclopirox 8% Apply to fungal toenails daily. Remove build-up at the end of the week. 1 appl topical BEDTIME 4 months 6.6 mL 3RF Coding Level of Care Code Est Pt Level 3 (65891) Diagnoses Callus L84 Onychogryphosis L60.2 Gait disorder R26.9 Hammertoe, bilateral M20.41; M20.42 Time Spent (min) 25
[2025-07-02 12:42] VITALS: BMI 33.9
--- OUTSIDE RECORDS SUMMARY | 2025-07-02 15:03 | XMS_ITS | Data Portability ---
Author Organization [facility] Address [address] [place] [address] Care Team Providers Care Integrated Marketing Intern Name Role Phone MARKY JARQUIN Referring Provider [...] [email or web address] Kristopher Luciano MD, [address], [address], [address], 9 16:17:59 electrocard iogram 2016 017 ntumandrew Luciano MD, [address], [address], [address], 7 15:18:40 exercise stress test 2016 017 [facility] (Radiology), [address] [place], [address], 7 13:40:45 Medication Orders None recorded. Patient TargetsNo targets recorded. Patient Instructions Encounter Date Encounter Id Patient Instructions Last Modified By Organization Details Last Modified Time 02/15/2017 [id number] orthostatic hypotension: care instructions lakia Not available 02/15/2017 15:13:31 11/12/2018 [id number] palpitations: care instructions david Not available 11/12/2018 16:13:17 Reason for Referral None Reported. Results Created Date Observation Date Name Description Value Unit Range Abnormal Flag Note LastModifiedBy Organization Detail LastModifiedTime 02/29/20 17 02/27/2017 exerc ise stres s test No observ ation record ed. [email or web address] [facility] [facility] [address], [place] [place], [address], 02/28/2017 18:48:23 10/31/19 19 10/05/2018 elect adithya servin am No observ ation record ed. [email or web address] Not Available 2018 14:13:42 Result Notes None recorded. Problems Name Problem SNOMED Code Status Onset Date Resolution Date Notes Provider Name and Address Organization Details Recorded Time Orthostatic hypotension 52497515 Active 2016 YENY Donald MD 7 14:26:40 Dyspnea 560090045 Active 2016 YENY Donald MD 7 14:27:14 Hyperlipidemia 43013611 Active 2016 YENY Donald MD 7 14:27:21 Gastroesophage al reflux disease 782087967 Active 2016 YENY Donald MD 7 14:27:31 Raynaud's disease 202427864 Active 2016 YENY Donald MD 7 14:29:09 Palpitations 53740118 Active 2018 YENY Donald MD 9 08:19:01 Alaniz's esophagus 994050186 Active 2018 YENY Donald MD 9 08:19:36 [...] Updated DateTime 9 182.88 cm 28.8 kg/m2 93167.5 8 g 98 % 98 % 65 /min Symone Luciano MD 9 15:33:40 Date Recorded Respiratory rate Systolic And Diastolic Systolic And Diastolic Systolic And Diastolic Provider Name and Address Organization Details Last Updated DateTime 02/15/2017 12 /min 120/70 mm[Hg] 120/70 mm[Hg] 115/70 mm[Hg] Kristopher Luciano MD [address] [place] [address] [employer] [address], [place], [address], [facility] Luciano MD 7 15:00:40 Date Recorded Body height Body mass index (BMI) Body weight Oxygen saturation Oxygen saturation in Arterial blood by Pulse oximetry Heart rate Provider Name and Address Organization Details Last Updated DateTime 7 182.88 cm 25.9 kg/m2 32992.1 4 g 99 % 99 % 63 [...] available 02/15/2017 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 Information not available 02/15/2017 What is your [...] ICD10 Code Diagnosis IMO Codes Diagnosis Note [id number] Kristopher Luciano MD - [address] [place] [address] [employer] [address] [employer] [id number] 02/15/2017 14:04:48 02/15/2017 15:18:40 Dyspnea 161018429 R06.09 Orthostati c hypotension 91639957 I95.1 [id number] Kristopher Luciano MD - [address] [place] [address] [employer] [address] [employer] [id number] 11/12/2018 15:26:57 11/12/2018 16:17:59 Palpitations 53119389 R00.2 Alaniz's esophagus 3029 48965 K22.70 Gastroesop hageal reflux disease 591826679 K21.9 Health Concerns Section Related Observation LastModified by Organization Detai ls LastModified Time None Recorded Concern Status LastModified by Organization Details LastModified Time None Recorded Advance Directives Directive Y: Payers Insurance Date Sequence Insurance Name Policy Number Policy Camara Covered Member ID Camara Member ID Guarantor Name 11/12/2018 1 [place] [id number] Venancio Gonsales [id number] Venancio Gonsales Notes Date Note Type [...] were in good range. Kristopher Luciano MD [address] [place] [address],[employer] [address], [place], [address], [facility] - Kristopher Luciano MD 02/15/2017 [...] is a lifelong nonsmoker. Kristopher Luciano MD [address] [place] [address],[employer] [address], [place], [address], [facility] - Kristopher Luciano MD 11/12/2018 19:16:33
--- OUTSIDE RECORDS SUMMARY | 2025-07-02 15:03 | XMS_ITS | Patient Health Record ---
Author Organization [facility] Address [address] [place] [address] Care Team Providers Care Laboratory Scientist Name Role Phone Cheng Rivera MD Primary Care Provider Unavailab Ritesh Farr Unavailable [phone] Allergies No Known Allergies Reason For Referral No Information Medications Medication SIG (Take, Route, Fr equency, Duration) Notes Start Date End Date Status Omeprazole 40 MG 1 capsule 30 minutes before morning meal Orally Once a day A ctive Lisinopril 20 MG 1 tablet Orally Once a day Active Pravastatin Sodium A ctive Flomax Active Terbinafine Active Ciclopirox 0.77 % 1 application Health Researcher ally Twice a day; Duration: 365 days [...] Risk Notes Problem Fungal infection of nail (364142130) 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 confirmed Rx management (4) Plan Of Treatment Pending Test Test Name Order Date *Liver Function Test (LFT) 11/14/2023 29730-Klzwkclc Plate 10/30/2023 Insurance Providers Payer Name Payer Address Payer Phone Subscriber Number Group Number Insured Name Patient Relationship to Insured Coverage Start Date Coverage End Date Blue Benefits [address] [address] [place] [address] [id number] Patricia Gonsales Spouse - patient is the spouse of the insured Medical (General) History Medical History History ICD Code Cataracts Glaucoma HTN CAD Surgical History Surgery Date(Month/Year) eye surgery colonoscopy 08/12 endoscopy 08/12
--- OUTSIDE RECORDS SUMMARY | 2025-07-02 15:03 | XMS_ITS | Encounter Summary ---
Author Organization [facility] Address [address] [place] [address] Care Team Providers Care Ham Rolling Machine Operator Name Role Phone Waqar Carlos Primary Care Provider [phone] Encounter Details Date Type Department Care Team (Late st Contact Info) Description 05/16/2016 Ophthalmology Data Conversion [facility] Historical Conversion Department [address] [address] Social History Tobacco Use Types Packs/Day Years [...] on filedocumented in this encounter Care Teams Ham Rolling Machine Operator Relationship Specialty Start Date End Date Waqar Carlos [address] [place] [address] PCP - General Family Medicine 12/23/24 documented as of this encounter
--- OUTSIDE RECORDS SUMMARY | 2025-07-02 15:03 | XMS_ITS | Clinical Summary ---
Author Organization [facility] Address [address] [place] [address] Care Team Providers Care Analog Device Designer Name Role Phone Waqar Carlos Primary Care Provider [phone] Allergies No known active allergies Medications * [...] Follow-Up 08/21/2024 Health Care Proxy Review 08/21/2024 [employer] Drivers of Health Annual Screening 08/21/2024 COVID-19 Vaccine ( season) 2025 06/10/2024, 08/22/2023, 07/19/2022, Additional history exists Influenza Vaccine (#1) 2025 , 08/22/2023, 07/19/2022, Additional history exists Fall Risk Screening 09/03/2025 09/03/2024 DTaP,Tdap,and Td Vaccines (4 - Td or Tdap) 08/22/2033 08/22/2023, 05/21/2013, 08/30/2008 RSV Vaccine (60+ years old and patients) (1 - 1-dose 75+ series) 2035 Zoster Vaccines Completed 06/22/2021, 04/14/2021 Pneumococcal Vaccine: 50+ Years Completed 07/19/2022 Hepatitis B Vaccines Aged Out No long er eligible based on patient's age to complete this topic Insurance [employer] Care Teams Analog Device Designer Relationship Specialty Start Date End Date Waqar Carlos [address] [place] [id number] PCP - General Family Medicine 12/23/24
== END 2025-07-02 13:13 | disposition home or self-care (01) ==
LOC: HO.HPODS 12:24
PROVIDERS: PCP Family Medicine; Visit Provider Student in an Organized Health Care Education/Training Program
DX: L84 Corns and callosities (principal); L60.2 Onychogryphosis; R26.9 Unspecified abnormalities of gait and mobility; M20.41 Other hammer toe(s) (acquired), right foot; M20.42 Other hammer toe(s) (acquired), left foot
CPT/HCPCS: 99213

== ENCOUNTER 2025-07-07 14:42 | Outpatient (REF) | payer OTHER, SELFPAY ==
[2025-07-07 18:10] LABS: MANUAL DIFF FLAG NO
[2025-07-07 18:12] LABS: Appearance Urine Clear; Glucose Urine UA Negative (Negative); PH 5.0 (5.0-9.0); Specific Gravity - Urine 1.020 (1.005-1.025)
[2025-07-07 18:20] LABS: Hematocrit 41.8 % (42.0-52.0); Hemoglobin 13.7 g/dl (14.0-18.0); Imm Gran Abs Auto 0.01 X10*3/uL (0.00-0.03); Imm Gran Pct Auto 0.1 % (0.0-0.4); Lymphocytes Absolute Auto 2.4 X10*3/uL (1.2-4.9); Mean Corpuscular HGB Conc 32.8 g/dl (31.0-36.0); Mean Corpuscular Hemoglobin 30.5 pg (27.0-33.0); Mean Corpuscular Volume 93.1 fL (80.0-98.0); NRBC Abs Auto 0.000 X10*3/uL (0.0-0.012); NRBC Pct Auto 0.0 /100WBC (0.0-0.2); Platelet Count 241 X10*3/uL (160-400); Red Blood Count 4.49 X10*6/uL (4.60-5.80); White Blood Count 7.6 X10*3/uL (4.8-10.8)
[2025-07-07 19:03] LABS: Alanine Aminotransferase 25 U/L (0-40); Albumin Level 4.5 g/dL (3.5-5.0); Alkaline Phosphatase 72 U/L (39-117); Anion Gap 13 (12-20); Aspartate Amino Transferase 37 U/L (5-37); Blood Urea Nitrogen 21 mg/dL (9-16); Calcium 9.4 mg/dL (8.4-10.2); Carbon Dioxide 21 mmol/L (22-29); Chloride 106 mmol/L (96-108); Cholesterol 156 mg/dL (<200); Estimated Glomerular Filt Rate > 60; HDL Cholesterol 58 mg/dL (>40); Magnesium 2.1 mg/dL (1.6-2.6); Potassium 4.5 mmol/L (3.3-5.1); Sodium 135 mmol/L (135-145); Total Protein 7.4 g/dL (6.5-8.0); Triglycerides 60 mg/dL (<150)
[2025-07-07 19:06] LABS: Folate 7.6 ng/mL (> or = 4.0); Vitamin B12 424 pg/mL (200-900)
[2025-07-08 05:18] LABS: Lyme Abs Screen <0.90 index
[2025-07-08 07:53] LABS: HBS Num1 0.00 mIU/mL (0-7.99); HBsAGNum1 0.39 S/CO (0.00-0.99); HIV Num 1 0.08 S/CO (0.00-0.99); Hepatitis B Surface Antigen Negative (Negative); ~HepC Num1 0.09 S/CO (0.00-0.79); ~Hepatitis B Surface Antibody NONREACTIVE (Nonreactive); ~Hepatitis C Antibody Nonreactive (Nonreactive)
[2025-07-08 08:37] LABS: Syphilis Screen Nonreactive (Nonreactive)
[2025-07-12 15:24] LABS: VITAMIN D (1,25 OH) D3 52 pg/mL; Vit D (1,25-Dihydroxy) Total 52 pg/mL (18-72); Vitamin D (1,25 OH) D2 <8 pg/mL
== END 2025-07-07 14:43 | disposition home or self-care (01) ==
LOC: HO.HKASLDS 14:42
PROVIDERS: PCP Family Medicine; Visit Provider Student in an Organized Health Care Education/Training Program
DX: Z13.9 Encounter for screening, unspecified (principal); Z23 Encounter for immunization; G62.9 Polyneuropathy, unspecified; R26.9 Unspecified abnormalities of gait and mobility; N40.0 Benign prostatic hyperplasia without lower urinary tract symptoms; K21.00 Gastro-esophageal reflux disease with esophagitis, without bleeding; I73.00 Raynaud's syndrome without gangrene; D64.9 Anemia, unspecified; M20.022 Boutonniere deformity of left finger(s); Z79.899 Other long term (current) drug therapy; Z87.19 Personal history of other diseases of the digestive system
CPT/HCPCS: 36415; 80053; 80061; 81003; 82607; 82652; 82746; 83036; 83735; 84443; 85025; 86617; 86618; 86706; 86780; 86803; 87340; 87389; 90471; 90656; 96127

== ENCOUNTER 2025-07-07 14:42 | Outpatient (AMB) | payer OTHER, SELFPAY ==
--- NOTE | 2025-07-07 14:47 | A.OFFPC_ITS ---
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 Accompanied by: Self / Same As Patient Allergies No Known Allergies Allergy (Verified 07/08/25 12:20) Tobacco use date assessed: 07/07/25 Fall risk assessment: 2 + Falls in past year Last assessed Fall Risk: 07/07/25 Dental Screening Dental Screen Date: 07/07/25 Did you have a dental visit in the last 12 months?: Yes Did you have a dental problem in the last 6 months where you did not have access to dental care?: No Was dental information given to patient?: Patient has dentist HPI HPI Comments History of Present Illness Details Consent Patient was informed and verbally consented to the use of an ambient scribe for clinic note documentation during this visit. History of Present Illness The patient is a 65 year old male presenting to [facility] with a new primary care physician as his previous provider retired. Gait abnormality and Peripheral Neuropathy: The patient reports problems with his gait and walking, including approximately 10 falls last year. He notes the falls seem to occur because he does not pick one of his feet up high enough and also has balance issues. He was evaluated by a neurologist who performed an MRI. He also saw a vascular surgeon, and a Doppler ultrasound of his legs was normal. He complains of frequently swollen and cold toes and notes his legs are always cold. For the past year and a half, with worsening over the last six months, he has had hypersensitivity in his toes, making wearing socks uncomfortable to the point of cutting the toes off his socks for relief. He attended physical therapy for about two months, which helped after they identified weakness in his legs, hips, and ankles. He is scheduled for an EMG and NCV next week to be evaluated for neuropathy. His physical therapist suggested he be tested for Lyme disease. Benign Prostatic Hyperplasia (BPH) with Nocturia: The patient reports a long-standing issue with urination, specifically nocturia, causing him to wake up 5 to 10 times per night. He has been evaluated by a urologist and has undergone two cystoscopies and urodynamic studies. He currently takes tamsulosin for this condition. Gastroesophageal Reflux Disease with Alaniz's Esophagus: The patient has a history of severe GERD and Alaniz's esophagus. He previously took omeprazole for about 20 years until it stopped being effective. His current regimen of pantoprazole in the morning and famotidine at night is effective. He had an upper endoscopy a couple of months ago. Insomnia: The patient has no trouble falling asleep but struggles with sleep maintenance, which he attributes to frequent nocturia. He was prescribed zolpidem and has been taking half a pill more recently, but finds it does not really work and reports sleeping the same with or without it. Raynaud's phenomenon: The patient reports that his hands and fingers always get cold, turn white, and become very cold easily, even in mildly cool temperatures. He was evaluated for Raynaud's phenomenon five or six years ago and was told he did not have it, but his symptoms persist. Hypertension: The patient takes lisinopril for blood pressure. Hyperlipidemia: He takes rosuvastatin for cholesterol that he describes as being on the high side of normal. Anemia: The patient mentions that after his last labs in the spring, there was a mention that he might be latently anemic, but this was not investigated further. Contracture of pinky finger: The patient has a contracted pinky finger that resulted from a fall while working in the yard. He saw an labor delivery specialist and a hand surgeon, rec eived splinting and therapy, but the finger never fully recovered. The hand surgeon stated surgery might only provide 50% improvement, so the patient declined the procedure. 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 - Tobacco Use: Reports a very minimal hi story of smoking. - Substance Use: Denies any history of i llicit drug use. - Living Situation: Resides in a house [place], indicating potential exposure to ticks. Diagnostic Results: - Colonoscopy (two years ago): Results w ere normal. - Upper endoscopy (a few months ago): No results detailed. - MRI (date unspecified): Performed as p art of a neurologic workup for gait issues; results not detailed. - Leg Doppler Ultrasound (date unspecifi ed): Results were normal. - Recent labs (Spring): Last bloodwork w as in the spring, which may have indicated latent anemia. Review of Systems - Constitutional: Denies fever. - Eyes: Reports dry eyes. - Gastrointestinal: Reports severe GERD. - Genitourinary: Reports nocturia, wakin g 5-10 times per night to urinate. - Musculoskeletal: Reports right knee pa in and contracted pinky finger. Reports generalized leg, hip, and ankle weakness that improved with physical therapy. - Neurological: Reports gait and balance issues, history of about 10 falls last year, and hypersensitivity in his toes to socks for the past 1.5 years. Denies trouble falling asleep. - Integumentary/Vascular: Reports toenai l fungus. Toes are often swollen and cold, and legs are always cold. Reports hands and fingers also get cold easily and turn white. - Psychiatric: Reports sleep maintenance insomnia. 10-point ROS reviewed and negative excep t as noted in HPI Past Medical History - Gastroesophageal reflux disease with B arrett's esophagus - Hypertension - Hyperlipidemia - Benign prostatic hyperplasia - History of falls - Onychomycosis - Dry eye syndrome - Contracture of pinky finger - Possible Raynaud's phenomenon Health Maintenance - Colonoscopy: Performed two years ago, with normal results. - Upper endoscopy: Performed a few month s ago. - Lung cancer screening: Not indicated a s patient is not a current smoker. Physical Exam General: Well-appearing, in no acute distress. Vital signs: Within normal limits. HEENT: Normocephalic, atraumatic. PERRLA, EOMI. Conjunctiva clear, sclera anicteric. Oropharynx clear, mucous membranes moist. TMs intact bilaterally. Neck: Supple, no lymphadenopathy, no thyromegaly, no JVD or carotid bruits. Cardiovascular: RRR, normal S1/S2, no murmurs, rubs, or gallops. Peripheral pulses 2+ and symmetric. No edema. Respiratory: Lungs clear to auscultation bilaterally, no wheezes, rales, or rhonchi. Normal effort. Abdomen: Soft, non-tender, non-distended. Normoactive bowel sounds. No hepatosplenomegaly, no masses. MSK: Full range of motion, no joint swelling or deformity. Gait issues noted, with a history of falls and balance problems. Patient reports hypersensitivity to socks and discomfort in toes. Skin: Warm, dry, intact. No rashes, lesions, or pallor. Toes reported to be swollen and cold. Neuro: Alert and oriented x3. Cranial nerves II-XII intact. Strength 5/5 throughout. Sensation intact. Reflexes 2+ symmetric. Normal coordination. Reports of balance issues and peripheral neuropathy symptoms. Psych: Appropriate mood and affect. Normal judgment and insight. Plan 1. New Patient Visit / Health Maintenanc e - Establishing care as the patient's new primary care provider. - A comprehensive blood panel will be or dered to establish a new baseline and investigate current symptoms. - Lab orders include: CBC, CMP, urinalys is, B12, folate, vitamin D, lipid panel, HbA1c, thyroid panel, hepatitis B, hepatitis C, and HIV screening. - A follow-up visit is scheduled in two weeks to review the results. 2. Gait Abnormality And Peripheral Neuro luis - Will evaluate for underlying causes of gait issues and neuropathy, such as vitamin deficiencies (B12, folate). - The patient will proceed with his sche duled EMG/NCV test next week. - Per the physical therapist's suggestio n and the patient's potential environmental exposure, a test for Lyme disease will also be ordered. 3. Insomnia - Discussed that zolpidem is a hypnotic that is not very effective and has ris ks. - Advised the patient to discontinue the zolpidem, to which he agreed. - The underlying cause of sleep maintena nce insomnia is likely severe nocturia related to BPH. 4. Anemia, Unspecified - A CBC is included in the lab orders to investigate the potential latent anemia mentioned from previous lab work. Discussion Notes I discussed with the patient that as we are establishing care, we will start with a comprehensive workup to get a full picture of his health. I explained that I am ordering a broad set of labs to check his blood counts, liver and kidney function, electrolytes, vitamin levels, blood sugar, cholesterol, and thyroid function, as well as screening for infectious diseases like hepatitis and HIV. We discussed that ruling out vitamin deficiencies, particularly B12 or folate, is an important step in evaluating his neuropathy and gait issues. Based on his physical therapist's suggestion and his potential for exposure, we will also test for Lyme disease. We also reviewed his use of zolpidem (Ambien), and I explained that such medications are not good long-term solutions for his type of sleep problem, which is mainly trouble staying asleep due to frequent urination. He agreed with the recommendation from both me and his pharmacist to discontinue it. We will have a follow-up appointment in two weeks to go over all the results from the bloodwork and discuss the findings from his upcoming EMG. Patient Instructions - Stop taking zolpidem (Ambien) for slee p. - Please go to the lab to have the compr ehensive bloodwork done as ordered. - Continue with your scheduled EMG/NCV n erve test next week. - Schedule a follow-up appointment in tw o weeks to review your lab results. - You may want to look into shoes with a wider toe box, such as Hoka or Jimmy mod els, which may be more comfortable for your feet. Medical Decision Making The patient is a 65-year-old male presenting to establish primary care and for evaluation of multiple chronic issues, most notably a progressive gait abnormality with falls and symptoms suggestive of peripheral neuropathy. The differential diagnosis for his neuropathic symptoms is broad, including metabolic causes such as vitamin deficiencies, diabetes, or thyroid disease; infectious causes like Lyme disease; vascular issues; and primary neurologic conditions. The initial plan is to obtain a comprehensive lab panel to investigate these potential reversible causes, particularly vitamin B12 and folate deficiency, given the significant impact these can have on gait and nerve function. A Lyme titer is included due to the physical therapist's suspicion and the patient's environment. This workup will complement his upcoming neurologic studies (EMG/NCV). His sleep maintenance insomnia is multifactorial but appears primarily driven by severe nocturia from BPH. Zolpidem is ineffective and carries risks, so discontinuation is appropriate. The patient's other chronic conditions, including GERD with Alaniz's esophagus, hypertension, and hyperlipidemia, appear to be stable on his current medication regimen. A CBC will address the prior mention of possible anemia. The plan is to gather this initial diagnostic data and follow up in two weeks to synthesize the results and refine the management plan. Total Time Statement 30min Total time spent caring for the patient today includes pre-visit chart review, documentation, review of laboratory and diagnostic imaging results, medication reconciliation, medically necessary evaluation, counseling on diagnoses, care coordination, ordering appropriate tests and medications, review of tests performed by other providers, reporting test results to the patient, and communication with other healthcare providers. [facility] Medical History (Updated 07/08/25 @ 19:41 by Shane Cano MD) Obstructive sleep apnea hypopnea, mild Cough Obesity (BMI 30-39.9) Constipation Anemia Hypersomnia Snoring Falls frequently Urinary incontinence Cognitive impairment Gait disorder HTN (hypertension) Numbness and tingling in both hands Detached retina Eczema GERD (gastroesophageal reflux disease) Hyperlipidemia Abnormal liver enzymes Hematuria Insomnia Mild intermittent asthma Alaniz esophagus Surgical History History of surgery Hx of bilateral cataract extraction History of esophagogastroduodenoscopy (EGD) H/O colonoscopy History of wisdom tooth extraction Hx of tonsillectomy History of detached retina repair Social History Household Members: Family Household Members Other:: Housing: House Alcohol intake: former Patient Tobacco Use Status: Never used Tobacco e-Cigarette/Vaping Use: Never Used service: No Current occupational status: employed 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 1. Little interest or pleasure in doing things: not at all 2. Feeling down, depressed, or hopeless: not at all 3. Trouble falling or staying asleep, or sleeping too much: nearly every day 4. Feeling tired or having little energy: several days 5. Poor appetite or overeating: not at all 6. Feeling bad about yourself - or that you are a failure or have let yourself or your family down: not at all 7. Trouble concentrating on things, such as reading the newspaper or watching television: not at all 8. Moving or speaking so slowly that other people could have noticed. Or the opposite - being so fidgety or restless that you have been moving around a lot more than usual: not at all 9. Thoughts that you would be better off or of hurting yourself in some way: not at all Total score: 4 Depression Screening Interpretation: Negative Depression Screening Done: Yes 17589 - PHQ-9 Billing: Yes Source: Developed by Drs. Wang Cha, Jenae Cunningham, Rey Alcaraz and colleagues, with an educational alessandro from [email or web address]. Thrive Questionnaire Date Thrive assessed: 07/07/25 I am a: Patient What is your living situation today?: I have a steady place to live Within the past 12 months, did the food you bought not last and you didn't have the money to get more?: Never true Within the past 12 months, did you worry whether your food would run out before you got money to buy more?: Never true Do you have trouble paying for medicines?: No Do you have trouble getting transportation to medical appointments?: No Do you have trouble paying your heating and electricity bill?: No Do you have trouble taking care of your child, family member or friend?: No Do you have trouble with day-to-day activities such as bathing, preparing meals, shopping, managing finances, etc.?: No Are you currently unemployed and looking for a job?: I choose not to answer this question Are you interested in more education?: Yes Please select the resources that you would like help with: None Currently or been in a relationship where the following occur: No concerns reported THRIVE Score: 0 AUDIT C Alcohol Use Questionnaire (AUDIT-C) 1. How often do you have a drink containing alcohol?: Never Total Score: 0 WINTER-7 AMB Questionnaire WINTER-7 Date WINTER - 7 assessed: 07/07/25 Feeling nervous, anxious, or on edge: 0 = Not at all Not being able to stop or control worryin = Not at all Worrying too much about different things: 0 = Not at all Trouble relaxin = Not at all Being so restless that it is hard to sit still: 0 = Not at all Becoming easily annoyed or irritable: 0 = Not at all Feeling afraid as if something awful might happen: 0 = Not at all Total WINTER-7 score (0-4 normal; 5-9 mild; 10-14 moderate; 15-21 severe): 0 Source: Developed by Drs. Wang Cha, Jenae Cunningham, Rey Alcaraz and colleagues, with an educational alessandro from [email or web address]. WINTER-7 Assessment Billing WINTER-7 Assessment Tool: WINTER-7 Assessment 02328 Physical exam (Primary Care) Vital Signs: Last Vital Signs Temp 97.8 F 07/07/25 14:54 Pulse 63 07/07/25 14:54 Resp 16 07/07/25 14:54 BP 114/65 07/07/25 14:54 Pulse Ox 96 07/07/25 14:54 Oxygen Delivery Method Room Air 07/07/25 14:54 BMI result Body Mass Index 35.9 Tobacco/Smoking Status: Tobacco use Status Tobacco use date assessed 07/07/25 07/07/25 14:56 Patient Tobacco Use Status Never used Tobacco 07/07/25 14:50 e-Cigarette/Vaping Use Never Used 07/07/25 14:56 PHQ-9: PHQ-9 Score PHQ-9: Total score 4 07/08/25 09:04 Depression Screening Interpretation: Negative Thrive Assessment: Date of Thrive Assessment Date Thrive assessed 07/07/25 07/07/25 14:50 Currently or been in a relationship where the following occur: No concerns reported Office Procedures Flu Questionnaire Does the patient have a severe egg allergy?: No Does the patient have severe life threatening allergies?: No Does the patient have a fever or illness today?: No Has the patient ever had Guillain-Greycliff Syndrome?: No Has the patient ever had any past reaction to a flu shot?: No Immunizations Fluarix [id number] (PF) 45 mcg (15 mcg x 3)/0.5 mL IM syringe Performing Provider: Shane Cano MD [facility] Administered by: Daquan Avalos CMA on 07/07/25 15:28 Dose Route Admin Location Dispensed Lot Number Expiration Date [facility] Tractor [employer] Helper 0.5 mL IM Left Deltoid 0.5 mL [id number] 02/17/26 21048-199-41 [employer] 0.5 mL IM Left Deltoid 0.5 mL [id number] 02/17/26 [id number] Agency [employer] VIS Given Date VIS Provided VIS Publication Date 07/07/25 Single Vaccine 24 Eligibility Eligibility Date Funding Source [facility] Eligible-Medicaid 07/07/25 Private Coding Level of Care Code New Pt Level 4 (84350) Diagnoses Peripheral neuropathy G62.9 Gait disorder R26.9 Falls frequently R29.6 BPH (benign prostatic hyperplasia) N40.0 Gastroesophageal reflux disease with esophagitis without hemorrhage K21.00 Esophagitis presence: with esophagitis Esophagitis bleeding: without hemorrhage History of Alaniz's esophagus Z87.19 Raynaud's disease without gangrene I73.00 Raynaud?s-associated gangrene presence: without gangrene Anemia, unspecified type D64.9 Anemia type: unspecified type 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 Additional Codes WINTER-7 Assessment Billing - WINTER-7 Assessment Tool: WINTER-7 Assessment [id number] ([id number]) PHQ-9 - 68534 - PHQ-9 Billing: Yes ([id number]) Assessment & Plan Assessment & Plan (1) Peripheral neuropathy: Code(s): G62.9 - Polyneuropathy, unspecified (2) Gait disorder: Code(s): R26.9 - Unspecified abnormalities of gait and mobility Category: Medical (3) Falls frequently: Code(s): R29.6 - Repeated falls Category: Medical (4) BPH (benign prostatic hyperplasia): Code(s): N40.0 - Benign prostatic hyperplasia without lower urinary tract symptoms Category: Medical (5) GERD (gastroesophageal reflux disease): Comment: 05/06/25 EGD -Hiatal hernia , Normal stomach and duodenum, esophagitis, Alaniz's without dysphasia. AWAITING TISSUE CYHER 08/09/2023 EGD - Esophagitis, hiatal hernia, Alaniz's esophagus Code(s): K21.9 - Gastro-esophageal reflux disease without esophagitis Category: Medical Qualifiers: Esophagitis presence: with esophagitis Esophagitis bleeding: without hemorrhage Qualified Code(s): K21.00 - Gastro-esophageal reflux disease with esophagitis, without bleeding (6) History of Alaniz's esophagus: Code(s): Z87.19 - Personal history of other diseases of the digestive system Category: Medical (7) Raynauds disease: Code(s): I73.00 - Raynaud's syndrome without gangrene Category: Medical Qualifiers: Raynaud?s-associated gangrene presence: without gangrene Qualified Code(s): I73.00 - Raynaud's syndrome without gangrene (8) Anemia: Comment: colonoscopy, complete with adequate prep-diverticulosis, internal hemorrhoids. 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 - Encounter for screening, unspecified Comprehensive Met. Panel 07/07/25 Z13.9 - Encounter for screening, unspecified Hepatitis C Antibody 07/07/25 Z13.9 - Encounter for screening, unspecified TSH reflex Free T4 07/07/25 Z13.9 - Encounter for screening, unspecified HIV Ab/Ag 07/07/25 Z13.9 - Encounter for screening, unspecified UA CC w/rflx Micro + Cult 07/07/25 Z13.9 - Encounter for screening, unspecified Lipid Panel 07/07/25 Z13.9 - Encounter for screening, unspecified Vitamin B12 and Folate 07/07/25 Z13.9 - Encounter for screening, unspecified Magnesium 07/07/25 Z13.9 - Encounter for screening, unspecified Vitamin D 1,25 dihydroxy 07/07/25 Z13.9 - Encounter for screening, unspecified Lyme IgG/IgM w/reflex to WB 07/07/25 G62.9 - Polyneuropathy, unspecified Influenza [id number] Immunization 07/07/25 Z23 - Encounter for immunization
[2025-07-07 14:54] VITALS: BP 114/65; PULSE 63; RESP 16; TEMP 36.6; O2SAT 96; BMI 35.9
== END 2025-07-07 15:32 | disposition home or self-care (01) ==
LOC: HO.HMCFMS 14:43
PROVIDERS: PCP Family Medicine; Visit Provider Student in an Organized Health Care Education/Training Program
DX: G62.9 Polyneuropathy, unspecified (principal); R26.9 Unspecified abnormalities of gait and mobility; R29.6 Repeated falls; N40.0 Benign prostatic hyperplasia without lower urinary tract symptoms; K21.00 Gastro-esophageal reflux disease with esophagitis, without bleeding; Z87.19 Personal history of other diseases of the digestive system; I73.00 Raynaud's syndrome without gangrene; D64.9 Anemia, unspecified; M20.022 Boutonniere deformity of left finger(s)

== ENCOUNTER 2025-07-08 12:13 | Outpatient (AMB) | payer OTHER, SELFPAY ==
--- OUTSIDE RECORDS SUMMARY | 2024-04-30 11:00 | XMS_ITS ---
Author Organization [facility] Address [address] [place] [address] Care Team Providers Care Drilling Engineer Name Role Phone Miguel DAVID, Cheng Primary Care Provider Unavailab Ritesh Farr Unavailable [phone] Encounters Encounter Location Date Provider Diagnosis [facility] [address] [place] [address] 04/30/2024 Ritesh Fang Plan Of Treatment No Information Progress Notes * Venancio GONSALES NDOB:1960 (65 yo M)Acc No.[id number]:04/30/2024 Progress Note Patient: Venancio RALPH Provider: Evie Fang DPM :1960 A ge:64 Y S ex:Male Date:04/30/2024 Address:[address] [place] [address] [facility] Pcp:Cheng Rivera MD Subjective: * Chief Complaints: [...] 0 04/30/2024 Generated for Printi ng/Faxing/eTransmitting on: 09/08/2024 03:12 AM EST
--- NOTE | 2025-07-08 12:19 | MHC.OFFVIS ---
Vital Signs 07/08/25 12:21 Height 5 ft 10.5 in Weight 252 lb 4 oz BMI 35.7 BP 110/72 Blood Pressure Location Rt brachial Position Sitting Pulse 70 Pulse Source Pulse Oximeter Pulse Oximetry (%) 97 Oxygen Delivery Method Room Air Intake Visit Reasons: F/U per MD Intake Note: Follow up feet sensitivity, cognitive impairment, Gait disorder and falls, snoring and Hypersomnia. 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 Required: No Accompanied by: Self / Same As Patient Allergies No Known Allergies Allergy (Verified 07/08/25 12:20) Medication List - Last Reconciled 07/08/25 by Luly Cook MD acoltremon 0.003% (Tryptyr) 1 drp ophthalmic (eye) BID carbidopa-levodopa 25-100 mg (Sinemet) 1 tab PO BID celecoxib (Celebrex) 200 mg PO BID 30 days ciclopirox 8% (Ciclodan) 1 appl topical BEDTIME 4 months famotidine 40 mg PO BEDTIME lisinopril (Zestril) 20 mg PO DAILY pantoprazole 40 mg PO DAILY rosuvastatin 20 mg PO BEDTIME tamsulosin (Flomax) 0.4 mg PO BID urea 20% 1 appl topical BID HPI Comments Details: 65y/o Right handed male comes for follow up. He still feels his balance is not right . he reports vertigo in the past that improved with vestibular rehab . he denies vertigo now. MRI brain and c spine - mild spinal canal stenosis no cord compression, mild white matter changes, He feels better since he increased his activity level. He had a few falls since last visit HST was c/w sleep apnea - mild He was seen by vascular for leg swelling . he started wearing compression socks - he is not sure if it is helping.His memory is OK He is scheduled for EMG next week for abnormal sensations in feet History form initial visit-evaluation of cognitive difficulties and leg weakness, gait issues. He noticed that while working in the yard his legs are weaker and fatigues easily . He feels his walking was slower and was not confident that he would be walking far. He also feels like his balance is off, he had near falls in his yard.He has had a few falls in the past year - 10. His last fall was last week when he got up to use the bathroom. He felt like his right knee gave out. He reports concussion 4 years ago when he fell off a ladder.He has trouble walking up and down the stairs. He has nocturia, urgency and he sees a urologist He has had some accidents. he takes zolpidem 5 mg qhs for sleep, has frequent arousals . He has daytime fatigue.He alos has leg twitches especially in his right leg with numbness , tingling at rest and night. No recent weight gain , No depression or anxiety. He denies nay neck pain or back pain. 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 He has trouble at home -with fixing things. [facility] Medical History (Updated 07/08/25 @ 12:47 by Luly Cook MD) Obstructive sleep apnea hypopnea, mild Cough Obesity (BMI 30-39.9) Constipation Anemia Hypersomnia Snoring Falls frequently Urinary incontinence Cognitive impairment Gait disorder HTN (hypertension) Numbness and tingling in both hands Detached retina Eczema GERD (gastroesophageal reflux disease) Hyperlipidemia Abnormal liver enzymes Hematuria Insomnia Mild intermittent asthma Alaniz esophagus Surgical History History of surgery Hx of bilateral cataract extraction History of esophagogastroduodenoscopy (EGD) H/O colonoscopy History of wisdom tooth extraction Hx of tonsillectomy History of detached retina repair Social History Household Members: Family Household Members Other:: Housing: House Alcohol intake: former Patient Tobacco Use Status: Never used Tobacco e-Cigarette/Vaping Use: Never Used service: No Current occupational status: employed 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 Cognitive needs: No Hearing needs: No Vision needs: No Physical Exam Vital Signs: Last Vital Signs Pulse 70 07/08/25 12:21 BP 110/72 07/08/25 12:21 Pulse Ox 97 07/08/25 12:21 Oxygen Delivery Method Room Air 07/08/25 12:21 BMI result Body Mass Index 35.7 Const General: cooperative, comfortable and no acute distress Nutritional Appearance: obese Orientation/consciousness: patient oriented x3 Eyes Pupils: Equal, round and reactive pupils present Neuro Other: mild decreased facial expression and blink gait- slow, narrow based, normal stride and arm swings, difficulty with arm swings Mallampatti grade 4 General: patient oriented x3, tone normal, moves all extremities and no focal motor deficits Cranial nerves: Yes Equal, round and reactive pupils present, Yes Bilaterally intact EOM present, Yes Nystagmus not present, Yes Normal facial strength present, Yes Midline tongue present and Yes Ability to bilaterally elevate shoulders present Cognition (Neuro): normal cognition Motor exam (neuro): 5/5 motor strength present throughout and Normal motor muscle tone present throughout Coordination: [id number]-[id number]-mtol test normal Assessment & Plan Assessment & Plan (1) Cognitive impairment: Code(s): R41.89 - Other symptoms and signs involving cognitive functions and awareness Category: Medical (2) Gait disorder: Code(s): R26.9 - Unspecified abnormalities of gait and mobility Category: Medical (3) Obstructive sleep apnea hypopnea, mild: Code(s): G47.33 - Obstructive sleep apnea (adult) (pediatric) Category: Medical Plan MRI brain - normal MRI C spine- reviewed Cognitive testing Home sleep test c/w mild MILLICENT - I will start him on CPAP 5-20 cm of water. PT for gait and balance training- he did not start yet. suggested to increase activity EMG scheduled next week Medications: New carbidopa-levodopa 25-100 mg (Sinemet) 1 tab PO BID 60 tabs 0RF Coding Level of Care Code Est Pt Level 4 (06883) Complex EM visit Add On G2211 Diagnoses Cognitive impairment R41.89 Gait disorder R26.9 Obstructive sleep apnea hypopnea, mild G47.33
[2025-07-08 12:21] VITALS: BP 110/72; PULSE 70; O2SAT 97; BMI 35.7
--- OUTSIDE RECORDS SUMMARY | 2025-07-09 03:13 | XMS_ITS | Patient Health Record ---
Author Organization [facility] Address [address] [place] [address] Care Team Providers Care Steam Engineer Name Role Phone Cheng Rivera MD Primary Care Provider Unavailab Ritesh Farr Unavailable [phone] Allergies No Known Allergies Reason For Referral No Information Medications Medication SIG (Take, Route, Fr equency, Duration) Notes Start Date End Date Status Omeprazole 40 MG 1 capsule 30 minutes before morning meal Orally Once a day A ctive Lisinopril 20 MG 1 tablet Orally Once a day Active Pravastatin Sodium A ctive Flomax Active Terbinafine Active Ciclopirox 0.77 % 1 application Internet Specialist ally Twice a day; Duration: 365 days [...] Risk Notes Problem Fungal infection of nail (354429777) 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 confirmed Rx management (4) Plan Of Treatment Pending Test Test Name Order Date *Liver Function Test (LFT) 11/14/2023 76449-Sbfrrmoj Plate 10/30/2023 Insurance Providers Payer Name Payer Address Payer Phone Subscriber Number Group Number Insured Name Patient Relationship to Insured Coverage Start Date Coverage End Date Blue Benefits [address] [address] [place] [address] [id number] Patricia Gonsales Spouse - patient is the spouse of the insured Medical (General) History Medical History History ICD Code Cataracts Glaucoma HTN CAD Surgical History Surgery Date(Month/Year) eye surgery colonoscopy 08/12 endoscopy 08/12
--- OUTSIDE RECORDS SUMMARY | 2025-07-09 03:13 | XMS_ITS | Data Portability ---
Author Organization [facility] Address [address] [place] [address] Care Team Providers Care Bag Bleacher Name Role Phone MARKY JARQUIN Referring Provider [...] Kristopher Luciano MD, [address], [address], [address], 9 16:17:59 electrocard iogram 2016 017 ntumandrew Luciano MD, [address], [address], [address], 7 15:18:40 exercise stress test 2016 017 [facility] (Radiology), [address] [place], [address], 7 13:40:45 Medication Orders None recorded. Patient TargetsNo targets recorded. Patient Instructions Encounter Date Encounter Id Patient Instructions Last Modified By Organization Details Last Modified Time 02/15/2017 [id number] orthostatic hypotension: care instructions lakia Not available 02/15/2017 15:13:31 11/12/2018 [id number] palpitations: care instructions david Not available 11/12/2018 16:13:17 Reason for Referral None Reported. Results Created Date Observation Date Name Description Value Unit Range Abnormal Flag Note LastModifiedBy Organization Detail LastModifiedTime 02/29/20 17 02/27/2017 exerc ise stres s test No observ ation record ed. burkejose [facility] [address], [facility] [place], [address], 02/28/2017 18:48:23 10/31/19 19 10/05/2018 elect adithya servin am No observ ation record ed. [email or web address] Not Available 2018 14:13:42 Result Notes None recorded. Problems Name Problem SNOMED Code Status Onset Date Resolution Date Notes Provider Name and Address Organization Details Recorded Time Orthostatic hypotension 70207615 Active 2016 YENY Donald MD 7 14:26:40 Dyspnea 764911247 Active 2016 YENY Donald MD 7 14:27:14 Hyperlipidemia 08933988 Active 2016 YENY Donald MD 7 14:27:21 Gastroesophage al reflux disease 828807687 Active 2016 YENY Donald MD 7 14:27:31 Raynaud's disease 743096026 Active 2016 YENY Donald MD 7 14:29:09 Palpitations 63952404 Active 2018 YENY Donald MD 9 08:19:01 Alaniz's esophagus 926352821 Active 2018 YENY Donald MD 9 08:19:36 [...] Updated DateTime 9 182.88 cm 28.8 kg/m2 03405.5 8 g 98 % 98 % 65 /min Symone Luciano MD 9 15:33:40 Date Recorded Respiratory rate Systolic And Diastolic Systolic And Diastolic Systolic And Diastolic Provider Name and Address Organization Details Last Updated DateTime 02/15/2017 12 /min 120/70 mm[Hg] 120/70 mm[Hg] 115/70 mm[Hg] Kristopher Luciano MD [address] [place] [address] [employer] [address], [place], [address], [facility] Luciano MD 7 15:00:40 Date Recorded Body height Body mass index (BMI) Body weight Oxygen saturation Oxygen saturation in Arterial blood by Pulse oximetry Heart rate Provider Name and Address Organization Details Last Updated DateTime 7 182.88 cm 25.9 kg/m2 59724.1 4 g 99 % 99 % 63 [...] available 02/15/2017 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 02/15/2017 What is your [...] Notes:FAMILY HISTORY UNKNOWN Medical History Condition Response Hyperlipidemia Y Eye Problems Y Asthma Y Sleep Disorder Y Neurologic Disorder Y Gastrointestinal Disease Y Past Encounters Encounter ID Performer Location Encounter Start Date Encounter Closed Date Diagnosis/Indication Diagnosis SNOMED-CT Code Diagnosis ICD10 Code Diagnosis IMO Codes Diagnosis Note [id number] Kristopher Luciano MD - [address] [place] [address] [address] [employer] [id number] 02/15/2017 14:04:48 02/15/2017 15:18:40 Dyspnea 459108131 R06.09 Orthostati c hypotension 65987723 I95.1 [id number] Kristopher Luciano MD - [address] [place] [address] [address] [employer] [address] 11/12/2018 15:26:57 11/12/2018 16:17:59 Palpitations 49355175 R00.2 Alaniz's esophagus 3029 68357 K22.70 Gastroesop hageal reflux disease 775303930 K21.9 Health Concerns Section Related Observation LastModified by Organization Detai ls LastModified Time None Recorded Concern Status LastModified by Organization Details LastModified Time None Recorded Advance Directives Directive Y: Payers Insurance Date Sequence Insurance Name Policy Number Policy Camara Covered Member ID Camara Member ID Guarantor Name 11/12/2018 1 [place] [id number] Venancio Gonsales [id number] Venancio Gonsales Notes Date Note Type [...] were in good range. Kristopher Luciano MD [address] [place] [address],[email or web address] [address], [place], [address], [facility] - Kristopher Luciano MD 02/15/2017 15:18:43 11/12/2018 [...] is a lifelong nonsmoker. Kristopher Luciano MD [address] [place] [address],[email or web address] [address], [place], [address], [facility] - Kristopher Luciano MD 11/12/2018 19:16:33
== END 2025-07-08 12:53 | disposition home or self-care (01) ==
LOC: HO.HSMS 12:15
PROVIDERS: PCP Family Medicine; Visit Provider Psychiatry & Neurology Neurology
DX: R41.89 Other symptoms and signs involving cognitive functions and awareness (principal); R26.9 Unspecified abnormalities of gait and mobility; G47.33 Obstructive sleep apnea (adult) (pediatric)
CPT/HCPCS: 99214

== ENCOUNTER 2025-07-15 07:50 | Outpatient (REF) | payer OTHER, SELFPAY ==
--- NOTE | 2025-07-15 07:52 | EMG_ITS ---
Chief complaint: Numbness and tingling in bilateral lower extremities Referred by: SULY Mcdermott Procedure done: NCS and EMG of bilateral lower extremities Bilateral tibial and peroneal motor studies were performed with F responses and tibial H reflexes. Bilateral superficial peroneal and sural sensory studies were performed and needle examination was performed. Findings: Peroneal amplitudes were markedly diminished with mild slowing of conduction velocity. Similar but somewhat lesser pattern was noted with tibial motor studies. Sensory conduction velocities were mildly slow with marked reduction of amplitude. Motor distal latencies were moderately prolonged. 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 Codin 71631 x2 MTDD
--- OUTSIDE RECORDS SUMMARY | 2025-07-15 07:53 | XMS_ITS | Encounter Summary ---
Author Organization [facility] Address [address] [place] [address] Care Team Providers Care Cigar Tobacco Rehandler Name Role Phone Waqar Carlos Primary Care Provider [phone] Encounter Details Date Type Department Care Team (Late st Contact Info) Description 05/16/2016 Ophthalmology Data Conversion [facility] Historical Conversion Department [address] [address] Social History Tobacco Use Types Packs/Day Years [...] on filedocumented in this encounter Care Teams Cigar Tobacco Rehandler Relationship Specialty Start Date End Date Waqar Carlos [address] [place] [address] PCP - General Family Medicine 12/23/24 documented as of this encounter
--- OUTSIDE RECORDS SUMMARY | 2025-07-15 07:53 | XMS_ITS | Clinical Summary ---
Author Organization [facility] Address [address] [place] [address] Care Team Providers Care Luster Repairer Name Role Phone Waqar Carlos Primary Care Provider [phone] Allergies No known active allergies Medications * [...] Follow-Up 08/21/2024 Health Care Proxy Review 08/21/2024 [employer] Annual Screening 08/21/2024 Influenza Vaccine (#1) 2025 , 08/22/2023, 07/19/2022, Additional history exists COVID-19 Vaccine ( season) 2025 06/10/2024, 08/22/2023, 07/19/2022, Additional history exists Fall Risk [...] patient's age to complete this topic Insurance [employer] Care Teams Luster Repairer Relationship Specialty Start Date End Date Waqar Carlos [address] [place] [address] PCP - General Family Medicine 12/23/24
--- OUTSIDE RECORDS SUMMARY | 2025-07-15 07:53 | XMS_ITS | Data Portability ---
Author Organization [facility] Address [address] [place] [address] Care Team Providers Care Proofreader Name Role Phone MARKY JARQUIN Referring Provider [...] [email or web address] Kristopher Luciano MD, [address], [address], [address], 9 16:17:59 electrocard iogram 2016 017 ntumandrew Luciano MD, [address], [address], [address], 7 15:18:40 exercise stress test 2016 017 [facility] (Radiology), [address] [place], [address], 7 13:40:45 Medication Orders None recorded. Patient TargetsNo targets recorded. Patient Instructions Encounter Date Encounter Id Patient Instructions Last Modified By Organization Details Last Modified Time 02/15/2017 [id number] orthostatic hypotension: care instructions lakia Not available 02/15/2017 15:13:31 11/12/2018 [id number] palpitations: care instructions david Not available 11/12/2018 16:13:17 Reason for Referral None Reported. Results Created Date Observation Date Name Description Value Unit Range Abnormal Flag Note LastModifiedBy Organization Detail LastModifiedTime 02/29/20 17 02/27/2017 exerc ise stres s test No observ ation record ed. burkejose [facility] [address], [place], [address], 02/28/2017 18:48:23 10/31/19 19 10/05/2018 elect adithya servin am No observ ation record ed. [email or web address] Not Available 2018 14:13:42 Result Notes None recorded. Problems Name Problem SNOMED Code Status Onset Date Resolution Date Notes Provider Name and Address Organization Details Recorded Time Orthostatic hypotension 58455626 Active 2016 YENY Donald MD 7 14:26:40 Dyspnea 262627788 Active 2016 YENY Donald MD 7 14:27:14 Hyperlipidemia 76315352 Active 2016 YENY Donald MD 7 14:27:21 Gastroesophage al reflux disease 387572871 Active 2016 YENY Donald MD 7 14:27:31 Raynaud's disease 934871976 Active 2016 YENY Donald MD 7 14:29:09 Palpitations 94717095 Active 2018 YENY Donald MD 9 08:19:01 Alaniz's esophagus 722457796 Active 2018 YENY Donald MD 9 08:19:36 [...] mass index (BMI) Body weight Oxygen saturation Heart rate Provider Name and Address Organization Details Last Updated DateTime 11/12/2018 182.88 cm 28.8 kg/m2 73719.58 g 98 % 65 /min Symone Luciano MD 9 15:33:40 Date Recorded Respiratory rate Systolic And Diastolic Systolic And Diastolic Systolic And Diastolic Provider Name and Address Organization Details Last Updated DateTime 02/15/2017 12 /min 120/70 mm[Hg] 120/70 mm[Hg] 115/70 mm[Hg] Kristopher Luciano MD [address] [place] [address] [address], [place], [address], [facility] Luciano MD 7 15:00:40 Date Recorded Body height Body mass index (BMI) Body weight Oxygen saturation Heart rate Provider Name and Address Organization Details Last Updated DateTime 02/15/2017 182.88 cm 25.9 kg/m2 68048.14 g 99 % 63 /min Symone Luciano MD [...] available 02/15/2017 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 02/15/2017 What is your [...] ICD10 Code Diagnosis IMO Codes Diagnosis Note [id number] Kristopher Luciano MD - [address] [place] [address] [employer] [address] [employer] [id number] 02/15/2017 14:04:48 02/15/2017 15:18:40 Dyspnea 813343924 R06.09 Orthostati c hypotension 40533661 I95.1 [id number] Kristopher Luciano MD - [address] [place] [address] [employer] [address] [employer] [id number] 11/12/2018 15:26:57 11/12/2018 16:17:59 Palpitations 02393019 R00.2 Alaniz's esophagus 3029 51151 K22.70 Gastroesop hageal reflux disease 762814573 K21.9 Health Concerns Section Related Observation LastModified by Organization Detai ls LastModified Time None Recorded Concern Status LastModified by Organization Details LastModified Time None Recorded Advance Directives Directive Y: Payers Insurance Date Sequence Insurance Name Policy Number Policy Camara Covered Member ID Camara Member ID Guarantor Name 11/12/2018 1 [employer]OUG (PPO) [id number] Venancio Gonsales [id number] Venancio Gonsales Notes Date Note Type [...] were in good range. Kristopher Luciano MD [address] [place] [address],[employer] [address], [place], [address], [facility] - Kristopher Luciano MD 02/15/2017 [...] is a lifelong nonsmoker. Kristopher Luciano MD [address] [place] [address],[employer] [address], [place], [address], [facility] - Kristopher Luciano MD 11/12/2018 19:16:33
== END 2025-07-15 07:51 | disposition home or self-care (01) ==
LOC: HO.NEURO 07:50
PROVIDERS: PCP Family Medicine; Visit Provider Physician Assistant Medical
DX: R20.0 Anesthesia of skin (principal); R20.2 Paresthesia of skin
CPT/HCPCS: 95886; 95911

== ENCOUNTER → 2025-07-15 07:52 | Outpatient (BNV) | payer OTHER, SELFPAY | PROVIDERS: PCP Family Medicine; Visit Provider Psychiatry & Neurology Neurology | DX: G62.89 Other specified polyneuropathies (principal) | CPT/HCPCS: 95886; 95911 ==

== ENCOUNTER 2025-07-24 09:15 | Outpatient (AMB) | payer OTHER, SELFPAY ==
--- OUTSIDE RECORDS SUMMARY | 2024-04-30 11:00 | XMS_ITS ---
Author Organization [facility] Address [address] [place] [address] Care Team Providers Care Family Literacy Coordinator Name Role Phone Miguel DAVID, Cheng Primary Care Provider Unavailab Ritesh Farr Unavailable [phone] Encounters Encounter Location Date Provider Diagnosis [facility] [address] [place] [address] 04/30/2024 Ritesh Fang Plan Of Treatment No Information Progress Notes * Venancio GONSALES NDOB:1960 (65 yo M)Acc No.[id number]:04/30/2024 Progress Note Patient: Venancio RALPH Provider: Evie Fang DPM :1960 A ge:64 Y S ex:Male Date:04/30/2024 Address:[address] [place] [address] [facility] Pcp:Cheng Rivera MD Subjective: * Chief Complaints: * * Medical History: Objective: * Vitals: Assessment: Plan: * Treatment: * Images: * The named appointment provid er may or may not be the originator of this progress note, and it is not deemed complete until electronically signed by the appointment provider. Sign off status: Pending * Provider: Evie Fang DPM Date: 0 04/30/2024 Generated for Printi ng/Faxing/eTransmitting on: 1 09/24/2024 10:18 AM EST
[2025-07-24 09:34] VITALS: BP 100/60; PULSE 64; O2SAT 97; BMI 36.6
--- NOTE | 2025-07-24 09:34 | A.OFFVIS_ITS ---
Vital Signs 07/24/25 09:34 Height 5 ft 10 in Weight 255 lb BMI 36.6 BP 100/60 Blood Pressure Location Lt brachial Position Sitting Pulse 64 Pulse Source Pulse Oximeter Pulse Oximetry (%) 97 Oxygen Delivery Method Room Air Intake Visit Reasons: 4mnth follow up Wharf Hand Required: No Accompanied by: Self / Same As Patient Allergies No Known Allergies Allergy (Verified 07/24/25 09:34) HPI Comments Details: 65y/o Right handed male comes for follow up of EMG / NCS studies. 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 05/2025 HST c/w mild millicent AHI is 5 and O2 Nadirs to 87%, he started cpap therapy, continues to have fragmented sleep due to nocturia, being followed by urology. He still feels his gait is off and balance is not right. He had vertigo in the past which improved with vestibular rehab. He has a heavy sensation in his feet bilaterally when walking and can not lift his feet very far off the ground, causes him to shuffle and drag his feet. When putting on compression stockings he has sensitivity and pain in the plantar surface of feet, along with bilateral weakness in legs, so he wears them without covering the toes. PT was helpful and improved his gait, this allowed him to walk a bit faster, changed his shoes with wide toe box. He also says he notices an improvement with sinemet 25/100po BID. His hearing and vision are stable, has glaucoma, pressures are 16, being follo wed by his opthomalogist. His memory is stable. Diet is well balanced. He has acid reflux well managed with medication.Denies drooling, dysphagia, tremors. He denies morning headaches, dizziness, vertigo, recent falls. FH - Parkinsons. History form initial visit-evaluation of cognitive difficulties and leg weakness, gait issues. He noticed that while working in the yard his legs are weaker and fatigues easily . He feels his walking was slower and was not confident that he would be walking far. He also feels like his balance is off, he had near falls in his yard.He has had a few falls in the past year - 10. His last fall was last week when he got up to use the bathroom. He felt like his right knee gave out. He reports concussion 4 years ago when he fell off a ladder.He has trouble walking up and down the stairs. He has nocturia, urgency and he sees a urologist He has had some accidents. he takes zolpidem 5 mg qhs for sleep, has frequent arousals . He has daytime fatigue.He alos has leg twitches especially in his right leg with numbness , tingling at rest and night. No recent weight gain , No depression or anxiety. He denies neck pain or back pain. 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 He has trouble at home -with fixing things. [facility] Medical History Obstructive sleep apnea hypopnea, mild Cough Obesity (BMI 30-39.9) Constipation Anemia Hypersomnia Snoring Falls frequently Urinary incontinence Cognitive impairment Gait disorder HTN (hypertension) Numbness and tingling in both hands Detached retina Eczema GERD (gastroesophageal reflux disease) Hyperlipidemia Abnormal liver enzymes Hematuria Insomnia Mild intermittent asthma Alaniz esophagus Surgical History History of surgery Hx of bilateral cataract extraction History of esophagogastroduodenoscopy (EGD) H/O colonoscopy History of wisdom tooth extraction Hx of tonsillectomy History of detached retina repair Social History Household Members: Family Household Members Other:: Housing: House Alcohol intake: former Patient Tobacco Use Status: Never used Tobacco e-Cigarette/Vaping Use: Never Used service: No Current occupational status: employed Current occupation: [employer] Cognitive needs: No Hearing needs: No Vision needs: No Physical Exam Vital Signs: Last Vital Signs Pulse 64 07/24/25 09:34 BP 100/60 07/24/25 09:34 Pulse Ox 97 07/24/25 09:34 Oxygen Delivery Method Room Air 07/24/25 09:34 BMI result Body Mass Index 36.6 Const General: cooperative, comfortable and no acute distress Nutritional Appearance: obese Orientation/consciousness: patient oriented x3 Eyes Pupils: Equal, round and reactive pupils present Neuro Other: mild decreased facial expression and blink gait- slow, narrow based, normal stride and arm swings, difficulty with arm swings Mallampatti grade 4 General: patient oriented x3, tone normal, moves all extremities and no focal motor deficits Cranial nerves: Yes Equal, round and reactive pupils present, Yes Bilaterally intact EOM present, Yes Nystagmus not present, Yes Normal facial strength present, Yes Midline tongue present and Yes Ability to bilaterally elevate shoulders present Cognition (Neuro): normal cognition Motor exam (neuro): 5/5 motor strength present throughout and Normal motor muscle tone present throughout Deep tendon reflexes (DTR's): Right triceps reflex intensity grade: 2+, Left triceps reflex intensity grade: 2+, Rt Biceps (C5, C6): 2+, Left biceps reflex intensity grade: 2+, Right brachioradialis reflex intensity grade: 2+, Left brachioradialis reflex intensity grade: 2+, Right patellar reflex intensity grade: 3+ and Left patellar reflex intensity grade: 3+ Coordination: [id number] test normal Psych Appearance: grossly normal Affect: normal affect Thought content: Normal thought content present Results Reviewed Results Reviewed: Findings: Peroneal amplitudes were markedly diminished with mild slowing of conduction velocity. Similar but somewhat lesser pattern was noted with tibial motor studies. Sensory conduction velocities were mildly slow with marked reduction of amplitude. Motor distal latencies were moderately prolonged. 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 HST reviewed with pt mild millicent AHI is 5 o2 desaturion to 87%, he started therapy with cpap [id number]. Assessment & Plan Assessment & Plan (1) Peripheral demyelinating neuropathy: Code(s): G62.89 - Other specified polyneuropathies Category: Medical (2) Axonal neuropathy: Code(s): G62.89 - Other specified polyneuropathies Category: Medical (3) Sensory ataxic gait: Code(s): R26.0 - Ataxic gait Category: Medical (4) Gait disorder: Code(s): R26.9 - Unspecified abnormalities of gait and mobility Category: Medical (5) Obstructive sleep apnea hypopnea, mild: Code(s): G47.33 - Obstructive sleep apnea (adult) (pediatric) Category: Medical Plan EMG / NCS reviewed with pt. Demyelinating Axonal Peripheral Neuropathy with ataxic gait MRI brain reviewed MRI C spine- reviewed Cognitive testing? HST c/w mild MILLICENT, start CPAP 5-20 cmH20 and f/u for compliance. PT for gait and balance training, completed 3 months and it did help, however would like to continue at home at this time. BMI elevated 36.6, discussed losing weight, increasing daily physical activity. Monitor efficacy of CD/LD 25/100mg po BID. Complete Labs IVAN / Anti Hu/ B6. Vit E / CRP / ESR, spep- serum protien electrophoresis Will refer to [facility] in [place], Dr. Mota. Next f/u with Dr. Cook Orders: Orders Vitamin E Today G6 - Other specified polyneuropathies, R26.0 - Ataxic gait CRP High Sensitivity Today - Other specified polyneuropathies, R26.0 - Ataxic gait IVAN Reflex Titer and Pattern Today - Other specified polyneuropathies, R26.0 - Ataxic gait HU Antibody Today - Other specified polyneuropathies, R26.0 - Ataxic gait Vitamin B6 Today - Other specified polyneuropathies, R26.0 - Ataxic gait Erythrocyte Sedimentation Rate Today G6 - Other specified polyneuropathies, R26.0 - Ataxic gait Protein Electrophoresis, Serum Today - Other specified polyneuropathies Referrals Neurology Referral - Other specified polyneuropathies, R26.0 - Ataxic gait Patient Instructions: Sleep Hygiene provided: set a scheduled bedtime and wake time to help regulate the circadian rhythm and balance the release of pituitary hormones. Sleep in a dark room, temperatures below 68 degrees, and no devices n bed. Limit caffeinated products 6 hours prior to bed, and limit fluids 2-4 hours prior to bed. Gentle night yoga, diffusing essential oils, and playing soft music can be relaxing. magnesium 200-400mg B12 1000mcg daily otc. Vit D 1000 units Iron 40-45mg daily Complete labs after fasting 8 hours water only. Serum-PEP, IVAN, ESR CRP, Vit E, B6, Anti Hu. Coding Level of Care Code Complex visit Add On G2211 Diagnoses Peripheral demyelinating neuropathy G6 Axonal neuropathy G6 Sensory ataxic gait R26.0 Gait disorder R26.9 Obstructive sleep apnea hypopnea, mild G47.33
--- OUTSIDE RECORDS SUMMARY | 2025-07-24 10:18 | XMS_ITS | Encounter Summary ---
Author Organization [facility] Address [address] [place] [address] Care Team Providers Care Adventure Education Teacher Name Role Phone Waqar Carlos Primary Care Provider [phone] Encounter Details Date Type Department Care Team (Late st Contact Info) Description 05/16/2016 Ophthalmology Data Conversion [facility] Historical Conversion Department [address] [address] Social History Tobacco Use Types Packs/Day Years [...] on filedocumented in this encounter Care Teams Adventure Education Teacher Relationship Specialty Start Date End Date Waqar Carlos [address] [place] [address] PCP - General Family Medicine 12/23/24 documented as of this encounter
--- OUTSIDE RECORDS SUMMARY | 2025-07-24 10:18 | XMS_ITS | Clinical Summary ---
Author Organization [facility] Address [address] [place] [address] Care Team Providers Care Supervisor Furnace Room Name Role Phone Waqar Carlos Primary Care Provider [phone] Allergies No known active allergies Medications * [...] Follow-Up 08/21/2024 Health Care Proxy Review 08/21/2024 [employer] Drivers of Health Annual Screening 08/21/2024 Influenza [...] patient's age to complete this topic Insurance [employer] Care Teams Supervisor Furnace Room Relationship Specialty Start Date End Date Waqar Carlos [address] [place] [id number] PCP - General Family Medicine 12/23/24
--- OUTSIDE RECORDS SUMMARY | 2025-07-24 10:18 | XMS_ITS | Patient Health Record ---
Author Organization [facility] Address [address] [place] [address] Care Team Providers Care Rhinologist Name Role Phone Cheng Rivera MD Primary Care Provider Unavailab Ritesh Farr Unavailable [phone] Allergies No Known Allergies Reason For Referral No Information Medications Medication SIG (Take, Route, Fr equency, Duration) Notes Start Date End Date Status Omeprazole 40 MG 1 capsule 30 minutes before morning meal Orally Once a day A ctive Lisinopril 20 MG 1 tablet Orally Once a day Active Pravastatin Sodium A ctive Flomax Active Terbinafine Active Ciclopirox 0.77 % 1 application Manager Monitoring ally Twice a day; Duration: 365 days [...] Risk Notes Problem Fungal infection of nail (784085734) 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 confirmed Rx management (4) Plan Of Treatment Pending Test Test Name Order Date *Liver Function Test (LFT) 11/14/2023 [id number]-[id number] Plate 10/30/2023 Insurance Providers Payer Name Payer Address Payer Phone Subscriber Number Group Number Insured Name Patient Relationship to Insured Coverage Start Date Coverage End Date [employer] Benefits [address] [address] [place] [address] [id number] Patricia Gonsales Spouse - patient is the spouse of the insured Medical (General) History Medical History History ICD Code Cataracts Glaucoma HTN CAD Surgical History Surgery Date(Month/Year) eye surgery colonoscopy 08/12 endoscopy 08/12
== END 2025-07-24 14:03 | disposition home or self-care (01) ==
LOC: HO.HSMS 09:16
PROVIDERS: PCP Family Medicine; Visit Provider Physician Assistant Medical
DX: G62.89 Other specified polyneuropathies (principal); R26.0 Ataxic gait; R26.9 Unspecified abnormalities of gait and mobility; G47.33 Obstructive sleep apnea (adult) (pediatric)
CPT/HCPCS: 99214

== ENCOUNTER 2025-07-25 11:10 | Outpatient (AMB) | payer OTHER, SELFPAY ==
--- NOTE | 2025-07-25 11:22 | MHC.PC.OV ---
Vital Signs 07/25/25 11:27 Height 5 ft 10 in Weight 255 lb 8 oz BMI 36.7 BP 142/69 H Blood Pressure Location Rt brachial Position Sitting Respiration 16 Pulse 53 Pulse Source Pulse Oximeter Temp 97.5 F Temp Source Oral Pulse Oximetry (%) 99 Oxygen Delivery Method Room Air Intake Visit Reasons: 2 wk - lab review Intake Note: Patient is present for lab review follow up. Inspection And Testing Supervisor Required: No Accompanied by: Self / Same As Patient Allergies No Known Allergies Allergy (Verified 07/25/25 11:24) Medication List - Last Reconciled 07/25/25 by Shane Cano MD acoltremon 0.003% (Tryptyr) 1 drp ophthalmic (eye) BID carbidopa-levodopa 25-100 mg (Sinemet) 1 tab PO BID celecoxib (Celebrex) 200 mg PO BID 30 days ciclopirox 8% (Ciclodan) 1 appl topical BEDTIME 4 months famotidine 40 mg PO BEDTIME lisinopril (Zestril) 20 mg PO DAILY pantoprazole 40 mg PO DAILY rosuvastatin 20 mg PO BEDTIME tamsulosin (Flomax) 0.4 mg PO BID urea 20% 1 appl topical BID Tobacco use date assessed: 07/07/25 Fall risk assessment: 2 + Falls in past year Last assessed Fall Risk: 07/25/25 Dental Screening Dental Screen Date: 07/07/25 HPI HPI Comments History of Present Illness Details History of Present Illness The patient is a 65 year old male presenting with a follow-up visit to review lab results and manage chronic conditions. Anemia, unspecified: The patient has a history of low red blood cell counts, which have been noted on the last two occasions when blood was drawn. He has not had any prior supplementation with iron. Vitamin D Insufficiency: The patient's vitamin D level was previously 30 and has improved to 52 on recent labs. A neurologist recently suggested supplementation. Peripheral Neuropathy: A neurologist suggested vitamin B12 supplementation for neuropathy. The patient's vitamin B12 level is 424. Hypertension: The patient is on lisinopril for blood pressure management. He reported a blood pressure reading of 100/60 yesterday and 142/x today in the office, with his usual being around 120/60ish. Hyperlipidemia: The patient takes rosuvastatin 20 mg for cholesterol management. Recent lab results show his triglycerides, total cholesterol, LDL, and HDL are all within normal limits. Gastroesophageal reflux disease: The patient takes pantoprazole. Medications: - Rosuvastatin 20 mg for hyperlipidemia - Lisinopril for hypertension - Pantoprazole Diagnostic Results: - CBC: Red blood cells are low. - Basic Metabolic Panel: Sodium, potassium, and kidney function are good. - Hemoglobin A1c: Within normal limits, ruling out prediabetes and diabetes. - Comprehensive Metabolic Panel: Calcium, magnesium, and liver function are normal. - Lipid Panel: Triglycerides, total cholesterol, LDL, and HDL are all within normal limits. - Vitamin B12: 424. - 25-hydroxy Vitamin D: 52. - Urinalysis: Results are good. - Infectious Disease Screening: Screens for Lyme disease, syphilis, hepatitis B, hepatitis C, and HIV are all negative. Past Medical History - Anemia, unspecified, with a history of low red blood cells a on few occasions - Hypertension, managed with lisinopril - Hyperlipidemia, managed with rosuvastatin - Gastroesophageal reflux disease, managed with pantoprazole - Peripheral neuropathy - Vitamin D insufficiency Health Maintenance - Follow up in six months for routine monitoring. - The patient may return sooner if any issues arise. [facility] Medical History (Updated 07/25/25 @ 13:44 by Shane Cano MD) Peripheral neuropathy Obstructive sleep apnea hypopnea, mild Cough Obesity (BMI 30-39.9) Constipation Anemia Hypersomnia Snoring Falls frequently Urinary incontinence Cognitive impairment Gait disorder HTN (hypertension) Numbness and tingling in both hands Detached retina Eczema GERD (gastroesophageal reflux disease) Hyperlipidemia Abnormal liver enzymes Hematuria Insomnia Mild intermittent asthma Alaniz esophagus Surgical History History of surgery Hx of bilateral cataract extraction History of esophagogastroduodenoscopy (EGD) H/O colonoscopy History of wisdom tooth extraction Hx of tonsillectomy History of detached retina repair Family History (Updated 07/25/25 @ 11:26 by Daquan Avalos CMA) Mother Substance abuse Maternal Grandfather Substance abuse Social History (Updated 07/25/25 @ 11:26 by Daquan Avalos CMA) Household Members: Family Household Members Other:: Housing: House Alcohol intake: former Patient Tobacco Use Status: Never used Tobacco e-Cigarette/Vaping Use: Never Used service: No Current occupational status: employed 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 1. Little interest or pleasure in doing things: not at all 2. Feeling down, depressed, or hopeless: not at all 3. Trouble falling or staying asleep, or sleeping too much: nearly every day 4. Feeling tired or having little energy: several days 5. Poor appetite or overeating: not at all 6. Feeling bad about yourself - or that you are a failure or have let yourself or your family down: not at all 7. Trouble concentrating on things, such as reading the newspaper or watching television: not at all 8. Moving or speaking so slowly that other people could have noticed. Or the opposite - being so fidgety or restless that you have been moving around a lot more than usual: not at all 9. Thoughts that you would be better off or of hurting yourself in some way: not at all Total score: 4 Depression Screening Interpretation: Negative Depression Screening Done: Yes 54686 - PHQ-9 Billing: Yes Source: Developed by Drs. Wang Cha, Jenae Cunningham, Rey Alcaraz and colleagues, with an educational alessandro from [employer]. Thrive Questionnaire Date Thrive assessed: 06/27/25 I am a: Patient What is your living situation today?: I have a steady place to live Within the past 12 months, did the food you bought not last and you didn't have the money to get more?: Never true Within the past 12 months, did you worry whether your food would run out before you got money to buy more?: Never true Do you have trouble paying for medicines?: No Do you have trouble getting transportation to medical appointments?: No Do you have trouble paying your heating and electricity bill?: No Do you have trouble taking care of your child, family member or friend?: No Do you have trouble with day-to-day activities such as bathing, preparing meals, shopping, managing finances, etc.?: No Are you currently unemployed and looking for a job?: I choose not to answer this question Are you interested in more education?: Yes Please select the resources that you would like help with: None Currently or been in a relationship where the following occur: No concerns reported THRIVE Score: 0 AUDIT C Alcohol Use Questionnaire (AUDIT-C) 1. How often do you have a drink containing alcohol?: Never Total Score: 0 WINTER-7 AMB Questionnaire WINTER-7 Date WINTER - 7 assessed: 07/07/25 Feeling nervous, anxious, or on edge: 0 = Not at all Not being able to stop or control worryin = Not at all Worrying too much about different things: 0 = Not at all Trouble relaxin = Not at all Being so restless that it is hard to sit still: 0 = Not at all Becoming easily annoyed or irritable: 0 = Not at all Feeling afraid as if something awful might happen: 0 = Not at all Total WINTER-7 score (0-4 normal; 5-9 mild; 10-14 moderate; 15-21 severe): 0 Source: Developed by Drs. Wang Cha, Jenae Cunningham, Rey Alcaraz and colleagues, with an educational alessandro from [employer]. WINTER-7 Assessment Billing WINTER-7 Assessment Tool: WINTER-7 Assessment 72802 Review of Systems Narrative Review of Systems - General: Reports feeling pretty good. - Neurological: Reports neuropathy, as discussed with neurologist. 10-point ROS reviewed and negative except as noted in HPI Physical exam (Primary Care) Vital Signs: Last Vital Signs Temp 97.5 F 07/25/25 11:27 Pulse 53 07/25/25 11:27 Resp 16 07/25/25 11:27 BP 142/69 H 07/25/25 11:27 Pulse Ox 99 07/25/25 11:27 Oxygen Delivery Method Room Air 07/25/25 11:27 BMI result Body Mass Index 36.7 Tobacco/Smoking Status: Tobacco use Status Tobacco use date assessed 07/07/25 07/25/25 11:29 Patient Tobacco Use Status Never used Tobacco 07/25/25 11:29 e-Cigarette/Vaping Use Never Used 07/25/25 11:29 PHQ-9: PHQ-9 Score PHQ-9: Total score 4 07/25/25 11:29 Depression Screening Interpretation: Negative Thrive Assessment: Date of Thrive Assessment Date Thrive assessed 06/27/25 07/25/25 11:29 Currently or been in a relationship where the following occur: No concerns reported Narrative Physical Exam General: Well-appearing, in no acute distress. Vital signs: Blood pressure was high today at 142/?. Yesterday it was 100/60. Usually around 120/60. HEENT: Normocephalic, atraumatic. PERRLA, EOMI. Conjunctiva clear, sclera anicteric. Oropharynx clear, mucous membranes moist. TMs intact bilaterally. Neck: Supple, no lymphadenopathy, no thyromegaly, no JVD or carotid bruits. Cardiovascular: RRR, normal S1/S2, no murmurs, rubs, or gallops. Peripheral pulses 2+ and symmetric. No edema. Respiratory: Lungs clear to auscultation bilaterally, no wheezes, rales, or rhonchi. Normal effort. Abdomen: Soft, non-tender, non-distended. Normoactive bowel sounds. No hepatosplenomegaly, no masses. MSK: Full range of motion, no joint swelling or deformity. Normal gait. Skin: Warm, dry, intact. No rashes, lesions, or pallor. Neuro: Alert and oriented x3. Cranial nerves II-XII intact. Strength 5/5 throughout. Sensation intact. Reflexes 2+ symmetric. Normal coordination and gait. Psych: Appropriate mood and affect. Normal judgment and insight. Coding Level of Care Code Est Pt Level 3 (48055) Diagnoses HTN (hypertension) I10 Peripheral neuropathy G62.9 Anemia, unspecified type D64.9 Anemia type: unspecified type Additional Codes WINTER-7 Assessment Billing - WINTER-7 Assessment Tool: WINTER-7 Assessment 92927 ([id number]) PHQ-9 - 58114 - PHQ-9 Billing: Yes ([id number]) Assessment & Plan Assessment & Plan (1) HTN (hypertension): Code(s): I10 - Essential (primary) hypertension Category: Medical (2) Peripheral neuropathy: Code(s): G62.9 - Polyneuropathy, unspecified Category: Medical (3) Anemia: Comment: colonoscopy, complete with adequate prep-diverticulosis, internal hemorrhoids. recommendations for repeat in 5-7 years (2027) due to prior hx of unknown polyps Code(s): D64.9 - Anemia, unspecified Category: Medical Qualifiers: Anemia type: unspecified type Qualified Code(s): D64.9 - Anemia, unspecified Plan Consent No procedures requiring formal consent were performed or discussed during this visit. Patient was informed and verbally consented to the use of an ambient scribe for clinic note documentation during this visit. Plan 1. Anemia, Unspecified - The patient's red blood cell count remains low, consistent with the last two lab draws. - No active intervention was initiated at this visit. 2. Hypertension - Continue lisinopril. - The patient was provided a blood pressure log and instructed to monitor his blood pressure at home in the morning and evening, recording the best of three measurements each time. 3. Hyperlipidemia - Continue rosuvastatin 20 mg. - Recent lipid panel results are all within normal limits. 4. Peripheral Neuropathy - Initiate [id number] vitamin B12 supplementation as recommended by his neurologist to support nerve function. 5. Vitamin D Insufficiency - Initiate [id number] vitamin D 1000 units daily, as recommended by his neurologist, which is safe given his current level of 52. Discussion Notes I reviewed the patient's recent lab results, which were largely reassuring. I noted the chronically low red blood cell count, but no changes were made at this time. We discussed the safety profile of different vitamins, highlighting that B vitamins are water-soluble and excess is excreted, while fat-soluble vitamins like D can accumulate and cause symptoms if taken in excess. I agreed with the neurologist's recommendation to supplement with vitamin D 1000 units daily and vitamin B12. I explained that supplementing vitamin B12 can be beneficial for nerve health in the context of his neuropathy, and that his current vitamin D level of 52 is good, with a safe threshold for supplementation. We discussed his current medications, and I advised him to continue the rosuvastatin, lisinopril, and pantoprazole. In response to his concern about an elevated in-office blood pressure reading, I explained that blood pressure is dynamic and can fluctuate. I provided him with a blood pressure log and detailed instructions on how to properly check his readings at home to monitor for any sustained elevations. We agreed on a follow-up appointment in six months, with instructions to return sooner if any concerns arise. Patient Instructions - Continue taking your rosuvastatin, lisinopril, and pantoprazole as you have been. - Start taking a vitamin D supplement of 1000 units every day. - Start taking a vitamin B12 supplement, as your neurologist suggested for your nerve issues. - Please check your blood pressure at home in the morning and at night. - When you check your blood pressure, sit down in a chair with your back supported and feet flat on the floor. Rest your arm on a table so it is at the same level as your heart. Relax for 10-15 minutes before you start. Take the measurement three times and write down the best number in the log provided. - Please schedule a follow-up visit in about six months, but you can come in anytime if something comes up. Medical Decision Making The patient is a 65-year-old male who presented for a routine follow-up and review of labs. His laboratory results were reviewed and were largely unremarkable, with the exception of a persistently low red blood cell count, which has been documented on at least two prior occasions. His cholesterol is well-controlled on rosuvastatin 20 mg, and his HbA1c is in the non-diabetic range. Based on a recent neurology consultation, supplementation with vitamin B12 for neuropathy and vitamin D were recommended. His vitamin B12 level of 424 is within normal limits, but supplementation to target a higher range is reasonable for symptomatic neuropathy. His vitamin D level has improved to 52, and continuing with a low dose of 1000 units daily is safe and appropriate. His blood pressure was elevated in the office, but he reports lower readings at home. Given the potential for white coat hypertension, the decision was made to have him monitor his blood pressure at home using a log before considering any changes to his lisinopril. The patient will continue his current medications and follow up in six months for reassessment. Total Time Statement 20 min Total time spent caring for the patient today includes pre-visit chart review, documentation, review of laboratory and diagnostic imaging results, medication reconciliation, medically necessary evaluation, counseling on diagnoses, care coordination, ordering appropriate tests and medications, review of tests performed by other providers, reporting test results to the patient, and communication with other healthcare providers.
[2025-07-25 11:27] VITALS: BP 142/69; PULSE 53; RESP 16; TEMP 36.4; O2SAT 99; BMI 36.7
== END 2025-07-25 11:39 | disposition home or self-care (01) ==
LOC: HO.HMCFMS 11:10
PROVIDERS: PCP Family Medicine; Visit Provider Student in an Organized Health Care Education/Training Program
DX: I10 Essential (primary) hypertension (principal); G62.9 Polyneuropathy, unspecified; D64.9 Anemia, unspecified

== ENCOUNTER → 2025-07-25 11:10 | Outpatient (BNVA) | payer OTHER, SELFPAY | LOC: CF 11:48 | PROVIDERS: PCP Family Medicine; Visit Provider Student in an Organized Health Care Education/Training Program | DX: Z13.31 Encounter for screening for depression (principal) | CPT/HCPCS: 96127 ==

== ENCOUNTER 2025-08-04 11:53 | Outpatient (REF) | payer OTHER, SELFPAY | END 2025-08-04 11:54 | disposition home or self-care (01) | LOC: HO.HKASLDS 11:53 | PROVIDERS: PCP Student in an Organized Health Care Education/Training Program; Visit Provider Physician Assistant Medical | DX: G62.89 Other specified polyneuropathies (principal); R26.0 Ataxic gait | CPT/HCPCS: 36415; 84165; 84181; 84207; 84446; 85652; 86038; 86141; 86255; 86256 ==